=== PATIENT | male | born 1945 | race Caucasian/White ===

== ENCOUNTER → 2017-04-25 16:10 | Outpatient (CLI) | payer MEDICARE, OTHER, SELFPAY ==
[2017-04-25 17:22] LABS: Thyroid Stim Hormone (TSH) 2.34 uIU/mL (0.358-3.74)
== END ==
PROVIDERS: Family Provider Family Medicine Geriatric Medicine; PCP Family Medicine Geriatric Medicine; Visit Provider Family Medicine Geriatric Medicine
DX: E05.90 Thyrotoxicosis, unspecified without thyrotoxic crisis or storm (principal)
CPT/HCPCS: 36415; 84443

== ENCOUNTER → 2017-06-08 16:00 | Outpatient (CLI) | payer MEDICARE, OTHER, SELFPAY ==
[2017-06-08 16:53] LABS: Absolute Lymphocyte Count 2.41 X10^3/ul (0.83-4.51); Absolute Neutrophil Count 8.4 X10^3/uL (2.0-7.7); Basophil# 0.04 X10^3/uL; Basophil% 0.3 % (0-1); Eosinophil# 0.14 X10^3/uL; Eosinophils% 1.2 % (0-5); Hematocrit 41.9 % (40-54); Hemoglobin 14.6 g/dl (13.0-16.5); Lymphocyte # 2.41 X10^3/ul (4.0); Mean Corp Hgb Conc 34.8 g/gl (32-36); Mean Corpuscular Hgb 34.5 pg (27.0-32.0); Mean Corpuscular Volume 99.1 fL (80-94); Mean Platelet Vol. 10.2 fl (6.2-12.0); Monocyte# 0.97 X10^3/uL; Monocyte% 8.1 % (0-10); Neutrophil # 8.44 X10^3/uL (2.7-7.7); Neutrophil % 70.2 % (47-70); Platelet Count 215 K/mm3 (150-450); RBC Distribution Width CV 13.7 % (11.6-14.6); RBC Distribution Width SD 49.2 fl (35.1-43.9); Red Blood Count 4.23 M/mm3 (4.6-6.2)
[2017-06-08 16:55] LABS: POSITIVE COUNT NO; POSITIVE DIFFERENTIAL NO; POSITIVE MORPHOLOGY NO
[2017-06-08 17:09] LABS: Vitamin D,25 Hydroxy 33.7 ng/mL (29.95-100.01)
[2017-06-08 17:14] LABS: ALB/GLOB Ratio 1.2 RATIO (0.9-2.4); AST(SGOT) 26 U/L (15-37); Alanine Aminotransfer ALT/SGPT 31 U/L (16-61); Albumin, Serum 4.1 g/dL (3.2-5.0); Alkaline Phosphatase 77 U/L (45-117); Anion Gap 7 (5-15); BUN 18 mg/dL (7-18); BUN/Creat Ratio 13.5 RATIO (10-20); Chloride 98 mmol/L (98-107); Creatinine, Serum 1.33 mg/dL (0.70-1.30); EST Glomerular Filtration Rate 56 mL/min (>60); Est Glom Filt Rate - Afr Amer 68 mL/min (>60); Globulin 3.4 g/dL (2.2-4.2); Glucose 104 mg/dL (74-106); Potassium 4.4 mmol/L (3.5-5.1); Protein, Total 7.5 g/dL (6.4-8.2); Sodium Level 130 mmol/L (136-145); Thyroid Stim Hormone (TSH) 1.68 uIU/mL (0.358-3.74)
== END ==
PROVIDERS: Family Provider Family Medicine Geriatric Medicine; PCP Family Medicine Geriatric Medicine; Visit Provider Family Medicine Geriatric Medicine
DX: I10 Essential (primary) hypertension (principal); E55.9 Vitamin D deficiency, unspecified
CPT/HCPCS: 36415; 80053; 82306; 84443; 85025

== ENCOUNTER → 2017-09-06 14:36 | Outpatient (CLI) | payer MEDICARE, OTHER, SELFPAY ==
[2017-09-06 17:09] LABS: Absolute Lymphocyte Count 2.28 X10^3/ul (0.83-4.51); Absolute Neutrophil Count 5.8 X10^3/uL (2.0-7.7); Basophil# 0.03 X10^3/uL; Basophil% 0.3 % (0-1); Eosinophils% 1.1 % (0-5); Hematocrit 42.8 % (40-54); Hemoglobin 15.2 g/dl (13.0-16.5); Lymphocyte # 2.28 X10^3/ul (4.0); Lymphocyte % 25.5 % (19-41); Mean Corp Hgb Conc 35.5 g/gl (32-36); Mean Corpuscular Hgb 34.9 pg (27.0-32.0); Mean Corpuscular Volume 98.2 fL (80-94); Monocyte# 0.71 X10^3/uL; Monocyte% 7.9 % (0-10); Neutrophil # 5.81 X10^3/uL (2.7-7.7); Platelet Count 241 K/mm3 (150-450); RBC Distribution Width CV 13.4 % (11.6-14.6); RBC Distribution Width SD 48.3 fl (35.1-43.9); Red Blood Count 4.36 M/mm3 (4.6-6.2)
[2017-09-06 17:23] LABS: POSITIVE COUNT NO; POSITIVE DIFFERENTIAL NO; POSITIVE MORPHOLOGY NO
[2017-09-06 19:12] LABS: ALB/GLOB Ratio 1.2 RATIO (0.9-2.4); AST(SGOT) 31 U/L (15-37); Alanine Aminotransfer ALT/SGPT 33 U/L (16-61); Albumin, Serum 4.1 g/dL (3.2-5.0); Alkaline Phosphatase 77 U/L (45-117); Anion Gap 10 (5-15); BUN 12 mg/dL (7-18); BUN/Creat Ratio 9.8 RATIO (10-20); Calcium,Total 9.3 mg/dL (8.5-10.1); Chloride 97 mmol/L (98-107); Creatinine, Serum 1.23 mg/dL (0.70-1.30); EST Glomerular Filtration Rate 62 mL/min (>60); Est Glom Filt Rate - Afr Amer 75 mL/min (>60); Globulin 3.5 g/dL (2.2-4.2); Glucose 78 mg/dL (74-106); Protein, Total 7.6 g/dL (6.4-8.2); Sodium Level 133 mmol/L (136-145); Thyroid Stim Hormone (TSH) 1.38 uIU/mL (0.358-3.74)
[2017-09-07 08:37] LABS: Vitamin D,25 Hydroxy 31.9 ng/mL (29.95-100.01)
== END ==
PROVIDERS: Family Provider Family Medicine Geriatric Medicine; PCP Family Medicine Geriatric Medicine; Visit Provider Family Medicine Geriatric Medicine
DX: E55.9 Vitamin D deficiency, unspecified (principal); I10 Essential (primary) hypertension
CPT/HCPCS: 36415; 80053; 82306; 84443; 85025

== ENCOUNTER → 2017-12-05 14:40 | Outpatient (CLI) | payer MEDICARE, OTHER, SELFPAY ==
[2017-12-05 16:38] LABS: Absolute Neutrophil Count 8.6 X10^3/uL (2.0-7.7); Basophil# 0.04 X10^3/uL; Basophil% 0.3 % (0-1); Eosinophil# 0.08 X10^3/uL; Eosinophils% 0.7 % (0-5); Hematocrit 43.7 % (40-54); Lymphocyte % 19.1 % (19-41); Mean Corp Hgb Conc 34.3 g/gl (32-36); Mean Corpuscular Hgb 34.2 pg (27.0-32.0); Mean Corpuscular Volume 99.5 fL (80-94); Mean Platelet Vol. 9.9 fl (6.2-12.0); Monocyte# 1.01 X10^3/uL; Monocyte% 8.4 % (0-10); Neutrophil # 8.59 X10^3/uL (2.7-7.7); Neutrophil % 71.3 % (47-70); Platelet Count 286 K/mm3 (150-450); RBC Distribution Width CV 13.1 % (11.6-14.6); RBC Distribution Width SD 47.9 fl (35.1-43.9); Red Blood Count 4.39 M/mm3 (4.6-6.2); White Blood Count 12.1 K/mm3 (4.4-11.0)
[2017-12-05 16:41] LABS: Vitamin D,25 Hydroxy 32.2 ng/mL (29.95-100.01)
[2017-12-05 16:42] LABS: ALB/GLOB Ratio 1.1 RATIO (0.9-2.4); AST(SGOT) 28 U/L (15-37); Alanine Aminotransfer ALT/SGPT 33 U/L (16-61); Albumin, Serum 4.2 g/dL (3.2-5.0); Alkaline Phosphatase 102 U/L (45-117); Anion Gap 12 (5-15); BUN 14 mg/dL (7-18); BUN/Creat Ratio 9.5 RATIO (10-20); Calcium,Total 9.6 mg/dL (8.5-10.1); Chloride 94 mmol/L (98-107); Creatinine, Serum 1.47 mg/dL (0.70-1.30); EST Glomerular Filtration Rate 50 mL/min (>60); Est Glom Filt Rate - Afr Amer 61 mL/min (>60); Globulin 3.9 g/dL (2.2-4.2); Glucose 127 mg/dL (74-106); Protein, Total 8.1 g/dL (6.4-8.2); Sodium Level 131 mmol/L (136-145); Thyroid Stim Hormone (TSH) 1.99 uIU/mL (0.358-3.74)
[2017-12-05 17:23] LABS: POSITIVE COUNT NO; POSITIVE DIFFERENTIAL NO; POSITIVE MORPHOLOGY NO
== END ==
PROVIDERS: Family Provider Family Medicine Geriatric Medicine; PCP Family Medicine Geriatric Medicine; Visit Provider Family Medicine Geriatric Medicine
DX: E55.9 Vitamin D deficiency, unspecified (principal); I10 Essential (primary) hypertension
CPT/HCPCS: 36415; 80053; 82306; 84443; 85025

== ENCOUNTER → 2018-06-07 15:07 | Outpatient (CLI) | payer MEDICARE, OTHER, SELFPAY ==
[2018-06-07 16:44] LABS: Absolute Lymphocyte Count 2.25 X10^3/ul (0.83-4.51); Absolute Neutrophil Count 5.7 X10^3/uL (2.0-7.7); Basophil# 0.03 X10^3/uL; Basophil% 0.3 % (0-1); Eosinophil# 0.08 X10^3/uL; Eosinophils% 0.9 % (0-5); Hematocrit 41.2 % (40-54); Hemoglobin 14.6 g/dl (13.0-16.5); Lymphocyte # 2.25 X10^3/ul (4.0); Lymphocyte % 25.3 % (19-41); Mean Corp Hgb Conc 35.4 g/gl (32-36); Mean Corpuscular Hgb 34.6 pg (27.0-32.0); Mean Corpuscular Volume 97.6 fL (80-94); Monocyte# 0.82 X10^3/uL; Monocyte% 9.2 % (0-10); Neutrophil # 5.71 X10^3/uL (2.7-7.7); Neutrophil % 64.1 % (47-70); Platelet Count 261 K/mm3 (150-450); RBC Distribution Width SD 46.5 fl (35.1-43.9); Red Blood Count 4.22 M/mm3 (4.6-6.2); White Blood Count 8.9 K/mm3 (4.4-11.0)
[2018-06-07 16:45] LABS: POSITIVE COUNT NO; POSITIVE DIFFERENTIAL NO; POSITIVE MORPHOLOGY NO
[2018-06-07 17:01] LABS: Vitamin D,25 Hydroxy 19.4 ng/mL (29.95-100.01)
[2018-06-07 17:15] LABS: ALB/GLOB Ratio 1.2 RATIO (0.9-2.4); AST(SGOT) 29 U/L (15-37); Alanine Aminotransfer ALT/SGPT 28 U/L (16-61); Alkaline Phosphatase 71 U/L (45-117); Anion Gap 9 (5-15); BUN 14 mg/dL (7-18); BUN/Creat Ratio 10.8 RATIO (10-20); Calcium,Total 9.3 mg/dL (8.5-10.1); Chloride 97 mmol/L (98-107); EST Glomerular Filtration Rate 58 mL/min (>60); Est Glom Filt Rate - Afr Amer 70 mL/min (>60); Globulin 3.2 g/dL (2.2-4.2); Glucose 98 mg/dL (74-106); Potassium 3.6 mmol/L (3.5-5.1); Protein, Total 7.2 g/dL (6.4-8.2); Sodium Level 132 mmol/L (136-145); Thyroid Stim Hormone (TSH) 0.89 uIU/mL (0.358-3.74)
== END ==
PROVIDERS: Family Provider Family Medicine Geriatric Medicine; PCP Family Medicine Geriatric Medicine; Visit Provider Family Medicine Geriatric Medicine
DX: I10 Essential (primary) hypertension (principal); E55.9 Vitamin D deficiency, unspecified
CPT/HCPCS: 36415; 80053; 82306; 84443; 85025

== ENCOUNTER → 2018-12-13 14:31 | Outpatient (CLI) | payer MEDICARE, OTHER, SELFPAY ==
[2018-12-13 17:20] LABS: Absolute Lymphocyte Count 2.13 X10^3/uL (0.83-4.51); Absolute Neutrophil Count 5.3 X10^3/uL (2.0-7.7); Basophil# 0.06 X10^3/uL; Basophil% 0.7 % (0-1); Eosinophil# 0.14 X10^3/uL; Eosinophils% 1.7 % (0-5); Hematocrit 43.1 % (40-54); Hemoglobin 15.1 g/dL (13.0-16.5); Lymphocyte # 2.13 X10^3/ul (4.0); Lymphocyte % 25.4 % (19-41); Mean Corpuscular Hgb 35.1 pg (27.0-32.0); Mean Corpuscular Volume 100.2 fL (80-94); Mean Platelet Vol. 9.8 fl (6.2-12.0); Monocyte# 0.73 X10^3/uL; Monocyte% 8.7 % (0-10); NRBC Flagged by Analyzer 0 % (0-5); Neutrophil # 5.27 X10^3/uL (2.7-7.7); Platelet Count 253 K/mm3 (150-450); RBC Distribution Width CV 13.1 % (11.6-14.6); RBC Distribution Width SD 48.3 fl (35.1-43.9); White Blood Count 8.4 K/mm3 (4.4-11.0)
[2018-12-13 17:45] LABS: Vitamin D,25 Hydroxy 31.4 ng/mL (29.95-100.01)
[2018-12-13 17:47] LABS: ALB/GLOB Ratio 1.2 RATIO (0.9-2.4); AST(SGOT) 25 U/L (15-37); Alanine Aminotransfer ALT/SGPT 31 U/L (16-61); Albumin, Serum 4.1 g/dL (3.2-5.0); Alkaline Phosphatase 74 U/L (45-117); Anion Gap 9 (5-15); BUN 19 mg/dL (7-18); BUN/Creat Ratio 13.7 RATIO (10-20); Calcium,Total 9.4 mg/dL (8.5-10.1); Chloride 99 mmol/L (98-107); Creatinine, Serum 1.39 mg/dL (0.70-1.30); EST Glomerular Filtration Rate 53 mL/min (>60); Est Glom Filt Rate - Afr Amer 65 mL/min (>60); Globulin 3.4 g/dL (2.2-4.2); Glucose 101 mg/dL (74-106); Potassium 3.8 mmol/L (3.5-5.1); Protein, Total 7.5 g/dL (6.4-8.2); Sodium Level 133 mmol/L (136-145); Thyroid Stim Hormone (TSH) 1.16 uIU/mL (0.358-3.74)
== END ==
PROVIDERS: Family Provider Family Medicine Geriatric Medicine; PCP Family Medicine Geriatric Medicine; Visit Provider Family Medicine Geriatric Medicine
DX: I10 Essential (primary) hypertension (principal); E55.9 Vitamin D deficiency, unspecified
CPT/HCPCS: 36415; 80053; 82306; 84443; 85025

== ENCOUNTER → 2019-06-13 14:35 | Outpatient (CLI) | payer MEDICARE, OTHER, SELFPAY ==
[2019-06-13 14:51] LABS: Absolute Lymphocyte Count 2.36 X10^3/uL (0.83-4.51); Absolute Neutrophil Count 7.7 X10^3/uL (2.0-7.7); Basophil# 0.09 X10^3/uL; Basophil% 0.8 % (0-1); Eosinophil# 0.13 X10^3/uL; Eosinophils% 1.2 % (0-5); Hematocrit 44.9 % (40-54); Hemoglobin 15.5 g/dL (13.0-16.5); Lymphocyte # 2.36 X10^3/ul (4.0); Lymphocyte % 21.2 % (19-41); Mean Corp Hgb Conc 34.5 g/dL (32-36); Mean Corpuscular Hgb 34.6 pg (27.0-32.0); Mean Corpuscular Volume 100.2 fL (80-94); Monocyte# 0.85 X10^3/uL; Monocyte% 7.6 % (0-10); NRBC Flagged by Analyzer 0 % (0-5); Neutrophil # 7.66 X10^3/uL (2.7-7.7); Neutrophil % 68.8 % (47-70); Platelet Count 239 K/mm3 (150-450); RBC Distribution Width CV 13.6 % (11.6-14.6); RBC Distribution Width SD 50.3 fl (35.1-43.9); Red Blood Count 4.48 M/mm3 (4.6-6.2); White Blood Count 11.1 K/mm3 (4.4-11.0)
[2019-06-13 15:21] LABS: Vitamin D,25 Hydroxy 39.4 ng/mL
[2019-06-13 15:27] LABS: ALB/GLOB Ratio 1.2 RATIO (0.9-2.4); AST(SGOT) 27 U/L (15-37); Alanine Aminotransfer ALT/SGPT 29 U/L (16-61); Albumin, Serum 4.3 g/dL (3.2-5.0); Alkaline Phosphatase 72 U/L (45-117); Anion Gap 4 (5-15); BUN 17 mg/dL (7-18); BUN/Creat Ratio 11.2 RATIO (10-20); Calcium,Total 9.5 mg/dL (8.5-10.1); Chloride 102 mmol/L (98-107); Creatinine, Serum 1.52 mg/dL (0.70-1.30); EST Glomerular Filtration Rate 48 mL/min (>60); Est Glom Filt Rate - Afr Amer 58 mL/min (>60); Globulin 3.7 g/dL (2.2-4.2); Glucose 110 mg/dL (74-106); Potassium 3.9 mmol/L (3.5-5.1); Sodium Level 133 mmol/L (136-145); Thyroid Stim Hormone (TSH) 1.79 uIU/mL (0.358-3.74)
== END ==
PROVIDERS: PCP Family Medicine Geriatric Medicine; Referring Provider Family Medicine Geriatric Medicine; Visit Provider Family Medicine Geriatric Medicine
DX: E55.9 Vitamin D deficiency, unspecified (principal); I10 Essential (primary) hypertension
CPT/HCPCS: 36415; 80053; 82306; 84443; 85025

== ENCOUNTER → 2019-12-17 13:19 | Outpatient (CLI) | payer MEDICARE, OTHER, SELFPAY ==
[2019-12-17 17:01] LABS: Absolute Lymphocyte Count 2.11 X10^3/uL (0.83-4.51); Absolute Neutrophil Count 6.8 X10^3/uL (2.0-7.7); Basophil# 0.06 X10^3/uL; Basophil% 0.6 % (0-1); Eosinophil# 0.06 X10^3/uL; Eosinophils% 0.6 % (0-5); Hematocrit 45.3 % (40-54); Hemoglobin 15.3 g/dL (13.0-16.5); Lymphocyte # 2.11 X10^3/ul (4.0); Lymphocyte % 21.2 % (19-41); Mean Corp Hgb Conc 33.8 g/dL (32-36); Mean Corpuscular Hgb 34.5 pg (27.0-32.0); Mean Corpuscular Volume 102.3 fL (80-94); Monocyte# 0.88 X10^3/uL; Monocyte% 8.8 % (0-10); NRBC Flagged by Analyzer 0 % (0-5); Neutrophil % 68.4 % (47-70); Platelet Count 279 K/mm3 (150-450); RBC Distribution Width CV 13.6 % (11.6-14.6); RBC Distribution Width SD 51.9 fl (35.1-43.9); Red Blood Count 4.43 M/mm3 (4.6-6.2)
[2019-12-17 17:12] LABS: Vitamin D,25 Hydroxy 28.6 ng/mL
[2019-12-17 17:32] LABS: ALB/GLOB Ratio 1.2 RATIO (0.9-2.4); AST(SGOT) 31 U/L (15-37); Alanine Aminotransfer ALT/SGPT 33 U/L (16-61); Albumin, Serum 4.4 g/dL (3.2-5.0); Alkaline Phosphatase 74 U/L (45-117); Anion Gap 10 (5-15); BUN 16 mg/dL (7-18); BUN/Creat Ratio 10.4 RATIO (10-20); Calcium,Total 9.5 mg/dL (8.5-10.1); Chloride 101 mmol/L (98-107); Creatinine, Serum 1.54 mg/dL (0.70-1.30); EST Glomerular Filtration Rate 47 mL/min (>60); Est Glom Filt Rate - Afr Amer 57 mL/min (>60); Globulin 3.8 g/dL (2.2-4.2); Glucose 106 mg/dL (74-106); Potassium 4.2 mmol/L (3.5-5.1); Protein, Total 8.2 g/dL (6.4-8.2); Sodium Level 134 mmol/L (136-145); Thyroid Stim Hormone (TSH) 2.27 uIU/mL (0.358-3.74)
== END ==
PROVIDERS: PCP Family Medicine Geriatric Medicine; Visit Provider Family Medicine Geriatric Medicine
DX: I10 Essential (primary) hypertension (principal); E55.9 Vitamin D deficiency, unspecified
CPT/HCPCS: 36415; 80053; 82306; 84443; 85025

== ENCOUNTER → 2020-06-16 15:11 | Outpatient (CLI) | payer MEDICARE, OTHER, SELFPAY ==
[2020-06-16 16:43] LABS: Absolute Lymphocyte Count 2.14 X10^3/uL (0.83-4.51); Absolute Neutrophil Count 5.5 X10^3/uL (2.0-7.7); Basophil# 0.08 X10^3/uL; Basophil% 0.9 % (0-1); Eosinophil# 0.15 X10^3/uL; Eosinophils% 1.7 % (0-5); Hematocrit 42.3 % (40-54); Hemoglobin 14.3 g/dL (13.0-16.5); Lymphocyte # 2.14 X10^3/ul (0.83-4.51); Lymphocyte % 24.8 % (19-41); Mean Corp Hgb Conc 33.8 g/dL (32-36); Mean Corpuscular Hgb 33.7 pg (27.0-32.0); Mean Corpuscular Volume 99.8 fL (80-94); Mean Platelet Vol. 10.8 fl (6.2-12.0); Monocyte% 8.1 % (0-10); NRBC Flagged by Analyzer 0 % (0-5); Neutrophil # 5.54 X10^3/uL (2.7-7.7); Neutrophil % 64.2 % (47-70); Platelet Count 236 K/mm3 (150-450); RBC Distribution Width CV 13.5 % (11.6-14.6); RBC Distribution Width SD 49.4 fl (35.1-43.9); Red Blood Count 4.24 M/mm3 (4.6-6.2); White Blood Count 8.6 K/mm3 (4.4-11.0)
[2020-06-16 16:49] LABS: Vitamin D,25 Hydroxy 28.5 ng/mL
[2020-06-16 16:55] LABS: ALB/GLOB Ratio 1.2 RATIO (0.9-2.4); AST(SGOT) 32 U/L (15-37); Alanine Aminotransfer ALT/SGPT 30 U/L (16-61); Alkaline Phosphatase 76 U/L (45-117); Anion Gap 7 (5-15); BUN 19 mg/dL (7-18); BUN/Creat Ratio 12.5 RATIO (10-20); Calcium,Total 9.2 mg/dL (8.5-10.1); Chloride 103 mmol/L (98-107); Creatinine, Serum 1.52 mg/dL (0.70-1.30); EST Glomerular Filtration Rate 48 mL/min (>60); Est Glom Filt Rate - Afr Amer 58 mL/min (>60); Globulin 3.4 g/dL (2.2-4.2); Glucose 98 mg/dL (74-106); Potassium 3.9 mmol/L (3.5-5.1); Protein, Total 7.4 g/dL (6.4-8.2); Sodium Level 137 mmol/L (136-145); Thyroid Stim Hormone (TSH) 1.84 uIU/mL (0.358-3.74)
== END ==
PROVIDERS: PCP Family Medicine Geriatric Medicine; Visit Provider Family Medicine Geriatric Medicine
DX: I10 Essential (primary) hypertension (principal); E55.9 Vitamin D deficiency, unspecified
CPT/HCPCS: 36415; 80053; 82306; 84443; 85025

== ENCOUNTER → 2020-10-06 16:25 | Outpatient (CLI) | payer MEDICARE, OTHER, SELFPAY ==
[2020-10-06 17:20] LABS: Anion Gap 5 (5-15); BUN 26 mg/dL (7-18); BUN/Creat Ratio 16.9 RATIO (10-20); Calcium,Total 9.1 mg/dL (8.5-10.1); Chloride 101 mmol/L (98-107); Creatinine, Serum 1.54 mg/dL (0.70-1.30); EST Glomerular Filtration Rate 47 mL/min (>60); Est Glom Filt Rate - Afr Amer 57 mL/min (>60); Glucose 113 mg/dL (74-106); Potassium 4.6 mmol/L (3.5-5.1); Sodium Level 130 mmol/L (136-145)
== END ==
PROVIDERS: PCP Family Medicine Geriatric Medicine; Visit Provider Family Medicine Geriatric Medicine
DX: I10 Essential (primary) hypertension (principal)
CPT/HCPCS: 36415; 80048

== ENCOUNTER → 2020-12-17 13:54 | Outpatient (CLI) | payer MEDICARE, OTHER, SELFPAY ==
[2020-12-17 14:18] LABS: Absolute Lymphocyte Count 1.79 X10^3/uL (0.83-4.51); Absolute Neutrophil Count 7.9 X10^3/uL (2.0-7.7); Basophil# 0.06 X10^3/uL; Basophil% 0.6 % (0-1); Eosinophil# 0.15 X10^3/uL; Eosinophils% 1.4 % (0-5); Hemoglobin 14.4 g/dL (13.0-16.5); Lymphocyte # 1.79 X10^3/ul (0.83-4.51); Lymphocyte % 16.5 % (19-41); Mean Corp Hgb Conc 35.1 g/dL (32-36); Mean Corpuscular Volume 99.5 fL (80-94); Mean Platelet Vol. 9.6 fl (6.2-12.0); Monocyte# 0.89 X10^3/uL; Monocyte% 8.2 % (0-10); NRBC Flagged by Analyzer 0 % (0-5); Neutrophil # 7.91 X10^3/uL (2.7-7.7); Neutrophil % 72.8 % (47-70); Platelet Count 278 K/mm3 (150-450); RBC Distribution Width CV 13.6 % (11.6-14.6); RBC Distribution Width SD 49.9 fl (35.1-43.9); Red Blood Count 4.12 M/mm3 (4.6-6.2); White Blood Count 10.9 K/mm3 (4.4-11.0)
[2020-12-17 14:43] LABS: Vitamin D,25 Hydroxy 32.8 ng/mL
[2020-12-17 14:50] LABS: ALB/GLOB Ratio 1.1 RATIO (0.9-2.4); AST(SGOT) 27 U/L (15-37); Alanine Aminotransfer ALT/SGPT 27 U/L (16-61); Alkaline Phosphatase 73 U/L (45-117); Anion Gap 7 (5-15); BUN 19 mg/dL (7-18); Calcium,Total 9.1 mg/dL (8.5-10.1); Chloride 102 mmol/L (98-107); Creatinine, Serum 1.72 mg/dL (0.70-1.30); EST Glomerular Filtration Rate 41 mL/min (>60); Est Glom Filt Rate - Afr Amer 50 mL/min (>60); Globulin 3.8 g/dL (2.2-4.2); Glucose 154 mg/dL (74-106); Potassium 3.5 mmol/L (3.5-5.1); Protein, Total 7.8 g/dL (6.4-8.2); Sodium Level 134 mmol/L (136-145); Thyroid Stim Hormone (TSH) 2.22 uIU/mL (0.358-3.74)
== END ==
PROVIDERS: PCP Family Medicine Geriatric Medicine; Visit Provider Family Medicine Geriatric Medicine
DX: E55.9 Vitamin D deficiency, unspecified (principal); I10 Essential (primary) hypertension
CPT/HCPCS: 36415; 80053; 82306; 84443; 85025

== ENCOUNTER → 2020-12-25 06:16 | Outpatient (CLI) | payer MEDICARE, OTHER, SELFPAY ==
--- NOTE | 2020-12-25 06:22 | ECHOCS_ITS ---
Reason For Study: ABN EKG Procedure This was a 2D Doppler, Color Flow transthoracic echocardiogram. The study was technically difficult. Contrast injection was performed. Exam performed in department. Left Ventricle Normal LV size. Left ventricular systolic function is normal. The estimated ejection fraction is 65 %. No evidence for diastolic dysfunction. No regional wall motion abnormalities noted. Right Ventricle Normal RV size. Normal systolic function. Atria Normal left atrium. Normal right atrium. No doppler evidence for ASD. Mitral Valve There is no mitral annular calcification. Normal mitral valve. Mild (1+) mitral valve insufficiency. Tricuspid Valve Normal tricuspid valve. Trivial tricuspid valve insufficiency. Right ventricular systolic pressure estimated to be 28 mmHg. Aortic Valve Trisinus/trileaflet aortic valve. Mild diffuse aortic valve thickening. Mild diffuse aortic valve calcification. Moderate focal aortic valve calcification. Trivial aortic valve insufficiency. Pulmonic Valve The pulmonic valve is not well visualized. Trivial pulmonic valve insufficiency. Great Vessels Mildly dilated aortic root. Pericardium/Pleural No pericardial effusion. Medication 22 gauge I.V. with prn adaptor inserted into right arm. Diluted definity 2.0ml given slow IV push to enhance endocardial definition. MMode/2D Measurements & Calculations LVIDd: 4.1 cm IVSd: 0.89 cm LVOT diam: 2.0 cm LVIDs: 2.6 cm LVPWd: 0.86 cm RVDd: 3.8 cm FS: 35.2 % LVOT area: 3.2 cm2 Ao root diam: 4.0 cm LAV(MOD-bp): 41.4 ml LVAd ap4: 29.4 cm2 LAV(MOD-bp) Indexed: 20.6 ml/m2 LVLd ap4: 8.6 cm LAV(MOD-sp2): 41.8 ml EDV(MOD-sp4): 83.9 ml LAV(MOD-sp4): 39.3 ml EDV(sp4-el): 85.8 ml LVAs ap4: 17.3 cm2 LVLs ap4: 7.1 cm ESV(MOD-sp4): 35.8 ml ESV(sp4-el): 35.7 ml EF(MOD-sp4): 57.4 % EF(sp4-el): 58.4 % LVAd ap2: 26.7 cm2 SV(MOD-sp4): 48.1 ml SV(MOD-sp2): 45.1 ml LVLd ap2: 7.8 cm EDV(MOD-sp2): 74.5 ml EDV(sp2-el): 77.7 ml LVAs ap2: 15.3 cm2 LVLs ap2: 6.7 cm ESV(MOD-sp2): 29.4 ml ESV(sp2-el): 30.0 ml EF(MOD-sp2): 60.6 % SV(sp4-el): 50.1 ml LA dimension(2D): 3.7 cm LA A4 area: 15.9 cm2 RA A4 area: 15.5 cm2 Doppler Measurements & Calculations MV E max kamlesh: 61.8 cm/sec Lat Peak E' Kamlesh: 9.6 cm/sec Med Peak E' Kamlesh: 6.2 cm/sec MV A max kamlesh: 44.5 cm/sec E/E' lat: 6.4 E/E' med: 10.0 MV E/A: 1.4 Ao V2 max: 121.6 cm/sec AI max kamlesh: 414.5 cm/sec LV V1 max: 102.4 cm/sec Ao max P.9 mmHg AI max P.7 mmHg LV V1 max P.2 mmHg GLADYS(V,D): 2.7 cm2 AI dec slope: 279.8 cm/sec2 AI P1/2t: 433.9 msec TR max kamlesh: 248.0 cm/sec TR max P.6 mmHg ECHO/Echo Complete W/ Contrast Interpretation Summary The study was technically difficult. Contrast injection was performed. Left ventricular systolic function is normal. The estimated ejection fraction is 65 %. Mild (1+) mitral valve insufficiency. Trivial tricuspid valve insufficiency. Mild diffuse aortic valve thickening. Mild diffuse aortic valve calcification. Moderate focal aortic valve calcification. Trivial aortic valve insufficiency. Trivial pulmonic valve insufficiency. Mildly dilated aortic root. Right ventricular systolic pressure estimated to be 28 mmHg. No evidence for diastolic dysfunction. Ordering Physician: Juan M, Deng Referring Physician: Deng Mcgowan Chi Performed By: Carrol Suero, RDCS, RVT
--- NOTE | 2020-12-25 10:01 | STRESSREP ---
Stress Test Report Date: 12-25-2020 Procedure: Exercise tolerance test/imaging study Indications: Abnormal electrocardiogram Consent: Per the patient Procedure: The patient exercised on a Dinh protocol for 3 minutes and 8 seconds completing Stage I and 8 seconds of Stage II achieving a peak heart rate of 126 bpm (86% predicted maximal heart rate) with a peak blood pressure 180/84 mmHg and a peak MET capacity of 4 METs. The baseline ECG demonstrated sinus bradycardia; low voltage QRS; anterior [place] of indeterminate age cannot be excluded. The peak exercise ECG demonstrated somatic/motion artifact with no obvious ECG changes. There was a rare PVC during exercise and a rare PAC/PVC during recovery. The functional capacity was considered decreased. There was no complaint of chest discomfort during exercise or recovery. The examination was discontinued secondary to dyspnea and fatigue. Impression: 1. Technically adequate (percent predicted maximal heart rate greater than 85%) exercise tolerance test 2. Peak exercise ECG with somatic/motion artifact with no obvious ECG changes 3. There was a rare PVC during exercise and a rare PAC/PVC during recovery 4. Nuclear images pending Myocardial perfusion imaging study: Technique: The patient was injected with 11.9 mCi of technetium 99m Cardiolite and subsequently rest SPECT Cardiolite nuclear imaging was obtained in the horizontal long, vertical long, and short axis views. The patient exercised on a Dinh protocol for 3 minutes and 8 seconds completing Stage I and 8 seconds of Stage II achieving a peak heart rate of 126 bpm (86% predicted maximal heart rate) with a peak blood pressure 180/84 mmHg and a peak MET capacity of 4 METs. The patient was injected with 33.6 mCi of technetium 99m Cardiolite and subsequently stress SPECT Cardiolite nuclear imaging was obtained in the horizontal long, vertical long, and short axis views. A gated Cardiolite study at peak stress was obtained. Interpretation: Rest and stress SPECT Cardiolite nuclear imaging status post realignment, normalization, and attenuation correction, demonstrates the appearance of significant body motion during image acquisition and the appearance of a small area diminished tracer uptake in the distal inferoseptal/septal apical segments which appears to be somewhat more prominent following stress. There is end systolic thickening and brightening. The gated Cardiolite study demonstrates myocardial thickening and inward wall motion. The reported LVEF is 68%. Impression: 1. Rest and stress SPECT Cardiolite nuclear imaging demonstrate the appearance of significant body motion during image acquisition and the appearance of a small area of diminished tracer uptake in the distal anteroseptal/septal apical segments which appears to be somewhat more prominent following stress which, based upon the significant body motion during image acquisition, may be related to shifting soft tissue attenuation/artifact, however, an area of previous myocardial injury/infarction with associated mild taina-infarct related myocardial ischemia cannot necessarily be excluded. 2. The gated Cardiolite study reports an LVEF of 68%. This note was generated with Smart [employer]ation software. It may contain incorrect words, spelling, and punctuation that were not noted in checking the note before signing.
== END ==
PROVIDERS: PCP Family Medicine Geriatric Medicine; Referring Provider Family Medicine Geriatric Medicine; Visit Provider Family Medicine Geriatric Medicine
DX: R94.31 Abnormal electrocardiogram [ECG] [EKG] (principal)
CPT/HCPCS: 78452; 93017; 93306; A9500; Q9957; A4216; C8929; J3490

== ENCOUNTER → 2021-06-17 | Outpatient (CLI) | payer MEDICARE, OTHER, SELFPAY ==
[2021-06-17 15:46] LABS: Absolute Lymphocyte Count 1.33 X10^3/uL (0.83-4.51); Absolute Neutrophil Count 7.1 X10^3/uL (2.0-7.7); Basophil# 0.08 X10^3/uL; Basophil% 0.8 % (0-1); Eosinophil# 0.27 X10^3/uL; Eosinophils% 2.8 % (0-5); Hematocrit 38.1 % (40-54); Hemoglobin 13.5 g/dL (13.0-16.5); Lymphocyte # 1.33 X10^3/ul (0.83-4.51); Mean Corp Hgb Conc 35.4 g/dL (32-36); Mean Corpuscular Hgb 34.3 pg (27.0-32.0); Mean Corpuscular Volume 96.7 fL (80-94); Mean Platelet Vol. 10.1 fl (6.2-12.0); Monocyte% 7.4 % (0-10); NRBC Flagged by Analyzer 0 % (0-5); Neutrophil # 7.06 X10^3/uL (2.7-7.7); Neutrophil % 74.5 % (47-70); Platelet Count 235 K/mm3 (150-450); RBC Distribution Width CV 13.6 % (11.6-14.6); RBC Distribution Width SD 48.8 fl (35.1-43.9); Red Blood Count 3.94 M/mm3 (4.6-6.2); White Blood Count 9.5 K/mm3 (4.4-11.0)
[2021-06-17 16:06] LABS: ALB/GLOB Ratio 1.2 RATIO (0.9-2.4); AST(SGOT) 29 U/L (15-37); Alanine Aminotransfer ALT/SGPT 30 U/L (16-61); Alkaline Phosphatase 59 U/L (45-117); Anion Gap 7 (5-15); BUN 16 mg/dL (7-18); Chloride 100 mmol/L (98-107); Creatinine, Serum 1.45 mg/dL (0.70-1.30); EST Glomerular Filtration Rate 50 mL/min (>60); Est Glom Filt Rate - Afr Amer 61 mL/min (>60); Globulin 3.3 g/dL (2.2-4.2); Glucose 138 mg/dL (74-106); Protein, Total 7.3 g/dL (6.4-8.2); Sodium Level 132 mmol/L (136-145)
[2021-06-17 16:10] LABS: Vitamin D,25 Hydroxy 33.2 ng/mL
== END | disposition home or self-care (01) ==
LOC: POLAB3 15:08
PROVIDERS: PCP Family Medicine Geriatric Medicine; Visit Provider Family Medicine Geriatric Medicine
DX: I10 Essential (primary) hypertension (principal); E55.9 Vitamin D deficiency, unspecified
CPT/HCPCS: 36415; 80053; 82306; 84443; 85025

== ENCOUNTER → 2021-07-31 | Outpatient (CLI) | payer MEDICARE, OTHER, SELFPAY ==
--- NOTE | 2021-07-31 11:33 | US_ITS ---
STUDY: RENAL ULTRASOUND - COMPLETE REASON FOR EXAM: Male, 76 years old. CHRONIC KIDNEY DISEASE TECHNIQUE: Ultrasound evaluation of the kidneys was performed with real-time and static aguilar-scale imaging. COMPARISON: None. FINDINGS: RIGHT KIDNEY: Normal location of the right kidney, which is normal in size. The right kidney measures 10 cm x 4.9 cm x 4.4 cm. There is a normal cortex of the right kidney. The renal cortex measures 1.1 cm. There is no right renal mass or cyst. There are no right renal calculi. There is no right hydronephrosis. DISTAL RIGHT URETER: There is non-visualization of the distal right ureter. There is no demonstrated right ureterovesical junction calculus. There is a visualized right ureteral jet. LEFT KIDNEY: Normal location of the left kidney, which is normal in size. The left kidney measures 10.7 cm x 5.6 cm x 5.8 cm. There is a normal cortex of the left kidney. The renal cortex measures 1.7 cm. There is no left renal mass or cyst. Nonobstructive intrarenal calculus measuring 8 mm x 10 mm x 8 mm. There is no left hydronephrosis. DISTAL LEFT URETER: There is non-visualization of the distal left ureter. There is no demonstrated left ureterovesical junction calculus. There is a visualized left ureteral jet. BLADDER: The distended urinary bladder has a volume of 133 ml. Incidental note is made of a bladder diverticulum along the posterior right side of the bladder. There is a normal wall thickness of the distended urinary bladder. There is no demonstrated mass within the urinary bladder. There are no demonstrated bladder calculi. US/Kidney and Bladder IMPRESSION: Nonobstructive left intrarenal calculus. 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 Electronically Signed: Lico Lerner MD at 13:00 EDT ,
== END | disposition home or self-care (01) ==
LOC: US 11:31
PROVIDERS: PCP Family Medicine Geriatric Medicine; Referring Provider Internal Medicine Nephrology; Visit Provider Internal Medicine Nephrology
DX: N18.31 Chronic kidney disease, stage 3a (principal)
CPT/HCPCS: 76770

== ENCOUNTER → 2021-10-21 | Outpatient (CLI) | payer MEDICARE, OTHER, SELFPAY ==
[2021-10-21 16:25] LABS: Albumin, Serum 4.1 g/dL (3.2-5.0); BUN 19 mg/dL (7-18); BUN/Creat Ratio 13.7 RATIO (10-20); Calcium,Total 9.6 mg/dL (8.5-10.1); Chloride 100 mmol/L (98-107); Creatinine, Serum 1.39 mg/dL (0.70-1.30); EST Glomerular Filtration Rate 53 mL/min (>60); Est Glom Filt Rate - Afr Amer 64 mL/min (>60); Glucose 121 mg/dL (74-106); Phosphorus 2.8 mg/dL (2.5-4.9); Potassium 4.2 mmol/L (3.5-5.1); Sodium Level 132 mmol/L (136-145)
== END | disposition home or self-care (01) ==
LOC: POLAB3 14:35
PROVIDERS: PCP Family Medicine Geriatric Medicine; Visit Provider Internal Medicine Nephrology
DX: N18.31 Chronic kidney disease, stage 3a (principal)
CPT/HCPCS: 36415; 80069

== ENCOUNTER → 2021-12-21 | Outpatient (CLI) | payer MEDICARE, OTHER, SELFPAY ==
[2021-12-21 17:57] LABS: Absolute Neutrophil Count 6.9 X10^3/uL (2.0-7.7); Basophil# 0.05 X10^3/uL; Basophil% 0.5 % (0-1); Eosinophil# 0.13 X10^3/uL; Eosinophils% 1.3 % (0-5); Hemoglobin 14.8 g/dL (13.0-16.5); Lymphocyte % 16.5 % (19-41); Mean Corp Hgb Conc 35.2 g/dL (32-36); Mean Corpuscular Hgb 34.4 pg (27.0-32.0); Mean Corpuscular Volume 97.7 fL (80-94); Mean Platelet Vol. 10.4 fl (6.2-12.0); Monocyte% 10.3 % (0-10); NRBC Flagged by Analyzer 0 % (0-5); Neutrophil # 6.91 X10^3/uL (2.7-7.7); Neutrophil % 71.1 % (47-70); Platelet Count 258 K/mm3 (150-450); RBC Distribution Width CV 13.5 % (11.6-14.6); RBC Distribution Width SD 48.8 fl (35.1-43.9); White Blood Count 9.7 K/mm3 (4.4-11.0)
[2021-12-21 18:03] LABS: Vitamin D,25 Hydroxy 40.5 ng/mL
[2021-12-21 18:15] LABS: ALB/GLOB Ratio 1.1 RATIO (0.9-2.4); AST(SGOT) 30 U/L (15-37); Alanine Aminotransfer ALT/SGPT 28 U/L (16-61); Albumin, Serum 4.2 g/dL (3.2-5.0); Alkaline Phosphatase 73 U/L (45-117); Anion Gap 9 (5-15); BUN 17 mg/dL (7-18); BUN/Creat Ratio 11.3 RATIO (10-20); Calcium,Total 9.6 mg/dL (8.5-10.1); Chloride 97 mmol/L (98-107); Creatinine, Serum 1.51 mg/dL (0.70-1.30); EST Glomerular Filtration Rate 48 mL/min (>60); Est Glom Filt Rate - Afr Amer 58 mL/min (>60); Globulin 3.7 g/dL (2.2-4.2); Glucose 105 mg/dL (74-106); Potassium 3.8 mmol/L (3.5-5.1); Protein, Total 7.9 g/dL (6.4-8.2); Sodium Level 131 mmol/L (136-145); Thyroid Stim Hormone (TSH) 3.04 uIU/mL (0.358-3.74)
== END | disposition home or self-care (01) ==
LOC: POLAB3 15:14
PROVIDERS: PCP Family Medicine Geriatric Medicine; Visit Provider Family Medicine Geriatric Medicine
DX: E55.9 Vitamin D deficiency, unspecified (principal); I10 Essential (primary) hypertension
CPT/HCPCS: 36415; 80053; 82306; 84443; 85025

== ENCOUNTER → 2022-06-09 | Outpatient (CLI) | payer MEDICARE, OTHER, SELFPAY ==
[2022-06-09 16:31] LABS: BUN 21 mg/dL (7-18); BUN/Creat Ratio 14.4 RATIO (10-20); Calcium,Total 9.2 mg/dL (8.5-10.1); Chloride 101 mmol/L (98-107); Creatinine, Serum 1.46 mg/dL (0.70-1.30); EST Glomerular Filtration Rate 50 mL/min (>60); Est Glom Filt Rate - Afr Amer 60 mL/min (>60); Glucose 116 mg/dL (74-106); Phosphorus 2.7 mg/dL (2.5-4.9); Sodium Level 129 mmol/L (136-145)
== END | disposition home or self-care (01) ==
LOC: POLAB3 14:47
PROVIDERS: PCP Family Medicine Geriatric Medicine; Visit Provider Internal Medicine Nephrology
DX: N18.31 Chronic kidney disease, stage 3a (principal)
CPT/HCPCS: 36415; 80069

== ENCOUNTER → 2022-06-14 | Outpatient (CLI) | payer MEDICARE, OTHER, SELFPAY ==
[2022-06-14 16:53] LABS: Absolute Lymphocyte Count 1.39 X10^3/uL (0.83-4.51); Basophil# 0.07 X10^3/uL; Basophil% 0.9 % (0-1); Eosinophil# 0.26 X10^3/uL; Eosinophils% 3.5 % (0-5); Hematocrit 41.4 % (40-54); Hemoglobin 14.4 g/dL (13.0-16.5); Lymphocyte # 1.39 X10^3/ul (0.83-4.51); Lymphocyte % 18.5 % (19-41); Mean Corp Hgb Conc 34.8 g/dL (32-36); Mean Corpuscular Volume 100.7 fL (80-94); Mean Platelet Vol. 10.2 fl (6.2-12.0); Monocyte# 0.74 X10^3/uL; Monocyte% 9.9 % (0-10); NRBC Flagged by Analyzer 0 % (0-5); Neutrophil # 5.02 X10^3/uL (2.7-7.7); Neutrophil % 66.9 % (47-70); Platelet Count 244 K/mm3 (150-450); RBC Distribution Width CV 13.9 % (11.6-14.6); RBC Distribution Width SD 51.9 fl (35.1-43.9); Red Blood Count 4.11 M/mm3 (4.6-6.2); White Blood Count 7.5 K/mm3 (4.4-11.0)
[2022-06-14 17:09] LABS: Vitamin D,25 Hydroxy 46.4 ng/mL
[2022-06-14 17:16] LABS: ALB/GLOB Ratio 1.2 RATIO (0.9-2.4); AST(SGOT) 31 U/L (15-37); Alanine Aminotransfer ALT/SGPT 30 U/L (16-61); Albumin, Serum 4.1 g/dL (3.2-5.0); Alkaline Phosphatase 65 U/L (45-117); Anion Gap 7 (5-15); BUN 21 mg/dL (7-18); BUN/Creat Ratio 14.6 RATIO (10-20); Calcium,Total 9.8 mg/dL (8.5-10.1); Chloride 102 mmol/L (98-107); Creatinine, Serum 1.44 mg/dL (0.70-1.30); EST Glomerular Filtration Rate 51 mL/min (>60); Est Glom Filt Rate - Afr Amer 61 mL/min (>60); Globulin 3.5 g/dL (2.2-4.2); Glucose 127 mg/dL (74-106); Protein, Total 7.6 g/dL (6.4-8.2); Sodium Level 135 mmol/L (136-145); Thyroid Stim Hormone (TSH) 3.08 uIU/mL (0.358-3.74)
== END | disposition home or self-care (01) ==
LOC: POLAB3 14:50
PROVIDERS: PCP Family Medicine Geriatric Medicine; Visit Provider Family Medicine Geriatric Medicine
DX: E55.9 Vitamin D deficiency, unspecified (principal); I10 Essential (primary) hypertension
CPT/HCPCS: 36415; 80053; 82306; 84443; 85025

== ENCOUNTER → 2022-12-23 | Outpatient (CLI) | payer MEDICARE, OTHER, SELFPAY ==
[2022-12-23 18:25] LABS: Albumin, Serum 4.4 g/dL (3.2-5.0); BUN 17 mg/dL (7-18); BUN/Creat Ratio 13.9 RATIO (10-20); Calcium,Total 9.7 mg/dL (8.5-10.1); Chloride 92 mmol/L (98-107); Creatinine, Serum 1.22 mg/dL (0.70-1.30); EST Glomerular Filtration Rate 61 mL/min (>60); Est Glom Filt Rate - Afr Amer 74 mL/min (>60); Glucose 116 mg/dL (74-106); Phosphorus 2.4 mg/dL (2.5-4.9); Sodium Level 123 mmol/L (136-145)
== END | disposition home or self-care (01) ==
LOC: POLAB3 16:03
PROVIDERS: PCP Family Medicine Geriatric Medicine; Visit Provider Internal Medicine Nephrology
DX: N18.31 Chronic kidney disease, stage 3a (principal)
CPT/HCPCS: 36415; 80069

== ENCOUNTER → 2022-12-29 | Outpatient (CLI) | payer MEDICARE, OTHER, SELFPAY ==
[2022-12-29 14:35] LABS: Absolute Lymphocyte Count 1.43 X10^3/uL (0.83-4.51); Absolute Neutrophil Count 5.2 X10^3/uL (2.0-7.7); Basophil# 0.06 X10^3/uL; Basophil% 0.8 % (0-1); Eosinophil# 0.07 X10^3/uL; Eosinophils% 0.9 % (0-5); Hemoglobin 14.3 g/dL (13.0-16.5); Lymphocyte # 1.43 X10^3/ul (0.83-4.51); Lymphocyte % 18.8 % (19-41); Mean Corp Hgb Conc 34.9 g/dL (32-36); Mean Corpuscular Hgb 34.7 pg (27.0-32.0); Mean Corpuscular Volume 99.5 fL (80-94); Mean Platelet Vol. 9.4 fl (6.2-12.0); Monocyte# 0.79 X10^3/uL; Monocyte% 10.4 % (0-10); NRBC Flagged by Analyzer 0 % (0-5); Neutrophil % 68.4 % (47-70); Platelet Count 259 K/mm3 (150-450); RBC Distribution Width CV 13.7 % (11.6-14.6); Red Blood Count 4.12 M/mm3 (4.6-6.2); White Blood Count 7.6 K/mm3 (4.4-11.0)
[2022-12-29 14:35] LABS: Urine Sodium 124 mmol/L (Not Establ.)
[2022-12-29 14:42] LABS: Osmolality, Urine 568 mOsm/KG
[2022-12-29 14:47] LABS: Vitamin D,25 Hydroxy 38.8 ng/mL
[2022-12-29 14:56] LABS: ALB/GLOB Ratio 1.1 RATIO (0.9-2.4); AST(SGOT) 28 U/L (15-37); Alanine Aminotransfer ALT/SGPT 28 U/L (16-61); Albumin, Serum 3.9 g/dL (3.2-5.0); Alkaline Phosphatase 65 U/L (45-117); Anion Gap 7 (5-15); BUN 21 mg/dL (7-18); BUN/Creat Ratio 16.8 RATIO (10-20); Calcium,Total 9.5 mg/dL (8.5-10.1); Chloride 101 mmol/L (98-107); Creatinine, Serum 1.25 mg/dL (0.70-1.30); EST Glomerular Filtration Rate 60 mL/min (>60); Est Glom Filt Rate - Afr Amer 72 mL/min (>60); Globulin 3.6 g/dL (2.2-4.2); Glucose 90 mg/dL (74-106); Potassium 3.7 mmol/L (3.5-5.1); Protein, Total 7.5 g/dL (6.4-8.2); Sodium Level 133 mmol/L (136-145); Thyroid Stim Hormone (TSH) 1.56 uIU/mL (0.358-3.74)
== END | disposition home or self-care (01) ==
LOC: POLAB3 13:11
PROVIDERS: PCP Family Medicine Geriatric Medicine; Visit Provider Family Medicine Geriatric Medicine
DX: I10 Essential (primary) hypertension (principal); E55.9 Vitamin D deficiency, unspecified; E87.1 Hypo-osmolality and hyponatremia
CPT/HCPCS: 36415; 80053; 82306; 83935; 84300; 84443; 85025

== ENCOUNTER → 2023-06-30 | Outpatient (CLI) | payer MEDICARE, OTHER, SELFPAY ==
[2023-06-30 16:32] LABS: Absolute Lymphocyte Count 1.47 X10^3/uL (0.83-4.51); Absolute Neutrophil Count 5.1 X10^3/uL (2.0-7.7); Basophil# 0.08 X10^3/uL; Basophil% 1.1 % (0-1); Eosinophil# 0.24 X10^3/uL; Eosinophils% 3.2 % (0-5); Hematocrit 41.7 % (40-54); Hemoglobin 14.4 g/dL (13.0-16.5); Lymphocyte # 1.47 X10^3/ul (0.83-4.51); Lymphocyte % 19.5 % (19-41); Mean Corp Hgb Conc 34.5 g/dL (32-36); Mean Corpuscular Hgb 35.4 pg (27.0-32.0); Mean Corpuscular Volume 102.5 fL (80-94); Mean Platelet Vol. 10.7 fl (6.2-12.0); Monocyte# 0.65 X10^3/uL; Monocyte% 8.6 % (0-10); NRBC Flagged by Analyzer 0 % (0-5); Neutrophil # 5.05 X10^3/uL (2.7-7.7); Neutrophil % 67.2 % (47-70); Platelet Count 239 K/mm3 (150-450); RBC Distribution Width CV 13.9 % (11.6-14.6); Red Blood Count 4.07 M/mm3 (4.6-6.2); White Blood Count 7.5 K/mm3 (4.4-11.0)
[2023-06-30 17:15] LABS: ALB/GLOB Ratio 1.1 RATIO (0.9-2.4); AST(SGOT) 30 U/L (15-37); Alanine Aminotransfer ALT/SGPT 25 U/L (16-61); Albumin, Serum 3.8 g/dL (3.2-5.0); Alkaline Phosphatase 66 U/L (45-117); Anion Gap 4 (5-15); BUN 14 mg/dL (7-18); BUN/Creat Ratio 10.4 RATIO (10-20); Calcium,Total 9.6 mg/dL (8.5-10.1); Chloride 107 mmol/L (98-107); Creatinine, Serum 1.34 mg/dL (0.70-1.30); EST Glomerular Filtration Rate 55 mL/min (>60); Est Glom Filt Rate - Afr Amer 66 mL/min (>60); Globulin 3.4 g/dL (2.2-4.2); Glucose 107 mg/dL (74-106); Protein, Total 7.2 g/dL (6.4-8.2); Sodium Level 136 mmol/L (136-145); Thyroid Stim Hormone (TSH) 2.82 uIU/mL (0.358-3.74)
[2023-06-30 17:22] LABS: Vitamin D,25 Hydroxy 36.1 ng/mL
== END | disposition home or self-care (01) ==
LOC: LAB 15:10
PROVIDERS: PCP Family Medicine Geriatric Medicine; Referring Provider Family Medicine Geriatric Medicine; Visit Provider Family Medicine Geriatric Medicine
DX: I10 Essential (primary) hypertension (principal); E55.9 Vitamin D deficiency, unspecified
CPT/HCPCS: 36415; 80053; 82306; 84443; 85025

== ENCOUNTER → 2024-01-05 | Outpatient (CLI) | payer MEDICARE, OTHER, SELFPAY ==
[2024-01-05 13:20] LABS: Absolute Lymphocyte Count 1.37 X10^3/uL (0.83-4.51); Absolute Neutrophil Count 7.3 X10^3/uL (2.0-7.7); Basophil# 0.09 X10^3/uL; Basophil% 0.9 % (0-1); Eosinophil# 0.09 X10^3/uL; Eosinophils% 0.9 % (0-5); Hematocrit 42.8 % (40-54); Hemoglobin 14.7 g/dL (13.0-16.5); Lymphocyte # 1.37 X10^3/ul (0.83-4.51); Lymphocyte % 13.9 % (19-41); Mean Corp Hgb Conc 34.3 g/dL (32-36); Mean Corpuscular Volume 101.9 fL (80-94); Mean Platelet Vol. 10.5 fl (6.2-12.0); Monocyte# 0.91 X10^3/uL; Monocyte% 9.2 % (0-10); NRBC Flagged by Analyzer 0 % (0-5); Neutrophil # 7.34 X10^3/uL (2.7-7.7); Neutrophil % 74.7 % (47-70); Platelet Count 249 K/mm3 (150-450); RBC Distribution Width CV 14.6 % (11.6-14.6); White Blood Count 9.8 K/mm3 (4.4-11.0)
[2024-01-05 13:54] LABS: ALB/GLOB Ratio 1.1 RATIO (0.9-2.4); AST(SGOT) 28 U/L (15-37); Alanine Aminotransfer ALT/SGPT 19 U/L (16-61); Alkaline Phosphatase 79 U/L (45-117); Anion Gap 6 (5-15); BUN 19 mg/dL (7-18); BUN/Creat Ratio 11.2 RATIO (10-20); Calcium,Total 9.2 mg/dL (8.5-10.1); Chloride 111 mmol/L (98-107); Creatinine, Serum 1.69 mg/dL (0.70-1.30); EST Glomerular Filtration Rate 42 mL/min (>60); Est Glom Filt Rate - Afr Amer 51 mL/min (>60); Globulin 3.7 g/dL (2.2-4.2); Glucose 123 mg/dL (74-106); Potassium 4.5 mmol/L (3.5-5.1); Protein, Total 7.7 g/dL (6.4-8.2); Sodium Level 138 mmol/L (136-145)
[2024-01-05 13:56] LABS: Vitamin D,25 Hydroxy 22.5 ng/mL
== END | disposition home or self-care (01) ==
LOC: POLAB3 13:04
PROVIDERS: PCP Family Medicine Geriatric Medicine; Visit Provider Family Medicine Geriatric Medicine
DX: R73.9 Hyperglycemia, unspecified (principal); I10 Essential (primary) hypertension; E55.9 Vitamin D deficiency, unspecified
CPT/HCPCS: 36415; 80053; 82306; 83036; 84443; 85025

== ENCOUNTER 2024-01-24 10:15 | Inpatient (IN) | payer MEDICARE, OTHER, SELFPAY ==
[2024-01-24] VITALS (32 sets, daily range): BP systolic 94–193; BP diastolic 59–163; PULSE 56–114; RESP 16–36; TEMP 35.1–37; O2SAT 89–99; BMI 27.8; BMI 24.4
--- NOTE | 2024-01-24 10:21 | EKG12_ITS ---
Test Reason : SOB Blood Pressure : */* mmHG Vent. Rate : 117 BPM Atrial Rate : 117 BPM P-R Int : 156 ms QRS Dur : 112 ms QT Int : 324 ms P-R-T Axes : 69 25 15 degrees QTcB Int : 451 ms Sinus tachycardia with Premature atrial complexes Low voltage QRS Inferior infarct Cannot rule out Anteroseptal infarct , age undetermined Abnormal ECG Confirmed by SALINAS SPEAR, MIKAELA ([id number]), newspaper photo editor DIONNE SHARMA ([id number]) on 01/25/2024 12:40:29 PM Referred By: Confirmed By: MIKAELA NIÑO MD
[2024-01-24] MEDS: Rocuronium Bromide 50 MG/5 ML Vial 75 MG IV (10:31)
[2024-01-24] MEDS: Etomidate 20 MG/10 ML Vial IV (10:31)
[2024-01-24 10:32] LABS: Absolute Lymphocyte Count 1.29 X10^3/uL (0.83-4.51); Absolute Neutrophil Count 9.4 X10^3/uL (2.0-7.7); Basophil# 0.06 X10^3/uL; Basophil% 0.5 % (0-1); Hematocrit 47.6 % (40-54); Hemoglobin 15.8 g/dL (13.0-16.5); Lymphocyte # 1.29 X10^3/ul (0.83-4.51); Lymphocyte % 10.7 % (19-41); Mean Corp Hgb Conc 33.2 g/dL (32-36); Mean Corpuscular Hgb 35.6 pg (27.0-32.0); Mean Corpuscular Volume 107.2 fL (80-94); Mean Platelet Vol. 10.8 fl (6.2-12.0); Monocyte# 1.23 X10^3/uL; Monocyte% 10.2 % (0-10); NRBC Flagged by Analyzer 0 % (0-5); Neutrophil # 9.43 X10^3/uL (2.7-7.7); Neutrophil % 77.9 % (47-70); Platelet Count 216 K/mm3 (150-450); RBC Distribution Width CV 14.8 % (11.6-14.6); RBC Distribution Width SD 59.3 fl (35.1-43.9); Red Blood Count 4.44 M/mm3 (4.6-6.2); White Blood Count 12.1 K/mm3 (4.4-11.0)
--- NOTE | 2024-01-24 10:43 | EDS_ITS ---
HPI History of Present Illness Chief Complaint: Shortness of Breath Detail of Chief Complaint: Abrupt onset of shortness of breath per EMS Informant: EMS Onset/Context/Timing Onset: Today (Early this morning per EMS) Context: Sudden Onset Timing: Continuous Quality: Difficulty breathing, pulse ox 70% on room air per paramedics Location: Cardiorespiratory Current Severity: Severe Maximum Severity: Severe Worsened by: Unknown Relieved by: Unknown Associated Symptoms Associated Symptoms: other (Unknown) Length of loss of consciousness: Patient with depressed level of consciousness Narrative Narrative: Patient is a 78-year-old male. He has a history of hypertension and chronic kidney disease. Initially he would open his eyes to his name and attempt to answer questions. Quick evaluation was undertaken. Within 5 minutes patient became less responsive. Pulse ox decreased to 85%. He was on CPAP with O2 at 12 L. Paramedics stated he did not complain of chest pain. His only complaint was shortness of breath. No other history is available. Recent Illness/Hospitalization: No PFSH PFSH Home Medications ?Medication ?Instructions ?Recorded ?Last Taken ?Type multivitamin (Daily Multiple 1 ea PO DAILY 11/20/16 11/19/16 History tablet) lisinopril 40 mg tablet 40 mg PO DAILY #30 tabs 11/21/16 Unknown Rx Allergy/AdvReac Type Severity Reaction Status Date / Time strawberry AdvReac Itching Verified 01/24/24 10:54 Social History Smoking Status: Light Smoker (<10/day) ROS ROS ED Review of Systems ROS Unobtainable: due to mental status and other Details: Respiratory failure with decreased level of consciousness EXAM Physical Exam Const Vital Signs: 01/24/24 10:17 01/24/24 10:28 01/24/24 10:32 Temperature 98.4 F Temperature Source Temporal Pulse Rate 110 H Respiratory Rate 28 H Respiratory Effort Short of Breath Labored Mechanically Ventilated Respiratory Depth Deep Respiratory Pattern Hyperpnea Blood Pressure 193/163 H Blood Pressure Mean 173 Pulse Ox 92 Oxygen Delivery Method Bi-pap Oxygen Flow Rate (L/min) 12 Fraction of Inspired Oxygen (FIO2) 01/24/24 10:40 01/24/24 10:41 01/24/24 10:43 Temperature 98.6 F Temperature Source Temporal Pulse Rate 109 H Respiratory Rate 28 H Respiratory Effort Respiratory Depth Respiratory Pattern Blood Pressure 190/114 H Blood Pressure Mean 139 Pulse Ox 98 98 Oxygen Delivery Method Mechanical Ventilator Mechanical Ventilator Oxygen Flow Rate (L/min) Fraction of Inspired Oxygen (FIO2) 70 70 70 01/24/24 10:50 01/24/24 10:54 01/24/24 11:16 Temperature 97 F L 98.5 F Temperature Source Core Core Pulse Rate 114 H 106 H Respiratory Rate 18 17 Respiratory Effort Short of Breath Labored Mechanically Ventilated Respiratory Depth Deep Respiratory Pattern Hyperpnea Blood Pressure 185/111 H Blood Pressure Mean 135 Pulse Ox 96 93 Oxygen Delivery Method Mechanical Ventilator Mechanical Ventilator Mechanical Ventilator Oxygen Flow Rate (L/min) Fraction of Inspired Oxygen (FIO2) 50 50 01/24/24 11:25 Temperature 98.4 F Temperature Source Core Pulse Rate 102 H Respiratory Rate 18 Respiratory Effort Respiratory Depth Respiratory Pattern Blood Pressure 177/94 H Blood Pressure Mean 121 Pulse Ox 93 Oxygen Delivery Method Mechanical Ventilator Oxygen Flow Rate (L/min) Fraction of Inspired Oxygen (FIO2) Positive well nourished and well developed Constitutional Narrative: Patient obvious respiratory distress. He has paradoxical breathing. He is diaphoretic. Question of central cyanosis. General Appearance ED: well developed HEENT normocephalic, atraumatic and cyanosis of lips/distal nose Eyes PERRL and EOMs intact bilaterally General Eye ED: Negative for pale conjunctiva or scleral icterus Neck full ROM, no lymphadenopathy and supple Neck Narrative: There is JVD but patient is at 60 degrees. Resp Resp Narrative: Paradoxical breathing. There is also use of management consultant muscles and retractions. Patient has crackles at the bases. There is diminished air movement. There is no inspiratory expiratory wheezing. Cardio regular rhythm, S1 normal heart sound, S2 normal heart sound and no murmurs Rate: tachycardic GI non-tender, non-distended and no masses Palpation: soft Extremity Extremity Narrative: Patient has edema of both lower extremities. The edema is pitting in nature. Neuro No oriented x3 Neuro Narrative: Neuroexam is limited. GCS is 9. 3 points for eye response, 2 points for verbal and 4 points for motor. Sensorium / Orientation: Negative for alert Speech: Negative for speech normal Gait (Neuro): Negative for normal gait Psych Psych Narrative: Unable to determine Skin Skin Narrative: Patient is diaphoretic with central cyanosis. Sepsis Attestation Sepsis Alert: Yes Sepsis Attestation: Agree w/Sepsis Date exam was performed: 01/24/24 Time exam was performed: 11:15 Possible Source of Sepsis: Pulmonary Sepsis Organ Dysfunction Criteria Present: Lactic Acid > 2 mmol/L, PaO2/FiO2 ratio < 300 and New/Unexplained change in mental status Fluid Resuscitation Fluid resuscitation indicated?: Yes Fluid Resuscitation ordered: Lesser volume fluid bolus ordered Amount of fluid ordered: 2,000 Reason for lesser fluid bolus:: Concern for fluid overload MDM MDM MDM Narrative Medical decision making narrative: Since patient deteriorated shortly after arrival and prior to VBG results he was prepped for orotracheal ovation. Patient received 20 mg etomidate followed by 75 mg of proximal Hira M. Patient was orotracheal intubated using glide scope first attempt with a 7.5 Danish endotracheal tube. Tube is 27 cm at the gum. Patient has white frothy material noted in the endotracheal tube which raises material noted in the endotracheal tube which ranges question for pulmonary edema. This may be due to cardiac ischemia versus worsening of his chronic kidney failure versus hypertensive emergency. OG was placed by nursing staff. Hernandez was placed for nursing staff for accurate I's and O's. If chest x-ray confirms pulmonary edema will place on nitroglycerin for preload and afterload reduction. Lab Data Attestation: I reviewed the patient's lab results. Lab results narrative: White count is elevated 12.1. There is a slight shift. There is no evidence of anemia. MCV and MCH are elevated. Comprehensive metabolic panel reveals a creatinine of 1.54 with an estimated GFR 47. Lactate elevated 4.8. AST, ALT and alkaline phosphatase are elevated. Total bili is normal. Glucose is low at 66. Labs: Laboratory Results - last 24 hr 01/24/24 01/24/24 10:24 10:50 WBC 12.1 H RBC 4.44 L Hgb 15.8 Hct 47.6 MCV 107.2 H MCH 35.6 H MCHC 33.2 RDW Std Deviation 59.3 H RDW Coeff of Jesus 14.8 H Plt Count 216 MPV 10.8 Immature Gran % (Auto) 0.700 Neut % (Auto) 77.9 H Lymph % (Auto) 10.7 L Union % (Auto) 10.2 H Eos % (Auto) 0.0 Baso % (Auto) 0.5 Absolute Neuts (auto) 9.4 H Absolute Lymphs (auto) 1.29 Nucleated RBC % 0 Sodium 137 Potassium 4.6 Chloride 109 H Carbon Dioxide 15.0 L Anion Gap 13 BUN 18 Creatinine 1.54 H Estim Creat Clear Calc 46.24 Est GFR (MDRD) Af Amer 57 L Est GFR (MDRD) Non-Af 47 L BUN/Creatinine Ratio 11.7 Glucose 66 L Lactic Acid 4.8 H* Calcium 9.4 Total Bilirubin 1.00 AST 247 H ALT 133 H Alkaline Phosphatase 119 H Total Creatine Kinase 181 Troponin I High Sens 64 Total Protein 8.3 H Albumin 4.2 Globulin 4.1 Albumin/Globulin Ratio 1.0 Triglycerides 155 Radiography Chest X-Ray - ED: 1 View (Film was slightly rotated. There is evidence of an infiltrate right lower lobe possibly right middle lobe. Cardiac size is normal. Hilum is unremarkable. Osseous trucks unremarkable. Endotracheal tube is in proper position.) and Read by ED Physician (Single view KUB was obtained for NG placement. NG is in proper position. This was entirely reviewed interpreted by me at 1117.) EKG Initial EKG: Attestation: I personally reviewed and interpreted this EKG as follows: Interpretation: Sinus Tachycardia (Rate is 117. There are premature atrial complexes noted. There is significant amount of artifact due to his respiratory difficulty. AK interval is under 56 ms per cures durations 112 ms. There is possibly [address] depression in lateral leads. Again there is significant artifact. There is decreased a) Management Discussion w/another healthcare provider: Hospitalist (Hospitalist was paged for admission to ICU. Dr. Mcpherson was made aware of patient's history physical and treatment.) Procedures Intubations Intubation Method: orotracheal Intubation Verification: Positive color change Intubation Complications: no complications Critical Care Time Critical Care Time: Yes Critical care time (excluding procedures): 30-74 minutes (32), Including time spent: (History, physical, review of prior records, independent rotation laboratory results, imaging and treatment for sepsis.), Discussing w/Consultants, Arranging Admission or Transfer and Performing Direct Patient Care at Bedside Discharge Plan Dx/Rx/DC Orders Clinical Impression: Acute hypoxemic respiratory failure, Accelerated hypertension, CKD (chronic kidney disease), Severe sepsis with acute organ dysfunction Disposition Disposition: [facility]
[2024-01-24] MEDS: Propofol 10MG/Ml 1,000 MG/100 ML Bottle 5.4 MG CONT INF (10:50)
--- NOTE | 2024-01-24 11:00 | RAD_ITS ---
STUDY: X-RAY - ABDOMEN/PELVIS REASON FOR EXAM: Male, 78 years old. NG Insertion TECHNIQUE: Single AP view of the abdomen / pelvis. COMPARISON: None. FINDINGS: The tip of the nasogastric tube is in the proximal body portion of the stomach just distal to the gastroesophageal junction. RAD/Abdomen Single View (Portable) IMPRESSION: The tip of the nasogastric tube is in the proximal portion of the body of stomach just distal to the gastroesophageal junction. Electronically Signed: Lico Lerner MD at 11:58 EST ,
--- NOTE | 2024-01-24 11:00 | RAD_ITS ---
STUDY: X-RAY CHEST REASON FOR EXAM: Male, 78 years old. Intubation TECHNIQUE: Single AP portable view of the chest. COMPARISON: None. FINDINGS: The tip of the endotracheal tube is at 4 cm proximal to the manpreet. A nasogastric tube is seen with tip below the left hemidiaphragm. Degenerative vascular congestion in the CHF with right basilar atelectasis and/or pneumonia. There is no demonstrated pleural abnormality. Normal size heart. Normal mediastinum and kiley. Normal visualized pulmonary arteries. There is atherosclerotic calcification of the aortic arch with tortuosity. There are diffuse degenerative changes of the visualized thoracic spine. Normal visualized ribs, clavicles, and shoulders. There is no demonstrated abnormality of the visualized soft tissue structures of the upper abdomen. RAD/Chest 1 View (Portable) IMPRESSION: An endotracheal tube is seen with the tip at 4 sinus proximal to the manpreet. A nasogastric tube is seen with the tip below the left hemidiaphragm. Vascular congestion and CHF with superimposed atelectasis and/or infiltrate at the right lung base. Electronically Signed: Lico Lerner MD at 11:59 EST ,
[2024-01-24 11:01] LABS: AST(SGOT) 247 U/L (15-37); Alanine Aminotransfer ALT/SGPT 133 U/L (16-61); Albumin, Serum 4.2 g/dL (3.2-5.0); Alkaline Phosphatase 119 U/L (45-117); Anion Gap 13 (5-15); BUN 18 mg/dL (7-18); BUN/Creat Ratio 11.7 RATIO (10-20); Calcium,Total 9.4 mg/dL (8.5-10.1); Chloride 109 mmol/L (98-107); Creatinine, Serum 1.54 mg/dL (0.70-1.30); EST Glomerular Filtration Rate 47 mL/min (>60); Est Glom Filt Rate - Afr Amer 57 mL/min (>60); Estimated Creatinine Clearance 46.24 ml/min; Globulin 4.1 g/dL (2.2-4.2); Glucose 66 mg/dL (74-106); Potassium 4.6 mmol/L (3.5-5.1); Protein, Total 8.3 g/dL (6.4-8.2); Sodium Level 137 mmol/L (136-145); Troponin-I HS (w/2H Reflex) 64 pg/mL (3.0-78.0)
[2024-01-24 11:12] LABS: Lactic Acid 4.8 mmol/L (0.4-1.9)
[2024-01-24] MEDS: 0.9% Normal Saline (1000mL) 1,000 ML 999 ML IV ×2 (11:15→12:02)
--- NOTE | 2024-01-24 11:20 | ED.RN ---
Addendum entered by Kelsi Klein 01/24/24 12:20: Attempted to redirect and calm patient, redirect unsuccessful Original Note: Patient moving head, hands and feet attempting to pull lines. Soft restraints placed at this time
[2024-01-24] MEDS: Ceftriaxone 2 GM in 0.9% Normal Saline (50mL MB+) 50 ML IV (11:28)
[2024-01-24 11:30] LABS: CPK Total, Creatine Kinase 181 U/L (39-308); Triglycerides 155 mg/dL
--- NOTE | 2024-01-24 11:32 | HP.PCM.HOS_ITS ---
HPI - General General Date of Admission: 01/24/24 Date of Service: 01/24/24 Chief Complaint: SOB HPI Narrative ERMA CALLAWAY, is a 78 M who presented to the emergency department at [facility] after calling the squad when he woke up acutely short of breath. Patient was not able to provide any history upon it presentation in the emergency department and required emergent intubation. Per EMS report he evidently woke up feeling short of breath and then worsened to the point where he became less responsive. Pulse ox on EMS arrival was 85% on room air. He did not complain of chest pain per promotion manager report and only complained of shortness of breath. No other history is available at this time. Vital signs on presentation showed a temperature of 98.4, heart rate 110, blood pressure was 193/163 with a repeat after intubation of 177/94. Respiratory was 28, pulse ox was 92% on BiPAP of 12 and then patient was intubated for mental status. CBC shows a white count of 12.1 with a left shift having a 77.9% neutrophilia. ABGs showed a pH of 7.1 with a pCO2 of 50.8 and a pO2 of 92 after he was placed on mechanical ventilation. Chemistry panel shows normal electrolytes however his bicarb was notably low at 15. Serum creatinine was 1.54 without baseline being known. Lactic acid was elevated at 4.8. AST was 247 and ALT was 133. CPK was normal. BNP was markedly elevated at 1140.5. Initial troponin was 64. Chest x-ray showed endotracheal tube at 4 cm proximal to the manpreet and vascular congestion consistent with CHF versus infiltrate. COVID-19 was positive in the emergency department. Patient was started on antibiotics to cover community-acquired pneumonia and blood cultures were obtained. Given mechanical intubation patient was accepted for admission to the intensive care unit. [facility] Medical History Tobacco abuse Hypertension CKD (chronic kidney disease) Epistaxis Home Medications ?Medication ?Instructions ?Recorded ?Last Taken ?Type albuterol sulfate 90 mcg/actuation 2 puff inhalation Q4H PRN asthma 01/24/24 Unknown History aerosol inhaler amlodipine 5 mg tablet 5 mg PO DAILY cardiac 01/24/24 Unknown History levothyroxine 75 mcg tablet 75 mcg PO DAILY thyroid 01/24/24 Unknown History valsartan 320 mg tablet 320 mg PO DAILY cardiac 01/24/24 Unknown History Allergy/AdvReac Type Severity Reaction Status Date / Time strawberry AdvReac Itching Verified 01/24/24 10:54 unable to obtain unable to obtain Social History Smoking Status: Light Smoker (<10/day) ROS Review of Systems ROS Unobtainable: due to endotracheal tube and due to mental status Vital Signs Vital Signs Vital Signs: 01/24/24 10:17 01/24/24 10:28 01/24/24 10:32 Temperature 98.4 F Temperature Source Temporal Pulse Rate 110 H Respiratory Rate 28 H Respiratory Effort Short of Breath Labored Mechanically Ventilated Respiratory Depth Deep Respiratory Pattern Hyperpnea Blood Pressure 193/163 H Blood Pressure Mean 173 Pulse Ox 92 Oxygen Delivery Method Bi-pap Oxygen Flow Rate (L/min) 12 Fraction of Inspired Oxygen (FIO2) 01/24/24 10:40 01/24/24 10:41 01/24/24 10:43 Temperature 98.6 F Temperature Source Temporal Pulse Rate 109 H Respiratory Rate 28 H Respiratory Effort Respiratory Depth Respiratory Pattern Blood Pressure 190/114 H Blood Pressure Mean 139 Pulse Ox 98 98 Oxygen Delivery Method Mechanical Ventilator Mechanical Ventilator Oxygen Flow Rate (L/min) Fraction of Inspired Oxygen (FIO2) 70 70 70 01/24/24 10:50 01/24/24 10:54 01/24/24 11:16 Temperature 97 F L 98.5 F Temperature Source Core Core Pulse Rate 114 H 106 H Respiratory Rate 18 17 Respiratory Effort Short of Breath Labored Mechanically Ventilated Respiratory Depth Deep Respiratory Pattern Hyperpnea Blood Pressure 185/111 H Blood Pressure Mean 135 Pulse Ox 96 93 Oxygen Delivery Method Mechanical Ventilator Mechanical Ventilator Mechanical Ventilator Oxygen Flow Rate (L/min) Fraction of Inspired Oxygen (FIO2) 50 50 Weight Weight: 90.52 kg Body Mass Index (BMI) 27.8 Physical Exam Const no apparent distress and average body habitus Constitutional Narrative: Older, white male, lying in bed in the emergency department, on mechanical ventilation and sedated, currently does not rouse to any stimuli, appears unhealthy at baseline with no apparent distress currently HEENT normocephalic and head/scalp atraumatic HEENT Narrative: ET tube and OG in place, mucous membranes appear moist Eyes Eyes Narrative: Pupils are currently not reactive however patient has been paralyzed for intubation, no scleral icterus is noted and conjunctiva are normal bilaterally Neck no lymphadenopathy and supple Neck Narrative: Trachea midline, no thyroid enlargement, neck veins are distended Resp No normal respiratory effort, no retractions and no use of accessory muscles Resp Narrative: Crackles throughout the right lung and in the distal left lung base, appears comfortable currently on mechanical ventilation, scattered wheezes present Auscultation: crackles and wheezes; Negative for rhonchi Cardio regular rate, regular rhythm, S1 normal heart sound, S2 normal heart sound, no murmurs, no rub, no gallops and no clicks GI normal to inspection, nondistended, normoactive bowel sounds, soft to palpation and non-tender Extremity Extremity Narrative: Patient with 2+ bilateral lower extremity pitting edema from the feet up to the proximal lower leg just below the knee, patient does have nicotine stain on his left index finger, no clubbing or cyanosis was noted Skin skin turgor normal, no jaundice, no petechiae and no mottling Neuro Neuro Narrative: Limited exam due to intubation and sedation with recent paralytic given Psych Psych Narrative: Unable to assess Results Lab / Micro Data 01/24/24 10:24 01/24/24 10:24 Labs: Laboratory Results - last 24 hr 01/24/24 10:24: WBC 12.1 H, RBC 4.44 L, Hgb 15.8, Hct 47.6, MCV 107.2 H, MCH 35.6 H, MCHC 33.2, RDW Std Deviation 59.3 H, RDW Coeff of Jesus 14.8 H, Plt Count 216, MPV 10.8, Immature Gran % (Auto) 0.700, Neut % (Auto) 77.9 H, Lymph % (Auto) 10.7 L, Josephine % (Auto) 10.2 H, Eos % (Auto) 0.0, Baso % (Auto) 0.5, A bsolute Neuts (auto) 9.4 H, Absolute Lymphs (auto) 1.29, Nucleated RBC % 0, Sodium 137, Potassium 4.6, Chloride 109 H, Carbon Dioxide 15.0 L, Anion Gap 13, BUN 18, Creatinine 1.54 H, Estim Creat Clear Calc 46.24, Est GFR (MDRD) Af Amer 57 L, Est GFR (MDRD) Non-Af 47 L, BUN/Creatinine Ratio 11.7, Glucose 66 L, L actic Acid 4.8 H*, Calcium 9.4, Total Bilirubin 1.00, AST 247 H, ALT 133 H, A lkaline Phosphatase 119 H, Troponin I High Sens 64, Total Protein 8.3 H, Albumin 4.2, Globulin 4.1, Albumin/Globulin Ratio 1.0 01/24/24 10:50: Total Creatine Kinase 181, Triglycerides 155 Assessment & Plan Assessment/Plan (1) Sepsis: (2) Acute hypoxemic respiratory failure: (3) Metabolic acidosis: (4) Respiratory acidosis: (5) Leukocytosis: (6) Lactic acidosis: (7) Transaminitis: (8) COVID-19 virus infection: PLAN: Plan Sepsis secondary to COVID-19 pneumonia/+/- bacterial pneumonia -Cultures are pending -COVID-19 test is positive and patient was started on Decadron and remdesivir -Follow labs closely especially liver functions as transaminases already mildly elevated -Continue ceftriaxone and azithromycin for now -If sputum culture is negative will likely discontinue IV antibiotics -Patient was initially given IV fluids however fluids were stopped early as BNP came back elevated and there was high suspicion for heart failure -Critical care medicine is following-appreciate input Acute hypoxic and hypercapnic respiratory failure secondary to the above/suspected heart failure of unknown type -Lasix IV push twice daily -Cycle cardiac enzymes -Check echocardiogram next-continue mechanical ventilation and wean as able -As far as we are aware patient is not oxygen dependent at baseline -Aerosols as ordered -Aggressive pulmonary toilet as able -I-S and Acapella once extubated -Pulmonary medicine is following Mixed metabolic and respiratory acidosis -Management per the above -Repeat lab in a.m. Lactic acidosis -Highly suspect this is predominantly related to his hypoxia -Cycle per sepsis protocol -Likely contributing to metabolic acidosis Transaminitis -baseline is unclear -Will trend for now and may need further workup if persistently elevated -With elevation if statin required okay to initiate and monitor closely -Repeat CMP in a.m. Essential hypertension -Hold home valsartan and amlodipine -Will monitor clinically for now -Ongoing therapy for this will depend on findings on echocardiogram Hypothyroidism -Continue home levothyroxine Suspected COPD -No documentation however patient does have history of tobacco abuse -On albuterol as needed via HFA inhaler at home -Recommend outpatient follow-up with pulmonary medicine after discharge DVT/GI prophylaxis -Lovenox 40 daily -Protonix 40 mg IV daily CODE STATUS -Full code is assumed at this time will need to follow-up with family Sepsis Attestation Sepsis Alert: Yes Sepsis Attestation: Agree w/Sepsis Date exam was performed: 01/24/24 Time exam was performed: 11:34 Possible Source of Sepsis: Pulmonary Sepsis Organ Dysfunction Criteria Present: Acute Respiratory Failure (New need for BiPAP/CPAP or MV), Lactic Acid > 2 mmol/L and New/Unexplained change in mental status Fluid Resuscitation Fluid Resuscitation ordered: 30 ml/kg fluid bolus ordered Amount of fluid ordered: 2,500 Sepsis Note Date exam was performed: 01/24/24 Time exam was performed: 13:26 Sepsis Attestation: Sepsis re-evaluation was performed (fluid responsive) Charges/Coding Visit Charges Inpatient E&M: 36099 Init Hosp L3
[2024-01-24 11:42] LABS: Allen Test Positive; Base Excess -12 mmol/L (-2 to +2); Blood Gas Specimen Type ART; Mode AC; O2 Delivery Device Adult Vent; PEEP 5; PO2 96 mmHG (75-100); RR 16; SITE L Radial; SO2 94 % (95-99); Total Carbon Dioxide 20 mmol/L; pCO2 58.1 mmHg (35-45)
[2024-01-24] MEDS: Azithromycin 500 MG in Dextrose 5%-Water (250mL Bag) 250 ML 250 MG IV (12:02)
[2024-01-24 12:04] LABS: BNP,B-Type NATRIURETIC PEPTIDE 1140.5 pg/mL (0-100)
--- NOTE | 2024-01-24 12:27 | ED.RN ---
Report given to Inocencia SALAZAR in ICU
[2024-01-24 12:28] LABS: Reflex Troponin-HS? (from REC) Y
--- NOTE | 2024-01-24 12:34 | CON.PCM.CC_ITS ---
Assessment & Plan Assessment/Plan (1) Sepsis: (2) Acute hypoxemic respiratory failure: (3) Transaminitis: (4) CKD (chronic kidney disease): PLAN: Plan RECOMMENDATIONS: 1. Continue assist-control mode mechanical ventilation. Wean FiO2 and PEEP as tolerated. 2. Start scheduled bronchodilator therapy. 3. Initiate Decadron as ordered. 4. Continue empiric antibiotics, pending infectious workup. 5. Obtain echocardiogram. 6. Gentle diuresis as tolerated by hemodynamics and renal function. 7. Continue current sedation regimen. 8. Initiate appropriate ICU prophylaxis. IMPRESSIONS: 1. Acute hypoxemic and hypercapnic respiratory failure The patient presented to the hospital with acute on chronic shortness of breath, which I suspect is likely multifactorial. While the patient is positive for COVID-19, his chest imaging is concerning for the presence of pulmonary edema and the possibility for underlying congestive heart failure, given his elevated BNP and lower extremity edema. The patient was ultimately intubated in the emergency department. He has been placed on empiric antibiotics. In light of his tobacco abuse history, I agree with starting scheduled bronchodilators, as there is likely an underlying component of obstructive lung disease. Given that he is positive for COVID-19, scheduled Decadron has been ordered. Recommend holding off on initiation of remdesivir, given underlying transaminitis. Agree with gentle diuresis as tolerated by hemodynamics and renal function. Echocardiogram is currently pending. 2. Sepsis The patient presented to the hospital with sepsis due to possible pneumonia with acute sepsis related organ dysfunction as evidenced by lactic acidemia and acute respiratory failure requiring invasive mechanical ventilatory support. While the patient was initially going to receive supplemental IV fluid hydration, the fluids were ultimately discontinued over concerns for volume overload and congestive heart failure. 3. Chronic kidney disease/longstanding tobacco abuse history/hypertension Complicates care, management, recovery and prognosis. Continue supportive measures as noted above. Will discuss tube feeding initiation tomorrow. TIME: 37 minutes of critical care time, independent of procedures, was spent addressing the patient's acute hypoxemic and hypercapnic respiratory failure, sepsis, review of all data and collaboration with the care team. HPI Consult Data Date of Consult: 01/24/24 HPI Narrative Reason for Consultation: Acute hypoxemic and hypercapnic respiratory failure HPI Narrative: The patient is a 78-year-old male, with a history as outlined below, who presented to the emergency department via EMS on January 25 with shortness of breath. I did call and speak with the patient's son, Bernard, who indicated that the patient has been a longtime smoker, but has never been evaluated by a high school social science teacher. Over the summer, he was apparently beginning to complain of exertional shortness of breath. He last saw his father a couple weeks ago, but stated that he lives by himself at home. On presentation to the emergency department, the patient was documented to be afebrile and hypertensive. His heart rate and respiratory rate were both increased. The patient was initially placed on noninvasive positive pressure ventilatory support. Laboratory evaluation revealed a white blood cell count of 12,000. Chemistry profile was notable for a bicarbonate of 15 and creatinine of 1.54, which appears baseline. Glucose was low at 66. Lactate was elevated at 4.8. AST and ALT were increased to 247 and 133, respectively. BNP was increased at 1140. In light of the patient's respiratory distress, decision was made to proceed with intubation. Chest x-ray demonstrated findings concerning for pulmonary vascular congestion and basilar atelectasis. The patient was found to be positive for COVID-19. While the patient was initially started on IV fluids and antimicrobials, the fluids were subsequently discontinued over concerns for underlying congestive heart failure. He was subsequently admitted to the medical intensive care unit for further management. [facility] Medical History (Updated 01/24/24 @ 13:[address] Reanna Mcpherson DO) Tobacco abuse Hypertension CKD (chronic kidney disease) Epistaxis Home Medications ?Medication ?Instructions ?Recorded ?Last Taken ?Type multivitamin (Daily Multiple 1 ea PO DAILY 11/20/16 11/19/16 History tablet) lisinopril 40 mg tablet 40 mg PO DAILY #30 tabs 11/21/16 Unknown Rx Allergy/AdvReac Type Severity Reaction Status Date / Time strawberry AdvReac Itching Verified 01/24/24 10:54 Social History Smoking Status: Light Smoker (<10/day) ROS Review of Systems ROS Unobtainable: due to endotracheal tube and due to mental status Physical Exam Const Constitutional Narrative: Intubated, sedated and mechanically ventilated. No ventilator dyssynchrony noted at the time of my evaluation. HEENT normocephalic and head/scalp atraumatic HEENT Narrative: Temporal wasting present. Mouth: endotracheal tube in place and OG tube in place Eyes EOMs intact bilaterally and conjunctivae normal Neck supple General: trachea midline Chest inspection of chest normal Resp Auscultation: rales and diminished lung sounds Cardio regular rate and regular rhythm GI normal to inspection, nondistended, normoactive bowel sounds Extremity General Extremity: edema bilateral lower extremity; Negative for clubbing Skin no rashes or lesions noted Neuro Sensorium / Orientation: sedated on vent Lab / Micro Data 01/24/24 10:24 01/24/24 10:24 Labs: Laboratory Results - last 24 hr 01/24/24 10:24: WBC 12.1 H, RBC 4.44 L, Hgb 15.8, Hct 47.6, MCV 107.2 H, MCH 35.6 H, MCHC 33.2, RDW Std Deviation 59.3 H, RDW Coeff of Jesus 14.8 H, Plt Count 216, MPV 10.8, Immature Gran % (Auto) 0.700, Neut % (Auto) 77.9 H, Lymph % (Auto) 10.7 L, Kendall % (Auto) 10.2 H, Eos % (Auto) 0.0, Baso % (Auto) 0.5, A bsolute Neuts (auto) 9.4 H, Absolute Lymphs (auto) 1.29, Nucleated RBC % 0, Sodium 137, Potassium 4.6, Chloride 109 H, Carbon Dioxide 15.0 L, Anion Gap 13, BUN 18, Creatinine 1.54 H, Estim Creat Clear Calc 46.24, Est GFR (MDRD) Af Amer 57 L, Est GFR (MDRD) Non-Af 47 L, BUN/Creatinine Ratio 11.7, Glucose 66 L, L actic Acid 4.8 H*, Calcium 9.4, Total Bilirubin 1.00, AST 247 H, ALT 133 H, A lkaline Phosphatase 119 H, Troponin I High Sens 64, B-Natriuretic Peptide 1140.5 H, Total Protein 8.3 H, Albumin 4.2, Globulin 4.1, Albumin/Globulin Ratio 1.0 01/24/24 10:50: Total Creatine Kinase 181, Triglycerides 155 Micro: Microbiology 01/24/24 10:39 Mucosa - Nose SARS-CoV-2, Influenza & RSV (PCR) - Final SARS-CoV-2 (COVID 19 PCR) ABG Data ABG results: ABG 01/24/24 11:38 Specimen Type ART Sample Site L Radial pH 7.10 L* Bicarbonate Actual 18.0 L Total CO2 20 Base Excess -12 L O2 Saturation 94 L O2 % 45.0 ABG pCO2 58.1 H ABG pO2 96 Thomas Test Positive Respiration Rate 16 O2 Delivery Device Adult Vent Vent Mode AC Tidal Volume 450.0 POC PEEP 5 Crit Call To/Read Back Yes Blood Gas Notified Whom Pulliam Blood Gas Notified Time 11:40:45 Imaging Radiology Impression Chest X-Ray 01/24/24 11:00 IMPRESSION: An endotracheal tube is seen with the tip at 4 sinus proximal to the manpreet. A nasogastric tube is seen with the tip below the left hemidiaphragm. Vascular congestion and CHF with superimposed atelectasis and/or infiltrate at the right lung base. Electronically Signed: Lico Lerner MD at 11:59 EST , KUB X-Ray 01/24/24 11:00 IMPRESSION: The tip of the nasogastric tube is in the proximal portion of the body of stomach just distal to the gastroesophageal junction. Electronically Signed: Lico Lerner MD at 11:58 EST , Sepsis Attestation Sepsis Alert: Yes Sepsis Attestation: Agree w/Sepsis Date exam was performed: 01/24/24 Time exam was performed: 13:15 Possible Source of Sepsis: Pulmonary Sepsis Organ Dysfunction Criteria Present: Acute Respiratory Failure (New need for BiPAP/CPAP or MV) and Lactic Acid > 2 mmol/L Fluid Resuscitation Fluid Resuscitation ordered: Fluids not indicated Reason for lesser fluid bolus:: Concern for fluid overload and Heart failure Charges/Coding Procedures Hospitalists Procedures: 72433 Critical Care 1st Hr
--- NOTE | 2024-01-24 13:07 | ECHOD_ITS ---
Reason For Study: CHF Procedure This was a 2D Doppler, Color Flow transthoracic echocardiogram. The study was technically difficult. Exam performed portable in ICU/CCU. The exam was abbreviated due to the COVID 19 protocol. Left Ventricle Normal LV size. Left ventricular systolic function is lower limits of normal. The left ventricular ejection fraction is 50 %. There is mild global hypokinesis of the left ventricle. Septal [place] : Mildly hypokinetic. Right Ventricle Normal RV size. Normal systolic function. Atria Normal left atrium. Normal right atrium. Mitral Valve Normal mitral valve. Tricuspid Valve Normal tricuspid valve. Mild to moderate (1-2+) tricuspid valve insufficiency. Pulmonary artery systolic pressure is 55 mmHg. Aortic Valve Normal aortic valve. Pulmonic Valve Normal pulmonic valve. Great Vessels Normal aortic root. The pulmonary is not well visualized. Inferior vena cava collapse with respiration. Pericardium/Pleural No pericardial effusion. MMode/2D Measurements & Calculations LVIDd: 5.1 cm IVSd: 0.93 cm LVAd ap4: 33.1 cm2 LVIDs: 3.8 cm LVPWd: 0.81 cm LVLd ap4: 8.4 cm RVDd: 4.0 cm FS: 26.3 % EDV(MOD-sp4): 113.0 ml EDV(sp4-el): 110.7 ml LVAs ap4: 21.9 cm2 LVLs ap4: 7.8 cm ESV(MOD-sp4): 53.3 ml ESV(sp4-el): 52.6 ml EF(MOD-sp4): 52.8 % EF(sp4-el): 52.5 % SV(MOD-sp4): 59.7 ml SV(sp4-el): 58.1 ml SI(MOD-sp4): 28.3 ml/m2 Doppler Measurements & Calculations TR max kirit: 361.0 cm/sec TR max P.1 mmHg ECHO/Echo Complete Interpretation Summary Left ventricular systolic function is lower limits of normal. Normal LV size. The left ventricular ejection fraction is 50 %. Pulmonary artery systolic pressure is 55 mmHg. Ordering Physician: Reanna Mcpherson Referring Physician: JEMIMA GALLARDO Performed By: Jenny Salvador RDCS
[2024-01-24 13:34] LABS: Bacteria 0 SEEN /hpf (None Seen); Mucous, Urine 0 SEEN /hpf (<or=2+); White Blood Cells 0 SEEN /hpf (0-5)
[2024-01-24 13:35] LABS: Color, Urine Yellow (Yellow); Glucose, Dipstick Normal (Normal); Ketone-Dipstick 50 mg/dl (Negative); Leukocyte Esterase-Dipstick Negative /ul (Negative); Nitrite-Dipstick Negative (Negative); Occult Blood-Urine 150 /ul (Negative); Protein-Dipstick 100 mg/dl (Negative); Urine Bilirubin Dipstick Negative (Negative); Urine Clarity Clear (Clear); Urine Urobilinogen 1 mg/dl (Normal)
[2024-01-24] MEDS: Ipratropium/Albuterol Sulfate 3 ML AMPUL.NEB INHALATION ×3 (13:38→22:27)
[2024-01-24 13:41] LABS: Fine Granular Cast- Urine 5-10 SEEN /lpf (0-5); Red Blood Cells-Urine 0-5 SEEN /hpf (0-5); Squamous Epithelial Cells - UA 0-5 SEEN /hpf (0-5)
[2024-01-24] MEDS: dexAMETHasone 10 MG/ML Vial 6 MG IV (13:47)
[2024-01-24] MEDS: Furosemide 40 MG/4 ML Vial IV ×2 (13:47→18:39)
[2024-01-24 13:49] LABS: Troponin-I HS 551 pg/mL (3.0-78.0)
[2024-01-24 13:59] LABS: Allen Test Positive; Base Excess -14 mmol/L (-2 to +2); Bicarbonate 15.7 mmol/L (22-26); Blood Gas Specimen Type ART; Mode AC; O2 Delivery Device Adult Vent; PEEP 8; PO2 92 mmHG (75-100); RR 16; SITE L Radial; SO2 93 % (95-99); Total Carbon Dioxide 17 mmol/L; pCO2 50.8 mmHg (35-45)
[2024-01-24] MEDS: Pantoprazole Sodium 40 MG in 0.9% Normal Saline (100mL MB+) 100 ML 330 MG IV (14:10)
[2024-01-24 14:28] LABS: Reflex Lactate? Y
[2024-01-24] MEDS: fentaNYL drip 100 ML 5 MCG CONT INF (16:12)
[2024-01-24] MEDS: Propofol 10MG/Ml 1,000 MG/100 ML Bottle 19 MG CONT INF (16:12)
[2024-01-24 19:16] LABS: Troponin-I HS 2915 pg/mL (3.0-78.0)
--- NOTE | 2024-01-24 20:20 | PCM.HOSP.N ---
Hospitalist Note Cardiac enzymes have been cycled and have trended up. Initial troponin was 64 with second troponin at 551 and third troponin at 2915. Echocardiogram has been performed at this time and showed an EF at the lower limits of normal at 50% and pulmonary systolic pressure of 55%. Patient did have mild to moderate tricuspid valve insufficiency and all other valves appeared to be normal. LV dysfunction was global with notable septal apex mild hypokinesis. Due to troponin elevation heparin drip was initiated and patient was started on statin and a baby aspirin. Will discuss further with cardiology in the morning. Patient did have a stress test in 2020 that did show diminished tracer uptake in the distal anterior septal and septal apical segments but was thought to be related to body motion. Echocardiogram done at that time showed an EF of 65% with a right ventricular systolic pressure of 28 mmHg.
[2024-01-24] MEDS: Propofol 10MG/Ml 1,000 MG/100 ML Bottle 24.4 MG CONT INF (20:24)
[2024-01-24] MEDS: Atorvastatin Calcium 80 MG Tablet GT (21:08)
[2024-01-24 21:35] LABS: Partial Thromboplast Time 32.4 Seconds (24.1-36.2)
[2024-01-24] MEDS: Heparin Injection (Vial) 5,000 UNIT/ML VIAL 4000 UNIT IV (21:39)
[2024-01-24] MEDS: HEPARIN/D5w 25,000 UNITS 25,000 UNITS/250 ML IV.SOLN. 10 UNITS CONT INF (21:40)
[2024-01-25] VITALS (36 sets, daily range): BP systolic 80–117; BP diastolic 50–66; PULSE 56–91; RESP 18–28; TEMP 35.7–36.9; O2SAT 94–98; BMI 24.0
[2024-01-25] MEDS: Propofol 10MG/Ml 1,000 MG/100 ML Bottle 24.4 MG CONT INF ×2 (00:23→03:58)
[2024-01-25] MEDS: Ipratropium/Albuterol Sulfate 3 ML AMPUL.NEB INHALATION ×6 (02:32→22:40)
[2024-01-25] MEDS: 0.9% Saline Lock 10 ML Syringe IV (03:56)
[2024-01-25 04:11] LABS: Absolute Lymphocyte Count 0.62 X10^3/uL (0.83-4.51); Absolute Neutrophil Count 9.8 X10^3/uL (2.0-7.7); Basophil# 0.01 X10^3/uL; Basophil% 0.1 % (0-1); Hematocrit 34.8 % (40-54); Hemoglobin 12.1 g/dL (13.0-16.5); Lymphocyte # 0.62 X10^3/ul (0.83-4.51); Lymphocyte % 5.6 % (19-41); Mean Corp Hgb Conc 34.8 g/dL (32-36); Mean Corpuscular Hgb 35.4 pg (27.0-32.0); Mean Corpuscular Volume 101.8 fL (80-94); Mean Platelet Vol. 11.2 fl (6.2-12.0); Monocyte# 0.55 X10^3/uL; NRBC Flagged by Analyzer 0 % (0-5); Neutrophil % 88.5 % (47-70); Platelet Count 157 K/mm3 (150-450); RBC Distribution Width CV 14.5 % (11.6-14.6); RBC Distribution Width SD 53.9 fl (35.1-43.9); Red Blood Count 3.42 M/mm3 (4.6-6.2); White Blood Count 11.1 K/mm3 (4.4-11.0)
--- NOTE | 2024-01-25 04:34 | PCM.HOSP.N ---
Hospitalist Note Patient with noted BRB out of OG, AM hgb 12.1 from 15.8 although baseline appears 14 -15 range prior, given that patient has been SBP in the 80-90s during this shift suspect ABLA related, will transition to continuous protonix drip, would hold off on tube feeds, will cycle HH, stop heparin, given significant troponin rise loathe to hold asa but will temporarily hold and add back once able, will consult gastroenterology. Will order 2 u PRBC.
[2024-01-25 04:39] LABS: ALB/GLOB Ratio 0.9 RATIO (0.9-2.4); AST(SGOT) 411 U/L (15-37); Alanine Aminotransfer ALT/SGPT 285 U/L (16-61); Albumin, Serum 2.7 g/dL (3.2-5.0); Alkaline Phosphatase 92 U/L (45-117); Anion Gap 10 (5-15); BUN 24 mg/dL (7-18); BUN/Creat Ratio 15.8 RATIO (10-20); Calcium,Total 7.6 mg/dL (8.5-10.1); Chloride 109 mmol/L (98-107); Cholesterol 111 mg/dL (200); Creatinine, Serum 1.52 mg/dL (0.70-1.30); EST Glomerular Filtration Rate 47 mL/min (>60); Est Glom Filt Rate - Afr Amer 57 mL/min (>60); Globulin 2.9 g/dL (2.2-4.2); Glucose 168 mg/dL (74-106); High Density Lipoprotein 62 mg/dL; Magnesium 1.6 mg/dL (1.6-2.6); Phosphorus 4.1 mg/dL (2.5-4.9); Potassium 4.1 mmol/L (3.5-5.1); Protein, Total 5.6 g/dL (6.4-8.2); Sodium Level 138 mmol/L (136-145); Thyroid Stim Hormone (TSH) 0.865 uIU/mL (0.358-3.740); Triglycerides 67 mg/dL; Very Low Density Lipoprotein 13 mg/dL (5-40)
[2024-01-25 05:02] LABS: Partial Thromboplast Time > 200.0 Seconds (24.1-36.2)
[2024-01-25] MEDS: Pantoprazole Sodium 80 MG in 0.9% Normal Saline (100mL Bag) 80 ML 10 MG CONT INF (05:48)
--- NOTE | 2024-01-25 05:53 | PN.CC_ITS ---
Assessment & Plan Assessment/Plan (1) Sepsis: (2) Acute hypoxemic respiratory failure: (3) Transaminitis: (4) CKD (chronic kidney disease): PLAN: Plan RECOMMENDATIONS: 1. Continue assist-control mode mechanical ventilation. Wean FiO2 and PEEP as tolerated. 2. Continue scheduled bronchodilator therapy. 3. Continue Decadron as ordered. 4. Continue empiric antibiotics, pending infectious workup. 5. Obtain follow-up ABG this morning. 6. Continue current sedation regimen. 7. Continue appropriate ICU prophylaxis. IMPRESSIONS: 1. Acute hypoxemic and hypercapnic respiratory failure The patient presented to the hospital with acute on chronic shortness of breath, which I suspect is likely multifactorial. While the patient is positive for COVID-19, his chest imaging is concerning for the presence of pulmonary edema and the possibility for underlying congestive heart failure, given his elevated BNP and lower extremity edema. The patient was ultimately intubated in the emergency department. He has been placed on empiric antibiotics. In light of his tobacco abuse history, I agree with continuing scheduled bronchodilators, as there is likely an underlying component of obstructive lung disease. Given that he is positive for COVID-19, scheduled Decadron will be continued. Recommend holding off on initiation of remdesivir, given underlying transaminitis. 2. Sepsis The patient presented to the hospital with sepsis due to possible pneumonia with acute sepsis related organ dysfunction as evidenced by lactic acidemia and acute respiratory failure requiring invasive mechanical ventilatory support. While the patient was initially going to receive supplemental IV fluid hydration, the fluids were ultimately discontinued over concerns for volume overload and congestive heart failure. Antimicrobials will be continued as noted above. 3. Anemia The patient developed bright red blood from his OG tube on the morning of January 24. His heparin has been subsequently discontinued. There is no overt indication for transfusion of packed red blood cells at this time. Continue PPI therapy for now. Continue to monitor H&H. 4. Chronic kidney disease/longstanding tobacco abuse history/hypertension Complicates care, management, recovery and prognosis. Continue supportive measures as noted above. TIME: 34 minutes of critical care time, independent of procedures, was spent addressing the patient's acute hypoxemic and hypercapnic respiratory failure, sepsis, anemia, review of all data and collaboration with the care team. Subjective Subjective The patient was seen and examined at the bedside this morning. Events from the last 24 hours have been reviewed. The patient is currently afebrile and maintaining appropriate oxygen saturations on assist-control mode mechanical ventilation with an FiO2 requirement of 30% and PEEP of 5. Blood pressures have been somewhat tenuous this morning. The patient's hemoglobin dropped from 15 yesterday to 12 early this morning. Therefore, GI consultation was placed. White count is only mildly elevated at 11,000. Chemistry profile was notable for a bicarbonate of 19, BUN of 24 and creatinine of 1.52. I did speak personally with the patient's son this morning at the bedside and updated him on the patient's overall clinical status. Objective Data Objective Data The patient's most recent lab work, culture data and imaging studies have all been personally reviewed. Surface echocardiogram demonstrated normal LV size and function with an ejection fraction of 50%. Pulmonary artery systolic pressure was estimated to be 55 mmHg. COVID PCR was positive on January 23. Vital Signs: Vital Signs Temp Pulse Resp BP Pulse Ox O2 Del Method O2 Flow Rate 98 F 69 20 H 88/61 L 97 Mechanical Ventilator 50 01/25/24 04:00 01/25/24 05:00 01/25/24 05:00 01/25/24 05:00 01/25/24 05:00 01/25/24 05:00 01/24/24 13:15 FiO2 30 01/25/24 05:00 Oxygen Flow Rate (L/min) 50 Oxygen Delivery Method Mechanical Ventilator Weight: 185 lb Body Mass Index (BMI) 24.4 Intake & Output: Intake and Output for Last 24 Hours 01/23/24 01/24/24 01/25/24 23:59 23:59 23:59 Intake Total 2745.65 / 2775.05 249.33 / 249.33 Output Total 1950 / 1950 400 / 400 Balance 795.65 / 825.05 -150.67 / -150.67 Lab / Micro Data Attestation: I reviewed the patient's lab results. 01/25/24 07:52 01/25/24 03:55 Labs: Laboratory Results - last 24 hr 01/24/24 10:24: WBC 12.1 H, RBC 4.44 L, Hgb 15.8, Hct 47.6, MCV 107.2 H, MCH 35.6 H, MCHC 33.2, RDW Std Deviation 59.3 H, RDW Coeff of Jesus 14.8 H, Plt Count 216, MPV 10.8, Immature Gran % (Auto) 0.700, Neut % (Auto) 77.9 H, Lymph % (Auto) 10.7 L, [place] % (Auto) 10.2 H, Eos % (Auto) 0.0, Baso % (Auto) 0.5, A bsolute Neuts (auto) 9.4 H, Absolute Lymphs (auto) 1.29, Nucleated RBC % 0, Sodium 137, Potassium 4.6, Chloride 109 H, Carbon Dioxide 15.0 L, Anion Gap 13, BUN 18, Creatinine 1.54 H, Estim Creat Clear Calc 46.24, Est GFR (MDRD) Af Amer 57 L, Est GFR (MDRD) Non-Af 47 L, BUN/Creatinine Ratio 11.7, Glucose 66 L, L actic Acid 4.8 H*, Calcium 9.4, Total Bilirubin 1.00, AST 247 H, ALT 133 H, A lkaline Phosphatase 119 H, Troponin I High Sens 64, B-Natriuretic Peptide 1140.5 H, Total Protein 8.3 H, Albumin 4.2, Globulin 4.1, Albumin/Globulin Ratio 1.0 01/24/24 10:50: Total Creatine Kinase 181, Triglycerides 155 01/24/24 13:15: Troponin I High Sens 551 H* 01/24/24 13:25: Urine Color Yellow, Urine Clarity Clear, Urine pH 6.0, Ur Specific [place] 1.030, Urine Protein 100 H, Urine Glucose (UA) Normal, Urine Ketones 50 H, Urine Occult Blood 150 H, Urine Nitrite Negative, Urine Bilirubin Negative, Urine Urobilinogen 1 H, Ur Leukocyte Esterase Negative, Urine RBC 0-5 SEEN, Urine WBC 0 SEEN, Ur Squamous Epith Cells 0-5 SEEN, Urine Bacteria 0 SEEN, Fine Granular Casts 5-10 SEEN, Urine Mucus 0 SEEN 01/24/24 15:20: Lactic Acid 3.0 H* 01/24/24 18:40: Troponin I High Sens 2915 H* 01/24/24 21:00: APTT 32.4 01/25/24 03:55: WBC 11.1 H, RBC 3.42 L, Hgb 12.1 L, Hct 34.8 L, MCV 101.8 H D, M CH 35.4 H, MCHC 34.8, RDW Std Deviation 53.9 H, RDW Coeff of Jesus 14.5, Plt Count 157, MPV 11.2, Immature Gran % (Auto) 0.800, Neut % (Auto) 88.5 H, Lymph % (Auto) 5.6 L, [place] % (Auto) 5.0, Eos % (Auto) 0.0, Baso % (Auto) 0.1, Absolute Neuts (auto) 9.8 H, Absolute Lymphs (auto) 0.62 L, Nucleated RBC % 0, APTT > 200.0 H*, Sodium 138, Potassium 4.1, Chloride 109 H, Carbon Dioxide 19.0 L, Anion Gap 10, BUN 24 H, Creatinine 1.52 H, Estim Creat Clear Calc 46.00, Est GFR (MDRD) Af Amer 57 L, Est GFR (MDRD) Non-Af 47 L, BUN/Creatinine Ratio 15.8, G lucose 168 H, Calcium 7.6 L, Phosphorus 4.1, Magnesium 1.6, Total Bilirubin 0.40, AST 411 H, ALT 285 H, Alkaline Phosphatase 92, Total Protein 5.6 L, A lbumin 2.7 L, Globulin 2.9, Albumin/Globulin Ratio 0.9, Triglycerides 67, Cholesterol 111, LDL Cholesterol 36, VLDL Cholesterol 13, HDL Cholesterol 62, TSH 0.865 Micro: Microbiology 01/24/24 14:00 Mucosa - Nasopharyngeal Respiratory Panel (PCR) - Final 01/24/24 14:00 Sputum, Induced/Lukens Gram Stain - Final 01/24/24 13:25 Urine Catheter - Hernandez Legionella Antigen - Final 01/24/24 13:25 Urine Catheter - Hernandez Streptococcus pneumoniae Antigen (M - Final 01/24/24 10:39 Mucosa - Nose SARS-CoV-2, Influenza & RSV (PCR) - Final SARS-CoV-2 (COVID 19 PCR) ABG Data ABG results: ABG 01/24/24 01/24/24 11:38 13:49 Specimen Type ART ART Sample Site L Radial L Radial pH 7.10 L* 7.10 L* Bicarbonate Actual 18.0 L 15.7 L Total CO2 20 17 Base Excess -12 L -14 L O2 Saturation 94 L 93 L O2 % 45.0 45.0 ABG pCO2 58.1 H 50.8 H ABG pO2 96 92 Thomas Test Positive Positive Respiration Rate 16 16 O2 Delivery Device Adult Vent Adult Vent Vent Mode AC AC Tidal Volume 450.0 450.0 POC PEEP 5 8 Crit Call To/Read Back Yes Yes Blood Gas Notified Whom Heraclio larkin Blood Gas Notified Time 11:40:45 13:51:00 Radiography Diagnostic Testing: Radiology Impression Chest X-Ray 01/24/24 11:00 IMPRESSION: An endotracheal tube is seen with the tip at 4 sinus proximal to the manpreet. A nasogastric tube is seen with the tip below the left hemidiaphragm. Vascular congestion and CHF with superimposed atelectasis and/or infiltrate at the right lung base. Electronically Signed: Lico Lerner MD at 11:59 EST , KUB X-Ray 01/24/24 11:00 IMPRESSION: The tip of the nasogastric tube is in the proximal portion of the body of stomach just distal to the gastroesophageal junction. Electronically Signed: Lico Lerner MD at 11:58 EST , Echocardiogram 01/24/24 13:07 Interpretation Summary Left ventricular systolic function is lower limits of normal. Normal LV size. The left ventricular ejection fraction is 50 %. Pulmonary artery systolic pressure is 55 mmHg. Ordering Physician: Reanna Mcpherson Referring Physician: JEMIAM GALLARDO Performed By: Jenny Salvador, SARMAD Physical Exam Const Constitutional Narrative: Intubated, sedated and mechanically ventilated. No ventilator dyssynchrony. HEENT normocephalic and head/scalp atraumatic HEENT Narrative: Temporal wasting present. Mouth: endotracheal tube in place and OG tube in place Eyes EOMs intact bilaterally and conjunctivae normal Neck supple General: trachea midline Chest inspection of chest normal Resp Auscultation: diminished lung sounds; Negative for rales, rhonchi or wheezes Cardio regular rate and regular rhythm GI normal to inspection, nondistended, normoactive bowel sounds Extremity General Extremity: edema bilateral lower extremity; Negative for clubbing Skin no rashes or lesions noted Neuro Sensorium / Orientation: sedated on vent Charges/Coding Procedures Hospitalists Procedures: 44363 Critical Care 1st Hr
[2024-01-25 08:07] LABS: Hematocrit 33.4 % (40-54); Hemoglobin 11.5 g/dL (13.0-16.5)
[2024-01-25] MEDS: fentaNYL drip 100 ML 5 MCG CONT INF (08:30)
[2024-01-25 08:55] LABS: Base Excess -8 mmol/L (-2 to +2); Bicarbonate 17.6 mmol/L (22-26); Blood Gas Specimen Type ART; Mode Not entered; O2 Delivery Device Not entered; PEEP 5; PO2 91 mmHG (75-100); RR 20; SITE L Radial; SO2 97 % (95-99); Total Carbon Dioxide 19 mmol/L; pCO2 30.7 mmHg (35-45); pH 7.37 (7.35-7.45)
--- NOTE | 2024-01-25 09:08 | PN.HOSP_ITS ---
Reason for Visit Reason for Visit: Shortness of breath Subjective Subjective Patient started putting bright red blood out of OG last night heparin drip was discontinued and aspirin was held. Patient was started on a Protonix drip and GI was consulted. Blood pressures have been borderline, but patient was quite a bit of propofol. No other significant issues overnight. Have been able to wean oxygen to FiO2 of 30. Patient is intermittently following commands. Objective Data Objective Data Vital Signs: Vital Signs Temp Pulse Resp BP Pulse Ox O2 Del Method O2 Flow Rate 98.5 F 65 20 H 80/50 L 96 Mechanical Ventilator 50 01/25/24 08:00 01/25/24 08:00 01/25/24 08:00 01/25/24 08:00 01/25/24 08:00 01/25/24 08:00 01/24/24 13:15 FiO2 30 01/25/24 08:00 Oxygen Flow Rate (L/min) 50 Oxygen Delivery Method Mechanical Ventilator Weight: 82.508 kg Body Mass Index (BMI) 24.0 Intake & Output: Intake and Output for Last 24 Hours 01/23/24 01/24/24 01/25/24 23:59 23:59 23:59 Intake Total 2745.65 / 2775.05 310.98 / 310.98 Output Total 1950 / 1950 400 / 400 Balance 795.65 / 825.05 -89.02 / -89.02 Lab / Micro Data 01/25/24 07:52 01/25/24 03:55 Labs: Laboratory Results - last 24 hr 01/24/24 10:24: WBC 12.1 H, RBC 4.44 L, Hgb 15.8, Hct 47.6, MCV 107.2 H, MCH 35.6 H, MCHC 33.2, RDW Std Deviation 59.3 H, RDW Coeff of Jesus 14.8 H, Plt Count 216, MPV 10.8, Immature Gran % (Auto) 0.700, Neut % (Auto) 77.9 H, Lymph % (Auto) 10.7 L, [place] % (Auto) 10.2 H, Eos % (Auto) 0.0, Baso % (Auto) 0.5, A bsolute Neuts (auto) 9.4 H, Absolute Lymphs (auto) 1.29, Nucleated RBC % 0, Sodium 137, Potassium 4.6, Chloride 109 H, Carbon Dioxide 15.0 L, Anion Gap 13, BUN 18, Creatinine 1.54 H, Estim Creat Clear Calc 46.24, Est GFR (MDRD) Af Amer 57 L, Est GFR (MDRD) Non-Af 47 L, BUN/Creatinine Ratio 11.7, Glucose 66 L, L actic Acid 4.8 H*, Calcium 9.4, Total Bilirubin 1.00, AST 247 H, ALT 133 H, A lkaline Phosphatase 119 H, Troponin I High Sens 64, B-Natriuretic Peptide 1140.5 H, Total Protein 8.3 H, Albumin 4.2, Globulin 4.1, Albumin/Globulin Ratio 1.0 01/24/24 10:50: Total Creatine Kinase 181, Triglycerides 155 01/24/24 13:15: Troponin I High Sens 551 H* 01/24/24 13:25: Urine Color Yellow, Urine Clarity Clear, Urine pH 6.0, Ur Specific [place] 1.030, Urine Protein 100 H, Urine Glucose (UA) Normal, Urine Ketones 50 H, Urine Occult Blood 150 H, Urine Nitrite Negative, Urine Bilirubin Negative, Urine Urobilinogen 1 H, Ur Leukocyte Esterase Negative, Urine RBC 0-5 SEEN, Urine WBC 0 SEEN, Ur Squamous Epith Cells 0-5 SEEN, Urine Bacteria 0 SEEN, Fine Granular Casts 5-10 SEEN, Urine Mucus 0 SEEN 01/24/24 15:20: Lactic Acid 3.0 H* 01/24/24 18:40: Troponin I High Sens 2915 H* 01/24/24 21:00: APTT 32.4 01/25/24 03:55: WBC 11.1 H, RBC 3.42 L, Hgb 12.1 L, Hct 34.8 L, MCV 101.8 H D, M CH 35.4 H, MCHC 34.8, RDW Std Deviation 53.9 H, RDW Coeff of Jesus 14.5, Plt Count 157, MPV 11.2, Immature Gran % (Auto) 0.800, Neut % (Auto) 88.5 H, Lymph % (Auto) 5.6 L, [place] % (Auto) 5.0, Eos % (Auto) 0.0, Baso % (Auto) 0.1, Absolute Neuts (auto) 9.8 H, Absolute Lymphs (auto) 0.62 L, Nucleated RBC % 0, APTT > 200.0 H*, Sodium 138, Potassium 4.1, Chloride 109 H, Carbon Dioxide 19.0 L, Anion Gap 10, BUN 24 H, Creatinine 1.52 H, Estim Creat Clear Calc 46.00, Est GFR (MDRD) Af Amer 57 L, Est GFR (MDRD) Non-Af 47 L, BUN/Creatinine Ratio 15.8, G lucose 168 H, Calcium 7.6 L, Phosphorus 4.1, Magnesium 1.6, Total Bilirubin 0.40, AST 411 H, ALT 285 H, Alkaline Phosphatase 92, Total Protein 5.6 L, A lbumin 2.7 L, Globulin 2.9, Albumin/Globulin Ratio 0.9, Triglycerides 67, Cholesterol 111, LDL Cholesterol 36, VLDL Cholesterol 13, HDL Cholesterol 62, TSH 0.865 01/25/24 05:30: Blood Type A NEGATIVE, Antibody Screen NEGATIVE, Crossmatch See Detail 01/25/24 07:52: Hgb 11.5 L, Hct 33.4 L Micro: Microbiology 01/24/24 14:00 Mucosa - Nasopharyngeal Respiratory Panel (PCR) - Final 01/24/24 14:00 Sputum, Induced/Lukens Gram Stain - Final 01/24/24 13:25 Urine Catheter - Hernandez Legionella Antigen - Final 01/24/24 13:25 Urine Catheter - Hernandez Streptococcus pneumoniae Antigen (M - Final 01/24/24 10:39 Mucosa - Nose SARS-CoV-2, Influenza & RSV (PCR) - Final SARS-CoV-2 (COVID 19 PCR) ABG Data ABG results: ABG 01/24/24 01/24/24 01/25/24 11:38 13:49 08:51 Specimen Type ART ART ART Sample Site L Radial L Radial L Radial pH 7.10 L* 7.10 L* 7.37 Bicarbonate Actual 18.0 L 15.7 L 17.6 L Total CO2 20 17 19 Base Excess -12 L -14 L -8 L O2 Saturation 94 L 93 L 97 O2 % 45.0 45.0 30.0 ABG pCO2 58.1 H 50.8 H 30.7 L ABG pO2 96 92 91 Thomas Test Positive Positive Respiration Rate 16 16 20 O2 Delivery Device Adult Vent Adult Vent Not entered Vent Mode AC AC Not entered Tidal Volume 450.0 450.0 450.0 POC PEEP 5 8 5 Crit Call To/Read Back Yes Yes Blood Gas Notified Whom Heraclio larkin Blood Gas Notified Time 11:40:45 13:51:00 Radiography Diagnostic Testing: Radiology Impression Chest X-Ray 01/24/24 11:00 IMPRESSION: An endotracheal tube is seen with the tip at 4 sinus proximal to the manpreet. A nasogastric tube is seen with the tip below the left hemidiaphragm. Vascular congestion and CHF with superimposed atelectasis and/or infiltrate at the right lung base. Electronically Signed: Lico Lerner MD at 11:59 EST , KUB X-Ray 01/24/24 11:00 IMPRESSION: The tip of the nasogastric tube is in the proximal portion of the body of stomach just distal to the gastroesophageal junction. Electronically Signed: Lico Lerner MD at 11:58 EST , Echocardiogram 01/24/24 13:07 Interpretation Summary Left ventricular systolic function is lower limits of normal. Normal LV size. The left ventricular ejection fraction is 50 %. Pulmonary artery systolic pressure is 55 mmHg. Ordering Physician: Reanna Mcpherson Referring Physician: JEMIMA GALLARDO Performed By: Jenny Salvador RDCS Physical Exam Const no apparent distress and average body habitus; Negative for healthy appearing or well nourished Constitutional Narrative: Older, white male, lying in bed, currently on mechanical ventilation intubated and sedated HEENT normocephalic, head/scalp atraumatic and moist oral mucous membranes HEENT Narrative: ET tube and OG in place OG is currently having blood in the tubing Eyes PERRL and conjunctivae normal Eyes Narrative: No scleral icterus Resp No normal respiratory effort, no retractions, no use of accessory muscles and No clear to auscultation bilaterally Resp Narrative: Persistent coarse lung sounds bilaterally Auscultation: crackles; Negative for rhonchi or wheezes Cardio regular rate, regular rhythm, S1 normal heart sound, S2 normal heart sound, no murmurs, no rub, no gallops and no clicks GI normal to inspection, nondistended, normoactive bowel sounds, soft to palpation and non-tender Extremity Extremity Narrative: 2+ bilateral lower extremity pitting edema, no cyanosis or clubbing Neuro Neuro Narrative: Intubated and sedated-exam limited Psych Psych Narrative: Intubated and sedated Assessment & Plan Assessment/Plan (1) Sepsis: (2) Acute hypoxemic respiratory failure: (3) Metabolic acidosis: (4) Respiratory acidosis: (5) Leukocytosis: (6) Lactic acidosis: (7) Transaminitis: (8) COVID-19 virus infection: (9) GI bleed: (10) NSTEMI, initial episode of care: PLAN: Plan Sepsis secondary to COVID-19 pneumonia/+/- bacterial pneumonia -Continue remdesivir day 2 of 5 -Continue Decadron day 2 of 10 -Will continue ceftriaxone for now but discontinue azithromycin as strep pneumo and Legionella were negative -Will likely stop antibiotics if culture remains negative -Blood cultures are still pending -Preliminary urine culture was unremarkable -Critical care medicine is following-appreciate input Acute hypoxic and hypercapnic respiratory failure secondary to the above/combined acute systolic and right-sided heart failure -Diuretics on hold for blood pressure -Echocardiogram did show an EF of 50% with mild global hypokinesis and mild hypokinesis of the apex which was present previously, right ventricular systolic pressures are 55 mmHg -Aggressive pulmonary toilet as able -I-S and Acapella once extubated -Pulmonary medicine is following NSTEMI type II -Highly suspect demand ischemia with subendocardial disease however patient will need further testing once more medically stable -Aspirin on hold due to GI bleed -Heparin discontinued due to GI bleed -Echocardiogram as above -I did discuss the case with Dr. Valles and no need for consult at this time however patient will need follow-up with cardiology after discharge or prior depending on history obtained after extubation Upper GI bleed -OG with bright red blood -Continue to cycle hemoglobin and will transfuse for hemoglobin less than 10 given elevation of cardiac enzymes -2 units packed red blood cells on hold -Continue Protonix drip -GI is consulted but no current need for EGD will continue to monitor and have GI follow along at this time Mixed metabolic and respiratory acidosis -Respiratory acidosis has resolved and metabolic acidosis is resolving Lactic acidosis -Resolved Transaminitis -Both AST and ALT remain elevated however not markedly elevated and both are less than the thousand -Continue to monitor especially with remdesivir use Essential hypertension -Continue to hold home valsartan and amlodipine -Will monitor clinically for now Hypothyroidism -Continue home levothyroxine Suspected COPD -No documentation however patient does have history of tobacco abuse -On albuterol as needed via HFA inhaler at home -Recommend outpatient follow-up with pulmonary medicine after discharge DVT/GI prophylaxis -SCDs -Continue Protonix drip CODE STATUS -Full code is assumed at this time will need to follow-up with family Charges/Coding Visit Charges Inpatient E&M: 12917 Subs Hosp L2
[2024-01-25] MEDS: dexAMETHasone 10 MG/ML Vial 6 MG IV (09:41)
[2024-01-25] MEDS: Ceftriaxone 2 GM in 0.9% Normal Saline (50mL MB+) 50 ML IV (09:41)
[2024-01-25] MEDS: Levothyroxine 75 MCG Tablet GT (09:41)
[2024-01-25] MEDS: Azithromycin 500 MG in Dextrose 5%-Water (250mL Bag) 250 ML 250 MG IV (10:24)
[2024-01-25] MEDS: Propofol 10MG/Ml 1,000 MG/100 ML Bottle 10.9 MG CONT INF (10:25)
--- NOTE | 2024-01-25 12:18 | CASEMGMT ---
MARTIN CM Assessment Pt is currently on the mechanical ventilator and is unable to answer this RN CM questions for assessment accordingly. TC to pt son, Bernard, at this time. Bernard states that the pt has a girlfriend but that he would be the best point of contact and that he is agreeable to answering this RN CM questions. Care providers, pharmacy, and demographics verified. Admitting dx: Actue Hypoxic RF/ PNA LACE Strata: 2 PCP: Juan M Specialists: Bernard believes that the pt follows with [facility] Preferred Pharmacy: [facility] Insurance: [facility] A/B, [facility] Prescription Benefit: Yes LNOK: Bernard Calvin (Son) Living Arrangements: Pt lives alone in a 2 story home with a FFSU. Bernard states that the pt comes into the home from the basement garage and has a flight of steps to manage. ADLs/IADLs: Bernard reports that the pt is ind at baseline Transportation: Self, son, [employer] DME: [employer]. CM to follow for oxygen needs. HHC/SNF: Denies history Plan: TBD. Today is VD#1. CM and SW to follow pt progression in the hospital and f/u once appropriate to determine a safe DC plan moving forward. Pt son denies further questions or concerns at this time. Caitlin Bledsoe RN, CM
[2024-01-25 13:36] LABS: Hematocrit 33.5 % (40-54); Hemoglobin 11.8 g/dL (13.0-16.5)
--- NOTE | 2024-01-25 16:05 | EX.PCM.CON.G ---
HPI Consult Data Date of Consult: 01/25/24 HPI Narrative Reason for Consultation: GI bleed HPI Narrative: ERMA CALLAWAY, is a 78 M who presented to the emergency department at [facility] after calling the squad when he woke up acutely short of breath. Patient was not able to provide any history upon it presentation in the emergency department and required emergent intubation. Per EMS report he evidently woke up feeling short of breath and then worsened to the point where he became less responsive. Pulse ox on EMS arrival was 85% on room air. He did not complain of chest pain per radiochemical technician report and only complained of shortness of breath. No other history is available at this time. Vital signs on presentation showed a temperature of 98.4, heart rate 110, blood pressure was 193/163 with a repeat after intubation of 177/94. Respiratory was 28, pulse ox was 92% on BiPAP of 12 and then patient was intubated for mental status. CBC shows a white count of 12.1 with a left shift having a 77.9% neutrophilia. ABGs showed a pH of 7.1 with a pCO2 of 50.8 and a pO2 of 92 after he was placed on mechanical ventilation. Chemistry panel shows normal electrolytes however his bicarb was notably low at 15. Serum creatinine was 1.54 without baseline being known. Lactic acid was elevated at 4.8. AST was 247 and ALT was 133. CPK was normal. BNP was markedly elevated at 1140.5. Initial troponin was 64. Chest x-ray showed endotracheal tube at 4 cm proximal to the manpreet and vascular congestion consistent with CHF versus infiltrate. COVID-19 was positive in the emergency department. Patient troponin went up to 3000 so he was started on heparin drip for non-ST segment elevation MS. I was called because he started having blood out of his OG tube and his hemoglobin dropped from 15-12 and is currently down at 11. [facility] Medical History Tobacco abuse Hypertension CKD (chronic kidney disease) Epistaxis Home Medications ?Medication ?Instructions ?Recorded ?Last Taken ?Type albuterol sulfate 90 mcg/actuation 2 puff inhalation Q4H PRN asthma 01/24/24 Unknown History aerosol inhaler amlodipine 5 mg tablet 5 mg PO DAILY cardiac 01/24/24 Unknown History levothyroxine 75 mcg tablet 75 mcg PO DAILY thyroid 01/24/24 Unknown History valsartan 320 mg tablet 320 mg PO DAILY cardiac 01/24/24 Unknown History Allergy/AdvReac Type Severity Reaction Status Date / Time strawberry AdvReac Itching Verified 01/24/24 10:54 Family History unable to obtain Surgical History unable to obtain Social History Smoking Status: Light Smoker (<10/day) ROS Review of Systems ROS Unobtainable: due to endotracheal tube and due to mental status Physical Exam Const no apparent distress and average body habitus; Negative for healthy appearing or well nourished Constitutional Narrative: intubated and sedated HEENT HEENT Narrative: ET tube and OG in place OG is currently having blood in the tubing Eyes Eyes Narrative: No scleral icterus Resp No normal respiratory effort and No clear to auscultation bilaterally Resp Narrative: Persistent coarse lung sounds bilaterally Auscultation: Negative for rhonchi or wheezes GI normal to inspection, nondistended, normoactive bowel sounds, soft to palpation and non-tender Extremity Extremity Narrative: 2+ bilateral lower extremity pitting edema, no cyanosis or clubbing Neuro Neuro Narrative: Intubated and sedated-exam limited Psych Psych Narrative: Intubated and sedated Lab / Micro Data 01/25/24 13:25 01/25/24 03:55 Labs: Laboratory Results - last 24 hr 01/24/24 15:20: Lactic Acid 3.0 H* 01/24/24 18:40: Troponin I High Sens 2915 H* 01/24/24 21:00: APTT 32.4 01/25/24 03:55: WBC 11.1 H, RBC 3.42 L, Hgb 12.1 L, Hct 34.8 L, MCV 101.8 H D, MCH 35.4 H, MCHC 34.8, RDW Std Deviation 53.9 H, RDW Coeff of Jesus 14.5, Plt Count 157, MPV 11.2, Immature Gran % (Auto) 0.800, Neut % (Auto) 88.5 H, Lymph % (Auto) 5.6 L, [place] % (Auto) 5.0, Eos % (Auto) 0.0, Baso % (Auto) 0.1, Absolute Neuts (auto) 9.8 H, Absolute Lymphs (auto) 0.62 L, Nucleated RBC % 0, APTT > 200.0 H*, Sodium 138, Potassium 4.1, Chloride 109 H, Carbon Dioxide 19.0 L, Anion Gap 10, BUN 24 H, Creatinine 1.52 H, Estim Creat Clear Calc 46.00, Est GFR (MDRD) Af Amer 57 L, Est GFR (MDRD) Non-Af 47 L, BUN/Creatinine Ratio 15.8, Glucose 168 H, Calcium 7.6 L, Phosphorus 4.1, Magnesium 1.6, Total Bilirubin 0.40, AST 411 H, ALT 285 H, Alkaline Phosphatase 92, Total Protein 5.6 L, Albumin 2.7 L, Globulin 2.9, Albumin/Globulin Ratio 0.9, Triglycerides 67, Cholesterol 111, LDL Cholesterol 36, VLDL Cholesterol 13, HDL Cholesterol 62, TSH 0.865 01/25/24 05:30: Blood Type A NEGATIVE, Antibody Screen NEGATIVE, Crossmatch See Detail 01/25/24 07:52: Hgb 11.5 L, Hct 33.4 L 01/25/24 13:25: Hgb 11.8 L, Hct 33.5 L Micro: Microbiology 01/24/24 14:00 Sputum, Induced/Lukens Gram Stain - Final 01/24/24 14:00 Sputum, Induced/Lukens Respiratory Culture - Preliminary Appears to be normal respiratory hannah. Further studies to follow. 01/24/24 13:25 Urine Catheter - Hernandez Urine Culture - Preliminary Culture exhibits no growth. 01/24/24 13:25 Urine Catheter - Hernandez Legionella Antigen - Final 01/24/24 13:25 Urine Catheter - Hernandez Streptococcus pneumoniae Antigen (M - Final 01/24/24 14:00 Mucosa - Nasopharyngeal Respiratory Panel (PCR) - Final 01/24/24 10:39 Mucosa - Nose SARS-CoV-2, Influenza & RSV (PCR) - Final SARS-CoV-2 (COVID 19 PCR) ABG Data ABG results: ABG 01/25/24 08:51 Specimen Type ART Sample Site L Radial pH 7.37 Bicarbonate Actual 17.6 L Total CO2 19 Base Excess -8 L O2 Saturation 97 O2 % 30.0 ABG pCO2 30.7 L ABG pO2 91 Respiration Rate 20 O2 Delivery Device Not entered Vent Mode Not entered Tidal Volume 450.0 POC PEEP 5 Imaging Radiology Impression Echocardiogram 01/24/24 13:07 Interpretation Summary Left ventricular systolic function is lower limits of normal. Normal LV size. The left ventricular ejection fraction is 50 %. Pulmonary artery systolic pressure is 55 mmHg. Ordering Physician: Reanna Mcpherson Referring Physician: JEMIMA GALLARDO Performed By: Jenny Salvador RDCS Assessment & Plan Assessment/Plan (1) Sepsis: (2) Acute hypoxemic respiratory failure: (3) Metabolic acidosis: (4) Respiratory acidosis: (5) Leukocytosis: (6) Lactic acidosis: (7) Transaminitis: (8) COVID-19 virus infection: (9) GI bleed: (10) NSTEMI, initial episode of care: PLAN: Plan 78-year-old with non-ST segment elevation MS in the setting of a COVID infection who developed an upper GI bleed. His aspirin is on hold secondary to upper GI bleed. Heparin is on hold secondary to upper GI bleed. He will undergo emergent upper endoscopy. His power of health care attorney was explained alternatives, risk and benefits include not withstanding bleeding, infection, sepsis, perforation, need for charge and . He will have an ASA of 3. Charges/Coding Visit Charges Inpatient E&M: 21585 Init Hosp L3
[2024-01-25] MEDS: Propofol 10MG/Ml 1,000 MG/100 ML Bottle 8.1 MG CONT INF (18:27)
[2024-01-25] MEDS: Pantoprazole Sodium 40 MG in 0.9% Normal Saline (100mL MB+) 100 ML 330 MG IV (21:04)
[2024-01-25] MEDS: Atorvastatin Calcium 80 MG Tablet GT (21:04)
[2024-01-25] MEDS: 0.9% Normal Saline (100mL Bag) 100 ML 15 ML IV (21:30)
[2024-01-25] MEDS: fentaNYL drip 100 ML 10 MCG CONT INF (23:29)
[2024-01-26] VITALS (35 sets, daily range): BP systolic 91–141; BP diastolic 49–84; PULSE 52–144; RESP 18–33; TEMP 36.2–37.3; O2SAT 86–98; BMI 24.0
[2024-01-26] MEDS: Ipratropium/Albuterol Sulfate 3 ML AMPUL.NEB INHALATION ×6 (02:14→23:24)
[2024-01-26] MEDS: Propofol 10MG/Ml 1,000 MG/100 ML Bottle 10.9 MG CONT INF ×2 (04:06→11:27)
[2024-01-26] MEDS: 0.9% Saline Lock 10 ML Syringe IV ×2 (04:07→22:43)
[2024-01-26 04:19] LABS: Absolute Lymphocyte Count 0.48 X10^3/uL (0.83-4.51); Absolute Neutrophil Count 14.7 X10^3/uL (2.0-7.7); Basophil# 0.02 X10^3/uL; Basophil% 0.1 % (0-1); Eosinophil# 0.01 X10^3/uL; Eosinophils% 0.1 % (0-5); Hematocrit 34.8 % (40-54); Hemoglobin 12.2 g/dL (13.0-16.5); Lymphocyte # 0.48 X10^3/ul (0.83-4.51); Mean Corp Hgb Conc 35.1 g/dL (32-36); Mean Corpuscular Hgb 35.8 pg (27.0-32.0); Mean Corpuscular Volume 102.1 fL (80-94); Mean Platelet Vol. 11.1 fl (6.2-12.0); Monocyte# 0.91 X10^3/uL; Monocyte% 5.6 % (0-10); NRBC Flagged by Analyzer 0 % (0-5); Neutrophil # 14.65 X10^3/uL (2.7-7.7); Neutrophil % 90.5 % (47-70); POSITIVE DIFFERENTIAL YES; Platelet Count 151 K/mm3 (150-450); RBC Distribution Width CV 15.1 % (11.6-14.6); RBC Distribution Width SD 56.4 fl (35.1-43.9); Red Blood Count 3.41 M/mm3 (4.6-6.2); White Blood Count 16.2 K/mm3 (4.4-11.0)
[2024-01-26 04:36] LABS: ALB/GLOB Ratio 0.9 RATIO (0.9-2.4); AST(SGOT) 196 U/L (15-37); Alanine Aminotransfer ALT/SGPT 253 U/L (16-61); Albumin, Serum 2.7 g/dL (3.2-5.0); Alkaline Phosphatase 85 U/L (45-117); Anion Gap 6 (5-15); BUN 31 mg/dL (7-18); BUN/Creat Ratio 20.3 RATIO (10-20); Chloride 108 mmol/L (98-107); Creatinine, Serum 1.53 mg/dL (0.70-1.30); EST Glomerular Filtration Rate 47 mL/min (>60); Est Glom Filt Rate - Afr Amer 57 mL/min (>60); Estimated Creatinine Clearance 45.69 ml/min; Globulin 3.1 g/dL (2.2-4.2); Glucose 132 mg/dL (74-106); Magnesium 2.1 mg/dL (1.6-2.6); Phosphorus 3.2 mg/dL (2.5-4.9); Potassium 3.8 mmol/L (3.5-5.1); Protein, Total 5.8 g/dL (6.4-8.2); Sodium Level 137 mmol/L (136-145)
--- NOTE | 2024-01-26 06:39 | PN.CC_ITS ---
Assessment & Plan Assessment/Plan (1) Sepsis: (2) Acute hypoxemic respiratory failure: (3) Transaminitis: (4) CKD (chronic kidney disease): PLAN: Plan RECOMMENDATIONS: 1. Continue assist-control mode mechanical ventilation. Wean FiO2 and PEEP as tolerated. 2. Continue scheduled bronchodilator therapy. 3. Continue Decadron as ordered. 4. Continue empiric antibiotics. 5. Gentle diuresis as ordered. 6. Continue current sedation regimen. Reattempt spontaneous awakening and breathing trial tomorrow morning. 7. Continue appropriate ICU prophylaxis. 8. Okay to initiate tube feeding today from my perspective. IMPRESSIONS: 1. Acute hypoxemic and hypercapnic respiratory failure The patient presented to the hospital with acute on chronic shortness of breath, which I suspect is likely multifactorial. While the patient is positive for COVID-19, his chest imaging is concerning for the presence of pulmonary edema and the possibility for underlying congestive heart failure, given his elevated BNP and lower extremity edema. The patient was ultimately intubated in the emergency department. He has been placed on empiric antibiotics. In light of his tobacco abuse history, I agree with continuing scheduled bronchodilators, as there is likely an underlying component of obstructive lung disease. Given that he is positive for COVID-19, scheduled Decadron will be continued. Recommend holding off on initiation of remdesivir, given underlying transaminitis. If tolerated by hemodynamics today, will initiate gentle diuresis. 2. Sepsis The patient presented to the hospital with sepsis due to possible pneumonia with acute sepsis related organ dysfunction as evidenced by lactic acidemia and acute respiratory failure requiring invasive mechanical ventilatory support. While the patient was initially going to receive supplemental IV fluid hydration, the fluids were ultimately discontinued over concerns for volume overload and congestive heart failure. Antimicrobials will be continued as noted above. 3. Anemia The patient developed bright red blood from his OG tube on the morning of January 24. His heparin has been subsequently discontinued. The patient was seen by gastroenterology and underwent endoscopic evaluation without any significant pathology noted. Continue to monitor blood counts and transfuse if hemoglobin drops below 7 g/dL. Continue PPI therapy. 4. Chronic kidney disease/longstanding tobacco abuse history/hypertension Complicates care, management, recovery and prognosis. Continue supportive measures as noted above. Okay to initiate tube feeding today from my perspective. TIME: 32 minutes of critical care time, independent of procedures, was spent addressing the patient's acute hypoxemic and hypercapnic respiratory failure, sepsis, anemia, review of all data and collaboration with the care team. Subjective Subjective The patient was seen and examined at the bedside this morning. Events from the last 24 hours have been reviewed. The patient is currently afebrile, hemodynamically stable and maintaining appropriate oxygen saturations on assist- control mode of mechanical ventilation with an FiO2 requirement of 30% PEEP of 5. The patient ultimately failed his attempted a spontaneous breathing trial this morning due to hypoxemia and tachypnea. White blood cell count is elevated at 16,000. Hemoglobin is stable at 12.2 g/dL. Creatinine is stable at 1.53. The patient remains sedated on propofol and fentanyl. Objective Data Objective Data The patient's most recent lab work, culture data and imaging studies have all been personally reviewed. Surface echocardiogram demonstrated normal LV size and function with an ejection fraction of 50%. Pulmonary artery systolic pressure was estimated to be 55 mmHg. COVID PCR was positive on January 23. Vital Signs: Vital Signs Temp Pulse Resp BP Pulse Ox O2 Del Method O2 Flow Rate 97.5 F L 66 20 H 102/52 L 97 Mechanical Ventilator 50 01/26/24 04:00 01/26/24 06:00 01/26/24 06:00 01/26/24 06:00 01/26/24 06:00 01/26/24 06:00 01/24/24 13:15 FiO2 30 01/26/24 06:00 Oxygen Flow Rate (L/min) 50 Oxygen Delivery Method Mechanical Ventilator Weight: 182 lb 1.6 oz Body Mass Index (BMI) 24.0 Intake & Output: Intake and Output for Last 24 Hours 01/24/24 01/25/24 01/26/24 23:59 23:59 23:59 Intake Total 2745.65 / 2775.05 1280.90 / 1296.97 148.17 / 148.17 Output Total 1950 / 1950 700 / 950 500 / 500 Balance 795.65 / 825.05 580.90 / 346.97 -351.83 / -351.83 Lab / Micro Data Attestation: I reviewed the patient's lab results. 01/26/24 04:05 01/26/24 04:05 Labs: Laboratory Results - last 24 hr 01/25/24 05:30: Blood Type A NEGATIVE, Antibody Screen NEGATIVE, Crossmatch See Detail 01/25/24 07:52: Hgb 11.5 L, Hct 33.4 L 01/25/24 13:25: Hgb 11.8 L, Hct 33.5 L 01/26/24 04:05: WBC 16.2 H, RBC 3.41 L, Hgb 12.2 L, Hct 34.8 L, MCV 102.1 H, MCH 35.8 H, MCHC 35.1, RDW Std Deviation 56.4 H, RDW Coeff of Jesus 15.1 H, Plt Count 151, MPV 11.1, Immature Gran % (Auto) 0.700, Neut % (Auto) 90.5 H, Lymph % (Auto) 3.0 L, [place] % (Auto) 5.6, Eos % (Auto) 0.1, Baso % (Auto) 0.1, Absolute Neuts (auto) 14.7 H, Absolute Lymphs (auto) 0.48 L, Nucleated RBC % 0, Sodium 137, Potassium 3.8, Chloride 108 H, Carbon Dioxide 23.0, Anion Gap 6, BUN 31 H, Creatinine 1.53 H, Estim Creat Clear Calc 45.69, Est GFR (MDRD) Af Amer 57 L, E st GFR (MDRD) Non-Af 47 L, BUN/Creatinine Ratio 20.3 H, Glucose 132 H, Calcium 8.0 L, Phosphorus 3.2, Magnesium 2.1, Total Bilirubin 0.40, AST 196 H, ALT 253 H , Alkaline Phosphatase 85, Total Protein 5.8 L, Albumin 2.7 L, Globulin 3.1, Albumin/Globulin Ratio 0.9 Micro: Microbiology 01/24/24 14:00 Sputum, Induced/Lukens Gram Stain - Final 01/24/24 14:00 Sputum, Induced/Lukens Respiratory Culture - Preliminary Appears to be normal respiratory hannah. Further studies to follow. 01/24/24 13:25 Urine Catheter - Hernandez Urine Culture - Preliminary Culture exhibits no growth. 01/24/24 13:25 Urine Catheter - Hernandez Legionella Antigen - Final 01/24/24 13:25 Urine Catheter - Hernandez Streptococcus pneumoniae Antigen (M - Final 01/24/24 14:00 Mucosa - Nasopharyngeal Respiratory Panel (PCR) - Final 01/24/24 10:39 Mucosa - Nose SARS-CoV-2, Influenza & RSV (PCR) - Final SARS-CoV-2 (COVID 19 PCR) ABG Data ABG results: ABG 01/25/24 08:51 Specimen Type ART Sample Site L Radial pH 7.37 Bicarbonate Actual 17.6 L Total CO2 19 Base Excess -8 L O2 Saturation 97 O2 % 30.0 ABG pCO2 30.7 L ABG pO2 91 Respiration Rate 20 O2 Delivery Device Not entered Vent Mode Not entered Tidal Volume 450.0 POC PEEP 5 Radiography Diagnostic Testing: Radiology Impression Chest X-Ray 01/24/24 11:00 IMPRESSION: An endotracheal tube is seen with the tip at 4 sinus proximal to the manpreet. A nasogastric tube is seen with the tip below the left hemidiaphragm. Vascular congestion and CHF with superimposed atelectasis and/or infiltrate at the right lung base. Electronically Signed: Lico Lerner MD at 11:59 EST , KUB X-Ray 01/24/24 11:00 IMPRESSION: The tip of the nasogastric tube is in the proximal portion of the body of stomach just distal to the gastroesophageal junction. Electronically Signed: Lico Lerner MD at 11:58 EST , Echocardiogram 01/24/24 13:07 Interpretation Summary Left ventricular systolic function is lower limits of normal. Normal LV size. The left ventricular ejection fraction is 50 %. Pulmonary artery systolic pressure is 55 mmHg. Ordering Physician: Reanna Mcpherson Referring Physician: JEMIMA GALLARDO Performed By: Jenny Salvador RDCS Physical Exam Const Constitutional Narrative: Intubated, sedated and mechanically ventilated. No ventilator dyssynchrony. HEENT normocephalic and head/scalp atraumatic HEENT Narrative: Temporal wasting present. Mouth: endotracheal tube in place and OG tube in place Eyes EOMs intact bilaterally and conjunctivae normal Neck supple General: trachea midline Chest inspection of chest normal Resp Auscultation: diminished lung sounds; Negative for rales, rhonchi or wheezes Cardio regular rate and regular rhythm GI normal to inspection, nondistended, normoactive bowel sounds Extremity General Extremity: edema bilateral lower extremity; Negative for clubbing Skin no rashes or lesions noted Neuro Sensorium / Orientation: sedated on vent Charges/Coding Procedures Hospitalists Procedures: 95183 Critical Care 1st Hr
[2024-01-26] MEDS: Pantoprazole Sodium 40 MG in 0.9% Normal Saline (100mL MB+) 100 ML 330 MG IV ×2 (07:59→22:41)
[2024-01-26] MEDS: Ceftriaxone 2 GM in 0.9% Normal Saline (50mL MB+) 50 ML IV (08:25)
[2024-01-26] MEDS: dexAMETHasone 10 MG/ML Vial 6 MG IV (08:26)
[2024-01-26] MEDS: Levothyroxine 75 MCG Tablet GT (08:26)
[2024-01-26] MEDS: fentaNYL drip 100 ML 12.5 MCG CONT INF ×2 (09:29→17:38)
[2024-01-26] MEDS: Furosemide 40 MG/4 ML Vial IV (09:29)
[2024-01-26 11:42] LABS: Bedside Glucose 119 mg/dL (74-106)
[2024-01-26] MEDS: Vital AF 1.2 Cal Liquid 1,000 ML 20 ML GT (12:53)
--- NOTE | 2024-01-26 17:01 | PN.HOSP_ITS ---
Reason for Visit Reason for Visit: Shortness of breath Subjective Subjective No more blood out of the OG. Hemoglobin is stable. Mechanical ventilation down to 30%. Patient did poorly on breathing trial today. No issues overnight. Objective Data Objective Data Vital Signs: Vital Signs Temp Pulse Resp BP Pulse Ox O2 Del Method O2 Flow Rate 98.8 F 76 20 H 97/55 L 94 Mechanical Ventilator 50 01/26/24 16:00 01/26/24 16:00 01/26/24 16:00 01/26/24 16:00 01/26/24 16:00 01/26/24 16:00 01/24/24 13:15 FiO2 30 01/26/24 16:00 Oxygen Flow Rate (L/min) 50 Oxygen Delivery Method Mechanical Ventilator Weight: 82.599 kg Body Mass Index (BMI) 24.0 Intake & Output: Intake and Output for Last 24 Hours 01/24/24 01/25/24 01/26/24 23:59 23:59 23:59 Intake Total 2745.65 / 2775.05 1280.90 / 1296.97 593.40 / 593.40 Output Total 1950 / 1950 700 / 950 780 / 780 Balance 795.65 / 825.05 580.90 / 346.97 -186.60 / -186.60 Lab / Micro Data 01/26/24 04:05 01/26/24 04:05 Labs: Laboratory Results - last 24 hr 01/26/24 04:05: WBC 16.2 H, RBC 3.41 L, Hgb 12.2 L, Hct 34.8 L, MCV 102.1 H, MCH 35.8 H, MCHC 35.1, RDW Std Deviation 56.4 H, RDW Coeff of Jesus 15.1 H, Plt Count 151, MPV 11.1, Immature Gran % (Auto) 0.700, Neut % (Auto) 90.5 H, Lymph % (Auto) 3.0 L, [place] % (Auto) 5.6, Eos % (Auto) 0.1, Baso % (Auto) 0.1, Absolute Neuts (auto) 14.7 H, Absolute Lymphs (auto) 0.48 L, Nucleated RBC % 0, Sodium 137, Potassium 3.8, Chloride 108 H, Carbon Dioxide 23.0, Anion Gap 6, BUN 31 H, Creatinine 1.53 H, Estim Creat Clear Calc 45.69, Est GFR (MDRD) Af Amer 57 L, E st GFR (MDRD) Non-Af 47 L, BUN/Creatinine Ratio 20.3 H, Glucose 132 H, Calcium 8.0 L, Phosphorus 3.2, Magnesium 2.1, Total Bilirubin 0.40, AST 196 H, ALT 253 H , Alkaline Phosphatase 85, Total Protein 5.8 L, Albumin 2.7 L, Globulin 3.1, Albumin/Globulin Ratio 0.9 01/26/24 11:08: POC Glucose 119 H Micro: Microbiology 01/24/24 10:49 Blood Culture (Wb) - Anticubital Left Blood Culture - Preliminary No growth in 48 hours. 01/24/24 10:49 Blood Culture (Wb) - Anticubital Right Blood Culture - Preliminary No growth in 48 hours. 01/24/24 14:00 Sputum, Induced/Lukens Gram Stain - Final 01/24/24 14:00 Sputum, Induced/Lukens Respiratory Culture - Final Mixed normal respiratory hannah. No Streptococcus pneumoniae, beta-hemolytic Streptococcus or Staphylococcus aureus isolated. 01/24/24 13:25 Urine Catheter - Hernandez Urine Culture - Final Culture exhibits no growth. 01/24/24 13:25 Urine Catheter - Hernandez Legionella Antigen - Final 01/24/24 13:25 Urine Catheter - Hernandez Streptococcus pneumoniae Antigen (M - Final 01/24/24 14:00 Mucosa - Nasopharyngeal Respiratory Panel (PCR) - Final 01/24/24 10:39 Mucosa - Nose SARS-CoV-2, Influenza & RSV (PCR) - Final SARS-CoV-2 (COVID 19 PCR) Physical Exam Const alert, no apparent distress and average body habitus; Negative for healthy appearing or well nourished Constitutional Narrative: Older, white male, lying in bed, currently on mechanical ventilation intubated and sedated, does awake and follow commands consistently HEENT normocephalic, head/scalp atraumatic and moist oral mucous membranes HEENT Narrative: ET tube and OG in place Resp No normal respiratory effort, no retractions, no use of accessory muscles and No clear to auscultation bilaterally Resp Narrative: Persistent coarse lung sounds bilaterally Auscultation: crackles; Negative for rhonchi or wheezes Cardio regular rate, regular rhythm, S1 normal heart sound, S2 normal heart sound, no murmurs, no rub, no gallops and no clicks GI normal to inspection, nondistended, normoactive bowel sounds, soft to palpation and non-tender Extremity Extremity Narrative: 2+ bilateral lower extremity pitting edema, no cyanosis or clubbing Neuro moves all extremities and no focal motor deficits Neuro Narrative: Patient with no focal weakness, generalized weakness noted, follows commands consistently and patient is awake and alert Sensorium / Orientation: awake and alert Psych Psych Narrative: Calm on the ventilator Assessment & Plan Assessment/Plan (1) Sepsis: (2) Acute hypoxemic respiratory failure: (3) Metabolic acidosis: (4) Respiratory acidosis: (5) Leukocytosis: (6) Lactic acidosis: (7) Transaminitis: (8) COVID-19 virus infection: (9) GI bleed: (10) NSTEMI, initial episode of care: PLAN: Plan Sepsis secondary to COVID-19 pneumonia/aspiration pneumonia -Continue remdesivir day 3 of 5 -Continue Decadron day 3 of 10 -Sputum culture shows only normal oral hannah consistent with aspiration so we will transition antibiotics to Unasyn day 2 of 7 for antibiotics -Blood cultures no growth -Urine culture no growth -Critical care medicine is following-appreciate input Acute hypoxic and hypercapnic respiratory failure secondary to the above/combined acute systolic and right-sided heart failure -Diuretics as needed as able -Echocardiogram did show an EF of 50% with mild global hypokinesis and mild hypokinesis of the apex which was present previously, right ventricular systolic pressures are 55 mmHg -Aggressive pulmonary toilet as able -I-S and Acapella once extubated -Pulmonary medicine is following NSTEMI type II -Highly suspect demand ischemia with subendocardial disease however patient will need further testing once more medically stable -Aspirin on hold due to GI bleed -Heparin discontinued due to GI bleed -Echocardiogram as above -I did discuss the case with Dr. Valles and no need for consult at this time however patient will need follow-up with cardiology after discharge or prior depending on history obtained after extubation CKD stage IIIb -Has been elevated since admission -Stable -Monitor Upper GI bleed -OG with bright red blood--now resolved -Hemoglobin stabilized -EGD was unremarkable -Protonix drip discontinued and transition back to Protonix IV push twice daily -GI performed EGD on 01/25/2024 Transaminitis -Trending down, monitor while on remdesivir Essential hypertension -Continue to hold home valsartan and amlodipine--> blood pressures are currently low no -Will monitor clinically for now Hypothyroidism -Continue home levothyroxine Suspected COPD -No documentation however patient does have history of tobacco abuse -On albuterol as needed via HFA inhaler at home -Recommend outpatient follow-up with pulmonary medicine after discharge DVT/GI prophylaxis -SCDs -Continue Protonix drip CODE STATUS -Full code is assumed at this time will need to follow-up with family Charges/Coding Visit Charges Inpatient E&M: 13171 Subs Hosp L2
[2024-01-26] MEDS: Propofol 10MG/Ml 1,000 MG/100 ML Bottle 16.3 MG CONT INF ×2 (17:38→22:42)
[2024-01-26] MEDS: Ampicillin/Sulbactam 3 GM in 0.9% Normal Saline (100mL MB+) 100 ML IV ×2 (17:39→23:24)
[2024-01-26] MEDS: Atorvastatin Calcium 80 MG Tablet GT (22:41)
[2024-01-27] VITALS (34 sets, daily range): BP systolic 98–172; BP diastolic 52–110; PULSE 52–107; RESP 18–71; TEMP 36.8–38.2; O2SAT 92–100; BMI 24.1
[2024-01-27] MEDS: fentaNYL drip 100 ML 12.5 MCG CONT INF (00:45)
[2024-01-27 01:11] LABS: Bedside Glucose 123 mg/dL (74-106)
[2024-01-27] MEDS: Ipratropium/Albuterol Sulfate 3 ML AMPUL.NEB INHALATION ×6 (02:39→22:45)
[2024-01-27] MEDS: Propofol 10MG/Ml 1,000 MG/100 ML Bottle 13.6 MG CONT INF (05:06)
[2024-01-27] MEDS: TITRATION PARAMETER CHANGE 1 EACH IV (05:07)
--- NOTE | 2024-01-27 06:00 | PCM.PN.INT ---
Assessment & Plan Assessment/Plan (1) Sepsis: (2) Acute hypoxemic respiratory failure: (3) Transaminitis: (4) CKD (chronic kidney disease): PLAN: Plan RECOMMENDATIONS: 1. Continue assist-control mode mechanical ventilation. Wean FiO2 and PEEP as tolerated. 2. Continue scheduled bronchodilator therapy. 3. Continue Decadron as ordered. 4. Continue empiric antibiotics. 5. Gentle diuresis as ordered. 6. Wean from propofol to Precedex and continue fentanyl. Repeat spontaneous awakening and breathing trial tomorrow morning. 7. Continue appropriate ICU prophylaxis. IMPRESSIONS: 1. Acute hypoxemic and hypercapnic respiratory failure The patient presented to the hospital with acute on chronic shortness of breath, which I suspect is likely multifactorial. While the patient is positive for COVID-19, his chest imaging is concerning for the presence of pulmonary edema and the possibility for underlying congestive heart failure, given his elevated BNP and lower extremity edema. The patient was ultimately intubated in the emergency department. He has been placed on empiric antibiotics. In light of his tobacco abuse history, I agree with continuing scheduled bronchodilators, as there is likely an underlying component of obstructive lung disease. Given that he is positive for COVID-19, scheduled Decadron will be continued. Recommend holding off on initiation of remdesivir, given underlying transaminitis. If tolerated by hemodynamics today, will continue gentle diuresis. Lastly, the patient's propofol will be transition to Precedex in hopes that this will help facilitate weaning from invasive mechanical ventilatory support. 2. Sepsis The patient presented to the hospital with sepsis due to possible pneumonia with acute sepsis related organ dysfunction as evidenced by lactic acidemia and acute respiratory failure requiring invasive mechanical ventilatory support. While the patient was initially going to receive supplemental IV fluid hydration, the fluids were ultimately discontinued over concerns for volume overload and congestive heart failure. Antimicrobials will be continued as noted above. 3. Anemia The patient developed bright red blood from his OG tube on the morning of January 24. His heparin has been subsequently discontinued. The patient was seen by gastroenterology and underwent endoscopic evaluation without any significant pathology noted. Continue to monitor blood counts and transfuse if hemoglobin drops below 7 g/dL. Continue PPI therapy. 4. Chronic kidney disease/longstanding tobacco abuse history/hypertension Complicates care, management, recovery and prognosis. Continue supportive measures as noted above. Continue tube feeding as tolerated. TIME: 33 minutes of critical care time, independent of procedures, was spent addressing the patient's acute hypoxemic and hypercapnic respiratory failure, sepsis, anemia, review of all data and collaboration with the care team. Subjective Subjective The patient was seen and examined at the bedside this morning. Events from the last 24 hours have been reviewed. The patient is currently afebrile, hemodynamically stable and maintaining appropriate oxygen saturations on assist-control mode mechanical ventilation with an FiO2 requirement of 30% and PEEP of 5. No overnight issues were identified by the nursing staff. The patient did receive a one-time dose of IV Lasix yesterday. White blood cell count is stable at 11,000. Hemoglobin is stable at 12.6 g/dL. Platelet count is within normal limits. Creatinine is stable at 1.49. The patient continues to fail attempts at spontaneous breathing trials due to tachypnea and increased work of breathing. Therefore, the patient's propofol was discontinued and he was transition to Precedex and fentanyl in hopes that this will help facilitate weaning from invasive mechanical ventilatory support. Objective Data Objective Data The patient's most recent lab work, culture data and imaging studies have all been personally reviewed. Surface echocardiogram demonstrated normal LV size and function with an ejection fraction of 50%. Pulmonary artery systolic pressure was estimated to be 55 mmHg. COVID PCR was positive on January 23. Vital Signs: Vital Signs Temp Pulse Resp BP Pulse Ox O2 Del Method O2 Flow Rate 98.5 F 68 21 H 106/55 L 98 Mechanical Ventilator 50 01/27/24 05:00 01/27/24 05:36 01/27/24 05:36 01/27/24 05:00 01/27/24 05:36 01/27/24 05:00 01/24/24 13:15 FiO2 30 01/27/24 05:36 Oxygen Flow Rate (L/min) 50 Oxygen Delivery Method Mechanical Ventilator Weight: 182 lb 12.8 oz Body Mass Index (BMI) 24.1 Intake & Output: Intake and Output for Last 24 Hours 01/25/24 01/26/24 01/27/24 23:59 23:59 23:59 Intake Total 1280.90 / 1296.97 1347.45 / 1616.25 650.89 / 650.89 Output Total 700 / 950 2255 / 2605 575 / 575 Balance 580.90 / 346.97 -907.55 / -988.75 75.89 / 75.89 Lab / Micro Data Attestation: I reviewed the patient's lab results. 01/27/24 06:25 01/27/24 06:25 Labs: Laboratory Results - last 24 hr 01/26/24 11:08: POC Glucose 119 H 01/27/24 00:43: POC Glucose 123 H Micro: Microbiology 01/24/24 10:49 Blood Culture (Wb) - Anticubital Left Blood Culture - Preliminary No growth in 48 hours. 01/24/24 10:49 Blood Culture (Wb) - Anticubital Right Blood Culture - Preliminary No growth in 48 hours. 01/24/24 14:00 Sputum, Induced/Lukens Gram Stain - Final 01/24/24 14:00 Sputum, Induced/Lukens Respiratory Culture - Final Mixed normal respiratory hannah. No Streptococcus pneumoniae, beta-hemolytic Streptococcus or Staphylococcus aureus isolated. 01/24/24 13:25 Urine Catheter - Hernandez Urine Culture - Final Culture exhibits no growth. 01/24/24 13:25 Urine Catheter - Hernandez Legionella Antigen - Final 01/24/24 13:25 Urine Catheter - Hernandez Streptococcus pneumoniae Antigen (M - Final 01/24/24 14:00 Mucosa - Nasopharyngeal Respiratory Panel (PCR) - Final 01/24/24 10:39 Mucosa - Nose SARS-CoV-2, Influenza & RSV (PCR) - Final SARS-CoV-2 (COVID 19 PCR) ABG Data ABG results: ABG 01/25/24 08:51 Specimen Type ART Sample Site L Radial pH 7.37 Bicarbonate Actual 17.6 L Total CO2 19 Base Excess -8 L O2 Saturation 97 O2 % 30.0 ABG pCO2 30.7 L ABG pO2 91 Respiration Rate 20 O2 Delivery Device Not entered Vent Mode Not entered Tidal Volume 450.0 POC PEEP 5 Radiography Diagnostic Testing: Radiology Impression Chest X-Ray 01/24/24 11:00 IMPRESSION: An endotracheal tube is seen with the tip at 4 sinus proximal to the manpreet. A nasogastric tube is seen with the tip below the left hemidiaphragm. Vascular congestion and CHF with superimposed atelectasis and/or infiltrate at the right lung base. Electronically Signed: Lico Lerner MD at 11:59 EST , KUB X-Ray 01/24/24 11:00 IMPRESSION: The tip of the nasogastric tube is in the proximal portion of the body of stomach just distal to the gastroesophageal junction. Electronically Signed: Lico Lerner MD at 11:58 EST , Echocardiogram 01/24/24 13:07 Interpretation Summary Left ventricular systolic function is lower limits of normal. Normal LV size. The left ventricular ejection fraction is 50 %. Pulmonary artery systolic pressure is 55 mmHg. Ordering Physician: Reanna Mcpherson Referring Physician: JEMIMA GALLARDO Performed By: Jenny Salvador RDCS Physical Exam Const Constitutional Narrative: Intubated, sedated and mechanically ventilated. No ventilator dyssynchrony. HEENT normocephalic and head/scalp atraumatic HEENT Narrative: Temporal wasting present. Mouth: endotracheal tube in place and OG tube in place Eyes EOMs intact bilaterally and conjunctivae normal Neck supple General: trachea midline Chest inspection of chest normal Resp Auscultation: diminished lung sounds; Negative for rales, rhonchi or wheezes Cardio regular rate and regular rhythm GI normal to inspection, nondistended, normoactive bowel sounds Extremity General Extremity: edema bilateral lower extremity; Negative for clubbing Skin no rashes or lesions noted Neuro Sensorium / Orientation: sedated on vent Charges/Coding Procedures Hospitalists Procedures: 09276 Critical Care 1st Hr
[2024-01-27] MEDS: Ampicillin/Sulbactam 3 GM in 0.9% Normal Saline (100mL MB+) 100 ML IV ×4 (06:26→23:53)
[2024-01-27 06:35] LABS: Absolute Lymphocyte Count 0.65 X10^3/uL (0.83-4.51); Absolute Neutrophil Count 9.8 X10^3/uL (2.0-7.7); Basophil# 0.01 X10^3/uL; Basophil% 0.1 % (0-1); Hematocrit 36.5 % (40-54); Hemoglobin 12.6 g/dL (13.0-16.5); Lymphocyte # 0.65 X10^3/ul (0.83-4.51); Lymphocyte % 5.6 % (19-41); Mean Corp Hgb Conc 34.5 g/dL (32-36); Mean Corpuscular Hgb 35.4 pg (27.0-32.0); Mean Corpuscular Volume 102.5 fL (80-94); Monocyte# 1.02 X10^3/uL; Monocyte% 8.8 % (0-10); NRBC Flagged by Analyzer 0 % (0-5); Neutrophil % 84.6 % (47-70); Platelet Count 162 K/mm3 (150-450); RBC Distribution Width CV 15.1 % (11.6-14.6); RBC Distribution Width SD 56.7 fl (35.1-43.9); Red Blood Count 3.56 M/mm3 (4.6-6.2); White Blood Count 11.6 K/mm3 (4.4-11.0)
[2024-01-27 06:51] LABS: Anion Gap 6 (5-15); BUN 35 mg/dL (7-18); BUN/Creat Ratio 23.5 RATIO (10-20); Calcium,Total 8.6 mg/dL (8.5-10.1); Chloride 111 mmol/L (98-107); Creatinine, Serum 1.49 mg/dL (0.70-1.30); EST Glomerular Filtration Rate 49 mL/min (>60); Est Glom Filt Rate - Afr Amer 59 mL/min (>60); Estimated Creatinine Clearance 46.92 ml/min; Glucose 130 mg/dL (74-106); Magnesium 2.4 mg/dL (1.6-2.6); Phosphorus 3.6 mg/dL (2.5-4.9); Sodium Level 141 mmol/L (136-145)
[2024-01-27 06:51] LABS: Bedside Glucose 115 mg/dL (74-106)
[2024-01-27] MEDS: dexAMETHasone 10 MG/ML Vial 6 MG IV (08:58)
[2024-01-27] MEDS: Furosemide 40 MG/4 ML Vial IV (08:58)
[2024-01-27] MEDS: Levothyroxine 75 MCG Tablet GT (08:59)
[2024-01-27] MEDS: Pantoprazole Sodium 40 MG in 0.9% Normal Saline (100mL MB+) 100 ML 330 MG IV ×2 (08:59→23:00)
--- NOTE | 2024-01-27 09:28 | PN_ITS ---
Subjective Subjective Patient seen and examined. He remains intubated. His sedation had just been turned off. He was alert but not really answering any questions. He remains tachypneic. Unable to do comprehensive review of systems. Objective Data Objective Data Vital Signs: Vital Signs Temp Pulse Resp BP Pulse Ox O2 Del Method O2 Flow Rate 98.5 F 31 L 31 H 102/58 L 107 Mechanical Ventilator 50 01/27/24 07:00 01/27/24 08:54 01/27/24 08:54 01/27/24 07:00 01/27/24 08:54 01/27/24 07:00 01/24/24 13:15 FiO2 30 01/27/24 08:54 Oxygen Flow Rate (L/min) 50 Oxygen Delivery Method Mechanical Ventilator Weight: 182 lb 12.8 oz Body Mass Index (BMI) 24.1 Intake & Output: Intake and Output for Last 24 Hours 01/25/24 01/26/24 01/27/24 23:59 23:59 23:59 Intake Total 1280.90 / 1296.97 1347.45 / 1616.25 1011.13 / 1011.13 Output Total 700 / 950 2255 / 2605 825 / 825 Balance 580.90 / 346.97 -907.55 / -988.75 186.13 / 186.13 Lab / Micro Data 01/27/24 06:25 01/27/24 06:25 Labs: Laboratory Results - last 24 hr 01/26/24 11:08: POC Glucose 119 H 01/27/24 00:43: POC Glucose 123 H 01/27/24 06:17: POC Glucose 115 H 01/27/24 06:25: WBC 11.6 H, RBC 3.56 L, Hgb 12.6 L, Hct 36.5 L, MCV 102.5 H, MCH 35.4 H, MCHC 34.5, RDW Std Deviation 56.7 H, RDW Coeff of Jesus 15.1 H, Plt Count 162, MPV 11.0, Immature Gran % (Auto) 0.900, Neut % (Auto) 84.6 H, Lymph % (Auto) 5.6 L, Sol[place] % (Auto) 8.8, Eos % (Auto) 0.0, Baso % (Auto) 0.1, Absolute Neuts (auto) 9.8 H, Absolute Lymphs (auto) 0.65 L, Nucleated RBC % 0, Sodium 141, Potassium 4.0, Chloride 111 H, Carbon Dioxide 24.0, Anion Gap 6, BUN 35 H, Creatinine 1.49 H, Estim Creat Clear Calc 46.92, Est GFR (MDRD) Af Amer 59 L, E st GFR (MDRD) Non-Af 49 L, BUN/Creatinine Ratio 23.5 H, Glucose 130 H, Calcium 8.6, Phosphorus 3.6, Magnesium 2.4 Micro: Microbiology 01/24/24 13:25 Urine Catheter - Hernandez Urine Culture - Final Culture exhibits no growth. 01/24/24 13:25 Urine Catheter - Hernandez Legionella Antigen - Final 01/24/24 13:25 Urine Catheter - Hernandez Streptococcus pneumoniae Antigen (M - Final 01/24/24 10:49 Blood Culture (Wb) - Anticubital Left Blood Culture - Preliminary No growth in 48 hours. 01/24/24 10:49 Blood Culture (Wb) - Anticubital Right Blood Culture - Preliminary No growth in 48 hours. 01/24/24 14:00 Sputum, Induced/Lukens Gram Stain - Final 01/24/24 14:00 Sputum, Induced/Lukens Respiratory Culture - Final Mixed normal respiratory hannah. No Streptococcus pneumoniae, beta-hemolytic Streptococcus or Staphylococcus aureus isolated. 01/24/24 14:00 Mucosa - Nasopharyngeal Respiratory Panel (PCR) - Final 01/24/24 10:39 Mucosa - Nose SARS-CoV-2, Influenza & RSV (PCR) - Final SARS-CoV-2 (COVID 19 PCR) Physical Exam Const alert Constitutional Narrative: flat affect, RASS score is 0 HEENT normocephalic, head/scalp atraumatic and moist oral mucous membranes Eyes PERRL and EOMs intact bilaterally Neck no lymphadenopathy and supple Lymph Lymphatic: no lymphadenopathy noted and no lymphedema noted Resp Resp Narrative: intubated, diminished breath sounds Cardio regular rate, regular rhythm, S1 normal heart sound, S2 normal heart sound and no murmurs GI normal to inspection, nondistended, normoactive bowel sounds, soft to palpation, non-tender and non-distended Extremity normal capillary refill, no clubbing, cyanosis or edema and no calf tenderness General Extremity: no tenderness to palpation of joints or extremities Skin General Skin Exam: no breakdown Neuro CN's II-XII intact bilaterally, no focal motor deficits, no sensory deficits noted and deep tendon reflexes 2+ bilaterally Motor Exam: strength 5/5 throughout and general weakness Psych thought process normal, cooperative and affect normal Psych Narrative: flat affect Assessment & Plan Assessment/Plan (1) COVID-19 virus infection: (2) Acute hypoxemic respiratory failure: PLAN: Plan #Acute hypoxic and hypercapnic respiratory failure due to COVId 19 pneumonia and aspiration pneumonia as well as acute combined heart failure * remains intubated; sedation turned off today * on minimal vent settings * 2D echo showed EF of 50% with mild global hypokinesis and mild hypokinesis of the apex, with RVSp of 55mmHg. * titrate oxygen to maintain sats >90% * breathing treatment with bronchodilators * critical care on board #Sepsis due to covid 19 pneumonia and aspiration pneumonia * on remdesivr, to complete a 5 day course. Today is day 4 * on decadron, to complete a 10 day course. Today is day 4. * sputum cultures showed normal oral hannah. On iV unasyn. * Blood and urine cultures negative so far * critical care on board * #Nonstemi * thought to be a type 2 nonstemi due to emand ischemia fro respiratory failure * aspiriin held due to GI bleed. Heparin also discontinued due to GI bleed. * 2D echo as above * Patient follow-up with cardiology on outpatient basis. #CKD stage IIIb: Creatinine today 1. 4 9. Baseline is around 1.3. Will monitor closely. #Upper GI bleed * Patient had bright red blood in the OG tube. EGD done on 01/25/2024 was unremarkable. * Was on Protonix drip but is now on IV Protonix 40 mg twice daily. Hemoglobin is stable #Benign essential hypertension: * Valsartan and remdesivir held as blood pressure was running low. * BP now elevated in the 170s systolic. * IV hydralazine as needed. * Will monitor. #Hypothyroidism: On Synthroid #COPD: Patient is suspected to have COPD he does have a history of chronic nicotine dependence. Follow-up with pulmonology on outpatient basis. #Nutrition: On tube feeds. Dietitian on board. #DVT prophylaxis: SCDs Charges/Coding Visit Charges Inpatient E&M: 27558 Subs Hosp L3
[2024-01-27] MEDS: dexMEDEtomidine 400 MCG in 0.9% Normal Saline (100mL Bag) 96 ML 10.4 MCG CONT INF (10:35)
[2024-01-27] MEDS: fentaNYL drip 100 ML 10 MCG CONT INF (10:40)
--- NOTE | 2024-01-27 11:13 | OP.CCLET_ITS ---
01/27/2024 Deng Mcgowan MD [address] [place] [address] Re : Upper GI endoscopy procedure for Constantine Calvin Dear Dr. Mcgowan This procedure was performed on Thursday, January 25, 2024. My impressions and recommendations are as follows: Impressions : - Non-severe reflux esophagitis with no bleeding. - No gross lesions in the entire stomach. - Non-bleeding duodenal ulcers with no stigmata of bleeding. - No specimens collected. Recommendations : - Return patient to ICU for ongoing care. - Resume previous diet. - Continue present medications. My findings are described in the full procedure note, which is enclosed. If I can be of further assistance, please feel free to contact me at . Sincerely, Oliver Don, 01/27/2024 11:13:03 AM This report has been signed electronically.
--- NOTE | 2024-01-27 11:13 | OP.EGD_ITS ---
Patient Name: Constantine Calvin Procedure Date: 01/25/2024 3:50 PM Date of : 1945 Age: 78 Procedure: Upper GI endoscopy Indications: Hematemesis Providers: Oliver Don DO Medicines: Monitored Anesthesia Care Patient Profile: This is a 78 year old male. Refer to note in patient chart for documentation of history and physical. Patient has symptoms of acute vomiting. Complications: No immediate complications. Procedure: Pre-Anesthesia Assessment: - Prior to the procedure, a History and Physical was performed, and patient medications and allergies were reviewed. The patient is competent. The risks and benefits of the procedure and the sedation options and risks were discussed with the patient. All questions were answered and informed consent was obtained. Patient identification and proposed procedure were verified by the physician in the pre-procedure area. Mental Status Examination: alert and oriented. Airway Examination: normal oropharyngeal airway and neck mobility. Respiratory Examination: clear to auscultation. CV Examination: normal. ASA Grade Assessment: II - A patient with mild systemic disease. After reviewing the risks and benefits, the patient was deemed in satisfactory condition to undergo the procedure. The anesthesia plan was to use monitored anesthesia care (MAC). Immediately prior to administration of medications, the patient was re-assessed for adequacy to receive sedatives. The heart rate, respiratory rate, oxygen saturations, blood pressure, adequacy of pulmonary ventilation, and response to care were monitored throughout the procedure. The physical status of the patient was re-assessed after the procedure. After obtaining informed consent, the endoscope was passed under direct vision. Throughout the procedure, the patient's blood pressure, pulse, and oxygen saturations were monitored continuously. The Endoscope was introduced through the mouth, and advanced to the second part of duodenum. The upper GI endoscopy was accomplished without difficulty. The patient tolerated the procedure well. Scope In: 4:24:32 PM Scope Out: 4:28:25 PM Total Procedure Duration Time 0 hours 3 minutes 53 seconds Findings: Non-severe esophagitis with no bleeding was found 34 to 38 cm from the incisors. No gross lesions were noted in the entire examined stomach. Few non-bleeding linear duodenal ulcers with no stigmata of bleeding were found in the duodenal bulb. The largest lesion was 3 mm in largest dimension. Impression: - Non-severe reflux esophagitis with no bleeding. - No gross lesions in the entire stomach. - Non-bleeding duodenal ulcers with no stigmata of bleeding. - No specimens collected. Recommendation: - Return patient to ICU for ongoing care. - Resume previous diet. - Continue present medications. Procedure Code(s): --- Professional --- 74241, Esophagogastroduodenoscopy, flexible, transoral; diagnostic, including collection of specimen(s) by brushing or washing, when performed (separate procedure) CPT copyright 2021 [employer]. All rights reserved. The codes documented in this report are preliminary and upon traffic observer review may be revised to meet current compliance requirements. Oliver Don DO 01/27/2024 11:13:03 AM This report has been signed electronically. Number of Addenda: 0 Note Initiated On: 01/25/2024 3:50 PM
[2024-01-27 12:13] LABS: Bedside Glucose 133 mg/dL (74-106)
[2024-01-27] MEDS: Vital AF 1.2 Cal Liquid 1,000 ML 35 ML GT (14:56)
[2024-01-27] MEDS: dexMEDEtomidine 400 MCG in 0.9% Normal Saline (100mL Bag) 96 ML 22.8 MCG CONT INF ×2 (15:28→20:10)
[2024-01-27 15:31] LABS: Bedside Glucose 146 mg/dL (74-106)
[2024-01-27] MEDS: Insulin Lispro 100 UNIT/ML INSULN.PEN SC (16:48)
[2024-01-27 19:23] LABS: Bedside Glucose 169 mg/dL (74-106)
[2024-01-27] MEDS: fentaNYL drip 100 ML 15 MCG CONT INF (20:00)
[2024-01-27] MEDS: 0.9% Saline Lock 10 ML Syringe IV (20:13)
[2024-01-27] MEDS: Dexmedetomidine 1,000 mcg in 0.9% NS 240 mL 24.9 MCG CONT INF (23:51)
[2024-01-27] MEDS: Acetaminophen 650 MG/20 ML UDC GT (23:53)
[2024-01-27] MEDS: Atorvastatin Calcium 80 MG Tablet GT (23:55)
[2024-01-28] VITALS (35 sets, daily range): BP systolic 126–161; BP diastolic 58–91; PULSE 17–81; RESP 16–90; TEMP 37.5–38.3; O2SAT 87–99; BMI 23.9
[2024-01-28 00:32] LABS: Bedside Glucose 141 mg/dL (74-106)
[2024-01-28] MEDS: fentaNYL drip 100 ML 17.5 MCG CONT INF (02:10)
[2024-01-28] MEDS: Ipratropium/Albuterol Sulfate 3 ML AMPUL.NEB INHALATION ×5 (03:24→18:42)
[2024-01-28] MEDS: Ampicillin/Sulbactam 3 GM in 0.9% Normal Saline (100mL MB+) 100 ML IV ×4 (06:54→23:37)
[2024-01-28] MEDS: Insulin Lispro 100 UNIT/ML INSULN.PEN SC ×2 (06:54→17:14)
[2024-01-28 07:05] LABS: Absolute Lymphocyte Count 0.89 X10^3/uL (0.83-4.51); Absolute Neutrophil Count 8.8 X10^3/uL (2.0-7.7); Basophil# 0.02 X10^3/uL; Basophil% 0.2 % (0-1); Hematocrit 40.6 % (40-54); Hemoglobin 13.7 g/dL (13.0-16.5); Lymphocyte # 0.89 X10^3/ul (0.83-4.51); Lymphocyte % 8.1 % (19-41); Mean Corp Hgb Conc 33.7 g/dL (32-36); Mean Corpuscular Hgb 35.2 pg (27.0-32.0); Mean Corpuscular Volume 104.4 fL (80-94); Monocyte% 10.9 % (0-10); NRBC Flagged by Analyzer 0 % (0-5); Neutrophil # 8.75 X10^3/uL (2.7-7.7); Neutrophil % 79.8 % (47-70); Platelet Count 161 K/mm3 (150-450); RBC Distribution Width CV 14.9 % (11.6-14.6); RBC Distribution Width SD 57.3 fl (35.1-43.9); Red Blood Count 3.89 M/mm3 (4.6-6.2)
[2024-01-28 07:30] LABS: Anion Gap 5 (5-15); BUN 45 mg/dL (7-18); BUN/Creat Ratio 28.1 RATIO (10-20); Calcium,Total 8.4 mg/dL (8.5-10.1); Chloride 112 mmol/L (98-107); EST Glomerular Filtration Rate 45 mL/min (>60); Est Glom Filt Rate - Afr Amer 54 mL/min (>60); Glucose 167 mg/dL (74-106); Potassium 3.7 mmol/L (3.5-5.1); Sodium Level 144 mmol/L (136-145)
[2024-01-28] MEDS: fentaNYL drip 100 ML 20 MCG CONT INF ×4 (07:58→23:50)
[2024-01-28] MEDS: Levothyroxine 75 MCG Tablet GT (08:27)
[2024-01-28] MEDS: Pantoprazole Sodium 40 MG in 0.9% Normal Saline (100mL MB+) 100 ML 330 MG IV ×2 (08:28→21:33)
[2024-01-28] MEDS: dexAMETHasone 10 MG/ML Vial 6 MG IV (08:28)
[2024-01-28 08:52] LABS: Bedside Glucose 172 mg/dL (74-106)
[2024-01-28] MEDS: Vital AF 1.2 Cal Liquid 1,000 ML 50 ML GT (09:30)
[2024-01-28] MEDS: Dexmedetomidine 1,000 mcg in 0.9% NS 240 mL 24.9 MCG CONT INF (09:31)
--- NOTE | 2024-01-28 09:50 | PN_ITS ---
Subjective Subjective Patient seen and examined. He remains intubated and sedated. RASS score is 0. Unable to do review of systems due to intubation. Objective Data Objective Data Vital Signs: Vital Signs Temp Pulse Resp BP Pulse Ox O2 Del Method O2 Flow Rate 100.0 F H 70 25 H 144/69 H 97 Mechanical Ventilator 50 01/28/24 09:00 01/28/24 09:00 01/28/24 09:00 01/28/24 09:00 01/28/24 09:00 01/28/24 09:00 01/24/24 13:15 FiO2 21 01/28/24 09:00 Oxygen Flow Rate (L/min) 50 Oxygen Delivery Method Mechanical Ventilator Weight: 181 lb 6.4 oz Body Mass Index (BMI) 23.9 Intake & Output: Intake and Output for Last 24 Hours 01/26/24 01/27/24 01/28/24 23:59 23:59 23:59 Intake Total 1347.45 / 1616.25 2961.47 / 3322.71 1990.36 / 1989.36 Output Total 2255 / 2605 3250 / 3550 675 / 675 Balance -907.55 / -988.75 -288.53 / -227.29 1315.36 / 1315.36 Lab / Micro Data 01/28/24 06:45 01/28/24 06:45 Labs: Laboratory Results - last 24 hr 01/26/24 17:47: POC Glucose 133 H 01/27/24 12:00: POC Glucose 146 H 01/27/24 16:45: POC Glucose 169 H 01/27/24 23:20: POC Glucose 141 H 01/28/24 06:45: WBC 11.0, RBC 3.89 L, Hgb 13.7, Hct 40.6, MCV 104.4 H, MCH 35.2 H, MCHC 33.7, RDW Std Deviation 57.3 H, RDW Coeff of Jesus 14.9 H, Plt Count 161, MPV 11.0, Immature Gran % (Auto) 1.000 H, Neut % (Auto) 79.8 H, Lymph % (Auto) 8.1 L, Gilliam % (Auto) 10.9 H, Eos % (Auto) 0.0, Baso % (Auto) 0.2, Absolute Neuts (auto) 8.8 H, Absolute Lymphs (auto) 0.89, Nucleated RBC % 0, Sodium 144, Potassium 3.7, Chloride 112 H, Carbon Dioxide 26.0, Anion Gap 5, BUN 45 H, C reatinine 1.60 H, Estim Creat Clear Calc 43.70, Est GFR (MDRD) Af Amer 54 L, Est GFR (MDRD) Non-Af 45 L, BUN/Creatinine Ratio 28.1 H, Glucose 167 H, Calcium 8.4 L 01/28/24 06:49: POC Glucose 172 H Micro: Microbiology 01/24/24 13:25 Urine Catheter - Hernandez Urine Culture - Final Culture exhibits no growth. 01/24/24 13:25 Urine Catheter - Hernandez Legionella Antigen - Final 01/24/24 13:25 Urine Catheter - Hernandez Streptococcus pneumoniae Antigen (M - Final 01/24/24 10:49 Blood Culture (Wb) - Anticubital Left Blood Culture - Preliminary No growth in 48 hours. 01/24/24 10:49 Blood Culture (Wb) - Anticubital Right Blood Culture - Preliminary No growth in 48 hours. 01/24/24 14:00 Sputum, Induced/Lukens Gram Stain - Final 01/24/24 14:00 Sputum, Induced/Lukens Respiratory Culture - Final Mixed normal respiratory hannah. No Streptococcus pneumoniae, beta-hemolytic Streptococcus or Staphylococcus aureus isolated. 01/24/24 14:00 Mucosa - Nasopharyngeal Respiratory Panel (PCR) - Final 01/24/24 10:39 Mucosa - Nose SARS-CoV-2, Influenza & RSV (PCR) - Final SARS-CoV-2 (COVID 19 PCR) Physical Exam Const alert and average body habitus; Negative for healthy appearing or well nourished Constitutional Narrative: flat affect, RASS score is 0 Orientation / Consciousness: lethargic HEENT normocephalic, head/scalp atraumatic and moist oral mucous membranes Eyes PERRL, EOMs intact bilaterally and conjunctivae normal Eyes Narrative: No scleral icterus Neck no lymphadenopathy and supple Lymph Lymphatic: no lymphadenopathy noted and no lymphedema noted Resp Resp Narrative: intubated, diminished breath sounds Auscultation: wheezes Cardio regular rate, regular rhythm, S1 normal heart sound, S2 normal heart sound, no murmurs, no rub, no gallops and no clicks GI normal to inspection, nondistended, normoactive bowel sounds, soft to palpation, non-tender and non-distended Extremity Extremity Narrative: 2+ bilateral lower extremity pitting edema, no cyanosis or clubbing General Extremity: no tenderness to palpation of joints or extremities Skin skin turgor normal, no jaundice, no petechiae and no mottling General Skin Exam: no breakdown Neuro Neuro Narrative: intubated, sedated, RASS score is 0 Sensorium / Orientation: awake and alert Psych Psych Narrative: flat affect Assessment & Plan Assessment/Plan (1) COVID-19 virus infection: (2) Acute hypoxemic respiratory failure: PLAN: Plan #Acute hypoxic and hypercapnic respiratory failure due to COVId 19 pneumonia and aspiration pneumonia as well as acute combined heart failure * remains intubated; sedation turned off yesterday but he failed his spontaneous breathing trial yesterday. * on minimal vent settings * 2D echo showed EF of 50% with mild global hypokinesis and mild hypokinesis of the apex, with RVSp of 55mmHg. * titrate oxygen to maintain sats >90% * breathing treatment with bronchodilators * critical care on board #Sepsis due to covid 19 pneumonia and aspiration pneumonia * on remdesivr, to complete a 5 day course. Today is day 5 * on decadron, to complete a 10 day course. Today is day 5 * sputum cultures showed normal oral hannah. On iV unasyn. * Blood and urine cultures negative so far * critical care on board * #Nonstemi * thought to be a type 2 nonstemi due to emand ischemia fro respiratory failure * aspirin held due to GI bleed. Heparin also discontinued due to GI bleed. * 2D echo as above * Patient follow-up with cardiology on outpatient basis. #CKD stage IIIb: Creatinine today 1. 4 9. Baseline is around 1.3. Will monitor closely. #Upper GI bleed * Patient had bright red blood in the OG tube. EGD done on 01/25/2024 showed nonsevere reflux esophagitis with no gross lesions in the entire stomach and nonbleeding duodenal ulcers with no stigmata of bleeding. * Was on Protonix drip but is now on IV Protonix 40 mg twice daily. Hemoglobin is stable * #Benign essential hypertension: * Valsartan and remdesivir held as blood pressure was running low. * BP now elevated in the 170s systolic. * IV hydralazine as needed. * Will monitor. #Hypothyroidism: On Synthroid #CKD stage III: Creatinine is 1.6 which is around baseline. Will monitor. #COPD: * Patient is suspected to have COPD he does have a history of chronic nicotine dependence. * Follow-up with pulmonology on outpatient basis. #Nutrition: On tube feeds. Dietitian on board. #DVT prophylaxis: SCDs Charges/Coding Visit Charges Inpatient E&M: 16793 Subs Hosp L3
[2024-01-28 12:19] LABS: Bedside Glucose 132 mg/dL (74-106)
--- NOTE | 2024-01-28 13:37 | PN.CC_ITS ---
Objective Data Objective Data Vital Signs: Vital Signs Last response 3 Temperature 38.1 C H 01/28/24 12:00 Temperature Source Core 01/28/24 12:00 Pulse Rate 77 01/28/24 13:14 Pulse Strength Normal (2+) 01/28/24 08:53 Respiratory Rate 16 01/28/24 13:14 Respiratory Effort Mechanically Ventilated 01/28/24 12:00 Respiratory Depth Normal 01/28/24 12:00 Respiratory Pattern Tachypnea 01/28/24 13:14 Blood Pressure 145/80 H 01/28/24 12:00 Blood Pressure Mean 101 01/28/24 12:00 Blood Pressure Source Monitor 01/28/24 12:00 Blood Pressure Position Semi-Fowlers 01/28/24 12:00 Blood Pressure Location Left Arm 01/28/24 12:00 Pulse Ox 87 01/28/24 13:14 Oxygen Delivery Method Mechanical Ventilator 01/28/24 12:00 Oxygen Flow Rate (L/min) 50 01/24/24 13:15 Fraction of Inspired Oxygen (FIO2) 21 01/28/24 12:00 I&O: I&O Last 24 Hours 3 01/27/24 01/28/24 01/28/24 23:59 11:59 23:59 Intake Total 1713.49 / 3322.71 2088.52 / 2407.27 318.75 / 2407.27 Output Total 1825 / 3550 875 / 875 Balance -111.51 / -227.29 1213.52 / 1532.27 318.75 / 1532.27 I&O: Total Stay 3 01/24/24 10:15 thru 01/28/24 12:46 Intake Total 59793.74 Output Total 9030 Balance 1712.74 Ventilator:: vent check made 21%/PEEP 5 Current Meds Ordered / Administered: Current meds ordered / Administered 3 Generic Name Dose Route Start Last Admin Trade Name Freq PRN Reason Stop Dose Admin Acetaminophen 650 mg 01/24/24 13:12 01/27/24 23:53 Acetaminophen 650 Mg/20 Ml Udc GT 650 mg Q6H PRN PRN Administration Pain 1-10 Or Fever>100.7 Albuterol Sulfate 2.5 mg 01/24/24 13:07 Albuterol 2.5 Mg/3 Ml Vial.Neb. INHALATION Q2H PRN PRN SOB &/OR WHEEZING Albuterol/Ipratropium 3 ml 01/24/24 13:07 01/28/24 11:43 Ipratropium/Albuterol Sulfate 3 Ml Ampul.Neb INHALATION 3 ml Q4H.RT CORWIN Administration Aspirin 81 mg 01/25/24 10:00 Aspirin 81 Mg Tab.Chew GT DAILY CORWIN Atorvastatin Calcium 80 mg 01/24/24 22:00 01/27/24 23:55 Atorvastatin Calcium 80 Mg Tablet GT 80 mg QHS CORWIN Administration Dexamethasone Sodium Phosphate 6 mg 01/24/24 13:15 01/28/24 08:28 Dexamethasone 10 Mg/Ml Vial IV 6 mg DAILY CORWIN Administration Heparin Sodium (Porcine) 0 unit 01/24/24 20:15 Heparin Injection (Vial) 5,000 Unit/Ml Vial IV UD PRN dose adjustment Protocol Hydralazine HCl 10 mg 01/24/24 13:07 Hydralazine 20 Mg/Ml Vial IV Q6H PRN PRN SBP>150 Protocol Fentanyl 100 mls @ 5 mls/hr 01/24/24 13:07 01/28/24 12:45 CONT INF 0 mcg/hr UD CORWIN 0 mls/hr Titration Protocol 50 MCG/HR Sodium Chloride 100 mls @ 15 mls/hr 01/24/24 13:36 01/27/24 12:09 IV Infused .Q6H40M PRN Infusion Saline Flush Sodium Chloride 100 mls @ 15 mls/hr 01/24/24 13:36 IV .Q6H40M PRN Additional IVPB Infusion Pantoprazole Sodium 40 mg/ 110 mls @ 330 mls/hr 01/25/24 10:00 01/28/24 08:55 Sodium Chloride IV Infused Q12 CORWIN Infusion Enteral Nutritional Formula 1,000 mls @ 65 mls/hr 01/26/24 09:35 01/28/24 09:30 Vital Af 1.2 Ruiz Liquid GT 50 mls/hr .[id number] CORWIN Administration Ampicillin Sodium/Sulbactam 112 mls @ 150 mls/hr 01/26/24 18:00 01/28/24 12:46 Sodium 3 gm/ Sodium Chloride IV Infused Q6 CORWIN Infusion Dexmedetomidine HCl 1,000 mcg/ 250 mls @ 22.802 mls/hr 01/27/24 20:05 01/28/24 12:30 Sodium Chloride CONT INF 1.4 mcg/kg/hr .[id number] CORWIN 29 mls/hr Titration Protocol 1.1 MCG/KG/HR Insulin Human Lispro 0 unit 01/26/24 18:00 01/28/24 11:59 Insulin Lispro 100 Unit/Ml Insuln.Pen SC Not Given Q6 [facility] Protocol Levothyroxine Sodium 75 mcg 01/25/24 10:00 01/28/24 08:27 Levothyroxine 75 Mcg Tablet GT 75 mcg DAILY CORWIN Administration Ondansetron HCl 4 mg 01/24/24 13:07 Ondansetron 4 Mg/2 Ml Vial IV Q8H PRN PRN NAUSEA/VOMITING Senna/Docusate Sodium 2 tablet 01/24/24 13:07 Senna/Docusate Sodium 1 Tablet GT BID PRN PRN Constipation Sodium Chloride 10 - 40 ml 01/24/24 13:36 01/27/24 20:13 0.9% Saline Lock 10 Ml Syringe IV 40 ml UD PRN Administration SALINE FLUSH Lab / Micro Data Attestation: I reviewed the patient's lab results. 01/28/24 06:45 01/28/24 06:45 Labs: Laboratory Results - last 24 hr 01/27/24 12:00: POC Glucose 146 H 01/27/24 16:45: POC Glucose 169 H 01/27/24 23:20: POC Glucose 141 H 01/28/24 06:45: WBC 11.0, RBC 3.89 L, Hgb 13.7, Hct 40.6, MCV 104.4 H, MCH 35.2 H, MCHC 33.7, RDW Std Deviation 57.3 H, RDW Coeff of Jesus 14.9 H, Plt Count 161, MPV 11.0, Immature Gran % (Auto) 1.000 H, Neut % (Auto) 79.8 H, Lymph % (Auto) 8.1 L, [place] % (Auto) 10.9 H, Eos % (Auto) 0.0, Baso % (Auto) 0.2, Absolute Neuts (auto) 8.8 H, Absolute Lymphs (auto) 0.89, Nucleated RBC % 0, Sodium 144, Potassium 3.7, Chloride 112 H, Carbon Dioxide 26.0, Anion Gap 5, BUN 45 H, C reatinine 1.60 H, Estim Creat Clear Calc 43.70, Est GFR (MDRD) Af Amer 54 L, Est GFR (MDRD) Non-Af 45 L, BUN/Creatinine Ratio 28.1 H, Glucose 167 H, Calcium 8.4 L 01/28/24 06:49: POC Glucose 172 H 01/28/24 11:59: POC Glucose 132 H Assessment and Plan . Assessment and plan: 1. Acute hypoxemic and hypercapnic respiratory failure Suspected to be multifactorial (COVID-19, Cardiogenic Pulmonary Edema, COPD). Transitioned to precedex/propofol at end of the week. Start some high level PS/CPAP trials today and if he does well we'll accelerate those as tolerated. Cont to diurese. His creat is a little higher. If it rises again 01/28 will pause and reassess on 01/29. 2. Sepsis Pressure issues have resolved as as above volume overload is currently more pressing concern. 3. Anemia Follow H&H closely given events earlier in hospital. PPI, no anticoagulation. 4. Chronic kidney disease/longstanding tobacco abuse history/hypertension Complicates care, management, recovery and prognosis. Continue supportive measures as noted above. Continue tube feeding as tolerated. Critical Care Time: 32 minutes The entirety of this encounter was done via Telemedicine Physical Exam Narrative Gen: Intubated, sedated ENT: Sclera anicteric; moist conjunctiva and mucous membranes; connected to vent via ETT CV: rrr, nl s1 and s2, no mrg; pulses 2+/symmetric and normal cap refill Lungs: CTAB, well-synchronized with vent; no nasal flaring or accessory muscle use Abdomen: Soft, nt/nd; normal bowel sounds, no organomegaly and no ascites or abnormal tympany Ext: no clubbing, cyanosis, + edema Neuro: sedated; CN reflexes appear intact Skin: normal turgor; no rash Psych: lightly sedated Subjective Subjective Tolerating time off neuromuscular blockade TFs started 01/26 Sedation: Propofol/Precedex
[2024-01-28] MEDS: Acetaminophen 650 MG/20 ML UDC GT (17:07)
[2024-01-28] MEDS: Dexmedetomidine 1,000 mcg in 0.9% NS 240 mL 29 MCG CONT INF (17:07)
[2024-01-28 17:34] LABS: Bedside Glucose 185 mg/dL (74-106)
[2024-01-28] MEDS: Furosemide 40 MG/4 ML Vial IV (18:31)
[2024-01-28] MEDS: Chlorhexidine 15 ML PO (21:48)
[2024-01-29] VITALS (34 sets, daily range): BP systolic 139–179; BP diastolic 74–101; PULSE 55–97; RESP 19–37; TEMP 37.4–38.7; O2SAT 93–99; BMI 23.6
[2024-01-29 00:11] LABS: Bedside Glucose 114 mg/dL (74-106)
--- NOTE | 2024-01-29 00:15 | RAD_ITS ---
STUDY: X-RAY - ABDOMEN/PELVIS REASON FOR EXAM: Male, 78 years old patient with high residuals. TECHNIQUE: Two AP supine views of the abdomen and pelvis. COMPARISON: Radiographs of the abdomen dated January 24, 2024. FINDINGS: Normal visualized lung bases. There is a large amount of bowel gas visible within the colon with minimal solid stool visible. The tip of the enteric tube is located in left upper quadrant. The sidehole however is located at the gastroesophageal junction. Suggest advancing the nasogastric tube identified to 10 cm. There is no obvious organomegaly, mass, dilated bowel or pathologic calcifications. There is a questionable rectal tube versus rectal probe. There is a thoracolumbar scoliosis with convexity towards the left. RAD/Abdomen Single View (Portable) IMPRESSION: 1. Large amount of bowel gas in the colon suggesting possible ileus. 2. Suggest advancing the nasogastric tube another 5 to 10 cm. Electronically Signed: Mary Alice Bledsoe MD at 2:04 EST ,
--- NOTE | 2024-01-29 00:16 | PCM.HOSP.N ---
Hospitalist Note Patient with elevated residuals, held TF but still elevated. Will obtain KUB.
--- NOTE | 2024-01-29 00:25 | RAD_ITS ---
STUDY: X-RAY CHEST REASON FOR EXAM: Male, 78 years old patient with respiratory failure. TECHNIQUE: Single AP portable view of the chest. COMPARISON: January 24, 2024. FINDINGS: Tip of endotracheal tube is located approximately 2.8 cm from the manpreet. Enteric tube is present with the tip in the left upper quadrant. The sidehole is at the gastroesophageal junction and should be advanced another 5 to 10 cm. Cardiac monitoring leads are present. The lungs are expanded. There is right basilar ground glass attenuation suggesting possible pneumonia. There are prominent bronchovascular markings of both lungs. There is no demonstrated pleural abnormality. Normal size heart. Normal mediastinum and kiley. There is prominence of the pulmonary hilar arteries with peripheral pulmonary vascular congestion. There is atherosclerotic calcification of the aortic arch with tortuosity. There are diffuse degenerative changes of the visualized thoracic spine. Normal visualized ribs, clavicles, and shoulders. There is no demonstrated abnormality of the visualized soft tissue structures of the upper abdomen. RAD/Chest 1 View (Portable) IMPRESSION: 1. Suggest advancing the nasogastric tube 5 to 10 cm. 2. Right basilar airspace disease suggests possible pneumonia. Electronically Signed: Mary Alice Bledsoe MD at 1:00 [facility] ,
[2024-01-29] MEDS: Dexmedetomidine 1,000 mcg in 0.9% NS 240 mL 29 MCG CONT INF (01:28)
[2024-01-29] MEDS: Ipratropium/Albuterol Sulfate 3 ML AMPUL.NEB INHALATION ×6 (02:38→23:20)
[2024-01-29] MEDS: fentaNYL drip 100 ML 20 MCG CONT INF ×4 (05:00→21:00)
[2024-01-29] MEDS: Ampicillin/Sulbactam 3 GM in 0.9% Normal Saline (100mL MB+) 100 ML IV ×4 (05:31→23:51)
[2024-01-29 05:47] LABS: Absolute Lymphocyte Count 1.19 X10^3/uL (0.83-4.51); Absolute Neutrophil Count 8.3 X10^3/uL (2.0-7.7); Basophil# 0.02 X10^3/uL; Basophil% 0.2 % (0-1); Hematocrit 41.7 % (40-54); Hemoglobin 14.5 g/dL (13.0-16.5); Lymphocyte # 1.19 X10^3/ul (0.83-4.51); Lymphocyte % 10.7 % (19-41); Mean Corp Hgb Conc 34.8 g/dL (32-36); Mean Corpuscular Hgb 35.7 pg (27.0-32.0); Mean Corpuscular Volume 102.7 fL (80-94); Mean Platelet Vol. 10.8 fl (6.2-12.0); Monocyte# 1.49 X10^3/uL; Monocyte% 13.4 % (0-10); NRBC Flagged by Analyzer 0 % (0-5); Neutrophil # 8.34 X10^3/uL (2.7-7.7); Platelet Count 160 K/mm3 (150-450); RBC Distribution Width CV 14.7 % (11.6-14.6); Red Blood Count 4.06 M/mm3 (4.6-6.2); White Blood Count 11.1 K/mm3 (4.4-11.0)
[2024-01-29 05:51] LABS: Bedside Glucose 133 mg/dL (74-106)
--- NOTE | 2024-01-29 07:00 | RAD_ITS ---
EXAM: XR ABDOMEN, 1 VIEW CLINICAL INDICATION: Ileus TECHNIQUE: Frontal supine view of the abdomen/pelvis. COMPARISON: 01/29/2024 at 12:27 AM. FINDINGS: LOWER THORAX: See below. GASTROINTESTINAL TRACT: Gas in small and large bowel loops and in the stomach. No bowel obstruction. ORGANS: Unremarkable as visualized. No organomegaly. No abnormal calcifications. BONES/JOINTS: Moderately pronounced rotary scoliosis of the lumbar spine and moderate levoscoliosis at the thoracolumbar junction. SOFT TISSUES: No acute pathology. TUBES, LINES AND DEVICES: NG tube tip is in the proximal gastric cavity and the sidehole is in the distal esophagus near the EG junction. IMPRESSION: RAD/Abdomen Single View (Portable) IMPRESSION: 1. No bowel obstruction or acute abnormality in the abdomen and pelvis. 2. No significant interval change. 3. NG tube tip is in the proximal cavity and the sidehole is in the distal esophagus near the EG junction. Distal repositioning will be helpful. Electronically Signed: Aj Alvarez MD at 8:46 EST ,
[2024-01-29] MEDS: Acetaminophen 650 MG/20 ML UDC GT ×2 (07:43→14:44)
[2024-01-29] MEDS: Levothyroxine 75 MCG Tablet GT (08:19)
[2024-01-29] MEDS: Pantoprazole Sodium 40 MG in 0.9% Normal Saline (100mL MB+) 100 ML 330 MG IV ×2 (08:19→20:54)
[2024-01-29] MEDS: Chlorhexidine 15 ML PO ×2 (08:20→20:54)
[2024-01-29] MEDS: CHLORHEXIDINE GLUC 2% CLOTH 1 EACH TOWELETTE TOPICAL ×2 (08:21→23:51)
[2024-01-29] MEDS: dexAMETHasone 10 MG/ML Vial 6 MG IV (08:24)
[2024-01-29] MEDS: Dexmedetomidine 1,000 mcg in 0.9% NS 240 mL 31.1 MCG CONT INF ×2 (09:22→17:32)
[2024-01-29 11:55] LABS: Bedside Glucose 142 mg/dL (74-106)
--- NOTE | 2024-01-29 12:21 | PN_ITS ---
Subjective Subjective Patient seen and examined. He remains intubated and sedated. Unable to do review of systems. Objective Data Objective Data Vital Signs: Vital Signs Temp Pulse Resp BP Pulse Ox O2 Del Method O2 Flow Rate 101.2 F H 70 20 H 167/91 H 97 Mechanical Ventilator 50 01/29/24 10:00 01/29/24 11:19 01/29/24 11:19 01/29/24 10:00 01/29/24 11:19 01/29/24 10:00 01/24/24 13:15 FiO2 25 01/29/24 11:19 Oxygen Flow Rate (L/min) 50 Oxygen Delivery Method Mechanical Ventilator Weight: 179 lb 1.6 oz Body Mass Index (BMI) 23.6 Intake & Output: Intake and Output for Last 24 Hours 01/27/24 01/28/24 01/29/24 23:59 23:59 23:59 Intake Total 2961.47 / 3322.71 3966.08 / 4068.41 915.90 / 915.90 Output Total 3250 / 3550 1125 / 2525 2375 / 2375 Balance -288.53 / -227.29 2841.08 / 1543.41 -1459.10 / -1459.10 Lab / Micro Data 01/29/24 05:20 01/28/24 06:45 Labs: Laboratory Results - last 24 hr 01/25/24 05:30: Crossmatch See Detail 01/28/24 17:13: POC Glucose 185 H 01/28/24 23:36: POC Glucose 114 H 01/29/24 05:20: WBC 11.1 H, RBC 4.06 L, Hgb 14.5, Hct 41.7, MCV 102.7 H, MCH 35.7 H, MCHC 34.8, RDW Std Deviation 56.0 H, RDW Coeff of Jesus 14.7 H, Plt Count 160, MPV 10.8, Immature Gran % (Auto) 0.700, Neut % (Auto) 75.0 H, Lymph % (Auto) 10.7 L, [place] % (Auto) 13.4 H, Eos % (Auto) 0.0, Baso % (Auto) 0.2, A bsolute Neuts (auto) 8.3 H, Absolute Lymphs (auto) 1.19, Nucleated RBC % 0, Sodium Cancelled, Potassium Cancelled, Chloride Cancelled, Carbon Dioxide Cancelled, Anion Gap Cancelled, BUN Cancelled, Creatinine Cancelled, Estim Creat Clear Calc Cancelled, Est GFR (MDRD) Af Amer Cancelled, Est GFR (MDRD) Non-Af Cancelled, BUN/Creatinine Ratio Cancelled, Glucose Cancelled, Calcium Cancelled, Total Bilirubin Cancelled, AST Cancelled, ALT Cancelled, Alkaline Phosphatase Cancelled, Total Protein Cancelled, Albumin Cancelled, Globulin Cancelled, Albumin/Globulin Ratio Cancelled 01/29/24 05:25: POC Glucose 133 H 01/29/24 11:34: POC Glucose 142 H Micro: Microbiology 01/24/24 10:49 Blood Culture (Wb) - Anticubital Right Blood Culture - Final No growth in 5 days. 01/24/24 13:25 Urine Catheter - Hernandez Urine Culture - Final Culture exhibits no growth. 01/24/24 13:25 Urine Catheter - Hernandez Legionella Antigen - Final 01/24/24 13:25 Urine Catheter - Hernandez Streptococcus pneumoniae Antigen (M - Final 01/24/24 10:49 Blood Culture (Wb) - Anticubital Left Blood Culture - Preliminary No growth in 48 hours. 01/24/24 14:00 Sputum, Induced/Lukens Gram Stain - Final 01/24/24 14:00 Sputum, Induced/Lukens Respiratory Culture - Final Mixed normal respiratory hannah. No Streptococcus pneumoniae, beta-hemolytic Streptococcus or Staphylococcus aureus isolated. 01/24/24 14:00 Mucosa - Nasopharyngeal Respiratory Panel (PCR) - Final 01/24/24 10:39 Mucosa - Nose SARS-CoV-2, Influenza & RSV (PCR) - Final SARS-CoV-2 (COVID 19 PCR) Radiography Diagnostic Testing: Radiology Impression KUB X-Ray 01/29/24 00:15 IMPRESSION: 1. Large amount of bowel gas in the colon suggesting possible ileus. 2. Suggest advancing the nasogastric tube another 5 to 10 cm. Electronically Signed: Mary Alice Bledsoe MD at 2:04 EST , Chest X-Ray 01/29/24 00:25 IMPRESSION: 1. Suggest advancing the nasogastric tube 5 to 10 cm. 2. Right basilar airspace disease suggests possible pneumonia. Electronically Signed: Mary Alice Bledsoe MD at 1:00 EST , KUB X-Ray 01/29/24 07:00 IMPRESSION: 1. No bowel obstruction or acute abnormality in the abdomen and pelvis. 2. No significant interval change. 3. NG tube tip is in the proximal cavity and the sidehole is in the distal esophagus near the EG junction. Distal repositioning will be helpful. Electronically Signed: Aj Alvarez MD at 8:46 EST , Physical Exam Const no apparent distress and average body habitus Constitutional Narrative: flat affect, RASS score is 0 Orientation / Consciousness: lethargic HEENT normocephalic, head/scalp atraumatic and moist oral mucous membranes Eyes PERRL, EOMs intact bilaterally and conjunctivae normal Eyes Narrative: No scleral icterus Neck no lymphadenopathy and supple Neck Narrative: Trachea midline, no thyroid enlargement Lymph Lymphatic: no lymphadenopathy noted and no lymphedema noted Resp no retractions and no use of accessory muscles Resp Narrative: intubated,mildly diminished breath sounds bibasally, no wheezes or crackles. Auscultation: wheezes Cardio regular rate, regular rhythm, S1 normal heart sound, S2 normal heart sound, no murmurs and no rub GI normal to inspection, nondistended, normoactive bowel sounds, soft to palpation, non-tender and non-distended Extremity normal capillary refill, no clubbing, cyanosis or edema and no calf tenderness General Extremity: no tenderness to palpation of joints or extremities Skin skin turgor normal and no jaundice General Skin Exam: no breakdown Neuro Neuro Narrative: intubated, sedated, RASS score is 0 Sensorium / Orientation: awake Motor Exam: general weakness Psych Psych Narrative: flat affect Assessment & Plan Assessment/Plan (1) COVID-19 virus infection: (2) Acute hypoxemic respiratory failure: PLAN: Plan #Acute hypoxic and hypercapnic respiratory failure due to COVId 19 pneumonia and aspiration pneumonia as well as acute combined heart failure * remains intubated; sedation turned off and he is on minimal vent settings. * on minimal vent settings * 2D echo showed EF of 50% with mild global hypokinesis and mild hypokinesis of the apex, with RVSp of 55mmHg. * titrate oxygen to maintain sats >90% * breathing treatment with bronchodilators * critical care on board #Sepsis due to covid 19 pneumonia and aspiration pneumonia * completed a course of remdesivir * on decadron, to complete a 10 day course. Today is day 6 * sputum cultures showed normal oral hannah. On iV unasyn. * Blood and urine cultures negative so far * critical care on board * #Nonstemi * thought to be a type 2 nonstemi due to emand ischemia fro respiratory failure * aspirin held due to GI bleed. Heparin also discontinued due to GI bleed. * 2D echo as above * Patient follow-up with cardiology on outpatient basis. #CKD stage IIIb: Cr at baseline. Will monitor. #Upper GI bleed * Patient had bright red blood in the OG tube. EGD done on 01/25/2024 showed nonsevere reflux esophagitis with no gross lesions in the entire stomach and nonbleeding duodenal ulcers with no stigmata of bleeding. * on IV Protonix 40 mg twice daily. Hemoglobin is stable * #Benign essential hypertension: * Valsartan held as blood pressure was running low. * BP now elevated in the 170s systolic. * IV hydralazine as needed. * Will monitor. #Hypothyroidism: On Synthroid #COPD: * Patient is suspected to have COPD he does have a history of chronic nicotine dependence. * Follow-up with pulmonology on outpatient basis. #Nutrition: * On tube feeds. Dietitian on board. * Was concerned about increased residuals yesterday so he had a KUB which showed no bowel obstruction or acute abnormality. He has not had a bowel movement so placed on bowel regimen to help. #DVT prophylaxis: SCDs Charges/Coding Visit Charges Inpatient E&M: 14827 Subs Hosp L3
[2024-01-29] MEDS: Polyethylene Glycol 3350 17 GM PACKET PO ×2 (13:35→18:01)
--- NOTE | 2024-01-29 17:20 | PCM.PN.TICU ---
Objective Data Objective Data Vital Signs: Vital Signs Last response Temperature 38.1 C H 01/29/24 17:00 Temperature Source Core 01/29/24 17:00 Pulse Rate 81 01/29/24 17:00 Pulse Strength Normal (2+) 01/29/24 08:06 Respiratory Rate 26 H 01/29/24 17:00 Respiratory Effort Mechanically Ventilated 01/29/24 04:00 Respiratory Depth Normal 01/29/24 04:00 Respiratory Pattern Tachypnea 01/29/24 13:52 Blood Pressure 139/100 H 01/29/24 17:00 Blood Pressure Mean 113 01/29/24 17:00 Blood Pressure Source Monitor 01/29/24 17:00 Blood Pressure Position Semi-Fowlers 01/29/24 17:00 Blood Pressure Location Left Arm 01/29/24 17:00 Pulse Ox 99 01/29/24 17:00 Oxygen Delivery Method Mechanical Ventilator 01/29/24 17:00 Oxygen Flow Rate (L/min) 50 01/24/24 13:15 Fraction of Inspired Oxygen (FIO2) 25 01/29/24 17:00 I&O: I&O Last 24 Hours 01/28/24 01/29/24 01/29/24 23:59 11:59 23:59 Intake Total 1877.56 / 4068.41 931.57 / 1123.90 192.33 / 1123.90 Output Total 250 / 2525 2375 / 2825 450 / 2825 Balance 1627.56 / 1543.41 -1443.43 / -1701.10 -257.67 / -1701.10 I&O: Total Stay 01/24/24 10:15 thru 01/29/24 16:00 Intake Total 53258.45 Output Total 40330 Balance 1320.45 Current Meds Ordered / Administered: Current meds ordered / Administered Generic Name Dose Route Start Last Admin Trade Name Freq PRN Reason Stop Dose Admin Acetaminophen 650 mg 01/24/24 13:12 01/29/24 14:44 Acetaminophen 650 Mg/20 Ml Udc GT 650 mg Q6H PRN PRN Administration Pain 1-10 Or Fever>100.7 Albuterol Sulfate 2.5 mg 01/24/24 13:07 Albuterol 2.5 Mg/3 Ml Vial.Neb. INHALATION Q2H PRN PRN SOB &/OR WHEEZING Albuterol/Ipratropium 3 ml 01/24/24 13:07 01/29/24 13:52 Ipratropium/Albuterol Sulfate 3 Ml Ampul.Neb INHALATION 3 ml Q4H.RT CORWIN Administration Aspirin 81 mg 01/25/24 10:00 Aspirin 81 Mg Tab.Chew GT DAILY CORWIN Atorvastatin Calcium 80 mg 01/24/24 22:00 01/29/24 00:18 Atorvastatin Calcium 80 Mg Tablet GT Not Given QHS CORWIN Chlorhexidine Gluconate 15 ml 01/28/24 22:00 01/29/24 08:20 Chlorhexidine 15 Ml PO 15 ml BID CORWIN Administration Chlorhexidine Gluconate 1 each 01/29/24 10:00 01/29/24 08:21 Chlorhexidine Gluc 2% Cloth 1 Each [place] TOPICAL 1 each DAILY CORWIN Administration Dexamethasone Sodium Phosphate 6 mg 01/24/24 13:15 01/29/24 08:24 Dexamethasone 10 Mg/Ml Vial IV 6 mg DAILY CORWIN Administration Heparin Sodium (Porcine) 0 unit 01/24/24 20:15 Heparin Injection (Vial) 5,000 Unit/Ml Vial IV UD PRN dose adjustment Protocol Hydralazine HCl 10 mg 01/24/24 13:07 Hydralazine 20 Mg/Ml Vial IV Q6H PRN PRN SBP>150 Protocol Fentanyl 100 mls @ 5 mls/hr 01/24/24 13:07 01/29/24 15:02 CONT INF Not Given UD [facility] Protocol 50 MCG/HR Sodium Chloride 100 mls @ 15 mls/hr 01/24/24 13:36 01/27/24 12:09 IV Infused .Q6H40M PRN Infusion Saline Flush Sodium Chloride 100 mls @ 15 mls/hr 01/24/24 13:36 IV .Q6H40M PRN Additional IVPB Infusion Pantoprazole Sodium 40 mg/ 110 mls @ 330 mls/hr 01/25/24 10:00 01/29/24 08:59 Sodium Chloride IV Infused Q12 CORWIN Infusion Enteral Nutritional Formula 1,000 mls @ 65 mls/hr 01/26/24 09:35 01/29/24 15:04 Vital Af 1.2 Ruiz Liquid GT Not Given .[id number] CORWIN Ampicillin Sodium/Sulbactam 112 mls @ 150 mls/hr 01/26/24 18:00 01/29/24 17:11 Sodium 3 gm/ Sodium Chloride IV 150 mls/hr Q6 CORWIN Administration Dexmedetomidine HCl 1,000 mcg/ 250 mls @ 22.802 mls/hr 01/27/24 20:05 01/29/24 09:22 Sodium Chloride CONT INF 1.5 mcg/kg/hr .[id number] CORWIN 31.1 mls/hr Administration Protocol 1.1 MCG/KG/HR Insulin Human Lispro 0 unit 01/26/24 18:00 01/29/24 17:11 Insulin Lispro 100 Unit/Ml Insuln.Pen SC Not Given Q6 CORWIN Protocol Levothyroxine Sodium 75 mcg 01/25/24 10:00 01/29/24 08:19 Levothyroxine 75 Mcg Tablet GT 75 mcg DAILY CORWIN Administration Ondansetron HCl 4 mg 01/24/24 13:07 Ondansetron 4 Mg/2 Ml Vial IV Q8H PRN PRN NAUSEA/VOMITING Polyethylene Glycol 17 gm 01/29/24 12:30 01/29/24 13:35 Polyethylene Glycol 3350 17 Gm Packet PO 17 gm DAILY CORWIN Administration Senna/Docusate Sodium 2 tablet 01/24/24 13:07 Senna/Docusate Sodium 1 Tablet GT BID PRN PRN Constipation Sodium Chloride 10 - 40 ml 01/24/24 13:36 01/27/24 20:13 0.9% Saline Lock 10 Ml Syringe IV 40 ml UD PRN Administration SALINE FLUSH Lab / Micro Data 01/29/24 05:20 01/28/24 06:45 Labs: Laboratory Results - last 24 hr 01/25/24 05:30: Crossmatch See Detail 01/28/24 17:13: POC Glucose 185 H 01/28/24 23:36: POC Glucose 114 H 01/29/24 05:20: WBC 11.1 H, RBC 4.06 L, Hgb 14.5, Hct 41.7, MCV 102.7 H, MCH 35.7 H, MCHC 34.8, RDW Std Deviation 56.0 H, RDW Coeff of Jesus 14.7 H, Plt Count 160, MPV 10.8, Immature Gran % (Auto) 0.700, Neut % (Auto) 75.0 H, Lymph % (Auto) 10.7 L, [place] % (Auto) 13.4 H, Eos % (Auto) 0.0, Baso % (Auto) 0.2, Absolute Neuts (auto) 8.3 H, Absolute Lymphs (auto) 1.19, Nucleated RBC % 0, Sodium Cancelled, Potassium Cancelled, Chloride Cancelled, Carbon Dioxide Cancelled, Anion Gap Cancelled, BUN Cancelled, Creatinine Cancelled, Estim Creat Clear Calc Cancelled, Est GFR (MDRD) Af Amer Cancelled, Est GFR (MDRD) Non-Af Cancelled, BUN/Creatinine Ratio Cancelled, Glucose Cancelled, Calcium Cancelled, Total Bilirubin Cancelled, AST Cancelled, ALT Cancelled, Alkaline Phosphatase Cancelled, Total Protein Cancelled, Albumin Cancelled, Globulin Cancelled, Albumin/Globulin Ratio Cancelled 01/29/24 05:25: POC Glucose 133 H 01/29/24 11:34: POC Glucose 142 H Micro: Microbiology 01/24/24 10:49 Blood Culture (Wb) - Anticubital Left Blood Culture - Final No growth in 5 days. 01/24/24 10:49 Blood Culture (Wb) - Anticubital Right Blood Culture - Final No growth in 5 days. Imaging Radiology Impression KUB X-Ray 01/29/24 00:15 IMPRESSION: 1. Large amount of bowel gas in the colon suggesting possible ileus. 2. Suggest advancing the nasogastric tube another 5 to 10 cm. Electronically Signed: Mary Alice Bledsoe MD at 2:04 EST , Chest X-Ray 01/29/24 00:25 IMPRESSION: 1. Suggest advancing the nasogastric tube 5 to 10 cm. 2. Right basilar airspace disease suggests possible pneumonia. Electronically Signed: Mary Alice Bledsoe MD at 1:00 EST , KUB X-Ray 01/29/24 07:00 IMPRESSION: 1. No bowel obstruction or acute abnormality in the abdomen and pelvis. 2. No significant interval change. 3. NG tube tip is in the proximal cavity and the sidehole is in the distal esophagus near the EG junction. Distal repositioning will be helpful. Electronically Signed: Aj Alvarez MD at 8:46 EST , Assessment and Plan . Assessment and plan: 1. Acute hypoxemic and hypercapnic respiratory failure Suspected to be multifactorial (COVID-19, Cardiogenic Pulmonary Edema, COPD). Transitioned to precedex/propofol at end of the week. STarted some higher level PS/CPAP but cut short by afib. AT times his RR climbs into the 30s. Adding prn pushes of versed to supplement the fentanyl/precedex. 2. Sepsis Pressure issues have resolved as as above volume overload is currently more pressing concern. Diuresing effectively thus far today. 3. Anemia Follow H&H closely given events earlier in hospital. PPI, no anticoagulation. 4. Chronic kidney disease/longstanding tobacco abuse history/hypertension Complicates care, management, recovery and prognosis. Continue supportive measures as noted above. Continue tube feeding as tolerated. Critical Care Time: 32 minutes The entirety of this encounter was done via Telemedicine Physical Exam Narrative Gen: Intubated, sedated. Chronically ill-appearing ENT: Sclera anicteric; moist conjunctiva and mucous membranes; connected to vent via ETT CV: rrr, nl s1 and s2, no mrg; pulses 2+/symmetric and normal cap refill Lungs: CTAB, well-synchronized with vent; no nasal flaring or accessory muscle use Abdomen: Soft, nt/nd; normal bowel sounds, no organomegaly and no ascites or abnormal tympany Ext: no clubbing, cyanosis, + edema Neuro: sedated; CN reflexes appear intact Skin: normal turgor; no rash Psych: lightly sedated Subjective Subjective Limited progress. RR increases to 30s at times. Had a bout of afib while on PS yesterday.
[2024-01-29 17:31] LABS: Bedside Glucose 146 mg/dL (74-106)
[2024-01-29] MEDS: hydrALAZINE 20 MG/ML Vial 10 MG IV (18:02)
[2024-01-29] MEDS: Midazolam 2 MG/2 ML Syringe IV ×2 (18:51→21:26)
[2024-01-29] MEDS: Atorvastatin Calcium 80 MG Tablet GT (20:54)
[2024-01-29] MEDS: Senna/Docusate Sodium 1 Tablet 2 TABLET GT (20:55)
[2024-01-29] MEDS: 0.9% Saline Lock 10 ML Syringe IV (23:56)
[2024-01-30] VITALS (34 sets, daily range): BP systolic 146–178; BP diastolic 65–92; PULSE 53–88; RESP 19–27; TEMP 36.9–38.1; O2SAT 92–100; BMI 23.8
[2024-01-30 00:20] LABS: Bedside Glucose 142 mg/dL (74-106)
[2024-01-30] MEDS: Midazolam 2 MG/2 ML Syringe IV ×2 (01:28→04:31)
[2024-01-30] MEDS: fentaNYL drip 100 ML 20 MCG CONT INF ×5 (02:00→23:03)
[2024-01-30] MEDS: Dexmedetomidine 1,000 mcg in 0.9% NS 240 mL 31.1 MCG CONT INF ×3 (02:00→17:22)
[2024-01-30] MEDS: hydrALAZINE 20 MG/ML Vial 10 MG IV (02:31)
[2024-01-30] MEDS: Ipratropium/Albuterol Sulfate 3 ML AMPUL.NEB INHALATION ×6 (03:33→22:55)
[2024-01-30] MEDS: 0.9% Saline Lock 10 ML Syringe IV (04:31)
[2024-01-30] MEDS: Ampicillin/Sulbactam 3 GM in 0.9% Normal Saline (100mL MB+) 100 ML IV ×3 (05:32→18:40)
[2024-01-30] MEDS: Insulin Lispro 100 UNIT/ML INSULN.PEN SC (05:32)
[2024-01-30 05:55] LABS: Absolute Lymphocyte Count 1.04 X10^3/uL (0.83-4.51); Absolute Neutrophil Count 7.8 X10^3/uL (2.0-7.7); Basophil# 0.02 X10^3/uL; Basophil% 0.2 % (0-1); Hematocrit 38.8 % (40-54); Hemoglobin 13.2 g/dL (13.0-16.5); Lymphocyte # 1.04 X10^3/ul (0.83-4.51); Lymphocyte % 10.5 % (19-41); Mean Corpuscular Volume 102.9 fL (80-94); Monocyte# 0.97 X10^3/uL; Monocyte% 9.8 % (0-10); NRBC Flagged by Analyzer 0 % (0-5); Neutrophil # 7.82 X10^3/uL (2.7-7.7); Neutrophil % 78.9 % (47-70); Platelet Count 152 K/mm3 (150-450); RBC Distribution Width CV 14.6 % (11.6-14.6); RBC Distribution Width SD 55.3 fl (35.1-43.9); Red Blood Count 3.77 M/mm3 (4.6-6.2); White Blood Count 9.9 K/mm3 (4.4-11.0)
--- NOTE | 2024-01-30 05:55 | RAD_ITS ---
INDICATION: Respiratory Failure EXAMINATION/TECHNIQUE: X-RAY - XR Chest 1 View COMPARISON: Prior study dated: 01/29/2024 FINDINGS: LINES/DEVICES: Endotracheal tube terminates approximately 3 cm above the manpreet, though visualization is limited. Enteric tube extends into the stomach. Cardiac leads overlie the chest. LUNGS: The lungs are well expanded. Increased hazy bibasilar opacities. Possible small pleural effusions. No pneumothorax. MEDIASTINUM AND CARDIOVASCULAR STRUCTURES: Cardiac silhouette not enlarged. Central airways and mediastinal contour are unremarkable. BONES AND SOFT TISSUES: No acute abnormality. RAD/Chest 1 View (Portable) IMPRESSION: Endotracheal tube approximately 3 cm above the manpreet. Increased hazy bibasilar opacities with possible small pleural effusions. Electronically Signed: Wes Staples MD at 6:02 EST ,
--- NOTE | 2024-01-30 05:55 | PCM.PN.INT ---
Assessment & Plan Assessment/Plan (1) Sepsis: (2) Acute hypoxemic respiratory failure: (3) Transaminitis: (4) CKD (chronic kidney disease): PLAN: Plan RECOMMENDATIONS: 1. Continue assist-control mode mechanical ventilation. Wean FiO2 and PEEP as tolerated. 2. Continue scheduled bronchodilator therapy. 3. Continue Decadron as ordered to complete 10 days of therapy. 4. Continue empiric antibiotics to complete treatment course today. 5. Start scheduled Seroquel. Discontinue Versed. 6. Continue Precedex and fentanyl. Reattempt spontaneous awakening and breathing trial tomorrow morning. 7. Continue appropriate ICU prophylaxis. 8. Goals of care discussion with the patient's son. IMPRESSIONS: 1. Acute hypoxemic and hypercapnic respiratory failure The patient presented to the hospital with acute on chronic shortness of breath, which I suspect is likely multifactorial. While the patient is positive for COVID-19, his chest imaging is concerning for the presence of pulmonary edema and the possibility for underlying congestive heart failure, given his elevated BNP and lower extremity edema. The patient was ultimately intubated in the emergency department. The patient has been maintained on empiric antibiotics, bronchodilators, Decadron and intermittent diuretics. Overall, the patient's respiratory status has significantly improved. However, his agitation continues to be a significant barrier to his ability to be extubated. Therefore, in addition to Precedex and fentanyl, we will plan to add scheduled Seroquel today. Plan to repeat spontaneous awakening and breathing trial tomorrow morning. 2. Sepsis The patient presented to the hospital with sepsis due to possible pneumonia with acute sepsis related organ dysfunction as evidenced by lactic acidemia and acute respiratory failure requiring invasive mechanical ventilatory support. While the patient was initially going to receive supplemental IV fluid hydration, the fluids were ultimately discontinued over concerns for volume overload and congestive heart failure. Antimicrobials will be continued as noted above to complete 7 days of therapy. 3. Anemia The patient developed bright red blood from his OG tube on the morning of January 24. His heparin has been subsequently discontinued. The patient was seen by gastroenterology and underwent endoscopic evaluation without any significant pathology noted. Continue to monitor blood counts and transfuse if hemoglobin drops below 7 g/dL. Continue PPI therapy. 4. Chronic kidney disease/longstanding tobacco abuse history/hypertension Complicates care, management, recovery and prognosis. Continue supportive measures as noted above. Continue tube feeding as tolerated. TIME: 32 minutes of critical care time, independent of procedures, was spent addressing the patient's acute hypoxemic and hypercapnic respiratory failure, sepsis, anemia, review of all data and collaboration with the care team. Subjective Subjective The patient was seen and examined at the bedside this morning. Events from the last 24 hours have been reviewed. The patient is currently afebrile, hemodynamically stable and maintaining appropriate oxygen saturations on assist-control mode mechanical ventilation with an FiO2 requirement of 25% and PEEP of 5. The patient has continued to fail attempts at spontaneous awakening and breathing trials. White blood cell count is normal. Hemoglobin is stable. The patient has been tolerant of tube feeding. The patient remains sedated on Precedex and fentanyl. Objective Data Objective Data The patient's most recent lab work, culture data and imaging studies have all been personally reviewed. Surface echocardiogram demonstrated normal LV size and function with an ejection fraction of 50%. Pulmonary artery systolic pressure was estimated to be 55 mmHg. COVID PCR was positive on January 23. Vital Signs: Vital Signs Temp Pulse Resp BP Pulse Ox O2 Del Method O2 Flow Rate 99.2 F H 72 23 H 170/82 H 98 Mechanical Ventilator 50 01/30/24 02:00 01/30/24 03:33 01/30/24 03:33 01/30/24 02:31 01/30/24 03:33 01/30/24 02:00 01/24/24 13:15 FiO2 25 01/30/24 03:33 Oxygen Flow Rate (L/min) 50 Oxygen Delivery Method Mechanical Ventilator Weight: 180 lb 4.8 oz Body Mass Index (BMI) 23.8 Intake & Output: Intake and Output for Last 24 Hours 01/28/24 01/29/24 01/30/24 23:59 23:59 23:59 Intake Total 3966.08 / 4068.41 1905.91 / 2207.01 553.09 / 553.09 Output Total 1125 / 2525 2825 / 3350 525 / 525 Balance 2841.08 / 1543.41 -919.09 / -1142.99 28.09 / 28.09 Lab / Micro Data Attestation: I reviewed the patient's lab results. 01/30/24 05:41 01/30/24 05:41 Labs: Laboratory Results - last 24 hr 01/25/24 05:30: Crossmatch See Detail 01/29/24 11:34: POC Glucose 142 H 01/29/24 17:10: POC Glucose 146 H 01/29/24 23:59: POC Glucose 142 H Micro: Microbiology 01/24/24 10:49 Blood Culture (Wb) - Anticubital Left Blood Culture - Final No growth in 5 days. 01/24/24 10:49 Blood Culture (Wb) - Anticubital Right Blood Culture - Final No growth in 5 days. 01/24/24 13:25 Urine Catheter - Hernandez Urine Culture - Final Culture exhibits no growth. 01/24/24 13:25 Urine Catheter - Hernandez Legionella Antigen - Final 01/24/24 13:25 Urine Catheter - Hernandez Streptococcus pneumoniae Antigen (M - Final 01/24/24 14:00 Sputum, Induced/Lukens Gram Stain - Final 01/24/24 14:00 Sputum, Induced/Lukens Respiratory Culture - Final Mixed normal respiratory hannah. No Streptococcus pneumoniae, beta-hemolytic Streptococcus or Staphylococcus aureus isolated. 01/24/24 14:00 Mucosa - Nasopharyngeal Respiratory Panel (PCR) - Final 01/24/24 10:39 Mucosa - Nose SARS-CoV-2, Influenza & RSV (PCR) - Final SARS-CoV-2 (COVID 19 PCR) ABG Data ABG results: ABG 01/25/24 08:51 Specimen Type ART Sample Site L Radial pH 7.37 Bicarbonate Actual 17.6 L Total CO2 19 Base Excess -8 L O2 Saturation 97 O2 % 30.0 ABG pCO2 30.7 L ABG pO2 91 Respiration Rate 20 O2 Delivery Device Not entered Vent Mode Not entered Tidal Volume 450.0 POC PEEP 5 Radiography Diagnostic Testing: Radiology Impression KUB X-Ray 01/29/24 07:00 IMPRESSION: 1. No bowel obstruction or acute abnormality in the abdomen and pelvis. 2. No significant interval change. 3. NG tube tip is in the proximal cavity and the sidehole is in the distal esophagus near the EG junction. Distal repositioning will be helpful. Electronically Signed: Aj Alvarez MD at 8:46 EST , Physical Exam Const Constitutional Narrative: Intubated, sedated and mechanically ventilated. No ventilator dyssynchrony. HEENT normocephalic and head/scalp atraumatic HEENT Narrative: Temporal wasting present. Mouth: endotracheal tube in place and OG tube in place Eyes EOMs intact bilaterally and conjunctivae normal Neck supple General: trachea midline Chest inspection of chest normal Resp Effort and Inspection: tachypneic Auscultation: diminished lung sounds; Negative for rales, rhonchi or wheezes Cardio regular rate and regular rhythm GI normal to inspection, nondistended, normoactive bowel sounds Extremity General Extremity: edema bilateral lower extremity; Negative for clubbing Skin no rashes or lesions noted Neuro Sensorium / Orientation: sedated on vent Charges/Coding Procedures Hospitalists Procedures: 00097 Critical Care 1st Hr
[2024-01-30 06:03] LABS: Bedside Glucose 153 mg/dL (74-106)
[2024-01-30 06:40] LABS: ALB/GLOB Ratio 0.8 RATIO (0.9-2.4); AST(SGOT) 21 U/L (15-37); Alanine Aminotransfer ALT/SGPT 69 U/L (16-61); Albumin, Serum 2.6 g/dL (3.2-5.0); Alkaline Phosphatase 62 U/L (45-117); Anion Gap 6 (5-15); BUN 36 mg/dL (7-18); BUN/Creat Ratio 33.6 RATIO (10-20); Calcium,Total 8.7 mg/dL (8.5-10.1); Chloride 119 mmol/L (98-107); Creatinine, Serum 1.07 mg/dL (0.70-1.30); EST Glomerular Filtration Rate 71 mL/min (>60); Est Glom Filt Rate - Afr Amer 86 mL/min (>60); Estimated Creatinine Clearance 65.34 ml/min; Globulin 3.4 g/dL (2.2-4.2); Glucose 150 mg/dL (74-106); Potassium 3.2 mmol/L (3.5-5.1); Sodium Level 148 mmol/L (136-145)
[2024-01-30] MEDS: Potassium Chloride Oral Soln 20 MEQ/15 ML UDC 40 MEQ PO (07:52)
--- NOTE | 2024-01-30 10:04 | PN_ITS ---
Subjective Subjective Patient seen and examined. He still remains intubated. Per his nurse patient gets very agitated when his sedation is turned off. He is therefore going to be started on seroquel today. Sodium is up to 148 today and potassium is 3.2. Objective Data Objective Data Vital Signs: Vital Signs Temp Pulse Resp BP Pulse Ox O2 Del Method O2 Flow Rate 98.5 F 58 L 20 H 155/82 H 99 Mechanical Ventilator 50 01/30/24 06:00 01/30/24 07:18 01/30/24 07:18 01/30/24 06:00 01/30/24 07:18 01/30/24 08:00 01/24/24 13:15 FiO2 25 01/30/24 08:00 Oxygen Flow Rate (L/min) 50 Oxygen Delivery Method Mechanical Ventilator Weight: 180 lb 4.8 oz Body Mass Index (BMI) 23.8 Intake & Output: Intake and Output for Last 24 Hours 01/28/24 01/29/24 01/30/24 23:59 23:59 23:59 Intake Total 3966.08 / 4068.41 1905.91 / 2207.01 1179.16 / 1179.16 Output Total 1125 / 2525 2825 / 3350 925 / 925 Balance 2841.08 / 1543.41 -919.09 / -1142.99 254.16 / 254.16 Lab / Micro Data 01/30/24 05:41 01/30/24 05:41 Labs: Laboratory Results - last 24 hr 01/29/24 11:34: POC Glucose 142 H 01/29/24 17:10: POC Glucose 146 H 01/29/24 23:59: POC Glucose 142 H 01/30/24 05:30: POC Glucose 153 H 01/30/24 05:41: WBC 9.9, RBC 3.77 L, Hgb 13.2, Hct 38.8 L, MCV 102.9 H, MCH 35.0 H, MCHC 34.0, RDW Std Deviation 55.3 H, RDW Coeff of Jesus 14.6, Plt Count 152, MPV 11.0, Immature Gran % (Auto) 0.600, Neut % (Auto) 78.9 H, Lymph % (Auto) 10.5 L, [place] % (Auto) 9.8, Eos % (Auto) 0.0, Baso % (Auto) 0.2, Absolute Neuts (auto) 7.8 H, Absolute Lymphs (auto) 1.04, Nucleated RBC % 0, Sodium 148 H, P otassium 3.2 L, Chloride 119 H, Carbon Dioxide 23.0, Anion Gap 6, BUN 36 H, Creatinine 1.07, Estim Creat Clear Calc 65.34, Est GFR (MDRD) Af Amer 86, Est GFR (MDRD) Non-Af 71, BUN/Creatinine Ratio 33.6 H, Glucose 150 H, Calcium 8.7, Total Bilirubin 0.80, AST 21, ALT 69 H, Alkaline Phosphatase 62, Total Protein 6.0 L, Albumin 2.6 L, Globulin 3.4, Albumin/Globulin Ratio 0.8 L Micro: Microbiology 01/24/24 10:49 Blood Culture (Wb) - Anticubital Left Blood Culture - Final No growth in 5 days. 01/24/24 10:49 Blood Culture (Wb) - Anticubital Right Blood Culture - Final No growth in 5 days. 01/24/24 13:25 Urine Catheter - Hernandez Urine Culture - Final Culture exhibits no growth. 01/24/24 13:25 Urine Catheter - Hernandez Legionella Antigen - Final 01/24/24 13:25 Urine Catheter - Hernandez Streptococcus pneumoniae Antigen (M - Final 01/24/24 14:00 Sputum, Induced/Lukens Gram Stain - Final 01/24/24 14:00 Sputum, Induced/Lukens Respiratory Culture - Final Mixed normal respiratory hannah. No Streptococcus pneumoniae, beta-hemolytic Streptococcus or Staphylococcus aureus isolated. 01/24/24 14:00 Mucosa - Nasopharyngeal Respiratory Panel (PCR) - Final 01/24/24 10:39 Mucosa - Nose SARS-CoV-2, Influenza & RSV (PCR) - Final SARS-CoV-2 (COVID 19 PCR) Radiography Diagnostic Testing: Radiology Impression Chest X-Ray 01/30/24 05:55 IMPRESSION: Endotracheal tube approximately 3 cm above the manpreet. Increased hazy bibasilar opacities with possible small pleural effusions. Electronically Signed: Wes Staples MD at 6:02 EST , Physical Exam Const no apparent distress and average body habitus; Negative for healthy appearing or well nourished Constitutional Narrative: flat affect, RASS score is 0 Orientation / Consciousness: lethargic HEENT normocephalic, head/scalp atraumatic and moist oral mucous membranes Eyes PERRL, EOMs intact bilaterally and conjunctivae normal Eyes Narrative: No scleral icterus Neck no lymphadenopathy and supple Neck Narrative: no thyroid enlargement Lymph Lymphatic: no lymphadenopathy noted and no lymphedema noted Resp Resp Narrative: intubated,mildly diminished breath sounds bibasally, no wheezes or crackles. Auscultation: crackles and wheezes; Negative for rhonchi Cardio regular rate, regular rhythm, S1 normal heart sound, S2 normal heart sound, no murmurs, no rub, no gallops and no clicks GI normal to inspection, nondistended, normoactive bowel sounds, soft to palpation, non-tender and non-distended Extremity normal capillary refill and no calf tenderness Extremity Narrative: 1+ bilateral lower extremity pitting edema, no cyanosis or clubbing General Extremity: no tenderness to palpation of joints or extremities Skin skin turgor normal, no jaundice, no petechiae and no mottling General Skin Exam: no breakdown Neuro Neuro Narrative: intubated, sedated, RASS score is 0 Motor Exam: general weakness Psych Psych Narrative: flat affect Mood & Affect: flat affect Assessment & Plan Assessment/Plan (1) COVID-19 virus infection: (2) Acute hypoxemic respiratory failure: PLAN: Plan #Acute hypoxic and hypercapnic respiratory failure due to COVId 19 pneumonia and aspiration pneumonia as well as acute combined heart failure * remains intubated; sedation turned off and he is on minimal vent settings. * on minimal vent settings * 2D echo showed EF of 50% with mild global hypokinesis and mild hypokinesis of the apex, with RVSp of 55mmHg. * titrate oxygen to maintain sats >90% * breathing treatment with bronchodilators * critical care on board * still remains on sedation. Now being started on seroquel in an effort to take off the sedation. #Sepsis due to covid 19 pneumonia and aspiration pneumonia * completed a course of remdesivir * on decadron, to complete a 10 day course. Today is day 7 * sputum cultures showed normal oral hannah. On iV unasyn. * Blood and urine cultures negative so far * critical care on board * #Nonstemi * thought to be a type 2 nonstemi due to emand ischemia fro respiratory failure * aspirin held due to GI bleed. Heparin also discontinued due to GI bleed. * 2D echo as above * Patient follow-up with cardiology on outpatient basis. #Hypernatremia: * Na is 148. K is 3.2 today. * If sodium trends upwards will give D5W to bring down sodium levels. * Replace potassium. #CKD stage IIIb: Cr at baseline. Will monitor. #Upper GI bleed * Patient had bright red blood in the OG tube. EGD done on 01/25/2024 showed nonsevere reflux esophagitis with no gross lesions in the entire stomach and nonbleeding duodenal ulcers with no stigmata of bleeding. * on IV Protonix 40 mg twice daily. Hemoglobin is stable * #Benign essential hypertension: * Valsartan held as blood pressure was running low. * BP now elevated in the 170s systolic. * IV hydralazine as needed. * Will monitor. #Hypothyroidism: On Synthroid #COPD: * Patient is suspected to have COPD he does have a history of chronic nicotine dependence. * Follow-up with pulmonology on outpatient basis. #Nutrition: * On tube feeds. Dietitian on board. * #DVT prophylaxis: SCDs Charges/Coding Visit Charges Inpatient E&M: 59630 Subs Hosp L3
[2024-01-30] MEDS: Polyethylene Glycol 3350 17 GM PACKET PO (10:58)
[2024-01-30] MEDS: Senna Tablet 1 TABLET PO (10:58)
[2024-01-30] MEDS: dexAMETHasone 10 MG/ML Vial 6 MG IV (10:58)
[2024-01-30] MEDS: QUEtiapine 25 MG Tablet 50 MG GT ×2 (10:58→20:14)
[2024-01-30] MEDS: Pantoprazole Sodium 40 MG in 0.9% Normal Saline (100mL MB+) 100 ML 330 MG IV ×2 (10:58→20:35)
[2024-01-30] MEDS: Levothyroxine 75 MCG Tablet GT (10:58)
[2024-01-30] MEDS: Chlorhexidine 15 ML PO ×2 (10:59→20:36)
[2024-01-30] MEDS: Potassium Chloride 10mEq/100mL 10 MEQ/100 ML IV.SOLN. 100 MEQ IV BOLUS ×4 (13:39→17:23)
[2024-01-30 16:50] LABS: Bedside Glucose 124 mg/dL (74-106)
[2024-01-30 19:04] LABS: Bedside Glucose 123 mg/dL (74-106)
[2024-01-30] MEDS: Atorvastatin Calcium 80 MG Tablet GT (20:34)
[2024-01-31] VITALS (35 sets, daily range): BP systolic 133–161; BP diastolic 61–101; PULSE 52–117; RESP 15–37; TEMP 37.7–38.3; O2SAT 92–100; BMI 24.2
[2024-01-31] MEDS: Dexmedetomidine 1,000 mcg in 0.9% NS 240 mL 31.1 MCG CONT INF ×3 (00:17→16:48)
[2024-01-31 00:38] LABS: Bedside Glucose 138 mg/dL (74-106)
[2024-01-31] MEDS: fentaNYL drip 100 ML 20 MCG CONT INF ×4 (03:41→19:20)
[2024-01-31] MEDS: Ipratropium/Albuterol Sulfate 3 ML AMPUL.NEB INHALATION ×5 (03:45→22:45)
--- NOTE | 2024-01-31 06:07 | PCM.PN.INT ---
Assessment & Plan Assessment/Plan (1) Sepsis: (2) Acute hypoxemic respiratory failure: (3) Transaminitis: (4) CKD (chronic kidney disease): PLAN: Plan RECOMMENDATIONS: 1. Continue assist-control mode mechanical ventilation. Wean FiO2 and PEEP as tolerated. 2. Continue scheduled bronchodilator therapy. 3. Continue Decadron as ordered to complete 10 days of therapy. 4. Continue scheduled Seroquel, along with Precedex and fentanyl for sedation. 5. Continue appropriate ICU prophylaxis. 6. Goals of care discussion with the patient's son. IMPRESSIONS: 1. Acute hypoxemic and hypercapnic respiratory failure The patient presented to the hospital with acute on chronic shortness of breath, which I suspect is likely multifactorial. While the patient is positive for COVID-19, his chest imaging is concerning for the presence of pulmonary edema and the possibility for underlying congestive heart failure, given his elevated BNP and lower extremity edema. The patient was ultimately intubated in the emergency department. The patient has been maintained on bronchodilators, Decadron and intermittent diuretics. He has completed a treatment course of antimicrobials as well. Overall, the patient's respiratory status has significantly improved. However, the patient continues to fail spontaneous breathing trials, despite the use of Precedex, fentanyl and Seroquel. Therefore, plan to engage the patient's son in a goals of care discussion later today. 2. Sepsis The patient presented to the hospital with sepsis due to possible pneumonia with acute sepsis related organ dysfunction as evidenced by lactic acidemia and acute respiratory failure requiring invasive mechanical ventilatory support. While the patient was initially going to receive supplemental IV fluid hydration, the fluids were ultimately discontinued over concerns for volume overload and congestive heart failure. The patient has now completed a 7-day course of empiric antimicrobials. 3. Anemia The patient developed bright red blood from his OG tube on the morning of January 24. His heparin has been subsequently discontinued. The patient was seen by gastroenterology and underwent endoscopic evaluation without any significant pathology noted. Continue to monitor blood counts and transfuse if hemoglobin drops below 7 g/dL. Continue PPI therapy. 4. Chronic kidney disease/longstanding tobacco abuse history/hypertension Complicates care, management, recovery and prognosis. Continue supportive measures as noted above. Continue tube feeding as tolerated. TIME: 34 minutes of critical care time, independent of procedures, was spent addressing the patient's acute hypoxemic and hypercapnic respiratory failure, sepsis, anemia, review of all data and collaboration with the care team. Subjective Subjective The patient was seen and examined at the bedside this morning. Events from the last 24 hours have been reviewed. The patient is currently afebrile, hemodynamically stable and maintaining appropriate oxygen saturations on assist-control mode mechanical ventilation with an FiO2 requirement of 25% and PEEP of 5. The patient remains sedated on Precedex, fentanyl and scheduled Seroquel. Despite the aforementioned, every attempted spontaneous awakening and breathing trials has led to the development of significant agitation and tachypnea. The patient is currently documented to be overall net +4 L for the hospitalization. White blood cell count is elevated at 12,000. Sodium is elevated at 149 with a creatinine of 1.3. Therefore, the plan is to meet with the patient's son to discuss goals of care this afternoon. Objective Data Objective Data The patient's most recent lab work, culture data and imaging studies have all been personally reviewed. Surface echocardiogram demonstrated normal LV size and function with an ejection fraction of 50%. Pulmonary artery systolic pressure was estimated to be 55 mmHg. COVID PCR was positive on January 23. Vital Signs: Vital Signs Temp Pulse Resp BP Pulse Ox O2 Del Method O2 Flow Rate 100.8 F H 112 H 30 H 153/92 H 92 Mechanical Ventilator 50 01/31/24 04:00 01/31/24 05:00 01/31/24 05:00 01/31/24 05:00 01/31/24 05:00 01/31/24 05:00 01/24/24 13:15 FiO2 25 01/31/24 05:00 Oxygen Flow Rate (L/min) 50 Oxygen Delivery Method Mechanical Ventilator Weight: 180 lb 4.8 oz Body Mass Index (BMI) 23.8 Intake & Output: Intake and Output for Last 24 Hours 01/29/24 01/30/24 01/31/24 23:59 23:59 23:59 Intake Total 1905.91 / 2207.01 2930.36 / 2980.46 305.60 / 305.60 Output Total 2825 / 3350 1450 / 1450 Balance -919.09 / -1142.99 1480.36 / 1530.46 305.60 / 305.60 Lab / Micro Data Attestation: I reviewed the patient's lab results. 01/31/24 06:55 01/31/24 06:55 Labs: Laboratory Results - last 24 hr 01/30/24 05:41: Sodium 148 H, Potassium 3.2 L, Chloride 119 H, Carbon Dioxide 23.0, Anion Gap 6, BUN 36 H, Creatinine 1.07, Estim Creat Clear Calc 65.34, Est GFR (MDRD) Af Amer 86, Est GFR (MDRD) Non-Af 71, BUN/Creatinine Ratio 33.6 H, Glucose 150 H, Calcium 8.7, Total Bilirubin 0.80, AST 21, ALT 69 H, Alkaline Phosphatase 62, Total Protein 6.0 L, Albumin 2.6 L, Globulin 3.4, Albumin/Globulin Ratio 0.8 L 01/30/24 12:33: POC Glucose 124 H 01/30/24 18:37: POC Glucose 123 H 01/31/24 00:16: POC Glucose 138 H Micro: Microbiology 01/24/24 10:49 Blood Culture (Wb) - Anticubital Left Blood Culture - Final No growth in 5 days. 01/24/24 10:49 Blood Culture (Wb) - Anticubital Right Blood Culture - Final No growth in 5 days. 01/24/24 13:25 Urine Catheter - Hernandez Urine Culture - Final Culture exhibits no growth. 01/24/24 13:25 Urine Catheter - Hernandez Legionella Antigen - Final 01/24/24 13:25 Urine Catheter - Hernandez Streptococcus pneumoniae Antigen (M - Final 01/24/24 14:00 Sputum, Induced/Lukens Gram Stain - Final 01/24/24 14:00 Sputum, Induced/Lukens Respiratory Culture - Final Mixed normal respiratory hannah. No Streptococcus pneumoniae, beta-hemolytic Streptococcus or Staphylococcus aureus isolated. 01/24/24 14:00 Mucosa - Nasopharyngeal Respiratory Panel (PCR) - Final 01/24/24 10:39 Mucosa - Nose SARS-CoV-2, Influenza & RSV (PCR) - Final SARS-CoV-2 (COVID 19 PCR) ABG Data ABG results: ABG 01/25/24 08:51 Specimen Type ART Sample Site L Radial pH 7.37 Bicarbonate Actual 17.6 L Total CO2 19 Base Excess -8 L O2 Saturation 97 O2 % 30.0 ABG pCO2 30.7 L ABG pO2 91 Respiration Rate 20 O2 Delivery Device Not entered Vent Mode Not entered Tidal Volume 450.0 POC PEEP 5 Radiography Diagnostic Testing: Radiology Impression KUB X-Ray 01/29/24 07:00 IMPRESSION: 1. No bowel obstruction or acute abnormality in the abdomen and pelvis. 2. No significant interval change. 3. NG tube tip is in the proximal cavity and the sidehole is in the distal esophagus near the EG junction. Distal repositioning will be helpful. Electronically Signed: Aj Alvarez MD at 8:46 EST , Physical Exam Const Constitutional Narrative: Intubated, sedated and mechanically ventilated. No ventilator dyssynchrony. HEENT normocephalic and head/scalp atraumatic HEENT Narrative: Temporal wasting present. Mouth: endotracheal tube in place and OG tube in place Eyes EOMs intact bilaterally and conjunctivae normal Neck supple General: trachea midline Chest inspection of chest normal Resp Effort and Inspection: tachypneic Auscultation: diminished lung sounds; Negative for rales, rhonchi or wheezes Cardio regular rate and regular rhythm GI normal to inspection, nondistended, normoactive bowel sounds Extremity General Extremity: edema bilateral lower extremity; Negative for clubbing Skin no rashes or lesions noted Neuro Sensorium / Orientation: sedated on vent Charges/Coding Procedures Hospitalists Procedures: 39939 Critical Care 1st Hr
[2024-01-31 07:04] LABS: Absolute Lymphocyte Count 0.86 X10^3/uL (0.83-4.51); Absolute Neutrophil Count 9.9 X10^3/uL (2.0-7.7); Basophil# 0.01 X10^3/uL; Basophil% 0.1 % (0-1); Hematocrit 39.2 % (40-54); Hemoglobin 12.8 g/dL (13.0-16.5); Lymphocyte # 0.86 X10^3/ul (0.83-4.51); Lymphocyte % 7.1 % (19-41); Mean Corp Hgb Conc 32.7 g/dL (32-36); Mean Corpuscular Hgb 34.8 pg (27.0-32.0); Mean Corpuscular Volume 106.5 fL (80-94); Mean Platelet Vol. 10.8 fl (6.2-12.0); Monocyte% 9.9 % (0-10); NRBC Flagged by Analyzer 0 % (0-5); Neutrophil # 9.89 X10^3/uL (2.7-7.7); Platelet Count 171 K/mm3 (150-450); RBC Distribution Width CV 14.6 % (11.6-14.6); RBC Distribution Width SD 58.4 fl (35.1-43.9); Red Blood Count 3.68 M/mm3 (4.6-6.2); White Blood Count 12.1 K/mm3 (4.4-11.0)
[2024-01-31 07:13] LABS: Bedside Glucose 114 mg/dL (74-106)
[2024-01-31 07:47] LABS: Anion Gap 2 (5-15); BUN 36 mg/dL (7-18); BUN/Creat Ratio 27.5 RATIO (10-20); Calcium,Total 8.7 mg/dL (8.5-10.1); Chloride 121 mmol/L (98-107); Creatinine, Serum 1.31 mg/dL (0.70-1.30); EST Glomerular Filtration Rate 56 mL/min (>60); Est Glom Filt Rate - Afr Amer 68 mL/min (>60); Estimated Creatinine Clearance 53.37 ml/min; Glucose 127 mg/dL (74-106); Potassium 4.2 mmol/L (3.5-5.1); Sodium Level 149 mmol/L (136-145)
--- NOTE | 2024-01-31 09:25 | CASEMGMT ---
Addendum entered by Laury Crow 01/31/24 12:45: Social Work Dr. Mendez met w/son Bernard to review goals of care. MARTIN Umaña and this SW present also. Gene is going to think about options, though does state that he does not think pt would want a trach or peg tube group home. SW suggested to Bernard to speak w/family, and can let us know his decision. Gene then spoke to this SW and RN about how pt was doing well a week ago so it's difficult to wrap his mind around all of this. He spoke about losing his mother recently also. Gene states he is not sure if he can reach his sister, states she is in assisted living and has her own health issues, but he is going to try. Pt also has a sister he may reach out to, as well as a significant other. Support offered to Gene by RN and SW. SW remains available for support to pt's son Bernard as needed. MAVIS Lewis Original Note: Social Work SW participated in ICU rounds this morning. The physician would like to meet w/pt's family today to discuss goals of care. SW called pt's son Bernard, offered support. SW inquired initially if he is pt's POA. He states he is pt's POA, has the documents at home, SW asked him to bring in the documents tomorrow, he will do so. Pt does have a daughter as well, Gene states he is not even certain if he can reach her at this time. RADHA asked Gen if he is available to meet w/physician today to discuss the goals of care. He states can be here at 12pm, physician available also at that time. RN also made aware of meeting time. SW will continue to follow. MAVIS Lewis
[2024-01-31] MEDS: CHLORHEXIDINE GLUC 2% CLOTH 1 EACH TOWELETTE TOPICAL (10:17)
[2024-01-31] MEDS: QUEtiapine 25 MG Tablet 50 MG GT ×2 (10:18→20:52)
[2024-01-31] MEDS: Pantoprazole Sodium 40 MG in 0.9% Normal Saline (100mL MB+) 100 ML 330 MG IV ×2 (10:18→20:52)
[2024-01-31] MEDS: dexAMETHasone 10 MG/ML Vial 6 MG IV (10:18)
[2024-01-31] MEDS: Senna Tablet 1 TABLET PO (10:18)
[2024-01-31] MEDS: Polyethylene Glycol 3350 17 GM PACKET PO (10:18)
[2024-01-31] MEDS: Chlorhexidine 15 ML PO ×2 (10:18→20:54)
[2024-01-31] MEDS: Levothyroxine 75 MCG Tablet GT (10:19)
[2024-01-31] MEDS: Vital AF 1.2 Cal Liquid 1,000 ML 20 ML GT (10:19)
--- NOTE | 2024-01-31 10:33 | PN_ITS ---
Subjective Subjective Patient seen and examined. He remains intubated and sedated. Per his nurse, he still gets very agitated and tachypneic when the sedation is turned off. Unable to do review of systems. Objective Data Objective Data Vital Signs: Vital Signs Temp Pulse Resp BP Pulse Ox O2 Del Method O2 Flow Rate 101.0 F H 65 20 H 142/61 H 96 Mechanical Ventilator 50 01/31/24 08:00 01/31/24 09:00 01/31/24 09:00 01/31/24 09:00 01/31/24 09:00 01/31/24 09:00 01/24/24 13:15 FiO2 25 01/31/24 09:00 Oxygen Flow Rate (L/min) 50 Oxygen Delivery Method Mechanical Ventilator Weight: 182 lb 8 oz Body Mass Index (BMI) 24.2 Intake & Output: Intake and Output for Last 24 Hours 01/29/24 01/30/24 01/31/24 23:59 23:59 23:59 Intake Total 1905.91 / 2207.01 2930.36 / 2980.46 503.67 / 503.67 Output Total 2825 / 3350 1450 / 1450 Balance -919.09 / -1142.99 1480.36 / 1530.46 503.67 / 503.67 Lab / Micro Data 01/31/24 06:55 01/31/24 06:55 Labs: Laboratory Results - last 24 hr 01/30/24 12:33: POC Glucose 124 H 01/30/24 18:37: POC Glucose 123 H 01/31/24 00:16: POC Glucose 138 H 01/31/24 06:53: POC Glucose 114 H 01/31/24 06:55: WBC 12.1 H, RBC 3.68 L, Hgb 12.8 L, Hct 39.2 L, MCV 106.5 H, MCH 34.8 H, MCHC 32.7, RDW Std Deviation 58.4 H, RDW Coeff of Jesus 14.6, Plt Count 171, MPV 10.8, Immature Gran % (Auto) 0.900, Neut % (Auto) 82.0 H, Lymph % (Auto) 7.1 L, [place] % (Auto) 9.9, Eos % (Auto) 0.0, Baso % (Auto) 0.1, Absolute Neuts (auto) 9.9 H, Absolute Lymphs (auto) 0.86, Nucleated RBC % 0, Sodium 149 H , Potassium 4.2, Chloride 121 H, Carbon Dioxide 26.0, Anion Gap 2 L, BUN 36 H, C reatinine 1.31 H, Estim Creat Clear Calc 53.37, Est GFR (MDRD) Af Amer 68, Est GFR (MDRD) Non-Af 56 L, BUN/Creatinine Ratio 27.5 H, Glucose 127 H, Calcium 8.7 Micro: Microbiology 01/24/24 10:49 Blood Culture (Wb) - Anticubital Left Blood Culture - Final No growth in 5 days. 01/24/24 10:49 Blood Culture (Wb) - Anticubital Right Blood Culture - Final No growth in 5 days. 01/24/24 13:25 Urine Catheter - Hernandez Urine Culture - Final Culture exhibits no growth. 01/24/24 13:25 Urine Catheter - Hernandez Legionella Antigen - Final 01/24/24 13:25 Urine Catheter - Hernandez Streptococcus pneumoniae Antigen (M - Final 01/24/24 14:00 Sputum, Induced/Lukens Gram Stain - Final 01/24/24 14:00 Sputum, Induced/Lukens Respiratory Culture - Final Mixed normal respiratory hannah. No Streptococcus pneumoniae, beta-hemolytic Streptococcus or Staphylococcus aureus isolated. 01/24/24 14:00 Mucosa - Nasopharyngeal Respiratory Panel (PCR) - Final 01/24/24 10:39 Mucosa - Nose SARS-CoV-2, Influenza & RSV (PCR) - Final SARS-CoV-2 (COVID 19 PCR) Physical Exam Const Constitutional Narrative: intubated, sedated, flat affect, RASS score is 0 Orientation / Consciousness: lethargic HEENT normocephalic, head/scalp atraumatic and moist oral mucous membranes Eyes PERRL, EOMs intact bilaterally and conjunctivae normal Eyes Narrative: No scleral icterus Neck no lymphadenopathy and supple Neck Narrative: no thyroid enlargement Lymph Lymphatic: no lymphadenopathy noted and no lymphedema noted Resp clear to auscultation bilaterally Resp Narrative: intubated,mildly diminished breath sounds bibasally, no wheezes or crackles. Auscultation: crackles and wheezes; Negative for rhonchi Cardio regular rate, regular rhythm, S1 normal heart sound, S2 normal heart sound, no murmurs, no rub, no gallops and no clicks GI normal to inspection, nondistended, normoactive bowel sounds, soft to palpation, non-tender and non-distended Extremity normal capillary refill, no clubbing, cyanosis or edema and no calf tenderness General Extremity: no tenderness to palpation of joints or extremities Skin skin turgor normal, no jaundice, no petechiae and no mottling General Skin Exam: no breakdown Neuro Neuro Narrative: remains intubated, sedated, RASS score is 0 Motor Exam: general weakness Psych Psych Narrative: flat affect Assessment & Plan Assessment/Plan (1) COVID-19 virus infection: (2) Acute hypoxemic respiratory failure: PLAN: Plan #Acute hypoxic and hypercapnic respiratory failure due to COVId 19 pneumonia and aspiration pneumonia as well as acute combined heart failure * remains intubated; he gets very agitated when sedation is turned off and he is started on spontaneous breathing trial * on minimal vent settings * 2D echo showed EF of 50% with mild global hypokinesis and mild hypokinesis of the apex, with RVSp of 55mmHg. * titrate oxygen to maintain sats >90% * breathing treatment with bronchodilators * critical care on board * #Sepsis due to covid 19 pneumonia and aspiration pneumonia * completed a course of remdesivir * on decadron, to complete a 10 day course. Today is day 8 * sputum cultures showed normal oral hannah. On iV unasyn. * Blood and urine cultures negative so far * critical care on board * #Nonstemi * thought to be a type 2 nonstemi due to emand ischemia fro respiratory failure * aspirin held due to GI bleed. Heparin also discontinued due to GI bleed. * 2D echo as above * Patient follow-up with cardiology on outpatient basis. #Hypernatremia: * Na is 149. * start D5W to bring down sodium levels. #CKD stage IIIb: Cr at baseline. Will monitor. #Upper GI bleed * Patient had bright red blood in the OG tube. EGD done on 01/25/2024 showed nonsevere reflux esophagitis with no gross lesions in the entire stomach and nonbleeding duodenal ulcers with no stigmata of bleeding. * on IV Protonix 40 mg twice daily. Hemoglobin is stable * #Benign essential hypertension: * Valsartan held as blood pressure was running low. * BP now elevated in the 170s systolic. * IV hydralazine as needed. * Will monitor. #Hypothyroidism: On Synthroid #COPD: * Patient is suspected to have COPD he does have a history of chronic nicotine dependence. * Follow-up with pulmonology on outpatient basis. #Nutrition: * On tube feeds. Dietitian on board. * #DVT prophylaxis: SCDs Charges/Coding Visit Charges Inpatient E&M: 14638 Subs Hosp L3
[2024-01-31 11:41] LABS: Bedside Glucose 111 mg/dL (74-106)
--- NOTE | 2024-01-31 16:34 | CHAPLAIN ---
Type of Pastoral Visit ___ Initial Visit ___ Follow-up Visit ___ On-call Visit ___ General Patient Visit ___ Spiritual Assessment _x__ Family Conference ___ Bereavement ___ Rapid Response ___ Code Blue ___ Other (describe below) Pastoral Care Referral From ___ Patient ___ Family ___ Nurse ___ Physician ___ [place] Burner Operator ___ Amphibian Crewmember _x__ Other (describe below) Sacrament/Intervention _x__ Active listening ___ Anointing ___ Catholic ___ Bereavement ___ Communion ___ Katina exploration ___ _x__ Life review ___ Prayer ___ Reconciliation ___ Sacrament of Sick _x__ Supportive presence ___ Wedding ___ Other (describe below) Pastoral Comments son of the patient is known to this track helper; talked with the son and son is very open to discuss the situation and health concerns; son welcomes time to talk and express his thoughts and feelings about the situation, uncertainties, and decisions to be made for his father; son has some concern about informing his sibling that has not been involved with the father since their mother earlier this year; offer of ongoing support and presence as desired by the family; the patient in intubated and unable to respond to this track helper; pt is in isolation room
[2024-01-31] MEDS: Acetaminophen 650 MG/20 ML UDC GT (16:48)
[2024-01-31 18:46] LABS: Bedside Glucose 139 mg/dL (74-106)
--- NOTE | 2024-01-31 18:47 | EKG12_ITS ---
Test Reason : Blood Pressure : */* mmHG Vent. Rate : 73 BPM Atrial Rate : 73 BPM P-R Int : 152 ms QRS Dur : 96 ms QT Int : 418 ms P-R-T Axes : 83 1 -1 degrees QTcB Int : 460 ms Poor data quality, interpretation may be adversely affected Sinus rhythm with Premature atrial complexes in a pattern of bigeminy Low voltage QRS Septal infarct , age undetermined Inferior infarct , age undetermined Abnormal ECG No previous ECGs available Confirmed by SALINAS SPEAR, MIKAELA ([id number]), editorial assistant ESTEFANIA JACKSON ([id number]) on 02/02/2024 6:24:21 AM Referred By: Confirmed By: MIKAELA NIÑO MD
--- NOTE | 2024-01-31 18:59 | EKG12_ITS ---
Test Reason : afib Blood Pressure : */* mmHG Vent. Rate : 148 BPM Atrial Rate : * BPM P-R Int : * ms QRS Dur : 96 ms QT Int : 280 ms P-R-T Axes : * 5 -61 degrees QTcB Int : 439 ms Critical Test Result: High HR Atrial fibrillation with rapid ventricular response Low voltage QRS Inferior infarct , age undetermined Abnormal ECG No previous ECGs available Confirmed by SAILNAS SPEAR, MIKAELA ([id number]), newspaper or periodical editor ESTEFANIA JACKSON ([id number]) on 02/02/2024 5:59:20 AM Referred By: Andrea Confirmed By: MIKAELA NIÑO MD
[2024-01-31] MEDS: Atorvastatin Calcium 80 MG Tablet GT (20:52)
[2024-02-01] VITALS (37 sets, daily range): BP systolic 102–150; BP diastolic 61–91; PULSE 55–148; RESP 15–25; TEMP 36.8–38.2; O2SAT 89–98; BMI 24.0
[2024-02-01 00:26] LABS: Bedside Glucose 120 mg/dL (74-106)
[2024-02-01] MEDS: Dexmedetomidine 1,000 mcg in 0.9% NS 240 mL 26.9 MCG CONT INF ×3 (00:51→20:00)
[2024-02-01] MEDS: fentaNYL drip 100 ML 20 MCG CONT INF ×5 (00:51→21:00)
[2024-02-01] MEDS: Ipratropium/Albuterol Sulfate 3 ML AMPUL.NEB INHALATION ×6 (03:35→23:17)
[2024-02-01 03:48] LABS: Absolute Lymphocyte Count 0.87 X10^3/uL (0.83-4.51); Basophil# 0.02 X10^3/uL; Basophil% 0.2 % (0-1); Hematocrit 38.3 % (40-54); Hemoglobin 12.6 g/dL (13.0-16.5); Lymphocyte # 0.87 X10^3/ul (0.83-4.51); Lymphocyte % 8.7 % (19-41); Mean Corp Hgb Conc 32.9 g/dL (32-36); Mean Corpuscular Hgb 35.2 pg (27.0-32.0); Mean Platelet Vol. 11.2 fl (6.2-12.0); Monocyte# 1.05 X10^3/uL; Monocyte% 10.5 % (0-10); NRBC Flagged by Analyzer 0 % (0-5); Neutrophil % 79.7 % (47-70); Platelet Count 158 K/mm3 (150-450); RBC Distribution Width CV 14.6 % (11.6-14.6); RBC Distribution Width SD 58.3 fl (35.1-43.9); Red Blood Count 3.58 M/mm3 (4.6-6.2)
--- NOTE | 2024-02-01 04:06 | EKG12_ITS ---
Test Reason : tachycardia Blood Pressure : */* mmHG Vent. Rate : 154 BPM Atrial Rate : * BPM P-R Int : * ms QRS Dur : 108 ms QT Int : 276 ms P-R-T Axes : * 39 136 degrees QTcB Int : 442 ms Critical Test Result: High HR Atrial fibrillation with rapid ventricular response with premature ventricular or aberrantly conducte d complexes Low voltage QRS Possible Inferior infarct Marked ST abnormality, possible lateral subendocardial injury Abnormal ECG When compared with ECG of 24-Jan-2024 10:21, Significant changes have occurred Confirmed by SALINAS SPEAR, MIKAELA ([id number]), editor continuity and script ESTEFANIA JACKSON ([id number]) on 02/02/2024 6:22:27 AM Referred By: Confirmed By: MIKAELA NIÑO MD
[2024-02-01 04:09] LABS: Anion Gap 3 (5-15); BUN 36 mg/dL (7-18); BUN/Creat Ratio 28.8 RATIO (10-20); Calcium,Total 8.8 mg/dL (8.5-10.1); Chloride 122 mmol/L (98-107); Creatinine, Serum 1.25 mg/dL (0.70-1.30); EST Glomerular Filtration Rate 59 mL/min (>60); Est Glom Filt Rate - Afr Amer 72 mL/min (>60); Estimated Creatinine Clearance 55.93 ml/min; Glucose 131 mg/dL (74-106); Potassium 4.1 mmol/L (3.5-5.1); Sodium Level 148 mmol/L (136-145)
[2024-02-01] MEDS: Metoprolol Tartrate 5 MG/5 ML Vial IV (04:55)
[2024-02-01] MEDS: 0.9% Saline Lock 10 ML Syringe IV (05:01)
[2024-02-01 05:20] LABS: Bedside Glucose 127 mg/dL (74-106)
--- NOTE | 2024-02-01 06:03 | PN.CC_ITS ---
Assessment & Plan Assessment/Plan (1) Sepsis: (2) Acute hypoxemic respiratory failure: (3) Transaminitis: (4) CKD (chronic kidney disease): PLAN: Plan RECOMMENDATIONS: 1. Continue assist-control mode mechanical ventilation. Wean FiO2 and PEEP as tolerated. 2. Continue scheduled bronchodilator therapy. 3. Continue Decadron as ordered to complete 10 days of therapy. 4. Continue Precedex and fentanyl for sedation. 5. Continue appropriate ICU prophylaxis. 6. Initiate amiodarone to address atrial fibrillation with RVR. 7. Goals of care discussion with the patient's son. IMPRESSIONS: 1. Acute hypoxemic and hypercapnic respiratory failure The patient presented to the hospital with acute on chronic shortness of breath, which I suspect is likely multifactorial. While the patient is positive for COVID-19, his chest imaging is concerning for the presence of pulmonary edema and the possibility for underlying congestive heart failure, given his elevated BNP and lower extremity edema. The patient was ultimately intubated in the emergency department. The patient has been maintained on bronchodilators, Decadron and intermittent diuretics. He has completed a treatment course of antimicrobials as well. Overall, the patient's respiratory status has significantly improved. However, the patient continues to fail spontaneous breathing trials, despite the use of Precedex, fentanyl and Seroquel. Therefore, goals of care was discussed with the patient's son. He is going to discuss further with the family prior to arriving to a decision as to whether to proceed with extubation or consider possible tracheostomy and PEG tube placement. 2. Sepsis The patient presented to the hospital with sepsis due to possible pneumonia with acute sepsis related organ dysfunction as evidenced by lactic acidemia and acute respiratory failure requiring invasive mechanical ventilatory support. While the patient was initially going to receive supplemental IV fluid hydration, the fluids were ultimately discontinued over concerns for volume overload and congestive heart failure. The patient has now completed a 7-day course of empiric antimicrobials, despite negative culture data. 3. Anemia The patient developed bright red blood from his OG tube on the morning of January 24. His heparin has been subsequently discontinued. The patient was seen by gastroenterology and underwent endoscopic evaluation without any significant pathology noted. Continue to monitor blood counts and transfuse if hemoglobin drops below 7 g/dL. Continue PPI therapy. 4. Atrial fibrillation with RVR The patient will be treated with an amiodarone bolus and subsequent infusion to address his elevated heart rate. Potassium is within normal limits. Will check magnesium this morning. 5. Chronic kidney disease/longstanding tobacco abuse history/hypertension Complicates care, management, recovery and prognosis. Continue supportive measures as noted above. Continue tube feeding as tolerated. TIME: 33 minutes of critical care time, independent of procedures, was spent addressing the patient's acute hypoxemic and hypercapnic respiratory failure, sepsis, anemia, review of all data and collaboration with the care team. Subjective Subjective The patient was seen and examined at the bedside this morning. Events from the last 24 hours have been reviewed. The patient currently has a low-grade fever but remains otherwise hemodynamically stable on assist-control mode of mechanical ventilation with an FiO2 requirement of 25% and PEEP of 5. The patient still remains agitated and tachypneic. He has been unable to pass spontaneous breathing trials on multiple occasions. I did personally meet with the patient's son yesterday to discuss prognosis and goals of care. Given that he has failed breathing trials on multiple occasions but has minimal ventilatory requirement, I did discuss the idea of extubating the patient without plans to reintubate, if he does not do well clinically. The patient's son is going to discuss this further with his family and come to a final decision. In the interim, the patient did develop atrial fibrillation with RVR. His white blood cell count is normal. Hemoglobin and platelet count are stable. Creatinine has normalized. The patient is documented to be overall net +5.5 L for the hospitalization. He continues to tolerate tube feeding. Objective Data Objective Data The patient's most recent lab work, culture data and imaging studies have all been personally reviewed. Surface echocardiogram demonstrated normal LV size and function with an ejection fraction of 50%. Pulmonary artery systolic pressure was estimated to be 55 mmHg. COVID PCR was positive on January 23. Vital Signs: Vital Signs Temp Pulse Resp BP Pulse Ox O2 Del Method O2 Flow Rate 100.7 F H 112 H 20 H 132/85 H 96 Mechanical Ventilator 50 02/01/24 00:00 02/01/24 05:40 02/01/24 05:40 02/01/24 05:00 02/01/24 05:40 02/01/24 05:00 01/24/24 13:15 FiO2 25 02/01/24 05:40 Oxygen Flow Rate (L/min) 50 Oxygen Delivery Method Mechanical Ventilator Weight: 181 lb 14.4 oz Body Mass Index (BMI) 24.0 Intake & Output: Intake and Output for Last 24 Hours 01/30/24 01/31/24 02/01/24 23:59 23:59 23:59 Intake Total 2930.36 / 2980.46 1959.25 / 2076.15 423.08 / 423.08 Output Total 1450 / 1450 700 / 950 250 / 250 Balance 1480.36 / 1530.46 1259.25 / 1126.15 173.08 / 173.08 Lab / Micro Data Attestation: I reviewed the patient's lab results. 02/01/24 03:35 02/01/24 03:35 Labs: Laboratory Results - last 24 hr 01/31/24 06:53: POC Glucose 114 H 01/31/24 06:55: WBC 12.1 H, RBC 3.68 L, Hgb 12.8 L, Hct 39.2 L, MCV 106.5 H, MCH 34.8 H, MCHC 32.7, RDW Std Deviation 58.4 H, RDW Coeff of Jesus 14.6, Plt Count 171, MPV 10.8, Immature Gran % (Auto) 0.900, Neut % (Auto) 82.0 H, Lymph % (Auto) 7.1 L, Cassia % (Auto) 9.9, Eos % (Auto) 0.0, Baso % (Auto) 0.1, Absolute Neuts (auto) 9.9 H, Absolute Lymphs (auto) 0.86, Nucleated RBC % 0, Sodium 149 H , Potassium 4.2, Chloride 121 H, Carbon Dioxide 26.0, Anion Gap 2 L, BUN 36 H, C reatinine 1.31 H, Estim Creat Clear Calc 53.37, Est GFR (MDRD) Af Amer 68, Est GFR (MDRD) Non-Af 56 L, BUN/Creatinine Ratio 27.5 H, Glucose 127 H, Calcium 8.7 01/31/24 11:19: POC Glucose 111 H 01/31/24 16:47: POC Glucose 139 H 02/01/24 00:01: POC Glucose 120 H 02/01/24 03:35: WBC 10.0, RBC 3.58 L, Hgb 12.6 L, Hct 38.3 L, MCV 107.0 H, MCH 35.2 H, MCHC 32.9, RDW Std Deviation 58.3 H, RDW Coeff of Jesus 14.6, Plt Count 158, MPV 11.2, Immature Gran % (Auto) 0.900, Neut % (Auto) 79.7 H, Lymph % (Auto) 8.7 L, Cassia % (Auto) 10.5 H, Eos % (Auto) 0.0, Baso % (Auto) 0.2, A bsolute Neuts (auto) 8.0 H, Absolute Lymphs (auto) 0.87, Nucleated RBC % 0, S odium 148 H, Potassium 4.1, Chloride 122 H, Carbon Dioxide 22.0, Anion Gap 3 L, BUN 36 H, Creatinine 1.25, Estim Creat Clear Calc 55.93, Est GFR (MDRD) Af Amer 72, Est GFR (MDRD) Non-Af 59 L, BUN/Creatinine Ratio 28.8 H, Glucose 131 H, Calcium 8.8 02/01/24 05:01: POC Glucose 127 H Micro: Microbiology 01/24/24 10:49 Blood Culture (Wb) - Anticubital Left Blood Culture - Final No growth in 5 days. 01/24/24 10:49 Blood Culture (Wb) - Anticubital Right Blood Culture - Final No growth in 5 days. 01/24/24 13:25 Urine Catheter - Hernandez Urine Culture - Final Culture exhibits no growth. 01/24/24 13:25 Urine Catheter - Hernandez Legionella Antigen - Final 01/24/24 13:25 Urine Catheter - Hernandez Streptococcus pneumoniae Antigen (M - Final 01/24/24 14:00 Sputum, Induced/Lukens Gram Stain - Final 01/24/24 14:00 Sputum, Induced/Lukens Respiratory Culture - Final Mixed normal respiratory hannah. No Streptococcus pneumoniae, beta-hemolytic Streptococcus or Staphylococcus aureus isolated. 01/24/24 14:00 Mucosa - Nasopharyngeal Respiratory Panel (PCR) - Final 01/24/24 10:39 Mucosa - Nose SARS-CoV-2, Influenza & RSV (PCR) - Final SARS-CoV-2 (COVID 19 PCR) ABG Data ABG results: ABG 01/25/24 08:51 Specimen Type ART Sample Site L Radial pH 7.37 Bicarbonate Actual 17.6 L Total CO2 19 Base Excess -8 L O2 Saturation 97 O2 % 30.0 ABG pCO2 30.7 L ABG pO2 91 Respiration Rate 20 O2 Delivery Device Not entered Vent Mode Not entered Tidal Volume 450.0 POC PEEP 5 Radiography Diagnostic Testing: Radiology Impression KUB X-Ray 01/29/24 07:00 IMPRESSION: 1. No bowel obstruction or acute abnormality in the abdomen and pelvis. 2. No significant interval change. 3. NG tube tip is in the proximal cavity and the sidehole is in the distal esophagus near the EG junction. Distal repositioning will be helpful. Electronically Signed: Aj Alvarez MD at 8:46 EST , Physical Exam Const Constitutional Narrative: Intubated, sedated and mechanically ventilated. No ventilator dyssynchrony. HEENT normocephalic and head/scalp atraumatic HEENT Narrative: Temporal wasting present. Mouth: endotracheal tube in place and OG tube in place Eyes EOMs intact bilaterally and conjunctivae normal Neck supple General: trachea midline Chest inspection of chest normal Resp Effort and Inspection: tachypneic Auscultation: diminished lung sounds; Negative for rales, rhonchi or wheezes Cardio S1 normal heart sound and S2 normal heart sound Rate: tachycardic Rhythm: abnormal rhythm GI normal to inspection, nondistended, normoactive bowel sounds Extremity General Extremity: edema bilateral lower extremity; Negative for clubbing Skin no rashes or lesions noted Neuro Neuro Narrative: Intermittently follows some commands. Sensorium / Orientation: sedated on vent Psych Activity / Motor Behavior: restless Charges/Coding Procedures Hospitalists Procedures: 74223 Critical Care 1st Hr
[2024-02-01] MEDS: Chlorhexidine 15 ML PO ×2 (08:03→20:24)
[2024-02-01] MEDS: Senna Tablet 1 TABLET PO (08:03)
[2024-02-01] MEDS: dexAMETHasone 10 MG/ML Vial 6 MG IV (08:03)
[2024-02-01] MEDS: Levothyroxine 75 MCG Tablet GT (08:03)
[2024-02-01] MEDS: QUEtiapine 25 MG Tablet 50 MG GT (08:03)
--- NOTE | 2024-02-01 08:37 | EKG12_ITS ---
Test Reason : tachycardia Blood Pressure : */* mmHG Vent. Rate : 138 BPM Atrial Rate : * BPM P-R Int : * ms QRS Dur : 96 ms QT Int : 268 ms P-R-T Axes : * 29 127 degrees QTcB Int : 406 ms Atrial fibrillation with rapid ventricular response with occasional atrial-paced complexes Low voltage QRS Inferior infarct , age undetermined Marked ST abnormality, possible lateral subendocardial injury Abnormal ECG When compared with ECG of 01-Feb-2024 04:06, MANUAL COMPARISON REQUIRED DATA IS UNCONFIRMED Confirmed by SALINAS SPEAR, MIKAELA ([id number]), editor news ESTEFANIA JACKSON ([id number]) on 02/02/2024 6:01:28 AM Referred By: Confirmed By: MIKAELA NIÑO MD
[2024-02-01] MEDS: Amiodarone 150 MG in Dextrose 5%-Water (100mL Bag) 100 ML 600 MG IV BOLUS (09:40)
[2024-02-01] MEDS: Amiodarone 360 MG in Dextrose 5% Viaflo Bag 192.8 ML 33.3 MG CONT INF (09:54)
[2024-02-01] MEDS: Polyethylene Glycol 3350 17 GM PACKET PO (09:57)
--- NOTE | 2024-02-01 10:12 | PN_ITS ---
Subjective Subjective Patient seen and examined. He remains intubated and sedated. He remains tachycardic. Unable to do review of systems as he is intubated and sedated. Objective Data Objective Data Vital Signs: Vital Signs Temp Pulse Resp BP Pulse Ox O2 Del Method O2 Flow Rate 100.7 F H 115 H 20 H 102/68 94 Mechanical Ventilator 50 02/01/24 09:00 02/01/24 09:56 02/01/24 09:56 02/01/24 09:54 02/01/24 09:56 02/01/24 09:00 01/24/24 13:15 FiO2 25 02/01/24 09:56 Oxygen Flow Rate (L/min) 50 Oxygen Delivery Method Mechanical Ventilator Weight: 181 lb 14.4 oz Body Mass Index (BMI) 24.0 Intake & Output: Intake and Output for Last 24 Hours 01/30/24 01/31/24 02/01/24 23:59 23:59 23:59 Intake Total 2930.36 / 2980.46 1959.25 / 2076.15 1152.18 / 1152.18 Output Total 1450 / 1450 700 / 950 475 / 475 Balance 1480.36 / 1530.46 1259.25 / 1126.15 677.18 / 677.18 Lab / Micro Data 02/01/24 03:35 02/01/24 03:35 Labs: Laboratory Results - last 24 hr 01/31/24 11:19: POC Glucose 111 H 01/31/24 16:47: POC Glucose 139 H 02/01/24 00:01: POC Glucose 120 H 02/01/24 03:35: WBC 10.0, RBC 3.58 L, Hgb 12.6 L, Hct 38.3 L, MCV 107.0 H, MCH 35.2 H, MCHC 32.9, RDW Std Deviation 58.3 H, RDW Coeff of Jesus 14.6, Plt Count 158, MPV 11.2, Immature Gran % (Auto) 0.900, Neut % (Auto) 79.7 H, Lymph % (Auto) 8.7 L, Dubois % (Auto) 10.5 H, Eos % (Auto) 0.0, Baso % (Auto) 0.2, A bsolute Neuts (auto) 8.0 H, Absolute Lymphs (auto) 0.87, Nucleated RBC % 0, S odium 148 H, Potassium 4.1, Chloride 122 H, Carbon Dioxide 22.0, Anion Gap 3 L, BUN 36 H, Creatinine 1.25, Estim Creat Clear Calc 55.93, Est GFR (MDRD) Af Amer 72, Est GFR (MDRD) Non-Af 59 L, BUN/Creatinine Ratio 28.8 H, Glucose 131 H, Calcium 8.8 02/01/24 05:01: POC Glucose 127 H Micro: Microbiology 01/24/24 10:49 Blood Culture (Wb) - Anticubital Left Blood Culture - Final No growth in 5 days. 01/24/24 10:49 Blood Culture (Wb) - Anticubital Right Blood Culture - Final No growth in 5 days. 01/24/24 13:25 Urine Catheter - Hernandez Urine Culture - Final Culture exhibits no growth. 01/24/24 13:25 Urine Catheter - Hernandez Legionella Antigen - Final 01/24/24 13:25 Urine Catheter - Hernandez Streptococcus pneumoniae Antigen (M - Final 01/24/24 14:00 Sputum, Induced/Lukens Gram Stain - Final 01/24/24 14:00 Sputum, Induced/Lukens Respiratory Culture - Final Mixed normal respiratory hannah. No Streptococcus pneumoniae, beta-hemolytic Streptococcus or Staphylococcus aureus isolated. 01/24/24 14:00 Mucosa - Nasopharyngeal Respiratory Panel (PCR) - Final 01/24/24 10:39 Mucosa - Nose SARS-CoV-2, Influenza & RSV (PCR) - Final SARS-CoV-2 (COVID 19 PCR) Physical Exam Const Constitutional Narrative: intubated, sedated, flat affect, RASS score is 0 Orientation / Consciousness: lethargic HEENT normocephalic, head/scalp atraumatic and moist oral mucous membranes Eyes PERRL, EOMs intact bilaterally and conjunctivae normal Neck no lymphadenopathy and supple Neck Narrative: no thyroid enlargement Lymph Lymphatic: no lymphadenopathy noted and no lymphedema noted Resp Resp Narrative: intubated,mildly diminished breath sounds bibasally, no wheezes or crackles. Cardio regular rhythm, S1 normal heart sound, S2 normal heart sound, no murmurs, no rub, no gallops and no clicks Rate: tachycardic GI normal to inspection, nondistended, normoactive bowel sounds, soft to palpation, non-tender and non-distended Extremity normal capillary refill, no clubbing, cyanosis or edema and no calf tenderness General Extremity: no tenderness to palpation of joints or extremities Skin skin turgor normal, no jaundice, no petechiae and no mottling General Skin Exam: no breakdown Neuro Neuro Narrative: remains intubated, sedated, RASS score is 0 Sensorium / Orientation: awake Motor Exam: general weakness Psych Psych Narrative: flat affect Mood & Affect: flat affect Assessment & Plan Assessment/Plan (1) COVID-19 virus infection: (2) Acute hypoxemic respiratory failure: PLAN: Plan #Acute hypoxic and hypercapnic respiratory failure due to COVId 19 pneumonia and aspiration pneumonia as well as acute combined heart failure * remains intubated; he gets very agitated when sedation is turned off and he is started on spontaneous breathing trial * on minimal vent settings * 2D echo showed EF of 50% with mild global hypokinesis and mild hypokinesis of the apex, with RVSp of 55mmHg. * titrate oxygen to maintain sats >90% * breathing treatment with bronchodilators * critical care on board * family to decide if they are ok with patient being extubated and not reintubated if he needs it. Further management to be predicated on family wishes * remains on precedex and fentanyl for sedation #Sepsis due to covid 19 pneumonia and aspiration pneumonia * completed a course of remdesivir * on decadron, to complete a 10 day course. Today is day 9 * sputum cultures showed normal oral hannah. completed a 7 day couse of antibiotics * Blood and urine cultures negative so far * critical care on board * #Nonstemi * thought to be a type 2 nonstemi due to emand ischemia fro respiratory failure * aspirin held due to GI bleed. Heparin also discontinued due to GI bleed. * 2D echo as above * Patient follow-up with cardiology on outpatient basis. #Afib * patient is tachycardic. on amiodarone drip * potassium and magnesium WNL * not anticoagulated due to anemia from GI bleed. * #Hypernatremia: * Na is 149. * start D5W to bring down sodium levels. #CKD stage IIIb: Cr at baseline. Will monitor. #Upper GI bleed * Patient had bright red blood in the OG tube. EGD done on 01/25/2024 showed nonsevere reflux esophagitis with no gross lesions in the entire stomach and nonbleeding duodenal ulcers with no stigmata of bleeding. * on IV Protonix 40 mg twice daily. Hemoglobin is stable * #Benign essential hypertension: * Valsartan held as blood pressure was running low. * IV hydralazine as needed. * Will monitor. #Hypothyroidism: On Synthroid #COPD: * Patient is suspected to have COPD he does have a history of chronic nicotine dependence. * Follow-up with pulmonology on outpatient basis. #Nutrition: * On tube feeds. Dietitian on board. * #DVT prophylaxis: SCDs Charges/Coding Visit Charges Inpatient E&M: 18048 Subs Hosp L3
--- NOTE | 2024-02-01 11:05 | CASEMGMT ---
Social Work SW called pt's son Bernard to offer support and inquire if he has made a decision regarding pt. Bernard states his niece spoke w/pt's daughter, and she indicated she is okay with whatever decision is made. Gene still plans to reach out to pt's sister and significant other. Bernard is leaning toward withdrawing care and making pt comfortable, rather than having pt go through with a trach and peg. SW encouraged him to check in w/the RN today to see how pt is doing, and explained to just let the hospital know once he has made a decision. Bernard indicated he would like to give it a couple of days. SW explained that generally speaking, someone can be on the vent for 14 days. Bernard states understanding. Support also given to Bernard as he contemplates this decision. UNIFORM ROOM ATTENDANT updated. SW remains available for support to family. MAVIS Lewis
[2024-02-01] MEDS: Pantoprazole Sodium 40 MG in 0.9% Normal Saline (100mL MB+) 100 ML 330 MG IV ×2 (11:40→20:23)
[2024-02-01 12:20] LABS: Magnesium 2.5 mg/dL (1.6-2.6)
[2024-02-01] MEDS: Vital AF 1.2 Cal Liquid 1,000 ML 45 ML GT (12:46)
[2024-02-01] MEDS: CHLORHEXIDINE GLUC 2% CLOTH 1 EACH TOWELETTE TOPICAL (12:47)
[2024-02-01 12:57] LABS: Bedside Glucose 114 mg/dL (74-106)
[2024-02-01] MEDS: Amiodarone 360 MG in Dextrose 5% Viaflo Bag 192.8 ML 16.7 MG CONT INF (15:39)
[2024-02-01 18:48] LABS: Bedside Glucose 138 mg/dL (74-106)
[2024-02-01] MEDS: Atorvastatin Calcium 80 MG Tablet GT (20:24)
[2024-02-02] VITALS (38 sets, daily range): BP systolic 101–146; BP diastolic 55–102; PULSE 39–133; RESP 17–40; TEMP 34.3–37.5; O2SAT 93–99; BMI 24.8
[2024-02-02 00:38] LABS: Bedside Glucose 127 mg/dL (74-106)
[2024-02-02] MEDS: fentaNYL drip 100 ML 20 MCG CONT INF ×5 (02:58→23:00)
[2024-02-02] MEDS: CHLORHEXIDINE GLUC 2% CLOTH 1 EACH TOWELETTE TOPICAL (03:03)
[2024-02-02] MEDS: 0.9% Saline Lock 10 ML Syringe IV ×2 (03:03→04:51)
[2024-02-02] MEDS: Ipratropium/Albuterol Sulfate 3 ML AMPUL.NEB INHALATION ×6 (03:09→23:24)
[2024-02-02 03:18] LABS: Absolute Lymphocyte Count 0.93 X10^3/uL (0.83-4.51); Absolute Neutrophil Count 9.7 X10^3/uL (2.0-7.7); Basophil# 0.01 X10^3/uL; Basophil% 0.1 % (0-1); Hematocrit 36.9 % (40-54); Hemoglobin 12.2 g/dL (13.0-16.5); Lymphocyte # 0.93 X10^3/ul (0.83-4.51); Lymphocyte % 7.7 % (19-41); Mean Corp Hgb Conc 33.1 g/dL (32-36); Mean Corpuscular Hgb 35.5 pg (27.0-32.0); Mean Corpuscular Volume 107.3 fL (80-94); Mean Platelet Vol. 11.7 fl (6.2-12.0); Monocyte# 1.23 X10^3/uL; Monocyte% 10.2 % (0-10); NRBC Flagged by Analyzer 0 % (0-5); Neutrophil # 9.74 X10^3/uL (2.7-7.7); Neutrophil % 80.8 % (47-70); Platelet Count 126 K/mm3 (150-450); RBC Distribution Width CV 14.6 % (11.6-14.6); RBC Distribution Width SD 56.7 fl (35.1-43.9); Red Blood Count 3.44 M/mm3 (4.6-6.2); White Blood Count 12.1 K/mm3 (4.4-11.0)
[2024-02-02 03:31] LABS: Anion Gap 3 (5-15); BUN 37 mg/dL (7-18); BUN/Creat Ratio 31.9 RATIO (10-20); Calcium,Total 7.9 mg/dL (8.5-10.1); Chloride 124 mmol/L (98-107); Creatinine, Serum 1.16 mg/dL (0.70-1.30); EST Glomerular Filtration Rate 65 mL/min (>60); Est Glom Filt Rate - Afr Amer 78 mL/min (>60); Estimated Creatinine Clearance 60.27 ml/min; Glucose 151 mg/dL (74-106); Potassium 4.1 mmol/L (3.5-5.1); Sodium Level 150 mmol/L (136-145)
[2024-02-02] MEDS: Dexmedetomidine 1,000 mcg in 0.9% NS 240 mL 26.9 MCG CONT INF (04:50)
[2024-02-02] MEDS: Amiodarone 360 MG in Dextrose 5% Viaflo Bag 192.8 ML 16.7 MG CONT INF (04:50)
[2024-02-02] MEDS: TITRATION PARAMETER CHANGE 1 EACH IV (04:51)
[2024-02-02 05:14] LABS: Bedside Glucose 119 mg/dL (74-106)
[2024-02-02] MEDS: Vital AF 1.2 Cal Liquid 1,000 ML 65 ML GT (06:34)
[2024-02-02] MEDS: Dextrose 5%-Water (1000mL Bag) 1,000 ML 125 ML IV ×2 (08:08→16:29)
[2024-02-02] MEDS: Senna Tablet 1 TABLET PO (09:25)
[2024-02-02] MEDS: Chlorhexidine 15 ML PO ×2 (09:25→21:25)
[2024-02-02] MEDS: Polyethylene Glycol 3350 17 GM PACKET PO ×2 (09:25→09:29)
[2024-02-02] MEDS: dexAMETHasone 10 MG/ML Vial 6 MG IV (09:25)
[2024-02-02] MEDS: Levothyroxine 75 MCG Tablet GT (09:25)
[2024-02-02] MEDS: Pantoprazole Sodium 40 MG in 0.9% Normal Saline (100mL MB+) 100 ML 330 MG IV ×2 (09:26→21:25)
--- NOTE | 2024-02-02 12:16 | PN_ITS ---
Subjective Subjective Patient seen and examined. History remains intubated and sedated. He is on minimal vent settings but patient gets very tachycardic and tachypneic when breathing trial is attempted. Family is therefore going to come in tomorrow for patient to be extubated with no intention of reintubation. Objective Data Objective Data Vital Signs: Vital Signs Temp Pulse Resp BP Pulse Ox O2 Del Method O2 Flow Rate 98.8 F 61 20 H 133/67 H 96 Mechanical Ventilator 25 02/02/24 12:00 02/02/24 12:00 02/02/24 12:00 02/02/24 12:00 02/02/24 12:00 02/02/24 12:00 02/01/24 13:50 FiO2 25 02/02/24 12:00 Oxygen Flow Rate (L/min) 25 Oxygen Delivery Method Mechanical Ventilator Weight: 187 lb 9.814 oz Body Mass Index (BMI) 24.8 Intake & Output: Intake and Output for Last 24 Hours 01/31/24 02/01/24 02/02/24 23:59 23:59 23:59 Intake Total 1959.25 / 2076.15 3039.81 / 3301.16 / Output Total 700 / 950 825 / 1000 225 / 225 Balance 1259.25 / 1126.15 2214.81 / 2301.16 1774.96 / 1774.96 Lab / Micro Data 02/02/24 03:05 02/02/24 03:05 Labs: Laboratory Results - last 24 hr 02/01/24 11:10: Magnesium 2.5 02/01/24 12:40: POC Glucose 114 H 02/01/24 18:31: POC Glucose 138 H 02/02/24 00:05: POC Glucose 127 H 02/02/24 03:05: WBC 12.1 H, RBC 3.44 L, Hgb 12.2 L, Hct 36.9 L, MCV 107.3 H, MCH 35.5 H, MCHC 33.1, RDW Std Deviation 56.7 H, RDW Coeff of Jesus 14.6, Plt Count 126 L, MPV 11.7, Immature Gran % (Auto) 1.200 H, Neut % (Auto) 80.8 H, Lymph % (Auto) 7.7 L, [place] % (Auto) 10.2 H, Eos % (Auto) 0.0, Baso % (Auto) 0.1, A bsolute Neuts (auto) 9.7 H, Absolute Lymphs (auto) 0.93, Nucleated RBC % 0, S odium 150 H, Potassium 4.1, Chloride 124 H, Carbon Dioxide 22.0, Anion Gap 3 L, BUN 37 H, Creatinine 1.16, Estim Creat Clear Calc 60.27, Est GFR (MDRD) Af Amer 78, Est GFR (MDRD) Non-Af 65, BUN/Creatinine Ratio 31.9 H, Glucose 151 H, C alcium 7.9 L 02/02/24 04:50: POC Glucose 119 H Micro: Microbiology 01/24/24 10:49 Blood Culture (Wb) - Anticubital Left Blood Culture - Final No growth in 5 days. 01/24/24 10:49 Blood Culture (Wb) - Anticubital Right Blood Culture - Final No growth in 5 days. 01/24/24 13:25 Urine Catheter - Hernandez Urine Culture - Final Culture exhibits no growth. 01/24/24 13:25 Urine Catheter - Hernandez Legionella Antigen - Final 01/24/24 13:25 Urine Catheter - Hernandez Streptococcus pneumoniae Antigen (M - Final 01/24/24 14:00 Sputum, Induced/Lukens Gram Stain - Final 01/24/24 14:00 Sputum, Induced/Lukens Respiratory Culture - Final Mixed normal respiratory hannah. No Streptococcus pneumoniae, beta-hemolytic Streptococcus or Staphylococcus aureus isolated. 01/24/24 14:00 Mucosa - Nasopharyngeal Respiratory Panel (PCR) - Final 01/24/24 10:39 Mucosa - Nose SARS-CoV-2, Influenza & RSV (PCR) - Final SARS-CoV-2 (COVID 19 PCR) Physical Exam Const average body habitus; Negative for healthy appearing or well nourished Constitutional Narrative: intubated, sedated, flat affect, RASS score is+2, occasionally gets agitated. Orientation / Consciousness: lethargic HEENT normocephalic, head/scalp atraumatic and moist oral mucous membranes Eyes PERRL, EOMs intact bilaterally and conjunctivae normal Eyes Narrative: No scleral icterus Neck no lymphadenopathy and supple Neck Narrative: no thyroid enlargement Lymph Lymphatic: no lymphadenopathy noted and no lymphedema noted Resp No normal respiratory effort Resp Narrative: intubated,mildly diminished breath sounds bibasally, no wheezes or crackles. Auscultation: crackles and wheezes; Negative for rhonchi Cardio regular rate, regular rhythm, S1 normal heart sound, S2 normal heart sound, no murmurs, no rub, no gallops and no clicks Rate: tachycardic GI normal to inspection, nondistended, normoactive bowel sounds, soft to palpation, non-tender and non-distended Extremity normal capillary refill, no clubbing, cyanosis or edema and no calf tenderness Extremity Narrative: 1+ bilateral lower extremity pitting edema, no cyanosis or clubbing General Extremity: no tenderness to palpation of joints or extremities Skin skin turgor normal, no jaundice, no petechiae and no mottling General Skin Exam: no breakdown Neuro Neuro Narrative: remains intubated, sedated. Is restless, RASS score is +2 Motor Exam: general weakness Psych Activity / Motor Behavior: restless Mood & Affect: anxious Assessment & Plan Assessment/Plan (1) COVID-19 virus infection: (2) Acute hypoxemic respiratory failure: PLAN: Plan #Acute hypoxic and hypercapnic respiratory failure due to COVId 19 pneumonia and aspiration pneumonia as well as acute combined heart failure * remains intubated; still gets very agitated when sedation is turned off and he is started on spontaneous breathing trial * on minimal vent settings * 2D echo showed EF of 50% with mild global hypokinesis and mild hypokinesis of the apex, with RVSp of 55mmHg. * titrate oxygen to maintain sats >90% * breathing treatment with bronchodilators * critical care on board * family to decide if they are ok with patient being extubated and not reintubated if he needs it. Further management to be predicated on family wishes * remains on precedex and fentanyl for sedation * Family to come in tomorrow for patient to be extubated. CODE STATUS to be switched to DNR CC a DO NOT INTUBATE tomorrow as family do not want patient to be intubated again after extubation tomorrow. #Sepsis due to covid 19 pneumonia and aspiration pneumonia * completed a course of remdesivir * Completed a 10-day course of Decadron. * sputum cultures showed normal oral hannah. completed a 7 day couse of antibiotics * Blood and urine cultures negative so far * critical care on board * #Nonstemi * thought to be a type 2 nonstemi due to emand ischemia fro respiratory failure * aspirin held due to GI bleed. Heparin also discontinued due to GI bleed. * 2D echo as above * Patient follow-up with cardiology on outpatient basis. #Afib * patient is tachycardic. on amiodarone drip * potassium and magnesium WNL * not anticoagulated due to anemia from GI bleed. * #Hypernatremia: * Na is 150 * start D5W to bring down sodium levels. #CKD stage IIIb: Cr at baseline. Will monitor. #Upper GI bleed * Patient had bright red blood in the OG tube. EGD done on 01/25/2024 showed nonsevere reflux esophagitis with no gross lesions in the entire stomach and nonbleeding duodenal ulcers with no stigmata of bleeding. * on IV Protonix 40 mg twice daily. Hemoglobin is stable * #Benign essential hypertension: * Valsartan held as blood pressure was running low. * IV hydralazine as needed. * Will monitor. #Hypothyroidism: On Synthroid #COPD: * Patient is suspected to have COPD he does have a history of chronic nicotine dependence. * Follow-up with pulmonology on outpatient basis. #Nutrition: * On tube feeds. Dietitian on board. * #DVT prophylaxis: SCDs Disposition: For extubation tomorrow. Charges/Coding Visit Charges Inpatient E&M: 43235 Subs Hosp L3
[2024-02-02] MEDS: Dexmedetomidine 1,000 mcg in 0.9% NS 240 mL 27.7 MCG CONT INF (14:00)
--- NOTE | 2024-02-02 14:36 | PN.CC_ITS ---
Objective Data Objective Data Vital Signs: Vital Signs Last response 3 Temperature 36.8 C 02/02/24 14:00 Temperature Source Core 02/02/24 14:00 Pulse Rate 76 02/02/24 14:00 Pulse Strength Weak (1+) 02/02/24 08:49 Respiratory Rate 17 02/02/24 14:00 Respiratory Effort Mechanically Ventilated 02/02/24 12:00 Respiratory Depth Normal 02/02/24 12:00 Respiratory Pattern Tachypnea 02/02/24 13:41 Blood Pressure 146/71 H 02/02/24 14:00 Blood Pressure Mean 96 02/02/24 14:00 Blood Pressure Source Monitor 02/02/24 14:00 Blood Pressure Position Semi-Fowlers 02/02/24 14:00 Blood Pressure Location Left Arm 02/02/24 14:00 Pulse Ox 97 02/02/24 14:00 Oxygen Delivery Method Mechanical Ventilator 02/02/24 14:00 Oxygen Flow Rate (L/min) 02/01/24 13:50 Fraction of Inspired Oxygen (FIO2) 02/02/24 14:00 I&O: I&O Last 24 Hours 3 02/01/24 02/02/24 02/02/24 23:59 11:59 23:59 Intake Total 1797.14 / 3301.16 1952.26 / 2159.91 207.65 / 2159.91 Output Total 200 / 1000 225 / 500 275 / 500 Balance 1597.14 / 2301.16 1727.26 / 1659.91 -67.35 / 1659.91 I&O: Total Stay 3 01/24/24 10:15 thru 02/02/24 14:00 Intake Total 85210.79 Output Total 62711 Balance 8716.79 Current Meds Ordered / Administered: Current meds ordered / Administered 3 Generic Name Dose Route Start Last Admin Trade Name Freq PRN Reason Stop Dose Admin Acetaminophen 650 mg 01/24/24 13:12 01/31/24 16:48 Acetaminophen 650 Mg/20 Ml Udc GT 650 mg Q6H PRN PRN Administration Pain 1-10 Or Fever>100.7 Albuterol Sulfate 2.5 mg 01/24/24 13:07 Albuterol 2.5 Mg/3 Ml Vial.Neb. INHALATION Q2H PRN PRN SOB &/OR WHEEZING Albuterol/Ipratropium 3 ml 01/24/24 13:07 02/02/24 10:15 Ipratropium/Albuterol Sulfate 3 Ml Ampul.Neb INHALATION 3 ml Q4H.RT CORWIN Administration Aspirin 81 mg 01/25/24 10:00 Aspirin 81 Mg Tab.Chew GT DAILY CORWIN Atorvastatin Calcium 80 mg 01/24/24 22:00 02/01/24 20:24 Atorvastatin Calcium 80 Mg Tablet GT 80 mg QHS CORWIN Administration Chlorhexidine Gluconate 15 ml 01/28/24 22:00 02/02/24 09:25 Chlorhexidine 15 Ml PO 15 ml BID CORWIN Administration Chlorhexidine Gluconate 1 each 01/29/24 10:00 02/02/24 03:03 Chlorhexidine Gluc 2% Cloth 1 Each Towelette TOPICAL 1 each DAILY CORWIN Administration Heparin Sodium (Porcine) 0 unit 01/24/24 20:15 Heparin Injection (Vial) 5,000 Unit/Ml Vial IV UD PRN dose adjustment Protocol Hydralazine HCl 10 mg 01/30/24 15:39 Hydralazine 20 Mg/Ml Vial IV Q6H PRN PRN SBP>160 Protocol Fentanyl 100 mls @ 5 mls/hr 01/24/24 13:07 02/02/24 14:00 CONT INF 200 mcg/hr UD CORWIN 20 mls/hr Titration Protocol 50 MCG/HR Sodium Chloride 100 mls @ 15 mls/hr 01/24/24 13:36 01/27/24 12:09 IV Infused .Q6H40M PRN Infusion Saline Flush Sodium Chloride 100 mls @ 15 mls/hr 01/24/24 13:36 IV .Q6H40M PRN Additional IVPB Infusion Pantoprazole Sodium 40 mg/ 110 mls @ 330 mls/hr 01/25/24 10:00 02/02/24 09:58 Sodium Chloride IV Infused Q12 CORWIN Infusion Enteral Nutritional Formula 1,000 mls @ 65 mls/hr 01/26/24 09:35 02/02/24 06:34 Vital Af 1.2 Ruiz Liquid GT 65 mls/hr .[id number] CORWIN Administration Dexmedetomidine HCl 1,000 mcg/ 250 mls @ 23.403 mls/hr 01/27/24 20:05 02/02/24 14:00 Sodium Chloride CONT INF 1.3 mcg/kg/hr .[id number] CORWIN 27.7 mls/hr Administration Protocol 1.1 MCG/KG/HR Dextrose 1,000 mls @ 125 mls/hr 02/02/24 07:35 02/02/24 08:08 IV 02/02/24 23:34 125 mls/hr .Q8H CORWIN Administration Insulin Human Lispro 0 unit 01/26/24 18:00 02/02/24 13:03 Insulin Lispro 100 Unit/Ml Insuln.Pen SC Not Given Q6 CORWIN Protocol Levothyroxine Sodium 75 mcg 01/25/24 10:00 02/02/24 09:25 Levothyroxine 75 Mcg Tablet GT 75 mcg DAILY CORWIN Administration Ondansetron HCl 4 mg 01/24/24 13:07 Ondansetron 4 Mg/2 Ml Vial IV Q8H PRN PRN NAUSEA/VOMITING Polyethylene Glycol 17 gm 01/29/24 12:30 02/02/24 09:29 Polyethylene Glycol 3350 17 Gm Packet PO 17 gm DAILY CORWIN Administration Senna 1 tablet 01/30/24 10:00 02/02/24 09:25 Senna Tablet PO 1 tablet DAILY CORWIN Administration Senna/Docusate Sodium 2 tablet 01/24/24 13:07 01/29/24 20:55 Senna/Docusate Sodium 1 Tablet GT 2 tablet BID PRN PRN Administration Constipation Sodium Chloride 10 - 40 ml 01/24/24 13:36 02/02/24 04:51 0.9% Saline Lock 10 Ml Syringe IV 10 ml UD PRN Administration SALINE FLUSH Lab / Micro Data 02/02/24 03:05 02/02/24 03:05 Labs: Laboratory Results - last 24 hr 02/01/24 18:31: POC Glucose 138 H 02/02/24 00:05: POC Glucose 127 H 02/02/24 03:05: WBC 12.1 H, RBC 3.44 L, Hgb 12.2 L, Hct 36.9 L, MCV 107.3 H, MCH 35.5 H, MCHC 33.1, RDW Std Deviation 56.7 H, RDW Coeff of Jesus 14.6, Plt Count 126 L, MPV 11.7, Immature Gran % (Auto) 1.200 H, Neut % (Auto) 80.8 H, Lymph % (Auto) 7.7 L, [place] % (Auto) 10.2 H, Eos % (Auto) 0.0, Baso % (Auto) 0.1, A bsolute Neuts (auto) 9.7 H, Absolute Lymphs (auto) 0.93, Nucleated RBC % 0, S odium 150 H, Potassium 4.1, Chloride 124 H, Carbon Dioxide 22.0, Anion Gap 3 L, BUN 37 H, Creatinine 1.16, Estim Creat Clear Calc 60.27, Est GFR (MDRD) Af Amer 78, Est GFR (MDRD) Non-Af 65, BUN/Creatinine Ratio 31.9 H, Glucose 151 H, C alcium 7.9 L 02/02/24 04:50: POC Glucose 119 H Assessment and Plan . Assessment and plan: Patient seen and examined Chart and data reviewed He remains ill Sedated, but very restless Unable to tolerate SBT d/t severe agitation and delirium Precedex infusing D5W infusing for serum Na+ He has required prolonged MV support - his family have requested extubation 02/03/24 ==> if he develops distress following extubation, then we will change to AND EXAM GEN very restless VS as above HEENT SHERON NECK obese COR irreg CHEST diminished ABD obese EXT pitting edema SKIN w/d KANNAN grossly NF ASSESSMENT 1. Acute and chronic respiratory failure requiring prolonged MV support 2. Difficulty w/ weaning 3. Delirium / encephalopathy 4. CoV-19 infection 5. Chronic CHF 6. Hypervolemia 7. COPD 8. Chronic AF 9. Hypernatremia TREATMENT PLAN -extubation 02/03/24, as above -sedation as needed - add propofol today as he appears very uncomfortable -inhaled BD -forced diuresis as tolerated -free water -sq insulin -TF -VTE ppx - sq UFH -prognosis very guarded Critical Care Time: 50 min The entirety of this encounter was done via Telemedicine
[2024-02-02] MEDS: Propofol 10MG/Ml 1,000 MG/100 ML Bottle 5.1 MG CONT INF (15:30)
[2024-02-02 18:08] LABS: CPK Total, Creatine Kinase 153 U/L (39-308); Triglycerides 88 mg/dL
[2024-02-02] MEDS: Insulin Lispro 100 UNIT/ML INSULN.PEN SC ×2 (18:12→23:53)
[2024-02-02 18:31] LABS: Bedside Glucose 182 mg/dL (74-106)
--- NOTE | 2024-02-02 20:20 | RAD_ITS ---
STUDY: X-RAY - ABDOMEN/PELVIS REASON FOR EXAM: Male, 78 years old. OGT placement TECHNIQUE: Frontal view COMPARISON: None. FINDINGS: Mild effusions in the visualized lung bases. There is an unremarkable bowel gas pattern. There is no demonstrated free abdominal air. Nasogastric tube in the stomach. Normal soft tissue structures. Degenerative vertebral changes and scoliosis. RAD/Abdomen Single View (Portable) IMPRESSION: Mild effusions in the lung bases. Electronically Signed: Toni Galan DO at 21:06 EST ,
[2024-02-02] MEDS: Atorvastatin Calcium 80 MG Tablet GT (21:25)
[2024-02-02] MEDS: Propofol 10MG/Ml 1,000 MG/100 ML Bottle 10.2 MG CONT INF (22:12)
--- NOTE | 2024-02-02 22:30 | NURSING ---
Marin veras placed on pt d/t core temp of 93.7 F.
[2024-02-03] VITALS (39 sets, daily range): BP systolic 77–154; BP diastolic 47–93; PULSE 63–146; RESP 12–37; TEMP 35.1–37.5; O2SAT 92–99; BMI 22.5
[2024-02-03 00:13] LABS: Bedside Glucose 196 mg/dL (74-106)
[2024-02-03] MEDS: Vital AF 1.2 Cal Liquid 1,000 ML 65 ML GT (01:15)
[2024-02-03] MEDS: Ipratropium/Albuterol Sulfate 3 ML AMPUL.NEB INHALATION ×5 (03:13→23:00)
[2024-02-03 03:56] LABS: Absolute Lymphocyte Count 0.89 X10^3/uL (0.83-4.51); Absolute Neutrophil Count 15.2 X10^3/uL (2.0-7.7); Basophil# 0.04 X10^3/uL; Basophil% 0.2 % (0-1); Hematocrit 37.8 % (40-54); Hemoglobin 12.7 g/dL (13.0-16.5); Lymphocyte # 0.89 X10^3/ul (0.83-4.51); Mean Corp Hgb Conc 33.6 g/dL (32-36); Mean Corpuscular Hgb 35.2 pg (27.0-32.0); Mean Corpuscular Volume 104.7 fL (80-94); Mean Platelet Vol. 11.8 fl (6.2-12.0); Monocyte# 1.56 X10^3/uL; Monocyte% 8.7 % (0-10); NRBC Flagged by Analyzer 0 % (0-5); Neutrophil % 84.9 % (47-70); POSITIVE DIFFERENTIAL YES; Platelet Count 160 K/mm3 (150-450); RBC Distribution Width CV 14.4 % (11.6-14.6); RBC Distribution Width SD 55.8 fl (35.1-43.9); Red Blood Count 3.61 M/mm3 (4.6-6.2); White Blood Count 17.9 K/mm3 (4.4-11.0)
[2024-02-03] MEDS: fentaNYL drip 100 ML 20 MCG CONT INF (04:00)
[2024-02-03 04:20] LABS: Differential Indicated SCAN CRITERIA MET
[2024-02-03 04:26] LABS: Anion Gap 6 (5-15); BUN 40 mg/dL (7-18); BUN/Creat Ratio 31.7 RATIO (10-20); Calcium,Total 8.4 mg/dL (8.5-10.1); Chloride 119 mmol/L (98-107); Creatinine, Serum 1.26 mg/dL (0.70-1.30); EST Glomerular Filtration Rate 59 mL/min (>60); Est Glom Filt Rate - Afr Amer 71 mL/min (>60); Estimated Creatinine Clearance 55.49 ml/min; Glucose 79 mg/dL (74-106); Sodium Level 144 mmol/L (136-145)
[2024-02-03] MEDS: CHLORHEXIDINE GLUC 2% CLOTH 1 EACH TOWELETTE TOPICAL (04:27)
[2024-02-03] MEDS: 0.9% Saline Lock 10 ML Syringe IV ×2 (04:27→23:22)
[2024-02-03] MEDS: Propofol 10MG/Ml 1,000 MG/100 ML Bottle 17.9 MG CONT INF (04:29)
[2024-02-03 04:55] LABS: Bedside Glucose 74 mg/dL (74-106)
[2024-02-03 05:01] LABS: Differential Comment SCANNED; Platelet Estimate ADEQUATE (ADEQ); Red Cell Morphology NORM C+C NORMAL (NORM C&C)
[2024-02-03] MEDS: TITRATION PARAMETER CHANGE 1 EACH IV (05:57)
[2024-02-03 06:24] LABS: Bedside Glucose 93 mg/dL (74-106)
--- NOTE | 2024-02-03 08:20 | PN.CC_ITS ---
Objective Data Objective Data Vital Signs: Vital Signs Last response 3 Temperature 37.1 C 02/03/24 07:00 Temperature Source Core 02/03/24 07:00 Pulse Rate 89 02/03/24 07:00 Pulse Strength Weak (1+) 02/02/24 20:17 Respiratory Rate 32 H 02/03/24 07:00 Respiratory Effort Normal, Non-Labored, Mechanically Ventilated 02/03/24 04:00 Respiratory Depth Normal 02/03/24 04:00 Respiratory Pattern Tachypnea 02/03/24 06:47 Blood Pressure 94/54 L 02/03/24 07:00 Blood Pressure Mean 67 02/03/24 07:00 Blood Pressure Source Monitor 02/03/24 07:00 Blood Pressure Position Semi-Fowlers 02/03/24 07:00 Blood Pressure Location Left Arm 02/03/24 07:00 Pulse Ox 93 02/03/24 07:00 Oxygen Delivery Method Mechanical Ventilator 02/03/24 07:00 Oxygen Flow Rate (L/min) 25 02/01/24 13:50 Fraction of Inspired Oxygen (FIO2) 25 02/03/24 07:00 I&O: I&O Last 24 Hours 3 02/02/24 02/02/24 02/03/24 11:59 23:59 11:59 Intake Total 1952.26 / 4704.40 2729.59 / 4704.40 1487.04 / 1487.04 Output Total 225 / 1300 1075 / 1300 125 / 125 Balance 1727.26 / 3404.40 1654.59 / 3404.40 1362.04 / 1362.04 I&O: Total Stay 3 01/24/24 10:15 thru 02/03/24 07:00 Intake Total 68358.77 Output Total 93835 Balance 33900.77 Current Meds Ordered / Administered: Current meds ordered / Administered 3 Generic Name Dose Route Start Last Admin Trade Name Freq PRN Reason Stop Dose Admin Acetaminophen 650 mg 01/24/24 13:12 01/31/24 16:48 Acetaminophen 650 Mg/20 Ml Udc GT 650 mg Q6H PRN PRN Administration Pain 1-10 Or Fever>100.7 Albuterol Sulfate 2.5 mg 01/24/24 13:07 Albuterol 2.5 Mg/3 Ml Vial.Neb. INHALATION Q2H PRN PRN SOB &/OR WHEEZING Albuterol/Ipratropium 3 ml 01/24/24 13:07 02/03/24 06:58 Ipratropium/Albuterol Sulfate 3 Ml Ampul.Neb INHALATION 3 ml Q4H.RT CORWIN Administration Aspirin 81 mg 01/25/24 10:00 Aspirin 81 Mg Tab.Chew GT DAILY CORWIN Atorvastatin Calcium 80 mg 01/24/24 22:00 02/02/24 21:25 Atorvastatin Calcium 80 Mg Tablet GT 80 mg QHS CORWIN Administration Chlorhexidine Gluconate 15 ml 01/28/24 22:00 02/02/24 21:25 Chlorhexidine 15 Ml PO 15 ml BID CORWIN Administration Chlorhexidine Gluconate 1 each 01/29/24 10:00 02/03/24 04:27 Chlorhexidine Gluc 2% Cloth 1 Each Towelette TOPICAL 1 each DAILY CORWIN Administration Heparin Sodium (Porcine) 0 unit 01/24/24 20:15 Heparin Injection (Vial) 5,000 Unit/Ml Vial IV UD PRN dose adjustment Protocol Hydralazine HCl 10 mg 01/30/24 15:39 Hydralazine 20 Mg/Ml Vial IV Q6H PRN PRN SBP>160 Protocol Fentanyl 100 mls @ 5 mls/hr 01/24/24 13:07 02/03/24 07:00 CONT INF 200 mcg/hr UD CORWIN 20 mls/hr Titration Protocol 50 MCG/HR Sodium Chloride 100 mls @ 15 mls/hr 01/24/24 13:36 01/27/24 12:09 IV Infused .Q6H40M PRN Infusion Saline Flush Sodium Chloride 100 mls @ 15 mls/hr 01/24/24 13:36 IV .Q6H40M PRN Additional IVPB Infusion Pantoprazole Sodium 40 mg/ 110 mls @ 330 mls/hr 01/25/24 10:00 02/02/24 22:18 Sodium Chloride IV Infused Q12 CROWIN Infusion Enteral Nutritional Formula 1,000 mls @ 65 mls/hr 01/26/24 09:35 02/03/24 01:15 Vital Af 1.2 Ruiz Liquid GT 65 mls/hr .[id number] CORWIN Administration Dexmedetomidine HCl 1,000 mcg/ 250 mls @ 21.203 mls/hr 01/27/24 20:05 02/03/24 04:13 Sodium Chloride CONT INF Not Given .[id number] CORWIN Protocol 1.1 MCG/KG/HR Propofol 1,000 mg in 100 mls @ 4.626 mls/hr 02/02/24 15:20 02/03/24 07:00 Diprivan CONT INF 35 mcg/kg/min .Q12H CORWIN 16.2 mls/hr Titration Protocol 10 MCG/KG/MIN Insulin Human Lispro 0 unit 01/26/24 18:00 02/03/24 04:38 Insulin Lispro 100 Unit/Ml Insuln.Pen SC Not Given Q6 CORWIN Protocol Levothyroxine Sodium 75 mcg 01/25/24 10:00 02/02/24 09:25 Levothyroxine 75 Mcg Tablet GT 75 mcg DAILY CORWIN Administration Ondansetron HCl 4 mg 01/24/24 13:07 Ondansetron 4 Mg/2 Ml Vial IV Q8H PRN PRN NAUSEA/VOMITING Polyethylene Glycol 17 gm 01/29/24 12:30 02/02/24 09:29 Polyethylene Glycol 3350 17 Gm Packet PO 17 gm DAILY CORWIN Administration Senna 1 tablet 01/30/24 10:00 02/02/24 09:25 Senna Tablet PO 1 tablet DAILY CORWIN Administration Senna/Docusate Sodium 2 tablet 01/24/24 13:07 01/29/24 20:55 Senna/Docusate Sodium 1 Tablet GT 2 tablet BID PRN PRN Administration Constipation Sodium Chloride 10 - 40 ml 01/24/24 13:36 02/03/24 04:27 0.9% Saline Lock 10 Ml Syringe IV 10 ml UD PRN Administration SALINE FLUSH Lab / Micro Data 02/03/24 03:50 02/03/24 03:50 Labs: Laboratory Results - last 24 hr 02/02/24 03:05: Total Creatine Kinase 153, Triglycerides 88 02/02/24 18:11: POC Glucose 182 H 02/02/24 23:52: POC Glucose 196 H 02/03/24 03:50: WBC 17.9 H, RBC 3.61 L, Hgb 12.7 L, Hct 37.8 L, MCV 104.7 H, MCH 35.2 H, MCHC 33.6, RDW Std Deviation 55.8 H, RDW Coeff of Jesus 14.4, Plt Count 160, MPV 11.8, Immature Gran % (Auto) 1.200 H, Neut % (Auto) 84.9 H, Lymph % (Auto) 5.0 L, [place] % (Auto) 8.7, Eos % (Auto) 0.0, Baso % (Auto) 0.2, Absolute Neuts (auto) 15.2 H, Absolute Lymphs (auto) 0.89, Nucleated RBC % 0, Differential Comment SCANNED, Diff Path Review May foll, Platelet Estimate ADEQUATE, RBC Morphology NORM C+C, Sodium 144, Potassium 4.0, Chloride 119 H, C arbon Dioxide 19.0 L, Anion Gap 6, BUN 40 H, Creatinine 1.26, Estim Creat Clear Calc 55.49, Est GFR (MDRD) Af Amer 71, Est GFR (MDRD) Non-Af 59 L, B UN/Creatinine Ratio 31.7 H, Glucose 79, Calcium 8.4 L 02/03/24 04:37: POC Glucose 74 02/03/24 06:05: POC Glucose 93 Imaging Radiology Impression KUB X-Ray 02/02/24 20:20 IMPRESSION: Mild effusions in the lung bases. Electronically Signed: Toni Galan DO at 21:06 EST Reading Location ID and State: [facility] / [place] Tel [phone], Service support , Assessment and Plan . Assessment and plan: Subjective: No acute events o/n. Physical Exam: Gen - NAD, elderly, intubated HEENT - MMM. ETT in place Resp - Diminished BS. Mechanically ventilated CV - Irregular rhythm. No m/g/r Abd - Soft, NT, ND Ext - No c/c. +LE edema Skin - No rashes? Neuro - Sedated, intubated. Awake on minimal sedation, can follow some commands I have reviewed the pertinent vital sign, laboratory, and imaging data. ASSESSMENT: # Acute on chronic hypoxic respiratory failure - intubated 01/23 # Delirium / Acute encephalopathy # COVID19 # Pneumonia # Acute on chronic CHF # CKD # COPD # Chronic AF # Hypernatremia # UGIB PLAN: -Cont vent support 450/20/5/25%. Follow ABG/CXR as needed -Daily SAT/SBT. Possible extubation today if tolerates. -Will clarify with family if they absolutely want pt extubated today or not. Regardless however once pt is extubated, they reportedly do not want reintubation and will switch to DNR/DNI -PRN diuresis to maintain euvolemia -s/p course of remdesivir and decadron -s/p course of abx -Monitor Cr, UOP -SQ insulin FEN/GI: TF Proph DVT/GI: SQ heparin, protonix Critical Care Time: 50 mins The entirety of this encounter was completed via telemedicine
--- NOTE | 2024-02-03 09:52 | PN_ITS ---
Subjective Subjective Patient seen and examined. He remains intubated and sedated. Unable to do review of systems. Plan is for extubation today with no plans for reintubation. Objective Data Objective Data Vital Signs: Vital Signs Temp Pulse Resp BP Pulse Ox O2 Del Method O2 Flow Rate 98.8 F 96 37 H 125/68 H 96 Mechanical Ventilator 25 02/03/24 08:00 02/03/24 08:00 02/03/24 08:00 02/03/24 08:00 02/03/24 08:00 02/03/24 08:00 02/01/24 13:50 FiO2 25 02/03/24 08:00 Oxygen Flow Rate (L/min) 25 Oxygen Delivery Method Mechanical Ventilator Weight: 169 lb 15.622 oz Body Mass Index (BMI) 22.5 Intake & Output: Intake and Output for Last 24 Hours 02/01/24 02/02/24 02/03/24 23:59 23:59 23:59 Intake Total 3039.81 / 3301.16 4681.85 / 4704.40 1487.04 / 1487.04 Output Total 825 / 1000 1300 / 1300 125 / 125 Balance 2214.81 / 2301.16 3381.85 / 3404.40 1362.04 / 1362.04 Lab / Micro Data 02/03/24 03:50 02/03/24 03:50 Labs: Laboratory Results - last 24 hr 02/02/24 03:05: Total Creatine Kinase 153, Triglycerides 88 02/02/24 18:11: POC Glucose 182 H 02/02/24 23:52: POC Glucose 196 H 02/03/24 03:50: WBC 17.9 H, RBC 3.61 L, Hgb 12.7 L, Hct 37.8 L, MCV 104.7 H, MCH 35.2 H, MCHC 33.6, RDW Std Deviation 55.8 H, RDW Coeff of Jesus 14.4, Plt Count 160, MPV 11.8, Immature Gran % (Auto) 1.200 H, Neut % (Auto) 84.9 H, Lymph % (Auto) 5.0 L, [place] % (Auto) 8.7, Eos % (Auto) 0.0, Baso % (Auto) 0.2, Absolute Neuts (auto) 15.2 H, Absolute Lymphs (auto) 0.89, Nucleated RBC % 0, Differential Comment SCANNED, Diff Path Review May foll, Platelet Estimate ADEQUATE, RBC Morphology NORM C+C, Sodium 144, Potassium 4.0, Chloride 119 H, C arbon Dioxide 19.0 L, Anion Gap 6, BUN 40 H, Creatinine 1.26, Estim Creat Clear Calc 55.49, Est GFR (MDRD) Af Amer 71, Est GFR (MDRD) Non-Af 59 L, B UN/Creatinine Ratio 31.7 H, Glucose 79, Calcium 8.4 L 02/03/24 04:37: POC Glucose 74 02/03/24 06:05: POC Glucose 93 Micro: Microbiology 01/24/24 10:49 Blood Culture (Wb) - Anticubital Left Blood Culture - Final No growth in 5 days. 01/24/24 10:49 Blood Culture (Wb) - Anticubital Right Blood Culture - Final No growth in 5 days. 01/24/24 13:25 Urine Catheter - Hernandez Urine Culture - Final Culture exhibits no growth. 01/24/24 13:25 Urine Catheter - Hernandez Legionella Antigen - Final 01/24/24 13:25 Urine Catheter - Hernandez Streptococcus pneumoniae Antigen (M - Final 01/24/24 14:00 Sputum, Induced/Lukens Gram Stain - Final 01/24/24 14:00 Sputum, Induced/Lukens Respiratory Culture - Final Mixed normal respiratory hannah. No Streptococcus pneumoniae, beta-hemolytic Streptococcus or Staphylococcus aureus isolated. 01/24/24 14:00 Mucosa - Nasopharyngeal Respiratory Panel (PCR) - Final 01/24/24 10:39 Mucosa - Nose SARS-CoV-2, Influenza & RSV (PCR) - Final SARS-CoV-2 (COVID 19 PCR) Radiography Diagnostic Testing: Radiology Impression KUB X-Ray 02/02/24 20:20 IMPRESSION: Mild effusions in the lung bases. Electronically Signed: Toni Galan DO at 21:06 EST Reading Location ID and State: [facility] / [place] Tel [phone], Service support , Physical Exam Const Constitutional Narrative: intubated, sedated, flat affect, RASS score is+1 with occasional agitation. Orientation / Consciousness: lethargic HEENT normocephalic, head/scalp atraumatic and moist oral mucous membranes Eyes PERRL, EOMs intact bilaterally and conjunctivae normal Neck no lymphadenopathy and supple Neck Narrative: no thyroid enlargement Lymph Lymphatic: no lymphadenopathy noted and no lymphedema noted Resp Resp Narrative: intubated,mildly diminished breath sounds bibasally, no wheezes or crackles. Auscultation: crackles and wheezes; Negative for rhonchi Cardio regular rate, regular rhythm, S1 normal heart sound, S2 normal heart sound, no murmurs, no rub, no gallops and no clicks Rate: tachycardic GI normal to inspection, nondistended, normoactive bowel sounds, soft to palpation, non-tender and non-distended Extremity normal capillary refill, no clubbing, cyanosis or edema and no calf tenderness General Extremity: no tenderness to palpation of joints or extremities Skin skin turgor normal, no jaundice, no petechiae and no mottling General Skin Exam: no breakdown Neuro Neuro Narrative: remains intubated, sedated. Is restless, RASS score is +2 Motor Exam: general weakness Psych Psych Narrative: flat affect Activity / Motor Behavior: restless Mood & Affect: flat affect Assessment & Plan Assessment/Plan (1) COVID-19 virus infection: (2) Acute hypoxemic respiratory failure: PLAN: Plan #Acute hypoxic and hypercapnic respiratory failure due to COVId 19 pneumonia and aspiration pneumonia as well as acute combined heart failure * remains intubated; still gets very agitated when sedation is turned off and he is started on spontaneous breathing trial * on minimal vent settings * 2D echo showed EF of 50% with mild global hypokinesis and mild hypokinesis of the apex, with RVSp of 55mmHg. * titrate oxygen to maintain sats >90% * breathing treatment with bronchodilators * critical care on board * family to decide if they are ok with patient being extubated and not reintubated if he needs it. Further management to be predicated on family wishes * remains on precedex and fentanyl for sedation * plan is for patient to be extubated today; once extubated code status will be switched to DNRCCA as family does not want him reintubated again. * #Sepsis due to covid 19 pneumonia and aspiration pneumonia * completed a course of remdesivir * Completed a 10-day course of Decadron. * sputum cultures showed normal oral hannah. completed a 7 day course of antibiotics * Blood and urine cultures negative so far * critical care on board * #Nonstemi * thought to be a type 2 nonstemi due to emand ischemia fro respiratory failure * aspirin held due to GI bleed. Heparin also discontinued due to GI bleed. * 2D echo as above * Patient follow-up with cardiology on outpatient basis. #Afib * on amiodarone drip. tachycardia has improved. * potassium and magnesium WNL * not anticoagulated due to anemia from GI bleed. * #Hypernatremia: * Na is 150 * start D5W to bring down sodium levels. #CKD stage IIIb: Cr at baseline. Will monitor. #Upper GI bleed * Patient had bright red blood in the OG tube. EGD done on 01/25/2024 showed nonsevere reflux esophagitis with no gross lesions in the entire stomach and nonbleeding duodenal ulcers with no stigmata of bleeding. * on IV Protonix 40 mg twice daily. Hemoglobin is stable * #Benign essential hypertension: * Valsartan held as blood pressure was running low. * IV hydralazine as needed. * Will monitor. #Hypothyroidism: On Synthroid #COPD: * Patient is suspected to have COPD he does have a history of chronic nicotine dependence. * Follow-up with pulmonology on outpatient basis. #Nutrition: * On tube feeds. Dietitian on board. * #DVT prophylaxis: SCDs Disposition: For extubation today. Charges/Coding Visit Charges Inpatient E&M: 97052 Subs Hosp L3
[2024-02-03] MEDS: Pantoprazole Sodium 40 MG in 0.9% Normal Saline (100mL MB+) 100 ML 330 MG IV ×2 (09:53→19:51)
--- NOTE | 2024-02-03 10:28 | NURSING ---
Talked in length about POC with patient's son Bernard. Bernard stated that the family talked and came to the conclusion that patient should become DNR-CCA DNI after extubation.
[2024-02-03 11:20] LABS: Allen Test Positive; Base Excess -4 mmol/L (-2 to +2); Bicarbonate 19.7 mmol/L (22-26); Blood Gas Specimen Type ART; Mode CPAP/PS; O2 Delivery Device Adult Vent; PEEP 5; PO2 90 mmHG (75-100); SITE L Radial; SO2 98 % (95-99); Total Carbon Dioxide 21 mmol/L; pCO2 28.1 mmHg (35-45); pH 7.46 (7.35-7.45)
[2024-02-03 12:45] LABS: Bedside Glucose 103 mg/dL (74-106)
[2024-02-03 14:00] LABS: Pathologist Review Reviewed
--- NOTE | 2024-02-03 16:57 | NURSING ---
Discussed Plan of care with patient and code status. Patient states he wants chest compressions done if necessary and is okay being reintubated if needed.
[2024-02-03] MEDS: Furosemide 40 MG/4 ML Vial IV (18:35)
[2024-02-03] MEDS: Dextrose 5%/0.9% NaCl 1,000 ML 75 ML IV (18:50)
[2024-02-03 18:51] LABS: Bedside Glucose 69 mg/dL (74-106)
[2024-02-03] MEDS: Budesonide Respules 0.5 MG/2 ML AMPUL.NEB. INHALATION (19:16)
[2024-02-03] MEDS: Amiodarone 360 MG in Dextrose 5% Viaflo Bag 192.8 ML 16.7 MG CONT INF (22:06)
[2024-02-03] MEDS: Dextrose 10%-Water 250 ML 999 ML IV (23:18)
[2024-02-03 23:34] LABS: Bedside Glucose 30 mg/dL (74-106)
[2024-02-03 23:54] LABS: Glucose 96 mg/dL (74-106)
[2024-02-03 23:55] LABS: Bedside Glucose 69 mg/dL (74-106)
[2024-02-04] VITALS (25 sets, daily range): BP systolic 113–161; BP diastolic 68–102; PULSE 63–135; RESP 12–23; TEMP 36.9–37.7; O2SAT 93–100; BMI 19.8
[2024-02-04] MEDS: Amiodarone 150 MG in Dextrose 5%-Water (100mL Bag) 100 ML 600 MG IV BOLUS (00:45)
[2024-02-04 02:56] LABS: Absolute Lymphocyte Count 1.61 X10^3/uL (0.83-4.51); Absolute Neutrophil Count 14.8 X10^3/uL (2.0-7.7); Basophil# 0.03 X10^3/uL; Basophil% 0.2 % (0-1); Eosinophil# 0.05 X10^3/uL; Eosinophils% 0.3 % (0-5); Hemoglobin 12.8 g/dL (13.0-16.5); Lymphocyte # 1.61 X10^3/ul (0.83-4.51); Mean Corp Hgb Conc 33.7 g/dL (32-36); Mean Corpuscular Hgb 35.1 pg (27.0-32.0); Mean Corpuscular Volume 104.1 fL (80-94); Mean Platelet Vol. 11.7 fl (6.2-12.0); Monocyte% 6.7 % (0-10); NRBC Flagged by Analyzer 0 % (0-5); Neutrophil # 14.83 X10^3/uL (2.7-7.7); Platelet Count 175 K/mm3 (150-450); RBC Distribution Width CV 14.3 % (11.6-14.6); RBC Distribution Width SD 55.7 fl (35.1-43.9); Red Blood Count 3.65 M/mm3 (4.6-6.2); White Blood Count 17.9 K/mm3 (4.4-11.0)
[2024-02-04 03:18] LABS: Anion Gap 4 (5-15); BUN 40 mg/dL (7-18); BUN/Creat Ratio 26.7 RATIO (10-20); Calcium,Total 8.4 mg/dL (8.5-10.1); Chloride 118 mmol/L (98-107); EST Glomerular Filtration Rate 48 mL/min (>60); Est Glom Filt Rate - Afr Amer 58 mL/min (>60); Estimated Creatinine Clearance 44.98 ml/min; Glucose 125 mg/dL (74-106); Potassium 3.4 mmol/L (3.5-5.1); Sodium Level 146 mmol/L (136-145)
[2024-02-04 03:48] LABS: BNP,B-Type NATRIURETIC PEPTIDE 778.7 pg/mL (0-100)
[2024-02-04] MEDS: Ipratropium/Albuterol Sulfate 3 ML AMPUL.NEB INHALATION ×2 (03:53→07:48)
[2024-02-04 04:05] LABS: Phosphorus 2.5 mg/dL (2.5-4.9)
[2024-02-04] MEDS: 0.9% Saline Lock 10 ML Syringe IV ×2 (05:28→21:26)
--- NOTE | 2024-02-04 05:30 | NURSING ---
Fingerstick blood glucose 30 last evening around 2300. Sent down venous sample for lab backup check. Started D10 bolus for hypoglycemia protocol. Venous sample came back at 96. This morning fingerstick blood glucose was 69. Venous sample tested on glucometer was 100.
[2024-02-04] MEDS: Budesonide Respules 0.5 MG/2 ML AMPUL.NEB. INHALATION ×2 (07:48→19:51)
--- NOTE | 2024-02-04 09:50 | PN.CC_ITS ---
Objective Data Objective Data Vital Signs: Vital Signs Last response 3 Temperature 36.9 C 02/04/24 06:00 Temperature Source Core 02/04/24 06:00 Pulse Rate 74 02/04/24 07:48 Pulse Strength Weak (1+) 02/03/24 19:39 Respiratory Rate 12 02/04/24 07:48 Respiratory Effort Normal, Non-Labored 02/04/24 03:04 Respiratory Depth Normal 02/04/24 03:04 Respiratory Pattern Normal 02/04/24 03:53 Blood Pressure 155/86 H 02/04/24 07:00 Blood Pressure Mean 109 02/04/24 07:00 Blood Pressure Source Monitor 02/04/24 07:00 Blood Pressure Position Semi-Fowlers 02/04/24 07:00 Blood Pressure Location Left Arm 02/04/24 06:00 Pulse Ox 95 02/04/24 07:48 Oxygen Delivery Method Nasal Cannula 02/04/24 07:48 Oxygen Flow Rate (L/min) 1.5 02/04/24 07:48 Fraction of Inspired Oxygen (FIO2) 02/03/24 11:55 I&O: I&O Last 24 Hours 3 02/03/24 02/03/24 02/04/24 11:59 23:59 11:59 Intake Total 2164.16 / 2555.89 360 / 2555.89 134.73 / 134.73 Output Total 200 / 2660 2460 / 2660 1200 / 1200 Balance 1964.16 / -104.11 -2100 / -104.11 -1065.27 / -1065.27 I&O: Total Stay 3 01/24/24 10:15 thru 02/04/24 05:07 Intake Total 18296.62 Output Total 83105 Balance 9237.62 Current Meds Ordered / Administered: Current meds ordered / Administered 3 Generic Name Dose Route Start Last Admin Trade Name Freq PRN Reason Stop Dose Admin Acetaminophen 650 mg 01/24/24 13:12 01/31/24 16:48 Acetaminophen 650 Mg/20 Ml Udc GT 650 mg Q6H PRN PRN Administration Pain 1-10 Or Fever>100.7 Albuterol Sulfate 2.5 mg 01/24/24 13:07 Albuterol 2.5 Mg/3 Ml Vial.Neb. INHALATION Q2H PRN PRN SOB &/OR WHEEZING Albuterol/Ipratropium 3 ml 01/24/24 13:07 02/04/24 07:48 Ipratropium/Albuterol Sulfate 3 Ml Ampul.Neb INHALATION 3 ml Q4H.RT CORWIN Administration Aspirin 81 mg 01/25/24 10:00 Aspirin 81 Mg Tab.Chew GT DAILY CORWIN Atorvastatin Calcium 80 mg 01/24/24 22:00 02/03/24 19:43 Atorvastatin Calcium 80 Mg Tablet GT Not Given QHS COWRIN Budesonide 0.5 mg 02/03/24 19:00 02/04/24 07:48 Budesonide Respules 0.5 Mg/2 Ml Ampul.Neb. INHALATION 0.5 mg BID.RT CORWIN Administration Chlorhexidine Gluconate 1 each 01/29/24 10:00 02/03/24 04:27 Chlorhexidine Gluc 2% Cloth 1 Each [place] TOPICAL 1 each DAILY CORWIN Administration Glucagon 1 mg 02/03/24 23:18 Glucagon 1 Mg/Ml Syringe IM X1 PRN Hypoglycemia Protocol Heparin Sodium (Porcine) 0 unit 01/24/24 20:15 Heparin Injection (Vial) 5,000 Unit/Ml Vial IV UD PRN dose adjustment Protocol Hydralazine HCl 10 mg 01/30/24 15:39 Hydralazine 20 Mg/Ml Vial IV Q6H PRN PRN SBP>160 Protocol Sodium Chloride 100 mls @ 15 mls/hr 01/24/24 13:36 01/27/24 12:09 IV Infused .Q6H40M PRN Infusion Saline Flush Sodium Chloride 100 mls @ 15 mls/hr 01/24/24 13:36 IV .Q6H40M PRN Additional IVPB Infusion Pantoprazole Sodium 40 mg/ 110 mls @ 330 mls/hr 01/25/24 10:00 02/03/24 20:20 Sodium Chloride IV Infused Q12 CORWIN Infusion Dexmedetomidine HCl 1,000 mcg/ 250 mls @ 21.203 mls/hr 01/27/24 20:05 02/04/24 03:06 Sodium Chloride CONT INF Not Given .[id number] CORWIN Protocol 1.1 MCG/KG/HR Amiodarone HCl 360 mg/ 200 mls @ 16.667 mls/hr 02/03/24 21:30 02/04/24 00:00 Dextrose CONT INF 0.5 mg/min .Q12H CORWIN 16.7 mls/hr Infusion 0.5 MG/MIN Dextrose 250 mls @ 0 mls/hr 02/03/24 23:18 02/03/24 23:40 Dextrose 10%-Water IV Infused .Q0M PRN Infusion HYPOGLYCEMIA Protocol As Directed Potassium Chloride 10 meq in 100 mls @ 100 mls/hr 02/04/24 07:30 IV BOLUS 02/04/24 11:29 Q1H CORWIN Insulin Human Lispro 0 unit 01/26/24 18:00 02/04/24 05:29 Insulin Lispro 100 Unit/Ml Insuln.Pen SC Not Given Q6 PENDING SALE TO [facility] Protocol Levothyroxine Sodium 75 mcg 01/25/24 10:00 02/03/24 13:20 Levothyroxine 75 Mcg Tablet GT Not Given DAILY CORWIN Ondansetron HCl 4 mg 01/24/24 13:07 Ondansetron 4 Mg/2 Ml Vial IV Q8H PRN PRN NAUSEA/VOMITING Polyethylene Glycol 17 gm 01/29/24 12:30 02/02/24 09:29 Polyethylene Glycol 3350 17 Gm Packet PO 17 gm DAILY CORWIN Administration Senna 1 tablet 01/30/24 10:00 02/03/24 12:13 Senna Tablet PO Not Given DAILY CORWIN Senna/Docusate Sodium 2 tablet 01/24/24 13:07 01/29/24 20:55 Senna/Docusate Sodium 1 Tablet GT 2 tablet BID PRN PRN Administration Constipation Sodium Chloride 10 - 40 ml 01/24/24 13:36 02/04/24 05:28 0.9% Saline Lock 10 Ml Syringe IV 20 ml UD PRN Administration SALINE FLUSH Lab / Micro Data 02/04/24 02:50 02/04/24 02:50 Labs: Laboratory Results - last 24 hr 02/03/24 03:50: Diff Path Review Reviewed 02/03/24 12:25: POC Glucose 103 02/03/24 18:21: POC Glucose 69 L 02/03/24 23:14: POC Glucose 30 L* 02/03/24 23:15: Glucose 96 02/03/24 23:38: POC Glucose 69 L 02/04/24 02:50: WBC 17.9 H, RBC 3.65 L, Hgb 12.8 L, Hct 38.0 L, MCV 104.1 H, MCH 35.1 H, MCHC 33.7, RDW Std Deviation 55.7 H, RDW Coeff of Jesus 14.3, Plt Count 175, MPV 11.7, Immature Gran % (Auto) 0.800, Neut % (Auto) 83.0 H, Lymph % (Auto) 9.0 L, [place] % (Auto) 6.7, Eos % (Auto) 0.3, Baso % (Auto) 0.2, Absolute Neuts (auto) 14.8 H, Absolute Lymphs (auto) 1.61, Nucleated RBC % 0, Sodium 146 H, Potassium 3.4 L, Chloride 118 H, Carbon Dioxide 24.0, Anion Gap 4 L, BUN 40 H , Creatinine 1.50 H, Estim Creat Clear Calc 44.98, Est GFR (MDRD) Af Amer 58 L, Est GFR (MDRD) Non-Af 48 L, BUN/Creatinine Ratio 26.7 H, Glucose 125 H, Calcium 8.4 L, Phosphorus 2.5, Magnesium 2.0, B-Natriuretic Peptide 778.7 H ABG Data ABG results: ABG 02/03/24 11:17 Specimen Type ART Sample Site L Radial pH 7.46 H Bicarbonate Actual 19.7 L Total CO2 21 Base Excess -4 L O2 Saturation 98 O2 % 25.0 ABG pCO2 28.1 L ABG pO2 90 Thomas Test Positive O2 Delivery Device Adult Vent Vent Mode CPAP/PS POC PEEP 5 Assessment and Plan . Assessment and plan: Subjective: Extubated yest. On RA now. Developed Afib w/ RVR overnight, started on amio gtt. HR controlled now. Pt feels breathing improving Physical Exam: Gen - NAD, elderly HEENT - MMM. Sclera anicteric Resp - Diminished BS. Breathing nonlabored CV - Irregular rhythm. No m/g/r Abd - Soft, NT, ND Ext - No c/c/e Skin - No rashes? Neuro - Awake, follows commands I have reviewed the pertinent vital sign, laboratory, and imaging data. ASSESSMENT: # Acute on chronic hypoxic respiratory failure - intubated 01/23, extubated 02/02 # Delirium / Acute encephalopathy # COVID19 # Pneumonia # Acute on chronic CHF # WAYLON on CKD # COPD # Chronic AF w/ RVR # Hypernatremia # UGIB PLAN: -On RA now, monitor sats -Try stopping amio gtt now. Add PO metop. Reduce albuterol frequency -Add mucinex. May need CPT/mucomyst if worsening secretions -PRN diuresis to maintain euvolemia, hold for today -s/p course of remdesivir and decadron -s/p course of abx -Monitor Cr, UOP -SQ insulin -Replete electrolytes PRN -Encourage free water intake now that tolerating PO FEN/GI: PO diet, passed beside swallow. Aspiration precautions Proph DVT/GI: SQ heparin, protonix Family now wants to continue FULL CODE Critical Care Time: 50 mins The entirety of this encounter was completed via telemedicine
[2024-02-04] MEDS: Metoprolol Tartrate 25 MG Tablet PO ×2 (10:39→21:27)
[2024-02-04] MEDS: Potassium Chloride 10mEq/100mL 10 MEQ/100 ML IV.SOLN. 100 MEQ IV BOLUS ×4 (10:41→15:11)
[2024-02-04] MEDS: Levothyroxine 75 MCG Tablet GT (10:44)
[2024-02-04] MEDS: guaiFENesin 600 MG Tablet PO ×2 (11:33→21:26)
[2024-02-04 11:53] LABS: Bedside Glucose 125 mg/dL (74-106)
--- NOTE | 2024-02-04 13:30 | PN_ITS ---
Subjective Subjective Patient seen and examined. He had no active complaints. He was extubated yesterday. He developed afib yesterday and had to be put on amiodarone drip. Heart rate is now well-controlled. The patient was extubated yesterday he opted to remain full code. Objective Data Objective Data Vital Signs: Vital Signs Temp Pulse Resp BP Pulse Ox O2 Del Method O2 Flow Rate 99.6 F H 73 15 153/69 H 96 Room Air 2 02/04/24 12:00 02/04/24 12:00 02/04/24 12:00 02/04/24 12:00 02/04/24 12:00 02/04/24 12:00 02/04/24 09:00 FiO2 21 02/03/24 11:55 Oxygen Flow Rate (L/min) 2 Oxygen Delivery Method Room Air Weight: 150 lb 1.6 oz Body Mass Index (BMI) 19.8 Intake & Output: Intake and Output for Last 24 Hours 02/02/24 02/03/24 02/04/24 23:59 23:59 23:59 Intake Total 4681.85 / 4704.40 2524.16 / 2555.89 953.00 / 953.00 Output Total 1300 / 1300 2660 / 2660 1650 / 1650 Balance 3381.85 / 3404.40 -135.84 / -104.11 -697.00 / -697.00 Lab / Micro Data 02/04/24 02:50 02/04/24 02:50 Labs: Laboratory Results - last 24 hr 02/03/24 03:50: Diff Path Review Reviewed 02/03/24 18:21: POC Glucose 69 L 02/03/24 23:14: POC Glucose 30 L* 02/03/24 23:15: Glucose 96 02/03/24 23:38: POC Glucose 69 L 02/04/24 02:50: WBC 17.9 H, RBC 3.65 L, Hgb 12.8 L, Hct 38.0 L, MCV 104.1 H, MCH 35.1 H, MCHC 33.7, RDW Std Deviation 55.7 H, RDW Coeff of Jesus 14.3, Plt Count 175, MPV 11.7, Immature Gran % (Auto) 0.800, Neut % (Auto) 83.0 H, Lymph % (Auto) 9.0 L, [place] % (Auto) 6.7, Eos % (Auto) 0.3, Baso % (Auto) 0.2, Absolute Neuts (auto) 14.8 H, Absolute Lymphs (auto) 1.61, Nucleated RBC % 0, Sodium 146 H, Potassium 3.4 L, Chloride 118 H, Carbon Dioxide 24.0, Anion Gap 4 L, BUN 40 H , Creatinine 1.50 H, Estim Creat Clear Calc 44.98, Est GFR (MDRD) Af Amer 58 L, Est GFR (MDRD) Non-Af 48 L, BUN/Creatinine Ratio 26.7 H, Glucose 125 H, Calcium 8.4 L, Phosphorus 2.5, Magnesium 2.0, B-Natriuretic Peptide 778.7 H 02/04/24 11:30: POC Glucose 125 H Micro: Microbiology 01/24/24 10:49 Blood Culture (Wb) - Anticubital Left Blood Culture - Final No growth in 5 days. 01/24/24 10:49 Blood Culture (Wb) - Anticubital Right Blood Culture - Final No growth in 5 days. 01/24/24 13:25 Urine Catheter - Hernandez Urine Culture - Final Culture exhibits no growth. 01/24/24 13:25 Urine Catheter - Hernandez Legionella Antigen - Final 01/24/24 13:25 Urine Catheter - Hernandez Streptococcus pneumoniae Antigen (M - Final 01/24/24 14:00 Sputum, Induced/Lukens Gram Stain - Final 01/24/24 14:00 Sputum, Induced/Lukens Respiratory Culture - Final Mixed normal respiratory hannah. No Streptococcus pneumoniae, beta-hemolytic Streptococcus or Staphylococcus aureus isolated. 01/24/24 14:00 Mucosa - Nasopharyngeal Respiratory Panel (PCR) - Final 01/24/24 10:39 Mucosa - Nose SARS-CoV-2, Influenza & RSV (PCR) - Final SARS-CoV-2 (COVID 19 PCR) Physical Exam Const alert, oriented x3, no apparent distress and average body habitus Constitutional Narrative: frail, weak General Appearance: cooperative HEENT normocephalic, head/scalp atraumatic and moist oral mucous membranes Eyes PERRL, EOMs intact bilaterally and conjunctivae normal Neck no lymphadenopathy and supple Neck Narrative: no thyroid enlargement Lymph Lymphatic: no lymphadenopathy noted and no lymphedema noted Resp Resp Narrative: mildly diminished breath sounds bibasally, no wheezes or crackles. On room air. Auscultation: rhonchi Cardio regular rate, regular rhythm, S1 normal heart sound, S2 normal heart sound, no murmurs, no rub, no gallops and no clicks GI normal to inspection, nondistended, normoactive bowel sounds, soft to palpation, non-tender and non-distended Extremity normal capillary refill, no clubbing, cyanosis or edema and no calf tenderness General Extremity: no tenderness to palpation of joints or extremities Skin skin turgor normal, no jaundice, no petechiae and no mottling General Skin Exam: no breakdown Neuro CN's II-XII intact bilaterally, moves all extremities, no focal motor deficits, no sensory deficits noted and deep tendon reflexes 2+ bilaterally Neuro Narrative: flat affect, frail Sensorium / Orientation: awake and alert Motor Exam: general weakness Psych thought process normal, cooperative and affect normal Psych Narrative: flat affect Mood & Affect: flat affect Assessment & Plan Assessment/Plan (1) COVID-19 virus infection: (2) Acute hypoxemic respiratory failure: PLAN: Plan #Acute hypoxic and hypercapnic respiratory failure due to COVId 19 pneumonia and aspiration pneumonia as well as acute combined heart failure * Extubated yesterday 02/03/2024. Was extubated to oxygen by nasal cannula and is now on room air. * 2D echo showed EF of 50% with mild global hypokinesis and mild hypokinesis of the apex, with RVSp of 55mmHg. * titrate oxygen to maintain sats >90% * breathing treatment with bronchodilators * critical care on board * * #Sepsis due to covid 19 pneumonia and aspiration pneumonia * completed a course of remdesivir * Completed a 10-day course of Decadron. * sputum cultures showed normal oral hannah. completed a 7 day course of antibiotics * Blood and urine cultures negative so far * critical care on board * Resolved * #Nonstemi * thought to be a type 2 nonstemi due to emand ischemia fro respiratory failure * aspirin held due to GI bleed. Heparin also discontinued due to GI bleed. * 2D echo as above * Patient follow-up with cardiology on outpatient basis. #Afib * Was placed back on amiodarone drip overnight. Now rate is controlled. Patient placed on p.o. metoprolol. Critical care today. * potassium and magnesium WNL * not anticoagulated due to anemia from GI bleed. * #Hypernatremia: * Improving. Sodium is 146 today. #CKD stage IIIb: Cr today has trended up slightly to 1.5. Was 1.26 yesterday. Will monitor. #Upper GI bleed * Patient had bright red blood in the OG tube. EGD done on 01/25/2024 showed nonsevere reflux esophagitis with no gross lesions in the entire stomach and nonbleeding duodenal ulcers with no stigmata of bleeding. * on IV Protonix 40 mg twice daily. Hemoglobin is stable * #Benign essential hypertension: * Valsartan held as blood pressure was running low. * IV hydralazine as needed. * Will monitor. #Hypothyroidism: On Synthroid #COPD: * Patient is suspected to have COPD he does have a history of chronic nicotine dependence. * Follow-up with pulmonology on outpatient basis. #Nutrition: * On tube feeds. Dietitian on board. * #DVT prophylaxis: SCDs Disposition: Transfer out of ICU to PCU today #CODE STATUS: Full code. * Even though family had wanted to make patient DNR CC a no intubation of the extubation yesterday, patient opted to be full code after extubation. * He therefore remains full code. Charges/Coding Visit Charges Inpatient E&M: 77229 Subs Hosp L2
[2024-02-04] MEDS: Ipratropium 0.5 MG/2.5 ML SOLUTION INHALATION ×2 (13:56→19:51)
[2024-02-04] MEDS: 0.9% Normal Saline (100mL Bag) 100 ML 15 ML IV (14:34)
[2024-02-04] MEDS: Pantoprazole Sodium 40 MG in 0.9% Normal Saline (100mL MB+) 100 ML 330 MG IV ×2 (14:50→21:21)
[2024-02-04 16:43] LABS: Bedside Glucose 75 mg/dL (74-106)
[2024-02-04] MEDS: Albuterol 2.5 MG/3 ML VIAL.NEB. INHALATION (19:51)
[2024-02-04] MEDS: Atorvastatin Calcium 80 MG Tablet GT (21:26)
[2024-02-04 22:18] LABS: Bedside Glucose 113 mg/dL (74-106)
[2024-02-05] VITALS (13 sets, daily range): BP systolic 138–168; BP diastolic 74–97; PULSE 58–77; RESP 16–18; TEMP 36.4–37.4; O2SAT 94–99; BMI 24.9
[2024-02-05 07:04] LABS: Bedside Glucose 115 mg/dL (74-106)
[2024-02-05] MEDS: Budesonide Respules 0.5 MG/2 ML AMPUL.NEB. INHALATION ×2 (07:22→19:00)
[2024-02-05] MEDS: Ipratropium 0.5 MG/2.5 ML SOLUTION INHALATION ×4 (07:22→19:00)
[2024-02-05] MEDS: Albuterol 2.5 MG/3 ML VIAL.NEB. INHALATION ×2 (07:23→19:00)
[2024-02-05 08:09] LABS: Absolute Lymphocyte Count 1.38 X10^3/uL (0.83-4.51); Absolute Neutrophil Count 13.3 X10^3/uL (2.0-7.7); Basophil# 0.03 X10^3/uL; Basophil% 0.2 % (0-1); Eosinophil# 0.06 X10^3/uL; Eosinophils% 0.4 % (0-5); Hematocrit 36.5 % (40-54); Hemoglobin 12.1 g/dL (13.0-16.5); Lymphocyte # 1.38 X10^3/ul (0.83-4.51); Lymphocyte % 8.7 % (19-41); Mean Corp Hgb Conc 33.2 g/dL (32-36); Mean Corpuscular Hgb 34.5 pg (27.0-32.0); Mean Platelet Vol. 11.6 fl (6.2-12.0); Monocyte% 5.7 % (0-10); NRBC Flagged by Analyzer 0 % (0-5); Neutrophil # 13.34 X10^3/uL (2.7-7.7); Neutrophil % 84.3 % (47-70); Platelet Count 161 K/mm3 (150-450); RBC Distribution Width CV 14.1 % (11.6-14.6); RBC Distribution Width SD 53.5 fl (35.1-43.9); Red Blood Count 3.51 M/mm3 (4.6-6.2); White Blood Count 15.8 K/mm3 (4.4-11.0)
[2024-02-05 08:23] LABS: Anion Gap 8 (5-15); BUN 33 mg/dL (7-18); BUN/Creat Ratio 23.7 RATIO (10-20); Calcium,Total 8.2 mg/dL (8.5-10.1); Chloride 116 mmol/L (98-107); Creatinine, Serum 1.39 mg/dL (0.70-1.30); EST Glomerular Filtration Rate 53 mL/min (>60); Est Glom Filt Rate - Afr Amer 64 mL/min (>60); Glucose 100 mg/dL (74-106); Potassium 3.7 mmol/L (3.5-5.1); Sodium Level 145 mmol/L (136-145)
[2024-02-05] MEDS: Levothyroxine 75 MCG Tablet GT (09:51)
[2024-02-05] MEDS: guaiFENesin 600 MG Tablet PO ×2 (09:51→21:12)
[2024-02-05] MEDS: Metoprolol Tartrate 25 MG Tablet PO ×2 (09:51→21:12)
[2024-02-05] MEDS: 0.9% Saline Lock 10 ML Syringe IV (09:52)
--- NOTE | 2024-02-05 09:53 | PN.CC_ITS ---
Objective Data Objective Data Vital Signs: Vital Signs Last response 3 Temperature 36.9 C 02/05/24 06:00 Temperature Source Oral 02/05/24 06:00 Pulse Rate 68 02/05/24 07:20 Pulse Strength Weak (1+) 02/04/24 10:00 Respiratory Rate 18 02/05/24 07:20 Respiratory Effort Normal 02/05/24 02:00 Respiratory Depth Normal 02/05/24 02:00 Respiratory Pattern Normal 02/05/24 07:20 Blood Pressure 138/74 H 02/05/24 06:00 Blood Pressure Mean 95 02/05/24 06:00 Blood Pressure Source Monitor 02/05/24 06:00 Blood Pressure Position Semi-Fowlers 02/05/24 06:00 Blood Pressure Location Left Arm 02/05/24 06:00 Pulse Ox 95 02/05/24 06:00 Oxygen Delivery Method Room Air 02/05/24 06:00 Oxygen Flow Rate (L/min) 2 02/04/24 09:00 Fraction of Inspired Oxygen (FIO2) 21 02/03/24 11:55 I&O: I&O Last 24 Hours 3 02/04/24 02/04/24 02/05/24 11:59 23:59 11:59 Intake Total 953.00 / 2853.00 1720 / 2853.00 180 / 180 Output Total 1650 / 2225 575 / 2225 250 / 250 Balance -697.00 / 628.00 1145 / 628.00 -70 / -70 I&O: Total Stay 3 01/24/24 10:15 thru 02/05/24 06:00 Intake Total 90383.89 Output Total 68260 Balance 73675.89 Current Meds Ordered / Administered: Current meds ordered / Administered 3 Generic Name Dose Route Start Last Admin Trade Name Freq PRN Reason Stop Dose Admin Acetaminophen 650 mg 01/24/24 13:12 01/31/24 16:48 Acetaminophen 650 Mg/20 Ml Udc GT 650 mg Q6H PRN PRN Administration Pain 1-10 Or Fever>100.7 Albuterol Sulfate 2.5 mg 01/24/24 13:07 Albuterol 2.5 Mg/3 Ml Vial.Neb. INHALATION Q2H PRN PRN SOB &/OR WHEEZING Albuterol Sulfate 2.5 mg 02/04/24 12:00 02/05/24 07:23 Albuterol 2.5 Mg/3 Ml Vial.Neb. INHALATION 2.5 mg BID.RT CORWIN Administration Aspirin 81 mg 01/25/24 10:00 Aspirin 81 Mg Tab.Chew GT DAILY CORWIN Atorvastatin Calcium 80 mg 01/24/24 22:00 02/04/24 21:26 Atorvastatin Calcium 80 Mg Tablet GT 80 mg QHS CORWIN Administration Budesonide 0.5 mg 02/03/24 19:00 02/05/24 07:22 Budesonide Respules 0.5 Mg/2 Ml Ampul.Neb. INHALATION 0.5 mg BID.RT CORWIN Administration Chlorhexidine Gluconate 1 each 01/29/24 10:00 02/05/24 09:01 Chlorhexidine Gluc 2% Cloth 1 Each [place] TOPICAL Not Given DAILY CORWIN Glucagon 1 mg 02/03/24 23:18 Glucagon 1 Mg/Ml Syringe IM X1 PRN Hypoglycemia Protocol Guaifenesin 600 mg 02/04/24 10:15 02/04/24 21:26 Guaifenesin 600 Mg Tablet PO 600 mg BID CORWIN Administration Heparin Sodium (Porcine) 0 unit 01/24/24 20:15 Heparin Injection (Vial) 5,000 Unit/Ml Vial IV UD PRN dose adjustment Protocol Hydralazine HCl 10 mg 01/30/24 15:39 Hydralazine 20 Mg/Ml Vial IV Q6H PRN PRN SBP>160 Protocol Sodium Chloride 100 mls @ 15 mls/hr 01/24/24 13:36 02/04/24 14:34 IV 0 mls/hr .Q6H40M PRN Infusion Saline Flush Sodium Chloride 100 mls @ 15 mls/hr 01/24/24 13:36 IV .Q6H40M PRN Additional IVPB Infusion Pantoprazole Sodium 40 mg/ 110 mls @ 330 mls/hr 01/25/24 10:00 02/04/24 21:45 Sodium Chloride IV Infused Q12 CORWIN Infusion Dextrose 250 mls @ 0 mls/hr 02/03/24 23:18 02/03/24 23:40 Dextrose 10%-Water IV Infused .Q0M PRN Infusion HYPOGLYCEMIA Protocol As Directed Insulin Human Lispro 0 unit 02/04/24 16:00 02/05/24 09:01 Insulin Lispro 100 Unit/Ml Insuln.Pen SC Not Given ACHS CORWIN Protocol Ipratropium [place] 0.5 mg 02/04/24 10:30 02/05/24 07:22 Ipratropium 0.5 Mg/2.5 Ml Solution INHALATION 0.5 mg Q4HWA.RT CORWIN Administration Levothyroxine Sodium 75 mcg 01/25/24 10:00 02/04/24 10:44 Levothyroxine 75 Mcg Tablet GT 75 mcg DAILY CORWIN Administration Metoprolol Tartrate 25 mg 02/04/24 10:25 02/04/24 21:27 Metoprolol Tartrate 25 Mg Tablet PO 25 mg BID CORWIN Administration Protocol Ondansetron HCl 4 mg 01/24/24 13:07 Ondansetron 4 Mg/2 Ml Vial IV Q8H PRN PRN NAUSEA/VOMITING Polyethylene Glycol 17 gm 01/29/24 12:30 02/04/24 10:44 Polyethylene Glycol 3350 17 Gm Packet PO Not Given DAILY CORWIN Senna 1 tablet 01/30/24 10:00 02/04/24 10:44 Senna Tablet PO Not Given DAILY CORWIN Senna/Docusate Sodium 2 tablet 01/24/24 13:07 01/29/24 20:55 Senna/Docusate Sodium 1 Tablet GT 2 tablet BID PRN PRN Administration Constipation Sodium Chloride 10 - 40 ml 01/24/24 13:36 02/04/24 21:26 0.9% Saline Lock 10 Ml Syringe IV 10 ml UD PRN Administration SALINE FLUSH Lab / Micro Data 02/05/24 07:47 02/05/24 07:47 Labs: Laboratory Results - last 24 hr 02/04/24 11:30: POC Glucose 125 H 02/04/24 16:24: POC Glucose 75 02/04/24 21:33: POC Glucose 113 H 02/05/24 06:25: POC Glucose 115 H 02/05/24 07:47: WBC 15.8 H, RBC 3.51 L, Hgb 12.1 L, Hct 36.5 L, MCV 104.0 H, MCH 34.5 H, MCHC 33.2, RDW Std Deviation 53.5 H, RDW Coeff of Jesus 14.1, Plt Count 161, MPV 11.6, Immature Gran % (Auto) 0.700, Neut % (Auto) 84.3 H, Lymph % (Auto) 8.7 L, Schley % (Auto) 5.7, Eos % (Auto) 0.4, Baso % (Auto) 0.2, Absolute Neuts (auto) 13.3 H, Absolute Lymphs (auto) 1.38, Nucleated RBC % 0, Sodium 145, Potassium 3.7, Chloride 116 H, Carbon Dioxide 21.0, Anion Gap 8, BUN 33 H, C reatinine 1.39 H, Estim Creat Clear Calc 50.30, Est GFR (MDRD) Af Amer 64, Est GFR (MDRD) Non-Af 53 L, BUN/Creatinine Ratio 23.7 H, Glucose 100, Calcium 8.2 L Assessment and Plan . Assessment and plan: CRITICAL CARE BRIEF UPDATE NOTE Pt transferred out of ICU yesterday. Per discussion with RN, pt now stable on RA, remains off amio gtt. We will sign off at this time, but please call us back if any questions or if clinical worsening. Star Sparks MD
[2024-02-05] MEDS: Pantoprazole Sodium 40 MG in 0.9% Normal Saline (100mL MB+) 100 ML 330 MG IV ×2 (10:05→21:13)
--- NOTE | 2024-02-05 11:03 | PN_ITS ---
Subjective Subjective Patient seen and examined. He had no complaints and felt well. He had an uneventful night. Review of systems otherwise negative. He is on room air. Objective Data Objective Data Vital Signs: Vital Signs Temp Pulse Resp BP Pulse Ox O2 Del Method O2 Flow Rate 98.4 F 77 18 138/74 H 95 Room Air 2 02/05/24 06:00 02/05/24 09:51 02/05/24 07:20 02/05/24 06:00 02/05/24 06:00 02/05/24 06:00 02/04/24 09:00 FiO2 21 02/03/24 11:55 Oxygen Flow Rate (L/min) 2 Oxygen Delivery Method Room Air Weight: 188 lb 14.978 oz Body Mass Index (BMI) 24.9 Intake & Output: Intake and Output for Last 24 Hours 02/03/24 02/04/24 02/05/24 23:59 23:59 23:59 Intake Total 2524.16 / 2555.89 2673.00 / 2853.00 180 / 180 Output Total 2660 / 2660 2225 / 2225 250 / 250 Balance -135.84 / -104.11 448.00 / 628.00 -70 / -70 Lab / Micro Data 02/05/24 07:47 02/05/24 07:47 Labs: Laboratory Results - last 24 hr 02/04/24 11:30: POC Glucose 125 H 02/04/24 16:24: POC Glucose 75 02/04/24 21:33: POC Glucose 113 H 02/05/24 06:25: POC Glucose 115 H 02/05/24 07:47: WBC 15.8 H, RBC 3.51 L, Hgb 12.1 L, Hct 36.5 L, MCV 104.0 H, MCH 34.5 H, MCHC 33.2, RDW Std Deviation 53.5 H, RDW Coeff of Jesus 14.1, Plt Count 161, MPV 11.6, Immature Gran % (Auto) 0.700, Neut % (Auto) 84.3 H, Lymph % (Auto) 8.7 L, [place] % (Auto) 5.7, Eos % (Auto) 0.4, Baso % (Auto) 0.2, Absolute Neuts (auto) 13.3 H, Absolute Lymphs (auto) 1.38, Nucleated RBC % 0, Sodium 145, Potassium 3.7, Chloride 116 H, Carbon Dioxide 21.0, Anion Gap 8, BUN 33 H, C reatinine 1.39 H, Estim Creat Clear Calc 50.30, Est GFR (MDRD) Af Amer 64, Est GFR (MDRD) Non-Af 53 L, BUN/Creatinine Ratio 23.7 H, Glucose 100, Calcium 8.2 L Micro: Microbiology 01/24/24 10:49 Blood Culture (Wb) - Anticubital Left Blood Culture - Final No growth in 5 days. 01/24/24 10:49 Blood Culture (Wb) - Anticubital Right Blood Culture - Final No growth in 5 days. 01/24/24 13:25 Urine Catheter - Hernandez Urine Culture - Final Culture exhibits no growth. 01/24/24 13:25 Urine Catheter - Hernandez Legionella Antigen - Final 01/24/24 13:25 Urine Catheter - Hernandez Streptococcus pneumoniae Antigen (M - Final 01/24/24 14:00 Sputum, Induced/Lukens Gram Stain - Final 01/24/24 14:00 Sputum, Induced/Lukens Respiratory Culture - Final Mixed normal respiratory hannah. No Streptococcus pneumoniae, beta-hemolytic Streptococcus or Staphylococcus aureus isolated. 01/24/24 14:00 Mucosa - Nasopharyngeal Respiratory Panel (PCR) - Final 01/24/24 10:39 Mucosa - Nose SARS-CoV-2, Influenza & RSV (PCR) - Final SARS-CoV-2 (COVID 19 PCR) Physical Exam Const alert, oriented x3, no apparent distress and average body habitus; Negative for healthy appearing or well nourished Constitutional Narrative: frail, weak General Appearance: cooperative HEENT normocephalic, head/scalp atraumatic and moist oral mucous membranes Eyes PERRL, EOMs intact bilaterally and conjunctivae normal Neck no lymphadenopathy and supple Neck Narrative: no thyroid enlargement Lymph Lymphatic: no lymphadenopathy noted and no lymphedema noted Resp no retractions, no use of accessory muscles and clear to auscultation bilaterally Resp Narrative: mildly diminished breath sounds bibasally, no wheezes or crackles. On room air. Cardio regular rate, regular rhythm, S1 normal heart sound, S2 normal heart sound, no murmurs, no rub, no gallops and no clicks GI normal to inspection, nondistended, normoactive bowel sounds, soft to palpation, non-tender and non-distended Extremity normal capillary refill, no clubbing, cyanosis or edema and no calf tenderness General Extremity: no tenderness to palpation of joints or extremities Skin skin turgor normal, no jaundice, no petechiae and no mottling General Skin Exam: no breakdown Neuro CN's II-XII intact bilaterally, moves all extremities, no focal motor deficits, no sensory deficits noted and deep tendon reflexes 2+ bilaterally Neuro Narrative: flat affect, frail Sensorium / Orientation: awake and alert Motor Exam: strength 5/5 throughout and general weakness Psych thought process normal, cooperative and affect normal Psych Narrative: flat affect Mood & Affect: flat affect Assessment & Plan Assessment/Plan (1) COVID-19 virus infection: (2) Acute hypoxemic respiratory failure: PLAN: Plan #Acute hypoxic and hypercapnic respiratory failure due to COVId 19 pneumonia and aspiration pneumonia as well as acute combined heart failure * Extubated yesterday 02/03/2024. Was extubated to oxygen by nasal cannula and is now on room air. * 2D echo showed EF of 50% with mild global hypokinesis and mild hypokinesis of the apex, with RVSp of 55mmHg. * titrate oxygen to maintain sats >90% * breathing treatment with bronchodilators * critical care on board * * #Sepsis due to covid 19 pneumonia and aspiration pneumonia * completed a course of remdesivir * Completed a 10-day course of Decadron. * sputum cultures showed normal oral hannah. completed a 7 day course of antibiotics * Blood and urine cultures negative so far * critical care on board * Resolved * #Nonstemi * thought to be a type 2 nonstemi due to emand ischemia fro respiratory failure * aspirin held due to GI bleed. Heparin also discontinued due to GI bleed. * 2D echo as above * Patient follow-up with cardiology on outpatient basis. #Afib * Was placed back on amiodarone drip overnight. Now rate is controlled. Patient placed on p.o. metoprolol. Critical care today. * potassium and magnesium WNL * not anticoagulated due to anemia from GI bleed. * #Hypernatremia: * resolved. #CKD stage IIIb: Cr is down to 1.39 form 1.5 yesterday. Will monitor. #Upper GI bleed * Patient had bright red blood in the OG tube. EGD done on 01/25/2024 showed nonsevere reflux esophagitis with no gross lesions in the entire stomach and nonbleeding duodenal ulcers with no stigmata of bleeding. * on IV Protonix 40 mg twice daily. Hemoglobin is stable * #Benign essential hypertension: * Valsartan held as blood pressure was running low. * IV hydralazine as needed. * Will monitor. #Hypothyroidism: On Synthroid #COPD: * Patient is suspected to have COPD he does have a history of chronic nicotine dependence. * Follow-up with pulmonology on outpatient basis. #Nutrition: * On tube feeds. Dietitian on board. * #DVT prophylaxis: SCDs Disposition: awaiting placement. #CODE STATUS: Full code. * Even though family had wanted to make patient DNR CC a no intubation of the extubation yesterday, patient opted to be full code after extubation. * He therefore remains full code. Charges/Coding Visit Charges Inpatient E&M: 42630 Subs Hosp L2
[2024-02-05 11:46] LABS: Bedside Glucose 124 mg/dL (74-106)
[2024-02-05 17:11] LABS: Bedside Glucose 145 mg/dL (74-106)
[2024-02-05] MEDS: Atorvastatin Calcium 80 MG Tablet GT (21:11)
[2024-02-05 22:24] LABS: Bedside Glucose 113 mg/dL (74-106)
[2024-02-06] VITALS (13 sets, daily range): BP systolic 157–170; BP diastolic 82–87; PULSE 56–74; RESP 17–20; TEMP 36.3–36.9; O2SAT 90–100; BMI 25.2
[2024-02-06 07:01] LABS: Bedside Glucose 113 mg/dL (74-106)
[2024-02-06] MEDS: Ipratropium 0.5 MG/2.5 ML SOLUTION INHALATION ×4 (07:12→19:36)
[2024-02-06] MEDS: Albuterol 2.5 MG/3 ML VIAL.NEB. INHALATION ×2 (07:12→19:35)
[2024-02-06] MEDS: Budesonide Respules 0.5 MG/2 ML AMPUL.NEB. INHALATION ×2 (07:12→19:35)
[2024-02-06 07:50] LABS: Bedside Glucose 100 mg/dL (74-106)
--- NOTE | 2024-02-06 09:02 | CASEMGMT ---
SW met with patient. Introduced self and role at [facility]. SW discussed therapy recommendations for [facility] facility. Patient said he had thought about it. SW provided patient with a list of [facility] facility providers including quality and resource use data and consistent with patient?s preferred geographic region, medical needs, and insurance network were provided from the [employer] Guide. SW explained to patient SW just needs 3 or 4 preferences and SW will take care of contacting the facilities. Patient stated he will talk with his girlfriend today. Patient then asked SW what happened to him. SW told patient he should ask the physician this question. Patient also stated his girlfriend likes to ride a bike, but he would rather go slogging in the snow. Amena CRISTINA
--- NOTE | 2024-02-06 09:18 | PN.HOSP_ITS ---
Reason for Visit Reason for Visit: Diagnoses Sepsis, unspecified organism (01/24/24) Elevated white blood cell count, unspecified (01/24/24) Acidosis, unspecified (01/24/24) Other acidosis (01/24/24) Non-ST elevation (NSTEMI) myocardial infarction (01/24/24) Acute respiratory failure with hypoxia (01/24/24) Gastrointestinal hemorrhage, unspecified (01/24/24) Chronic kidney disease, unspecified (01/24/24) Elevation of levels of liver transaminase levels (01/24/24) COVID-19 (01/24/24) Objective Data Objective Data Vital Signs: Vital Signs Temp Pulse Resp BP Pulse Ox O2 Del Method O2 Flow Rate 97.4 F L 68 20 H 167/83 H 90 Room Air 2 02/06/24 06:00 02/06/24 07:12 02/06/24 07:12 02/06/24 06:00 02/06/24 08:30 02/06/24 07:12 02/04/24 09:00 FiO2 21 02/03/24 11:55 Oxygen Flow Rate (L/min) 2 Oxygen Delivery Method Room Air Weight: 190 lb 14.725 oz Body Mass Index (BMI) 25.2 Intake & Output: Intake and Output for Last 24 Hours 02/04/24 02/05/24 02/06/24 23:59 23:59 23:59 Intake Total 2673.00 / 2853.00 1000 / 1120 120 / 120 Output Total 2225 / 2225 625 / 875 500 / 500 Balance 448.00 / 628.00 375 / 245 -380 / -380 Lab / Micro Data 02/05/24 07:47 02/05/24 07:47 Labs: Laboratory Results - last 24 hr 02/04/24 05:27: POC Glucose 100 02/05/24 11:02: POC Glucose 124 H 02/05/24 16:54: POC Glucose 145 H 02/05/24 21:09: POC Glucose 113 H 02/06/24 06:35: POC Glucose 113 H Micro: Microbiology 01/24/24 10:49 Blood Culture (Wb) - Anticubital Left Blood Culture - Final No growth in 5 days. 01/24/24 10:49 Blood Culture (Wb) - Anticubital Right Blood Culture - Final No growth in 5 days. 01/24/24 13:25 Urine Catheter - Hernandez Urine Culture - Final Culture exhibits no growth. 01/24/24 13:25 Urine Catheter - Hernandez Legionella Antigen - Final 01/24/24 13:25 Urine Catheter - Hernandez Streptococcus pneumoniae Antigen (M - Final 01/24/24 14:00 Sputum, Induced/Lukens Gram Stain - Final 01/24/24 14:00 Sputum, Induced/Lukens Respiratory Culture - Final Mixed normal respiratory hannah. No Streptococcus pneumoniae, beta-hemolytic Streptococcus or Staphylococcus aureus isolated. 01/24/24 14:00 Mucosa - Nasopharyngeal Respiratory Panel (PCR) - Final 01/24/24 10:39 Mucosa - Nose SARS-CoV-2, Influenza & RSV (PCR) - Final SARS-CoV-2 (COVID 19 PCR) Physical Exam Narrative Seen and examined. Physical therapist helping with the patient. Patient gets short of breath on walking from the bathroom to bed. Denies chest pain but has some congestion getting better. No fever. Does not have much family support at home as caregiver. Needs support for walking. Patient is coughing. Chronic memory issues. Physical exam General: Awake, intermittent confusion, Oriented x3, Cooperative HEENT: Atraumatic, PERRLA, EOMI, Normocephalic Oral: Oral mucosa dry no Gingival or Mucosal Lesions/ Ulcerations Neck: Supple, No JVD, Negative Carotid Bruits Chest wall/Lungs: Air entry diminished in bilateral lung bases. No crepitation/rhonchi. No hypoxia Cardiovascular: Irregular rate and rhythm, Normal S1, Normal S2, No M/G/R Abdomen: Bowel Sounds Present, Soft, Non Tender, Non-Distended : No dysuria. No renal angle tenderness. No suprapubic tenderness. Extremities: Subtle edema, Capillary Refill Less than 3 Seconds Skin: No rashes, No breakdown Musculoskeletal: No Tenderness to Palpation of Joints or Extremities. ROM restricted. Unsteady gait Neurological: Cranial nerves II-XII grossly intact, DTR 2+/4. No acute focal neurological deficit. Psych/Mental Status: Flat affect. Possible dementia Assessment & Plan Assessment/Plan (1) COVID-19 virus infection: (2) Acute hypoxemic respiratory failure: PLAN: Plan #Acute hypoxic and hypercapnic respiratory failure due to COVId 19 pneumonia and aspiration pneumonia as well as acute combined heart failure and pulmonary hypertension * Extubated ON 02/03/2024. Was extubated to oxygen by nasal cannula and is now on room air. * 2D echo showed EF of 50% with mild global hypokinesis and mild hypokinesis of the apex, with RVSP of 55mmHg. * titrate oxygen to maintain sats >90% * breathing treatment with bronchodilators * critical care on board 02/05: Patient gets short of breath on exertion. No chest pain. Not hypoxic. Medically stable for discharge but pre-CERT pending. * #Sepsis due to covid 19 pneumonia and aspiration pneumonia * completed a course of remdesivir * Completed a 10-day course of Decadron. * sputum cultures showed normal oral hannah. completed a 7 day course of antibiotics * Blood and urine cultures negative so far * Resolved #Nonstemi * thought to be a type 2 nonstemi due to emand ischemia fro respiratory failure * aspirin held due to GI bleed. Heparin also discontinued due to GI bleed. * 2D echo as above * Patient follow-up with cardiology on outpatient basis. # Paroxysmal Afib * Was placed back on amiodarone drip overnight. Now rate is controlled. Patient placed on p.o. metoprolol. Critical care today. * potassium and magnesium WNL * not anticoagulated due to anemia from GI bleed. 02/05: In and out of A-fib. Irregular rhythm #Hypernatremia: * resolved. #CKD stage IIIb: Cr is down to 1.39 form 1.5 yesterday. Will monitor. #Upper GI bleed * Patient had bright red blood in the OG tube. EGD done on 01/25/2024 showed nonsevere reflux esophagitis with no gross lesions in the entire stomach and nonbleeding duodenal ulcers with no stigmata of bleeding. * on IV Protonix 40 mg twice daily. Hemoglobin is stable #Benign essential hypertension: * Valsartan held as blood pressure was running low. * IV hydralazine as needed. * Will monitor. #Hypothyroidism: On Synthroid #COPD: * Patient is suspected to have COPD he does have a history of chronic nicotine dependence. * Follow-up with pulmonology on outpatient basis. #Nutrition: * On tube feeds. Dietitian on board. * #DVT prophylaxis: SCDs Disposition: awaiting placement. #CODE STATUS: Full code. * Even though family had wanted to make patient DNR CC a no intubation of the extubation on 02/04/2024, patient opted to be full code after extubation. * He therefore remains full code. Charges/Coding Visit Charges Inpatient E&M: 15386 Subs Hosp L2
[2024-02-06] MEDS: Metoprolol Tartrate 25 MG Tablet PO ×2 (09:55→21:02)
[2024-02-06] MEDS: Levothyroxine 75 MCG Tablet GT (09:55)
[2024-02-06] MEDS: guaiFENesin 600 MG Tablet PO ×2 (09:55→21:02)
[2024-02-06] MEDS: Senna Tablet 1 TABLET PO (09:55)
[2024-02-06] MEDS: 0.9% Saline Lock 10 ML Syringe IV (09:58)
[2024-02-06] MEDS: Pantoprazole Sodium 40 MG in 0.9% Normal Saline (100mL MB+) 100 ML 330 MG IV ×2 (10:00→21:03)
[2024-02-06 12:05] LABS: Bedside Glucose 146 mg/dL (74-106)
[2024-02-06] MEDS: Furosemide 40 MG Tablet PO (15:09)
--- NOTE | 2024-02-06 15:31 | CHAPLAIN ---
Type of Pastoral Visit _x__ Initial Visit ___ Follow-up Visit ___ On-call Visit ___ General Patient Visit ___ Spiritual Assessment ___ Family Conference ___ Bereavement ___ Rapid Response ___ Code Blue ___ Other (describe below) Pastoral Care Referral From ___ Patient _x__ Family ___ Nurse ___ Physician ___ Baseball Inspector ___ Color Card Maker ___ Other (describe below) Sacrament/Intervention _x__ Active listening ___ Anointing ___ Congregational ___ Bereavement ___ Communion ___ Katina exploration ___ ___ Life review ___ Prayer ___ Reconciliation ___ Sacrament of Sick _x__ Supportive presence ___ Wedding ___ Other (describe below) Pastoral Comments review with the patient what has happened over the last three weeks for his health and hospitalization; patient has become aware of how close to he was and has some new acknowledgement of how this might impact his life going forward;
[2024-02-06 17:02] LABS: Bedside Glucose 159 mg/dL (74-106)
[2024-02-06] MEDS: Insulin Lispro 100 UNIT/ML INSULN.PEN SC (17:25)
[2024-02-06] MEDS: Senna/Docusate Sodium 1 Tablet 2 TABLET PO (21:01)
[2024-02-06] MEDS: Atorvastatin Calcium 80 MG Tablet PO (21:02)
[2024-02-06 23:38] LABS: Bedside Glucose 102 mg/dL (74-106)
[2024-02-07] VITALS (7 sets, daily range): BP systolic 146–165; BP diastolic 78–89; PULSE 58–69; RESP 16–18; TEMP 36.2–36.8; O2SAT 95; BMI 23.8
[2024-02-07 06:15] LABS: Absolute Lymphocyte Count 1.44 X10^3/uL (0.83-4.51); Absolute Neutrophil Count 13.3 X10^3/uL (2.0-7.7); Basophil# 0.04 X10^3/uL; Basophil% 0.3 % (0-1); Eosinophil# 0.13 X10^3/uL; Eosinophils% 0.8 % (0-5); Hematocrit 36.3 % (40-54); Hemoglobin 12.5 g/dL (13.0-16.5); Lymphocyte # 1.44 X10^3/ul (0.83-4.51); Mean Corp Hgb Conc 34.4 g/dL (32-36); Mean Corpuscular Hgb 35.2 pg (27.0-32.0); Mean Corpuscular Volume 102.3 fL (80-94); Mean Platelet Vol. 11.6 fl (6.2-12.0); Monocyte# 0.91 X10^3/uL; Monocyte% 5.7 % (0-10); NRBC Flagged by Analyzer 0 % (0-5); Neutrophil # 13.34 X10^3/uL (2.7-7.7); Neutrophil % 83.3 % (47-70); Platelet Count 189 K/mm3 (150-450); RBC Distribution Width CV 13.8 % (11.6-14.6); RBC Distribution Width SD 51.8 fl (35.1-43.9); Red Blood Count 3.55 M/mm3 (4.6-6.2)
[2024-02-07 06:35] LABS: Anion Gap 4 (5-15); BUN 29 mg/dL (7-18); BUN/Creat Ratio 19.3 RATIO (10-20); Calcium,Total 8.5 mg/dL (8.5-10.1); Chloride 115 mmol/L (98-107); EST Glomerular Filtration Rate 48 mL/min (>60); Est Glom Filt Rate - Afr Amer 58 mL/min (>60); Estimated Creatinine Clearance 46.61 ml/min; Glucose 116 mg/dL (74-106); Potassium 3.6 mmol/L (3.5-5.1); Sodium Level 141 mmol/L (136-145)
[2024-02-07] MEDS: Ipratropium 0.5 MG/2.5 ML SOLUTION INHALATION ×3 (06:44→14:18)
[2024-02-07] MEDS: Budesonide Respules 0.5 MG/2 ML AMPUL.NEB. INHALATION (06:44)
[2024-02-07] MEDS: Albuterol 2.5 MG/3 ML VIAL.NEB. INHALATION (06:44)
[2024-02-07 07:07] LABS: Bedside Glucose 107 mg/dL (74-106)
[2024-02-07] MEDS: guaiFENesin 600 MG Tablet PO (08:14)
[2024-02-07] MEDS: Aspirin 81 MG TAB.CHEW PO (08:14)
[2024-02-07] MEDS: Furosemide 40 MG Tablet PO (08:15)
[2024-02-07] MEDS: Pantoprazole Sodium 40 MG in 0.9% Normal Saline (100mL MB+) 100 ML 330 MG IV (08:15)
[2024-02-07] MEDS: Metoprolol Tartrate 25 MG Tablet PO (08:15)
[2024-02-07] MEDS: Levothyroxine 75 MCG Tablet GT (08:16)
[2024-02-07] MEDS: 0.9% Saline Lock 10 ML Syringe IV (08:17)
--- NOTE | 2024-02-07 09:02 | CASEMGMT ---
RADHA met with patient regarding SNF choices. Patient has not made any choices. RADHA asked patient if it is ok if SW calls his significant other. Patient said that is fine. RADHA then called patient's son Bernard who is patient's Healthcare Power of Caregiver Assisted Living. Gene said he is willing to help however needed. Gene also thought it would be fine to contact patient's significant other regarding choices. RADHA called patient's significant other Gisselle, but it went right to voice mail. RADHA will try again and also try the other phone number for her. Amena Bond CLEAN RICE GRADER AND REEL TENDER IBETH
--- NOTE | 2024-02-07 09:45 | CASEMGMT ---
SW spoke with patient and asked if his insurance will change after the first of the year. Patient said it should stay the same as he did not sign up for anything different during open enrollment. Amena CRISTINA
--- NOTE | 2024-02-07 09:46 | CASEMGMT ---
RADHA spoke with patient regarding facilities as he is ready to go. Patient is agreeable to [facility] as Dr Mcgowan is his primary care doctor. RADHA made a referral. [facility] can take patient. RADHA notified physician. Plan: d/c to [facility] Amena CRISTINA
--- NOTE | 2024-02-07 10:01 | TREXTCAR_ITS ---
Diet Diet Order/Speech Therapy: 02/04/24 12:27 Diet: Regular - General Food consistency:: Soft & Bite Sized Liquid Consistency:: Regular/Thin Type of Dietary Supplement:: Van Ensure Comp w/meals Diet Comments: Soft-Bite Sized solids and Thin liquids; STRAWBERRY ALLERGY Routine Orders/Code Status Suppository Type: Dulcolax 10mg Suppository Frequency: Daily PRN DC O2, CPAP, BIPAP needs PSN CPAP & BiPAP: BiPAP & CPAP Settings per PSN Mode BiPAP 02/03/24 11:55 Bipap Delivery Device Face Mask 02/03/24 11:55 BiPAP Inspiratory Pressure 12 02/03/24 11:55 BiPAP Expiratory Pressure 5 02/03/24 11:55 BiPAP Rate 02/03/24 11:55 Fraction of Inspired Oxygen ( 02/03/24 11:55 FIO2) Home O2 Discharge instructions: No Wound(s) left arm: Wound Type: infiltrated IV site rt heal: Wound Type: Blister right heel: Wound Type: Blister Dressing Change: foam dressing in place Therapies Extremity Affected:: Bilateral Lower Physical Therapy: Eval and Treat Occupational Therapy: Eval and Treat Speech Therapy: Eval and Treat Problem/Diagnosis (1) COVID-19 virus infection: Status: Acute Code(s): U07.1 - COVID-19 (2) Acute hypoxemic respiratory failure: Status: Acute Code(s): J96.01 - Acute respiratory failure with hypoxia Plan #Acute hypoxic and hypercapnic respiratory failure due to COVId 19 pneumonia and aspiration pneumonia as well as acute combined heart failure and pulmonary hypertension * Extubated ON 02/03/2024. Was extubated to oxygen by nasal cannula and is now on room air. * 2D echo showed EF of 50% with mild global hypokinesis and mild hypokinesis of the apex, with RVSP of 55mmHg. * titrate oxygen to maintain sats >90% * breathing treatment with bronchodilators * critical care on board 02/05: Patient gets short of breath on exertion. No chest pain. Not hypoxic. Medically stable for discharge but pre-CERT pending. * #Sepsis due to covid 19 pneumonia and aspiration pneumonia * completed a course of remdesivir * Completed a 10-day course of Decadron. * sputum cultures showed normal oral hannah. completed a 7 day course of antibiotics * Blood and urine cultures negative so far * Resolved #Nonstemi * thought to be a type 2 nonstemi due to emand ischemia fro respiratory failure * aspirin held due to GI bleed. Heparin also discontinued due to GI bleed. * 2D echo as above * Patient follow-up with cardiology on outpatient basis. # Paroxysmal Afib * Was placed back on amiodarone drip overnight. Now rate is controlled. Patient placed on p.o. metoprolol. Critical care today. * potassium and magnesium WNL * not anticoagulated due to anemia from GI bleed. 02/05: In and out of A-fib. Irregular rhythm #Hypernatremia: * resolved. #CKD stage IIIb: Cr is down to 1.39 form 1.5 yesterday. Will monitor. #Upper GI bleed * Patient had bright red blood in the OG tube. EGD done on 01/25/2024 showed nonsevere reflux esophagitis with no gross lesions in the entire stomach and nonbleeding duodenal ulcers with no stigmata of bleeding. * on IV Protonix 40 mg twice daily. Hemoglobin is stable #Benign essential hypertension: * Valsartan held as blood pressure was running low. * IV hydralazine as needed. * Will monitor. #Hypothyroidism: On Synthroid #COPD: * Patient is suspected to have COPD he does have a history of chronic nicotine dependence. * Follow-up with pulmonology on outpatient basis. #Nutrition: * On tube feeds. Dietitian on board. * #DVT prophylaxis: SCDs Disposition: awaiting placement. #CODE STATUS: Full code. * Even though family had wanted to make patient DNR CC a no intubation of the extubation on 02/04/2024, patient opted to be full code after extubation. * He therefore remains full code. Allergies/Procedures Done in Hospital Allergies strawberry Adverse Reaction (Verified 01/24/24 10:54) Itching Type of Care/Length of Stay Estimated LOS: Convalescent Care Less Than 30 days Type of Care Needed: Skilled Rehab Potential: Good Prognosis: Good Additional Orders/Day of Discharge Day of Discharge: 02/07/24 Dietary and Speech Recommendations Dietitian Recommendations/Changes: Will change diet to regular with consistency/texture as per LITIGATION SUPPORT ANALYST. Will add vanilla ensure compact 3 times per day w/ meals. Please reweigh, trend weight closely as PO improves. Pt is allergic to strawberry. Discharge Plan Admission Admit Date/Time: 01/24/24 11:34 Primary Reason for Your Visit: Non-STEMI, COVID-19 pneumonia status post intubation. GI bleed. Attending Provider: Christian Navarro Primary Care Provider: Deng Mcgowan Chi Consulting Providers: Reanna Mcpherson; Brian Woods; Ted Kramer; Dinh Ugarte; Josiah Mendez; Kaiser Bacon; Ernesto Bhat; Alek Shay; Karen Corbett; Paul Guallpa; Gil Thakur; Mich Rodriguez; Eleni Gaona; Geno Blanco; Jomar Belcher; Dusty Kuhn; Carlos Alberto Tim; Kurt Tucker; Ramon Donnelly; Nicholas Chapman; Star Sparks; Bryce Goncalves; Katherine Peterson Discharge Orders/Prescriptions Prescriptions: New furosemide 40 mg Tablet 20 mg PO DAILY PRN (Reason: Leg swelling) Qty: 0 0RF sennosides-docusate sodium [Stimulant Laxative Plus] 8.6-50 mg Tablet 2 tab PO BID Qty: 0 0RF metoprolol tartrate 25 mg Tablet 25 mg PO BID Qty: 0 0RF atorvastatin 80 mg Tablet 80 mg PO QHS Qty: 0 0RF aspirin 81 mg Tablet,Chewable 81 mg PO DAILYCM Qty: 0 0RF pantoprazole [Protonix] 40 mg tablet,delayed release (DR/EC) 40 mg PO BID 30 Days Qty: 60 2RF ipratropium bromide 0.02 % Solution 0.5 mg inhalation Q4HWA.RT PRN (Reason: sob) Qty: 0 0RF Continued amlodipine 5 mg tablet 5 mg PO DAILY levothyroxine 75 mcg tablet 75 mcg PO DAILY albuterol sulfate 90 mcg/actuation HFA aerosol inhaler 2 puff inhalation Q4H PRN (Reason: asthma) Held valsartan 320 mg tablet 320 mg PO DAILY Hold Instructions: Hold for 7 days and resume at lower dose. Later changed to a different ARB possible losartan Referrals / Follow Up: Joel Polk MD [Med Staff - Active Staff] - Within 1 Month Deng Mcgowan Chi, MD [Primary Care Provider] - Nhung Kauffman NP, BORDER PATROL OFFICER-C [Med Staff - Adv Practice Prof] - Within 2 Weeks (For PFT) Makayla Kelley NP-C [Med Staff - Adv Practice Prof] - Within 1 Month Disposition Disposition (needs filled in before D/C Order can be placed): [facility]
--- NOTE | 2024-02-07 10:37 | DS.PCM_ITS ---
Providers Date of Admission: 01/24/24 Date of Discharge: 02/07/24 Primary Care Physician: Dr. Deng Mcgowan MD Consultations 01/24/24 13:07 Consult: Molecular Spectroscopist / Pulmonary Medicine Routine Consulting Provider: Intensivists/Pulmonary Med Reason for Consult: Acute hypoxic respiratory failure secondary to pneumonia EMERGENT Consult: No Notified: Yes Date Notified: 01/24/24 Time Notified: 11:36 Method of Notification: Verbal 01/25/24 04:36 Consult: Gastroenterology Routine Consulting Provider: [facility] Reason for Consult: GI bleed, ABLA, PRBP OG, Hgb drop EMERGENT Consult: No Notified: Yes Date Notified: 01/25/24 Time Notified: 04:37 Method of Notification: Text 01/30/24 06:19 Consult: Onc/Wound/airport guide Routine Comment: Reason for Consult:: rt heal blister Reason For Visit: ACUTE HYPOXIC RESPIRATORY FAILURE/PNEUMONIA Diagnosis Discharge Diagnosis (1) COVID-19 virus infection: Status: Acute Code(s): U07.1 - COVID-19 (2) Acute hypoxemic respiratory failure: Status: Acute Code(s): J96.01 - Acute respiratory failure with hypoxia Plan 78-year-old gentleman was admitted with decreased responsiveness, obtunded state and was emergently intubated in the ED. Pulse ox was in 70s. Was also found to have COVID-19 positive, elevated BNP with lower extremity edema and non-STEMI. #Acute hypoxic and hypercapnic respiratory failure due to COVId 19 pneumonia and aspiration pneumonia as well as acute combined heart failure and pulmonary hypertension * Extubated ON 02/03/2024. Was extubated to oxygen by nasal cannula and is now on room air. * 2D echo showed EF of 50% with mild global hypokinesis and mild hypokinesis of the apex, with RVSP of 55mmHg. * titrate oxygen to maintain sats >90% * breathing treatment with bronchodilators * critical care on board 02/05: Patient gets short of breath on exertion. No chest pain. Not hypoxic. Medically stable for discharge but pre-CERT pending. 02/06: Patient denies shortness of breath at rest. 95% on room air. BP 146/78, heart rate 62.8. Afebrile. Patient is being discharged to SNF. #Sepsis due to covid 19 pneumonia and aspiration pneumonia * completed a course of remdesivir * Completed a 10-day course of Decadron. * sputum cultures showed normal oral hannah. completed a 7 day course of antibiotics * Blood and urine cultures negative so far * Resolved #Nonstemi * thought to be a type 2 nonstemi due to emand ischemia fro respiratory failure * aspirin held due to GI bleed. Heparin also discontinued due to GI bleed. * 2D echo as above * Patient follow-up with cardiology on outpatient basis. 02/06: Patient is discharged on baby aspirin, metoprolol, high intensity atorvastatin and amlodipine. Valsartan/ARB is held because of WAYLON. ARB might be resumed later and kidney function is stable probably at lower dose for # Paroxysmal Afib * Was placed back on amiodarone drip overnight. Now rate is controlled. Patient placed on p.o. metoprolol. Critical care today. * potassium and magnesium WNL * not anticoagulated due to anemia from GI bleed. 02/05: In and out of A-fib. Irregular rhythm #Hypernatremia: * resolved. #CKD stage IIIb: Cr is down to 1.39 form 1.5 yesterday. Will monitor. #Upper GI bleed * Patient had bright red blood in the OG tube. EGD done on 01/25/2024 showed nonsevere reflux esophagitis with no gross lesions in the entire stomach and nonbleeding duodenal ulcers with no stigmata of bleeding. * on IV Protonix 40 mg twice daily. Hemoglobin is stable 02/06 discharged on Protonix 40 mg p.o. twice daily. Follow-up in GI office #Benign essential hypertension: * Valsartan held as blood pressure was running low. * IV hydralazine as needed. * Will monitor. #Hypothyroidism: On Synthroid #COPD: * Patient is suspected to have COPD he does have a history of chronic nicotine dependence. * Follow-up with pulmonology on outpatient basis. #Nutrition: * On tube feeds. Dietitian on board. * #DVT prophylaxis: SCDs #CODE STATUS: Full code. * Even though family had wanted to make patient DNR CC a no intubation of the extubation on 02/04/2024, patient opted to be full code after extubation. * full code. Discharge medication reconciliation done. Discharge follow-up instructions completed. Discharge process discussed with the patient and all questions were answered to patient's satisfaction. Follow with PCP in 1 to 2 weeks Total time spent, exact 35 minutes on discharge meds reconciliation, examination, coordination of care with nurses and ancillary staff, review of imaging and blood test and discussion with the patient on follow-up instructions. Medications at Discharge Home Medications albuterol sulfate 90 mcg/actuation aerosol inhaler 2 puff inhalation Q4H PRN asthma 01/24/24 amlodipine 5 mg tablet 5 mg PO DAILY cardiac 01/24/24 levothyroxine 75 mcg tablet 75 mcg PO DAILY thyroid 01/24/24 valsartan 320 mg tablet 320 mg PO DAILY cardiac 01/24/24 aspirin 81 mg chewable tablet 81 mg PO DAILYCM #0 tabs 02/07/24 atorvastatin 80 mg tablet 80 mg PO QHS #0 tabs 02/07/24 furosemide 40 mg tablet 20 mg (1/2 x 40 mg) PO DAILY PRN Leg swelling #0 tabs 02/07/24 ipratropium bromide 0.02 % solution for inhalation 0.5 mg (2.5 mL) inhalation Q4HWA.RT PRN sob #0 mL 02/07/24 metoprolol tartrate 25 mg tablet 25 mg PO BID #0 tabs 02/07/24 pantoprazole 40 mg tablet,delayed release (Protonix) 40 mg PO BID 30 days #60 tabs 02/07/24 sennosides 8.6 mg-docusate sodium 50 mg tablet (Stimulant Laxative Plus) 2 tab PO BID #0 tabs 02/07/24 Physical Exam Narrative Seen and examined. Denies chest pain but has some congestion getting better. Mild shortness of breath on exertion but not at rest. No fever. Does not have much family support at home as caregiver. Needs support for walking. Chronic memory issues. Physical exam General: Awake, Oriented x3, Cooperative HEENT: Atraumatic, PERRLA, EOMI, Normocephalic Oral: Oral mucosa dry no Gingival or Mucosal Lesions/ Ulcerations Neck: Supple, No JVD, Negative Carotid Bruits Chest wall/Lungs: Air entry diminished in bilateral lung bases. No crepitation/rhonchi. No hypoxia Cardiovascular: Irregular rate and rhythm, Normal S1, Normal S2, No M/G/R Abdomen: Bowel Sounds Present, Soft, Non Tender, Non-Distended : No dysuria. No renal angle tenderness. No suprapubic tenderness. Extremities: Subtle edema, Capillary Refill Less than 3 Seconds Skin: No rashes, No breakdown Musculoskeletal: No Tenderness to Palpation of Joints or Extremities. ROM restricted. Unsteady gait Neurological: Cranial nerves II-XII grossly intact, DTR 2+/4. No acute focal neurological deficit. Psych/Mental Status: Flat affect. Possible dementia Weight / BMI Weight Weight: 180 lb 12.465 oz Body Mass Index (BMI) 23.8 ABG / Lab / Microbiology Data 02/07/24 05:26 02/07/24 05:26 Laboratory: Laboratory Results - last 24 hr 02/06/24 11:44: POC Glucose 146 H 02/06/24 16:28: POC Glucose 159 H 02/06/24 21:13: POC Glucose 102 02/07/24 05:26: WBC 16.0 H, RBC 3.55 L, Hgb 12.5 L, Hct 36.3 L, MCV 102.3 H, MCH 35.2 H, MCHC 34.4, RDW Std Deviation 51.8 H, RDW Coeff of Jesus 13.8, Plt Count 189, MPV 11.6, Immature Gran % (Auto) 0.900, Neut % (Auto) 83.3 H, Lymph % (Auto) 9.0 L, [place] % (Auto) 5.7, Eos % (Auto) 0.8, Baso % (Auto) 0.3, Absolute Neuts (auto) 13.3 H, Absolute Lymphs (auto) 1.44, Nucleated RBC % 0, Sodium 141, Potassium 3.6, Chloride 115 H, Carbon Dioxide 22.0, Anion Gap 4 L, BUN 29 H, C reatinine 1.50 H, Estim Creat Clear Calc 46.61, Est GFR (MDRD) Af Amer 58 L, Est GFR (MDRD) Non-Af 48 L, BUN/Creatinine Ratio 19.3, Glucose 116 H, Calcium 8.5 02/07/24 05:34: POC Glucose 107 H Microbiology: Microbiology 01/24/24 10:49 Blood Culture (Wb) - Anticubital Left Blood Culture - Final No growth in 5 days. 01/24/24 10:49 Blood Culture (Wb) - Anticubital Right Blood Culture - Final No growth in 5 days. 01/24/24 13:25 Urine Catheter - Hernandez Urine Culture - Final Culture exhibits no growth. 01/24/24 13:25 Urine Catheter - Hernandez Legionella Antigen - Final 01/24/24 13:25 Urine Catheter - Hernandez Streptococcus pneumoniae Antigen (M - Final 01/24/24 14:00 Sputum, Induced/Lukens Gram Stain - Final 01/24/24 14:00 Sputum, Induced/Lukens Respiratory Culture - Final Mixed normal respiratory hannah. No Streptococcus pneumoniae, beta-hemolytic Streptococcus or Staphylococcus aureus isolated. 01/24/24 14:00 Mucosa - Nasopharyngeal Respiratory Panel (PCR) - Final 01/24/24 10:39 Mucosa - Nose SARS-CoV-2, Influenza & RSV (PCR) - Final SARS-CoV-2 (COVID 19 PCR) D/C Instructions DC O2, CPAP, BIPAP Needs PSN CPAP & BiPAP: BiPAP & CPAP Settings per PSN Mode BiPAP 02/03/24 11:55 Bipap Delivery Device Face Mask 02/03/24 11:55 BiPAP Inspiratory Pressure 12 02/03/24 11:55 BiPAP Expiratory Pressure 5 02/03/24 11:55 BiPAP Rate 12 02/03/24 11:55 Fraction of Inspired Oxygen ( 21 02/03/24 11:55 FIO2) Home O2 Discharge instructions: No Meaningful Use Info Meaningful Use Meaningful Use Diagnoses (Choose all that apply): None applicable Ischemic Stroke Statin Dosing Therapy Reference: STATIN DOSE THERAPY REFERENCE: * Patients > 75 years receive moderate or high dose statin therapy. * Patients 75 years or YOUNGER should receive HIGH intensity statin dose unless contraindicated. You will be required to document reason for non-treatment if statin daily dose does not meet guidelines. HIGH DOSE STATIN THERAPY DAILY Atorvastatin > than or = to 40 mg Rosuvastatin > than or = to 20 mg Amlodipine + Atorvastatin > than or = to 2.5/40 mg Ezetimibe + Simvastatin 10/80 mg Simvastatin 80mg Discharge Plan Admission Admit Date/Time: 01/24/24 11:34 Primary Reason for Your Visit: Non-STEMI, COVID-19 pneumonia status post intubation. GI bleed. Attending Provider: Christian Navarro Primary Care Provider: Deng Mcgowan Chi Consulting Providers: Reanna Mcpherson; Brian Woods; Ted Kramer; Dinh Ugarte; Josiah Mendez; Kaiser Bacon; Ernesto Bhat; Alek Shay; Karen Corbett; Paul Guallpa; Gil Thakur; Mich Rodriguez; Eleni Gaona; Geno Blanco; Jomar Belcher; Dusty Kuhn; Carlos Alberto Tim; Kurt Tucker; Ramon Donnelly; Nicholas Chapman; Star Sparks; Bryce Goncalves; Katherine Peterson Discharge Orders/Prescriptions Prescriptions: New furosemide 40 mg Tablet 20 mg PO DAILY PRN (Reason: Leg swelling) Qty: 0 0RF sennosides-docusate sodium [Stimulant Laxative Plus] 8.6-50 mg Tablet 2 tab PO BID Qty: 0 0RF metoprolol tartrate 25 mg Tablet 25 mg PO BID Qty: 0 0RF atorvastatin 80 mg Tablet 80 mg PO QHS Qty: 0 0RF aspirin 81 mg Tablet,Chewable 81 mg PO DAILYCM Qty: 0 0RF pantoprazole [Protonix] 40 mg tablet,delayed release (DR/EC) 40 mg PO BID 30 Days Qty: 60 2RF ipratropium bromide 0.02 % Solution 0.5 mg inhalation Q4HWA.RT PRN (Reason: sob) Qty: 0 0RF Continued amlodipine 5 mg tablet 5 mg PO DAILY levothyroxine 75 mcg tablet 75 mcg PO DAILY albuterol sulfate 90 mcg/actuation HFA aerosol inhaler 2 puff inhalation Q4H PRN (Reason: asthma) Held valsartan 320 mg tablet 320 mg PO DAILY Hold Instructions: Hold for 7 days and resume at lower dose. Later changed to a different ARB possible losartan Referrals / Follow Up: Joel Polk MD [Med Staff - Active Staff] - Within 1 Month Deng Mcgowan Chi, MD [Primary Care Provider] - Nhung Kauffman NP, BLACK [employer]XIDE COATING EQUIPMENT TENDER-C [Med Staff - Adv Practice Prof] - Within 2 Weeks (For PFT) Makayla Kelley NP-C [Med Staff - Adv Practice Prof] - Within 1 Month Disposition Disposition (needs filled in before D/C Order can be placed): [facility] Facility Charges/Coding Visit Charges Inpatient E&M: 26695 Disch Hosp >30min
--- NOTE | 2024-02-07 11:06 | CASEMGMT ---
RADHA received a return call from patient's son Bernard. RADHA notified Gene that patient is agreeable to [facility] and he will go today. Bernard thanked RADHA for the update. Gene will work on getting clothes together for patient. Plan: d/c to [facility] under skilled level of care. Amena CRISTINA
[2024-02-07] MEDS: Insulin Lispro 100 UNIT/ML INSULN.PEN SC (11:38)
--- NOTE | 2024-02-07 11:52 | NURSING ---
Report called to Mallory in TCU, to go to TCU after lunch.
[2024-02-07 11:56] LABS: Bedside Glucose 220 mg/dL (74-106)
--- NOTE | 2024-02-07 11:56 | CASEMGMT ---
SW spoke with patient and let him know he was going to be discharged to TCU today. Patient would like SW to keep trying to call his significant other to let her know. Plan: d/c to [facility] TCU under skilled level of care. Amena CRISTINA
--- NOTE | 2024-02-07 15:10 | CASEMGMT ---
RADHA has attempted numerous times to reach patient's significant other and unfortunately there was no answer and neither voice mail gave identifying information. Amena Bond SALES AGENT MANAGER BUSINESS
== END 2024-02-07 14:46 | disposition skilled nursing facility (03) | DRG 870 ==
LOC: ED 11:22 → ICU 11:48 → PCU 02-04 16:37
PROVIDERS: Family Medicine; Internal Medicine; Internal Medicine Critical Care Medicine; Internal Medicine Gastroenterology; Internal Medicine Pulmonary Disease; Student in an Organized Health Care Education/Training Program; Admitting Provider Internal Medicine; Emergency Provider Emergency Medicine; PCP Family Medicine Geriatric Medicine; Visit Provider Internal Medicine
PROC: 0DJ08ZZ Inspection of Upper Intestinal Tract, Via Natural or Artificial Opening Endoscopic (ICD-10-PCS; CPT 43235; principal; 2024-01-25 16:00)
DX: A41.9 Sepsis, unspecified organism (principal); J96.02 Acute respiratory failure with hypercapnia; R65.21 Severe sepsis with septic shock; J96.21 Acute and chronic respiratory failure with hypoxia; I50.21 Acute systolic (congestive) heart failure; J12.82 Pneumonia due to coronavirus disease 2019; G93.41 Metabolic encephalopathy; J69.0 Pneumonitis due to inhalation of food and vomit; I21.A1 Myocardial infarction type 2; J15.9 Unspecified bacterial pneumonia; U07.1 COVID-19; J44.0 Chronic obstructive pulmonary disease with (acute) lower respiratory infection; I13.0 Hypertensive heart and chronic kidney disease with heart failure and stage 1 through stage 4 chronic kidney disease, or unspecified chronic kidney disease; I48.20 Chronic atrial fibrillation, unspecified; E87.4 Mixed disorder of acid-base balance; E87.0 Hyperosmolality and hypernatremia; N17.9 Acute kidney failure, unspecified; N18.32 Chronic kidney disease, stage 3b; E03.9 Hypothyroidism, unspecified; D64.9 Anemia, unspecified; K26.9 Duodenal ulcer, unspecified as acute or chronic, without hemorrhage or perforation; I48.0 Paroxysmal atrial fibrillation; K21.00 Gastro-esophageal reflux disease with esophagitis, without bleeding; F17.200 Nicotine dependence, unspecified, uncomplicated; D72.829 Elevated white blood cell count, unspecified; E87.70 Fluid overload, unspecified; J44.9 Chronic obstructive pulmonary disease, unspecified; R74.01 Elevation of levels of liver transaminase levels; Z79.899 Other long term (current) drug therapy; Z79.890 Hormone replacement therapy; Z79.01 Long term (current) use of anticoagulants
CPT/HCPCS: 31500; 31720; 36415; 36600; 51702; 71045; 74018; 80048; 80053; 80061; 81001; 82550; 82803; 82947; 82962; 83605; 83735; 83880; 84100; 84443; 84478; 84484; 85014; 85018; 85025; 85730; 86850; 86900; 86901; 86920; 87040; 87070; 87086; 87205; 87449; 87631; 87633; 92526; 92610; 93005; 93306; 94002; 94003; 94640; 94660; 94668; 94762; 97110; 97162; 97166; 97530; 97802; 97803; 99252; 99285; A4216; G0463; J0295; J0696; J1940

== ENCOUNTER 2024-02-07 15:06 | Inpatient (IN) | payer MEDICARE, OTHER, SELFPAY ==
[2024-02-07 15:11] VITALS: BP 156/81; PULSE 61; RESP 14; TEMP 36.6; O2SAT 95; BMI 23.6
--- NOTE | 2024-02-07 15:30 | HP.PCM_ITS ---
[facility] - General General Date of Admission: 02/07/24 Date of Service: 02/07/24 Chief Complaint: Debility HPI Narrative ERMA CALLAWAY, is a 78-year-old M with a past medical history of tobacco dependence, hypertension, chronic kidney failure and hypothyroidism who presented to the emergency department at [facility] on 01/24/2024 complaining of shortness of breath. He was emergently intubated in the emergency department. Lactic acid was elevated at 4.8 and AST was 247 with an ALT of 133. BNP was markedly increased at 1140. White blood cell count was 12.1 and hemoglobin was 15.8. Serum bicarb is decreased at 15. BUN was 18 with a creatinine of 1.54. Initial troponin was 69 but then increased to 3000. He was started on a heparin drip and aspirin chest x-ray was interpreted as congestive heart failure versus infiltrates. COVID-19 antigen test was positive and he was started on Decadron and remdesivir. He was also started on ceftriaxone and azithromycin empirically and a sputum culture was ordered. He was admitted to the intensive care unit and critical care medicine consulted. Dr. Mendez recommended holding off on remdesivir due to transaminitis. IV Lasix was ordered for elevated BNP. Echocardiogram showed a left ventricular ejection fraction of 50% and a PA systolic estimated at 55 which is consistent with moderate pulmonary hypertension. Patient was intubated at the time the echocardiogram was done. On the night of 01/23 he had bright red blood out of the orogastric tube and heparin drip was discontinued and aspirin held. Hemoglobin at admission was 15 and dropped to 11 on 01/25/2024. He was started on a Protonix drip and consult was obtained with Dr. Don. He underwent emergent endoscopy on 01/25/2024 and this showed nonsevere reflux esophagitis with no bleeding. There were no gross lesions in the entire stomach and he had nonbleeding duodenal ulcers with no stigmata of bleeding. On 01/28/2024 a trial of PS/CPAP was initiated but then cut short due to atrial fibrillation and increased respiratory rate into the 30s. He was difficult to sedate and sedation was not adequate with fentanyl and propofol so Seroquel was added to the drug regimen on 01/30/2024. On 02/01/2024 he was started on amiodarone for A-fib/RVR. Family had decided that he should be extubated on 02/03/2024. They did not want reintubation if he failed and the CODE STATUS was changed to DNR CC arrest with no intubation. He was extubated on 02/02 and on 02/03 he was on room air. He was transferred out of intensive care unit on 02/05/2024. Following extubation the patient made himself a full code again. He was transferred to the transitional care unit at [facility] on 12/08/2023 for strengthening/rehabilitation. He completed a 7-day course of appropriate antibiotics and a 10-day course of Decadron. He also completed a course of remdesivir. Sputum culture showed normal respiratory hannah. He was not anticoagulated for A-fib due to anemia from upper GI bleeding. At presentation to TCU he is confused, combative, hallucinating, trying to hit me. He is urinating on the floor and wants to leave to go to [facility]. He is grabbing at the nurses and aides and is not appropriate at this time to be on TCU. He was very agitated in the intensive care unit and was on Precedex, fentanyl and Seroquel. I do not know this gentleman's baseline and he is not appropriate for TCU at this time. Once his behavior is controlled we will reconsider taking him back for rehabilitation. [facility] Medical History Tobacco abuse Hypertension CKD (chronic kidney disease) Epistaxis Home Medications ?Medication ?Instructions ?Recorded ?Last Taken ?Type albuterol sulfate 90 mcg/actuation 2 puff inhalation Q4H PRN asthma 01/24/24 Unknown History aerosol inhaler amlodipine 5 mg tablet 5 mg PO DAILY cardiac 01/24/24 Unknown History levothyroxine 75 mcg tablet 75 mcg PO DAILY thyroid 01/24/24 Unknown History valsartan 320 mg tablet 320 mg PO DAILY cardiac 01/24/24 Unknown History aspirin 81 mg chewable tablet 81 mg PO DAILYCM Heart Health #0 02/07/24 Unknown Rx tabs atorvastatin 80 mg tablet 80 mg PO QHS Cholesterol #0 tabs 02/07/24 Unknown Rx furosemide 40 mg tablet 20 mg (1/2 x 40 mg) PO DAILY PRN 02/07/24 Unknown Rx Leg swelling #0 tabs ipratropium bromide 0.02 % 0.5 mg (2.5 mL) inhalation 02/07/24 Unknown Rx solution for inhalation Q4HWA.RT PRN sob #0 mL metoprolol tartrate 25 mg tablet 25 mg PO BID BP #0 tabs 02/07/24 Unknown Rx pantoprazole 40 mg tablet,delayed 40 mg PO BID GERD 30 days #60 tabs 02/07/24 Unknown Rx release (Protonix) sennosides 8.6 mg-docusate sodium 2 tab PO BID Constipation #0 tabs 02/07/24 02/07/24 Rx 50 mg tablet (Stimulant Laxative Plus) Allergy/AdvReac Type Severity Reaction Status Date / Time strawberry AdvReac Itching Verified 02/07/24 17:32 Social History Smoking Status: Light Smoker (<10/day) Vital Signs Vital Signs Vital Signs: 02/07/24 15:11 Temperature 97.8 F Temperature Source Temporal Pulse Rate 61 Respiratory Rate 14 Blood Pressure 156/81 H Blood Pressure Mean 106 Blood Pressure Source Monitor Blood Pressure Position Sitting Pulse Ox 95 Oxygen Delivery Method Room Air Weight Weight: 179 lb 4.8 oz Body Mass Index (BMI) 23.6 Physical Exam Narrative exam could not be performed due to combativeness and trying to strike me. Assessment & Plan Assessment/Plan (1) Delirium: PLAN: Plan Not appropriate for transfer to TCU until behavior is controlled. Sent to the ER. hospitalist talked withER doc and recommends faustina-psych admission to get his behavior controlled. He is afebrile and vital signs are stable. He is 95% saturated on room air. White blood cell count today was 16.0 however he has been on steroids for treatment of COVID-19 infection requiring intubation. Hemoglobin is stable at 12.5. Electrolytes are unremarkable and the creatinine is 1.5 which is within his baseline.
--- NOTE | 2024-02-07 20:23 | NURSING ---
Per previous nurse report, pt was combative/agitated and was sent to ED for eval and treat.
--- NOTE | 2024-02-09 06:19 | PCM.DC.SUM ---
Providers Date of Admission: 02/07/24 Primary Care Physician: Dr. Deng Mcgowan MD Reason For Visit: ACUTE HYPOXIC RESP FAILURE Diagnosis Discharge Diagnosis (1) Delirium: Status: Acute Code(s): R41.0 - Disorientation, unspecified Medications at Discharge Home Medications albuterol sulfate 90 mcg/actuation aerosol inhaler 2 puff inhalation Q4H PRN asthma 01/24/24 amlodipine 5 mg tablet 5 mg PO DAILY cardiac 01/24/24 levothyroxine 75 mcg tablet 75 mcg PO DAILY thyroid 01/24/24 valsartan 320 mg tablet 320 mg PO DAILY cardiac 01/24/24 aspirin 81 mg chewable tablet 81 mg PO DAILYCM Heart Health #0 tabs 02/07/24 atorvastatin 80 mg tablet 80 mg PO QHS Cholesterol #0 tabs 02/07/24 furosemide 40 mg tablet 20 mg (1/2 x 40 mg) PO DAILY PRN Leg swelling #0 tabs 02/07/24 ipratropium bromide 0.02 % solution for inhalation 0.5 mg (2.5 mL) inhalation Q4HWA.RT PRN sob #0 mL 02/07/24 metoprolol tartrate 25 mg tablet 25 mg PO BID BP #0 tabs 02/07/24 pantoprazole 40 mg tablet,delayed release (Protonix) 40 mg PO BID GERD 30 days #60 tabs 02/07/24 sennosides 8.6 mg-docusate sodium 50 mg tablet (Stimulant Laxative Plus) 2 tab PO BID Constipation #0 tabs 02/07/24 Hospital Course Operations None Procedures EGD and Intubation Summary of Care Provided Minutes Spent on Discharge: 15 Hospital Course: 78 year old male with below past medical history hospitalized for covid-19 requiring prolonged intubation, admitted to TCU with debility, here for rehabilitation, strengthening, prior to discharge home alone. 02/07/2024 Resident delirious, combative, violent, not appropriate for TCU. Discharge to [facility] ED 02/07/2024 for evaluation and treatment. Weight / BMI Weight Weight: 81.329 kg Body Mass Index (BMI) 23.6 D/C Instructions Discharge Diet: No restrictions Discharge Activity: Return to Normal Activity, May Shower and Use Walker Weight Bearing Status: Weight bearing as tolerated Call your doctor if you observe: Fever of 101 or Higher, Inability to urinate, Inability to have a bowel movement, Shortness of breath, Dizziness, Fainting spells, Swelling in the ankles, Chest pain and Uncontrolled pain DC O2, CPAP, BIPAP Needs Home O2 Discharge instructions: No Additional Instructions: Discharge to [facility] ED 02/07/2024 for evaluation and treatment. Meaningful Use Info Meaningful Use Meaningful Use Diagnoses (Choose all that apply): None applicable Ischemic Stroke Statin Dosing Therapy Reference: STATIN DOSE THERAPY REFERENCE: * Patients > 75 years receive moderate or high dose statin therapy. * Patients 75 years or YOUNGER should receive HIGH intensity statin dose unless contraindicated. You will be required to document reason for non-treatment if statin daily dose does not meet guidelines. HIGH DOSE STATIN THERAPY DAILY Atorvastatin > than or = to 40 mg Rosuvastatin > than or = to 20 mg Amlodipine + Atorvastatin > than or = to 2.5/40 mg Ezetimibe + Simvastatin 10/80 mg Simvastatin 80mg Discharge Plan Admission Admit Date/Time: 02/07/24 15:06 Primary Reason for Your Visit: Debility. Attending Provider: Valeri Reeves Primary Care Provider: Deng Mcgowan Chi Instructions Additional Instructions / Restrictions: Discharge to [facility] ED 02/07/2024 for evaluation and treatment. Discharge Orders/Prescriptions Prescriptions: No Action valsartan 320 mg tablet 320 mg PO DAILY amlodipine 5 mg tablet 5 mg PO DAILY levothyroxine 75 mcg tablet 75 mcg PO DAILY albuterol sulfate 90 mcg/actuation HFA aerosol inhaler 2 puff inhalation Q4H PRN (Reason: asthma) furosemide 40 mg Tablet 20 mg PO DAILY PRN (Reason: Leg swelling) Qty: 0 0RF sennosides-docusate sodium [Stimulant Laxative Plus] 8.6-50 mg Tablet 2 tab PO BID Qty: 0 0RF metoprolol tartrate 25 mg Tablet 25 mg PO BID Qty: 0 0RF atorvastatin 80 mg Tablet 80 mg PO QHS Qty: 0 0RF aspirin 81 mg Tablet,Chewable 81 mg PO DAILYCM Qty: 0 0RF pantoprazole [Protonix] 40 mg tablet,delayed release (DR/EC) 40 mg PO BID 30 Days Qty: 60 2RF ipratropium bromide 0.02 % Solution 0.5 mg inhalation Q4HWA.RT PRN (Reason: sob) Qty: 0 0RF Referrals / Follow Up: Deng Mcgowan Chi, MD [Primary Care Provider] - Within 2 Weeks Disposition Disposition (needs filled in before D/C Order can be placed): Acute Care Hospital [facility]
== END 2024-02-07 20:23 | disposition short-term general hospital (02) | DRG 178 ==
PROVIDERS: Admitting Provider Internal Medicine; PCP Family Medicine Geriatric Medicine; Referring Provider Internal Medicine; Visit Provider Internal Medicine
DX: U07.1 COVID-19 (principal); R44.3 Hallucinations, unspecified; E03.9 Hypothyroidism, unspecified; Z66 Do not resuscitate; I12.9 Hypertensive chronic kidney disease with stage 1 through stage 4 chronic kidney disease, or unspecified chronic kidney disease; N18.9 Chronic kidney disease, unspecified; F17.200 Nicotine dependence, unspecified, uncomplicated; R41.0 Disorientation, unspecified; R45.1 Restlessness and agitation; Z79.899 Other long term (current) drug therapy; Z79.890 Hormone replacement therapy; Z79.82 Long term (current) use of aspirin

== ENCOUNTER 2024-02-07 17:31 | Emergency (ER) | payer MEDICARE, OTHER, SELFPAY ==
[2024-02-07 17:36] VITALS: BP 171/103; PULSE 73; RESP 27; TEMP 36.8; O2SAT 94; BMI 23.9
--- NOTE | 2024-02-07 17:56 | EKG12_ITS ---
Test Reason : SOB Blood Pressure : */* mmHG Vent. Rate : 71 BPM Atrial Rate : 71 BPM P-R Int : 142 ms QRS Dur : 96 ms QT Int : 416 ms P-R-T Axes : 107 6 17 degrees QTcB Int : 452 ms Sinus rhythm with Premature supraventricular complexes Inferior infarct , age undetermined Anterior infarct , age undetermined Abnormal ECG Confirmed by SALINAS SPEAR, MIKAELA ([id number]), sports editor ESTEFANIA JACKSON ([id number]) on 02/09/2024 2:17:10 PM Referred By: Ricki Ovalle Confirmed By: MIKAELA NIÑO MD
--- NOTE | 2024-02-07 17:56 | RAD_ITS ---
INDICATION: Shortness of breath EXAMINATION/TECHNIQUE: X-RAY - XR Chest 2 Views COMPARISON: 01/30/2024. FINDINGS: Interval worsening in bibasilar patchy opacities. The cardiomediastinal silhouette is stable. Increased small bilateral pleural effusions. No pneumothorax. The osseous structures are unchanged. RAD/Chest PA and Lateral IMPRESSION: Interval worsening in bibasilar patchy opacities. Increased small bilateral pleural effusions. Electronically Signed: Ha Gipsno MD at 19:14 EST ,
[2024-02-07] MEDS: Ipratropium/Albuterol Sulfate 3 ML AMPUL.NEB 9 ML INHALATION (18:00)
--- NOTE | 2024-02-07 18:15 | EDS_ITS ---
HPI History of Present Illness Chief Complaint: Shortness of Breath Narrative Narrative: Chief complaint and HPI: Shortness of breath. 78-year-old male presents from our transitional care center for evaluation of aggressive behavior. Per transitional care center nurse, patient arrived to their facility today from the hospital. They state the patient has been alert and oriented x 2. They state he became more combative and trying to hit staff and therefore they sent him to the ED for evaluation as patient is not fit for their center. On arrival, patient is alert and oriented x 3. He does seem intermittently agitated but is not confused. He is tachypneic and is endorsing shortness of breath. He also endorses bilateral lower extremity swelling. He denies any fever, chills, URI symptoms, chest pain, abdominal pain, nausea, vomiting, dysuria. On chart review, patient was discharged from the hospital today. He was admitted for acute hypoxic and hypercapnic respiratory failure due to COVID-19 pneumonia and aspiration pneumonia as well as CHF and pulmonary hypertension. He was ultimately intubated and then extubated. He had a recent echocardiogram that showed an EF of 50%. He also was diagnosed with an NSTEMI and upper GI bleed. EGD done on 01/25/2024 showed nonsevere reflux esophagitis with no gross lesions in the entire stomach and nonbleeding duodenal ulcers with no stigmata of bleeding. Review of systems: See HPI Medications: As listed on the chart Allergies: As listed on the chart PFSH: Per chart Vital signs: As listed on the chart. Reviewed. Physical exam: Gen: A&O x3 Head: Normocephalic, atraumatic Eyes: No sclera icterus, conjunctiva clear, PERRL, EOMI ENT: Mildly dry mucous membranes Neck: Trachea midline, No JVD CV: RRR, no murmurs, + 2 pitting peripheral edema bilaterally Resp: Lungs coarse bilaterally with diminished breath sounds, tachypnea GI: Abd soft, non-distended, non-tender, no r/r/g Musc: Full ROM, no deformity Skin: Warm, dry, Large intact blister to the right heel Neuro: Alert, oriented, grossly intact, sensation intact Psych: Intermittently cooperative, intermittent agitated PFSH PFSH Medical History Tobacco abuse Hypertension CKD (chronic kidney disease) Epistaxis Home Medications ?Medication ?Instructions ?Recorded ?Last Taken ?Type albuterol sulfate 90 mcg/actuation 2 puff inhalation Q4H PRN asthma 01/24/24 Unknown History aerosol inhaler amlodipine 5 mg tablet 5 mg PO DAILY cardiac 01/24/24 Unknown History levothyroxine 75 mcg tablet 75 mcg PO DAILY thyroid 01/24/24 Unknown History valsartan 320 mg tablet 320 mg PO DAILY cardiac 01/24/24 Unknown History aspirin 81 mg chewable tablet 81 mg PO DAILYCM Heart Health #0 02/07/24 Unknown Rx tabs atorvastatin 80 mg tablet 80 mg PO QHS Cholesterol #0 tabs 02/07/24 Unknown Rx furosemide 40 mg tablet 20 mg (1/2 x 40 mg) PO DAILY PRN 02/07/24 Unknown Rx Leg swelling #0 tabs ipratropium bromide 0.02 % 0.5 mg (2.5 mL) inhalation 02/07/24 Unknown Rx solution for inhalation Q4HWA.RT PRN sob #0 mL metoprolol tartrate 25 mg tablet 25 mg PO BID BP #0 tabs 02/07/24 Unknown Rx pantoprazole 40 mg tablet,delayed 40 mg PO BID GERD 30 days #60 tabs 02/07/24 Unknown Rx release (Protonix) sennosides 8.6 mg-docusate sodium 2 tab PO BID Constipation #0 tabs 02/07/24 02/07/24 Rx 50 mg tablet (Stimulant Laxative Plus) Allergy/AdvReac Type Severity Reaction Status Date / Time strawberry AdvReac Itching Verified 02/07/24 17:32 Social History Smoking Status: Never smoker EXAM Physical Exam Const Vital Signs: 02/07/24 17:36 02/07/24 17:54 02/07/24 18:33 Temperature 98.3 F Temperature Source Temporal Pulse Rate 73 94 Respiratory Rate 27 H 24 H Respiratory Effort Normal Respiratory Pattern Tachypnea Tachypnea Blood Pressure 171/103 H Blood Pressure Mean 125 Pulse Ox 94 Oxygen Delivery Method Room Air Room Air MDM MDM MDM Narrative Medical decision making narrative: 78-year-old male presents from our transitional care center for evaluation of aggressive behavior. Patient endorses shortness of breath and is tachypneic on arrival. Per report, patient has been alert and oriented x 2. He is alert and oriented x 3 for me however is intermittently aggressive. Differential diagnosis includes but is not limited to intermittent delirium, psychiatric pathology, pneumonia, CHF exacerbation, ACS, UTI, electrolyte abnormality. DuoNebs x 3 ordered. Respiratory/cardiac workup ordered. EKG reviewed. CBC shows a leukocytosis of 18.3. This is uptrending from earlier today as well as on 02/04. Anemia resolved. BMP shows worsening renal insufficiency with a creatinine of 1.56. Earlier today it was 1.5. Patient started becoming more aggravated and aggressive towards staff. Geodon ordered. Patient has lactic acidosis of 2.1. Chest x-ray shows worsening pneumonia. Troponin is 85. Patient not having any chest pain. His troponin is downtrending from his NSTEMI 2915. BNP is worsening at 1403. This is uptrending from 778. Patient is in a CHF exacerbation. VBG without hypercapnia. D-dimer elevated at 19.88. This may be secondary to his previous infection however cannot rule out PE as a cause of his shortness of breath and tachypnea. Patient will need to have CTA chest to assess for PE. Patient was informed of all of his results thus far and my recommendations for a CTA chest to assess for PE, antibiotics for pneumonia, Lasix for CHF. Patient states that he does not want a CTA chest and that he does not want any further medical management. He states that he wants to be left alone and wants to discharge home. Patient is alert and oriented x 4. Nursing staff confirm this in the room. I personally explained to them that choosing to do so may result in permanent bodily harm or . I discussed at length that without further evaluation and monitoring there may be unforeseen circumstances and deterioration causing permanent bodily harm or because of his choice. Patient states that he is aware of the serious risks as explained above continues to want to leave AGAINST MEDICAL ADVICE. Due to this, I contacted his POA Bernard Calvin who is his son and explained to him that the patient would like to discharge home and leave AGAINST MEDICAL ADVICE. Bernard states that he will come to the hospital to have further discussion with his father and myself. At this point in time no further care will be obtained until further discussion was had with family and the patient. Patient still positive for COVID-19. Patient's son arrived at bedside with his . Extensive discu ssion was had with the patient, son, and son's about all the results and the plan I would like to perform. Patient again endorses wanting to leave AGAINST MEDICAL ADVICE. Son is not in agreement but respects his father's wishes. Patient was ambulated in our emergency department with a walker without difficulty. Son is willing to take the patient home. Patient is declining any antibiotics or treatment for pneumonia, CHF, possible PE, lactic acidosis. Considering the patient decision to leave against medical advice, patient was educated to follow-up with his primary care physician he was made aware of the importance of following up as instructed. He was advised that he should return to the ED immediately if he changes his mind at any time or if his condition begins to worsen or change. He confirmed understanding. EKG: Interpreted by me/EM physician: EKG shows normal sinus rhythm with premature supraventricular complexes. No STEMI. Heart rate 71. Diagnostic: Interpreted by me/EM physician: Chest x-ray shows worsening bilateral infiltrates which is concerning for worsening pneumonia. Small pleural effusions. Impression: 1. Bilateral pneumonia, worsening despite medical 2. CHF exacerbation 3. COVID-19 infection 4. Lactic acidosis 5. Elevated D-dimer, concern for pulmonary embolism 6. Renal insufficiency 7. Left AGAINST MEDICAL ADVICE Lab Data Labs: Laboratory Results - last 24 hr 02/07/24 18:13 WBC 18.3 H RBC 4.07 L Hgb 14.4 Hct 41.1 MCV 101.0 H MCH 35.4 H MCHC 35.0 RDW Std Deviation 50.9 H RDW Coeff of Jesus 14.0 Plt Count 232 MPV 10.9 Immature Gran % (Auto) 0.800 Neut % (Auto) 81.5 H Lymph % (Auto) 9.5 L [place] % (Auto) 6.9 Eos % (Auto) 1.0 Baso % (Auto) 0.3 Absolute Neuts (auto) 15.0 H Absolute Lymphs (auto) 1.74 Nucleated RBC % 0 D-Dimer Quant (PE/DVT) 19.88 H* Sodium 140 Potassium 3.8 Chloride 110 H Carbon Dioxide 24.0 Anion Gap 7 BUN 29 H Creatinine 1.56 H Estim Creat Clear Calc 44.82 Est GFR (MDRD) Af Amer 56 L Est GFR (MDRD) Non-Af 46 L BUN/Creatinine Ratio 18.6 Glucose 118 H Lactic Acid 2.1 H* Calcium 9.2 Troponin I High Sens 85 H B-Natriuretic Peptide 1403.6 H ABG Data ABG results: ABG 02/07/24 18:49 Specimen Type EFREN Sample Site Not entered O2 % 21.0 VBG pH 7.44 H VBG pO2 38 VBG HCO3 19 L VBG Total CO2 19 L VBG O2 Sat (Calc) 75 H VBG Base Excess -6 L POC Mix VBG pCO2 Pt Tmp 27.3 L O2 Delivery Device Room Air Radiography Diagnostic Testing: Clinical Impression(s) from Imaging Studies Chest X-Ray 02/07/24 17:56 IMPRESSION: Interval worsening in bibasilar patchy opacities. Increased small bilateral pleural effusions. Electronically Signed: Ha Gipson MD at 19:14 EST , Discharge Plan Triage Chief Complaint: Shortness of Breath ED Provider: Ricki Ovalle Dx/Rx/DC Orders Clinical Impression: COVID-19 virus infection, Pneumonia, CHF exacerbation Instructions: How COVID-19 Spreads, Heart Failure Flare Up Signs, What Is Pneumonia?, Treating Pneumonia, ED Pneumonia (Adult) Prescriptions: No Action valsartan 320 mg tablet 320 mg PO DAILY amlodipine 5 mg tablet 5 mg PO DAILY levothyroxine 75 mcg tablet 75 mcg PO DAILY albuterol sulfate 90 mcg/actuation HFA aerosol inhaler 2 puff inhalation Q4H PRN (Reason: asthma) furosemide 40 mg Tablet 20 mg PO DAILY PRN (Reason: Leg swelling) Qty: 0 0RF sennosides-docusate sodium [Stimulant Laxative Plus] 8.6-50 mg Tablet 2 tab PO BID Qty: 0 0RF metoprolol tartrate 25 mg Tablet 25 mg PO BID Qty: 0 0RF atorvastatin 80 mg Tablet 80 mg PO QHS Qty: 0 0RF aspirin 81 mg Tablet,Chewable 81 mg PO DAILYCM Qty: 0 0RF pantoprazole [Protonix] 40 mg tablet,delayed release (DR/EC) 40 mg PO BID 30 Days Qty: 60 2RF ipratropium bromide 0.02 % Solution 0.5 mg inhalation Q4HWA.RT PRN (Reason: sob) Qty: 0 0RF Primary Care Provider: Care Physician,No Primary Referrals: Deng Mcgowan Chi, MD [Med Staff - Active Staff] - 3-5 Days Activity Restrictions/Additional Instructions: Despite you leaving AGAINST MEDICAL ADVICE please return to the ED immediately if you change your mind at any time or if your condition begins to change or worsen. Follow-up with your primary care physician. Tomas has been provided for assistance. Print Language: [place]an Disposition Disposition: Against Medical Advice Discharge Date/Time: 02/07/24 20:12
[2024-02-07 18:24] LABS: Absolute Lymphocyte Count 1.74 X10^3/uL (0.83-4.51); Basophil# 0.05 X10^3/uL; Basophil% 0.3 % (0-1); Eosinophil# 0.19 X10^3/uL; Hematocrit 41.1 % (40-54); Hemoglobin 14.4 g/dL (13.0-16.5); Lymphocyte # 1.74 X10^3/ul (0.83-4.51); Lymphocyte % 9.5 % (19-41); Mean Corpuscular Hgb 35.4 pg (27.0-32.0); Mean Platelet Vol. 10.9 fl (6.2-12.0); Monocyte# 1.26 X10^3/uL; Monocyte% 6.9 % (0-10); NRBC Flagged by Analyzer 0 % (0-5); Neutrophil # 14.96 X10^3/uL (2.7-7.7); Neutrophil % 81.5 % (47-70); Platelet Count 232 K/mm3 (150-450); RBC Distribution Width SD 50.9 fl (35.1-43.9); Red Blood Count 4.07 M/mm3 (4.6-6.2); White Blood Count 18.3 K/mm3 (4.4-11.0)
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
[2024-02-07 18:33] VITALS: PULSE 94; RESP 24
[2024-02-07] MEDS: Ziprasidone IM 20 MG/ML VIAL 10 MG IM (18:37)
[2024-02-07 18:45] LABS: Anion Gap 7 (5-15); BUN 29 mg/dL (7-18); BUN/Creat Ratio 18.6 RATIO (10-20); Calcium,Total 9.2 mg/dL (8.5-10.1); Chloride 110 mmol/L (98-107); Creatinine, Serum 1.56 mg/dL (0.70-1.30); EST Glomerular Filtration Rate 46 mL/min (>60); Est Glom Filt Rate - Afr Amer 56 mL/min (>60); Estimated Creatinine Clearance 44.82 ml/min; Glucose 118 mg/dL (74-106); Potassium 3.8 mmol/L (3.5-5.1); Sodium Level 140 mmol/L (136-145); Troponin-I HS 85 pg/mL (3.0-78.0)
[2024-02-07 18:46] LABS: BNP,B-Type NATRIURETIC PEPTIDE 1403.6 pg/mL (0-100)
[2024-02-07 18:51] LABS: D-Dimer Quantitative (DVT/PE) 19.88 FEU/ug/m (0.27-0.49)
[2024-02-07 18:52] LABS: Blood Gas Specimen Type VEN; O2 Delivery Device Room Air; SITE Not entered; VBG BASE EXCESS -6 mmol/L (-1.0-3.5); VBG Bicarbonate 19 mmol/L (22-26); VBG PO2 38 mmHg (25-40); VBG SO2 75 % (50-70); VBG TCO2 19 mmol/L (23-33); VBG pCO2 27.3 mmHg (41-51); VBG pH 7.44 (7.32-7.42)
[2024-02-07 18:56] LABS: Lactic Acid 2.1 mmol/L (0.4-1.9)
--- NOTE | 2024-02-07 19:07 | ED.RN ---
Pt pulled all vital signs monitoring off and refusing to allow further monitoring of vital signs. Education provided on purpose of monitoring vital signs and risk of not monitoring considering pt is tachypneic.
[2024-02-07 22:21] LABS: Reflex Lactate? Y
== END 2024-02-07 20:12 | disposition left against medical advice (07) ==
PROVIDERS: Emergency Provider Surgery; Referring Provider Surgery; Visit Provider Surgery
DX: U07.1 COVID-19 (principal); I27.20 Pulmonary hypertension, unspecified; I13.0 Hypertensive heart and chronic kidney disease with heart failure and stage 1 through stage 4 chronic kidney disease, or unspecified chronic kidney disease; I50.9 Heart failure, unspecified; N18.9 Chronic kidney disease, unspecified; K21.00 Gastro-esophageal reflux disease with esophagitis, without bleeding; K26.9 Duodenal ulcer, unspecified as acute or chronic, without hemorrhage or perforation; J18.9 Pneumonia, unspecified organism
CPT/HCPCS: 96372; 99283; 71046; 80048; 82803; 83605; 83880; 84484; 85025; 85379; 87631; 93005; 94640; A4216; J3486

== ENCOUNTER 2024-02-10 12:44 | Inpatient (IN) | payer MEDICARE, OTHER, SELFPAY ==
[2024-02-10] VITALS (10 sets, daily range): BP systolic 150–174; BP diastolic 73–93; PULSE 49–88; RESP 14–20; TEMP 34.2–37; O2SAT 91–100; BMI 25.7; BMI 22.8
--- NOTE | 2024-02-10 13:28 | RAD_ITS ---
STUDY: X-RAY CHEST REASON FOR EXAM: Male, 78 years old. Cough TECHNIQUE: Single AP portable view of the chest. COMPARISON: February 07, 2024 FINDINGS: The lungs are clear and expanded. There is no demonstrated pleural abnormality. Normal size heart. Normal mediastinum and kiley. Normal visualized pulmonary arteries. There is atherosclerotic calcification of the aortic arch with tortuosity. There are diffuse degenerative changes of the visualized thoracic spine. Normal visualized ribs, clavicles, and shoulders. There is no demonstrated abnormality of the visualized soft tissue structures of the upper abdomen. RAD/Chest 1 View (Portable) IMPRESSION: Degenerative changes, as described above. No demonstrated acute cardiopulmonary process. Electronically Signed: Jeronimo Rachel MD at 15:14 [facility] ,
--- NOTE | 2024-02-10 13:31 | EKG12_ITS ---
Test Reason : FALL Blood Pressure : */* mmHG Vent. Rate : 65 BPM Atrial Rate : 65 BPM P-R Int : 156 ms QRS Dur : 106 ms QT Int : 500 ms P-R-T Axes : 76 -5 78 degrees QTcB Int : 520 ms Normal sinus rhythm Inferior infarct (cited on or before 20-Nov-2016) Abnormal ECG Confirmed by SALINAS SPEAR, MIKAELA ([id number]), video effects editor DIONNE SHARMA ([id number]) on 02/13/2024 6:43:41 AM Referred By: Confirmed By: MIKAELA NIÑO MD
--- NOTE | 2024-02-10 13:36 | EX.ED.DYSGE1 ---
HPI <ABA Crenshaw - Last Filed: 02/10/24 16:14> History of Present Illness Chief Complaint: Weakness Narrative Narrative: Patient is a 78-year-old male, patient was intubated secondary to COVID-19, pneumonia. Patient was extubated on February 03, 2024. Patient was in the TCU, then came back down to the emergency department, patient was treated for COVID-19 pneumonia. Patient per medical records, did get sent home 2 days ago. Patient was found on the floor, has been weak and been unable to care for himself. There was discussion the patient did leave AGAINST MEDICAL ADVICE. Patient is full code. [facility] <ABA Crenshaw - Last Filed: 02/10/24 16:14> [facility] Medical History (Updated 02/10/24 @ 17:10 by Eli Bro) Non-smoker Myocardial infarct Hypertension TIA (transient ischemic attack) Tobacco abuse Hypertension CKD (chronic kidney disease) Epistaxis Home Medications ?Medication ?Instructions ?Recorded ?Last Taken ?Type albuterol sulfate 90 mcg/actuation 2 puff inhalation Q4H PRN asthma 01/24/24 Unknown History aerosol inhaler amlodipine 5 mg tablet 5 mg PO DAILY cardiac 01/24/24 Unknown History levothyroxine 75 mcg tablet 75 mcg PO DAILY thyroid 01/24/24 Unknown History valsartan 320 mg tablet 320 mg PO DAILY cardiac 01/24/24 Unknown History aspirin 81 mg chewable tablet 81 mg PO DAILY Heart Health #0 02/07/24 Unknown Rx tabs atorvastatin 80 mg tablet 80 mg PO QHS Cholesterol #0 tabs 02/07/24 Unknown Rx furosemide 40 mg tablet 20 mg (1/2 x 40 mg) PO DAILY PRN 02/07/24 Unknown Rx Leg swelling #0 tabs ipratropium bromide 0.02 % 0.5 mg (2.5 mL) inhalation 02/07/24 Unknown Rx solution for inhalation Q4HWA.RT PRN sob #0 mL metoprolol tartrate 25 mg tablet 25 mg PO BID BP #0 tabs 02/07/24 Unknown Rx pantoprazole 40 mg tablet,delayed 40 mg PO BID GERD 30 days #60 tabs 02/07/24 Unknown Rx release (Protonix) sennosides 8.6 mg-docusate sodium 2 tab PO BID Constipation #0 tabs 02/07/24 02/07/24 Rx 50 mg tablet (Stimulant Laxative Plus) Allergy/AdvReac Type Severity Reaction Status Date / Time strawberry AdvReac Itching Verified 02/10/24 12:54 Social History Smoking Status: Never smoker ROS <DAJUAN CrenshawC - Last Filed: 02/10/24 16:14> ROS ED ROS Narrative Constitutional: Negative for fever, chills, weight loss. Positive for weakness Eyes: Negative for vision loss, vision change, double vision ENT: Negative for any sore throat, ear pain, congestion Cardiovascular: Negative for any chest pain, tightness, palpitations Respiratory: Negative for any cough, sputum production, hemoptysis, dyspnea, dyspnea on exertion, orthopnea Gastrointestinal: Negative for any abdominal pain, nausea, vomiting, diarrhea, constipation, blood in stool, blood in vomit : Negative for any urinary frequency, dysuria, retention, blood in urine Muscle skeletal: Negative for any neck pain, back pain Neurological: Negative for any headache, syncope, dizziness Skin: Negative for any rashes, itching, abrasions, lacerations Psychiatric: Negative for any depression, anxiety, stress, suicidal ideation, homicidal ideation Hematologic: Negative for any excessive bruising, easy bleeding EXAM <ABA Crenshaw - Last Filed: 02/10/24 16:14> Physical Exam Narrative Exam Narrative: Vital signs reviewed. Patient on room air appears to be in no distress. Patient is sleeping, he does wake up and answer questions having alert and orient x 2. Patient really falls right back asleep. HEET: Head normocephalic atraumatic, TMs clear bilaterally. Posterior pharynx is clear, dry mucous membranes. Nares clear bilaterally. Neck: Supple with no lymphadenopathy or tenderness. No signs of meningismus. Cardiac: Regular rate and rhythm no murmurs gallops or rubs, equal peripheral pulses bilaterally. Respiratory: Diminished lung sounds to bilateral bases. No chest tenderness. Abdomen: Soft, nontender, nondistended. No abdominal bruit or pulsatile masses. No hepatosplenomegaly Extremities: +3 pitting edema to bilateral lower extremities up to the knees no signs of gross trauma or deformity. Active full range of motion of all extremities. Neuro: Cranial nerves II through XII intact, no focal neurological deficits. Skin: Clean dry and intact with no rash, purpura, petechiae, vesicles or pustules. Backs/flank: No CVA tenderness, no midline spinal tenderness, no deformity. Psych: Normal mood and affect. No SI, HI or acute psychosis. Const Vital Signs: 02/10/24 12:45 02/10/24 12:52 02/10/24 12:52 Temperature 93.5 F L 93.5 F L Temperature Source Oral Oral Pulse Rate 67 76 71 Respiratory Rate 19 H 20 H 20 H Respiratory Pattern Blood Pressure 174/93 H 172/93 H 174/93 H Blood Pressure Mean 120 119 120 Pulse Ox 99 99 99 Oxygen Delivery Method Room Air Room Air Room Air 02/10/24 13:31 02/10/24 13:46 02/10/24 13:47 Temperature Temperature Source Pulse Rate 58 L Respiratory Rate 16 Respiratory Pattern Normal Blood Pressure 153/73 H Blood Pressure Mean 99 Pulse Ox 95 96 Oxygen Delivery Method Room Air 02/10/24 14:00 02/10/24 15:07 02/10/24 16:00 Temperature 98.6 F 96.9 F L 97.1 F L Temperature Source Oral Core Core Pulse Rate 50 L 56 L 49 L Respiratory Rate 18 18 18 Respiratory Pattern Blood Pressure 163/93 H 150/78 H 159/76 H Blood Pressure Mean 116 102 103 Pulse Ox 97 97 100 Oxygen Delivery Method Room Air Room Air Room Air Positive cachectic and unkempt General Appearance ED: unkempt and cachectic Nutritional Appearance: cachectic Psych Appearance: unkempt <Dr. Manny Ventura, DO - Last Filed: 02/10/24 23:41> Physical Exam Const Vital Signs: 02/10/24 12:45 02/10/24 12:52 02/10/24 12:52 Temperature 93.5 F L 93.5 F L Temperature Source Oral Oral Pulse Rate 67 76 71 Respiratory Rate 19 H 20 H 20 H Respiratory Pattern Blood Pressure 174/93 H 172/93 H 174/93 H Blood Pressure Mean 120 119 120 Pulse Ox 99 99 99 Oxygen Delivery Method Room Air Room Air Room Air 02/10/24 13:31 02/10/24 13:46 02/10/24 13:47 Temperature Temperature Source Pulse Rate 58 L Respiratory Rate 16 Respiratory Pattern Normal Blood Pressure 153/73 H Blood Pressure Mean 99 Pulse Ox 95 96 Oxygen Delivery Method Room Air 02/10/24 14:00 02/10/24 15:07 02/10/24 16:00 Temperature 98.6 F 96.9 F L 97.1 F L Temperature Source Oral Core Core Pulse Rate 50 L 56 L 49 L Respiratory Rate 18 18 18 Respiratory Pattern Blood Pressure 163/93 H 150/78 H 159/76 H Blood Pressure Mean 116 102 103 Pulse Ox 97 97 100 Oxygen Delivery Method Room Air Room Air Room Air [facility] <ABA Crenshaw - Last Filed: 02/10/24 16:14> [facility] Lab Data Labs: Laboratory Results - last 24 hr 02/10/24 02/10/24 12:57 14:30 WBC 12.7 H RBC 3.73 L Hgb 13.1 Hct 38.4 L MCV 102.9 H MCH 35.1 H MCHC 34.1 RDW Std Deviation 52.8 H RDW Coeff of Jesus 14.2 Plt Count 216 MPV 11.2 Immature Gran % (Auto) 0.500 Neut % (Auto) 83.3 H Lymph % (Auto) 9.0 L [place] % (Auto) 6.7 Eos % (Auto) 0.3 Baso % (Auto) 0.2 Absolute Neuts (auto) 10.6 H Absolute Lymphs (auto) 1.14 Nucleated RBC % 0 Sodium 144 Potassium 3.4 L Chloride 114 H Carbon Dioxide 22.0 Anion Gap 9 BUN 20 H Creatinine 1.23 Estim Creat Clear Calc 56.84 Est GFR (MDRD) Af Amer 73 Est GFR (MDRD) Non-Af 61 BUN/Creatinine Ratio 16.3 Glucose 84 Lactic Acid 1.7 Calcium 9.0 Total Creatine Kinase 196 Troponin I High Sens 84 H B-Natriuretic Peptide 1152.3 H Urine Color Yellow Urine Clarity Clear Urine pH 6.0 Ur Specific [place] 1.020 Urine Protein 100 H Urine Glucose (UA) Normal Urine Ketones 50 H Urine Occult Blood 25 H Urine Nitrite Negative Urine Bilirubin Negative Urine Urobilinogen Normal Ur Leukocyte Esterase 25 H Urine RBC 5-10 SEEN Urine WBC 5-10 SEEN Ur Squamous Epith Cells 0-5 SEEN Urine Bacteria 0 SEEN Hyaline Casts 0-5 SEEN Urine Mucus 1+ ABG Data ABG results: ABG 02/10/24 13:46 Specimen Type EFREN Sample Site Not entered O2 % 21.0 VBG pH 7.36 VBG pO2 28 VBG HCO3 19 L VBG Total CO2 20 L VBG O2 Sat (Calc) 51 VBG Base Excess -7 L POC Mix VBG pCO2 Pt Tmp 32.8 L O2 Delivery Device Room Air Radiography Diagnostic Testing: Clinical Impression(s) from Imaging Studies Chest X-Ray 02/10/24 13:28 IMPRESSION: Degenerative changes, as described above. No demonstrated acute cardiopulmonary process. Electronically Signed: Jeronimo Rachel MD at 15:14 EST Reading Location ID and State: [id number] [place] [address] , Service support , Brain CT 02/10/24 14:10 IMPRESSION: Chronic involutional changes of the brain. Electronically Signed: Jeronimo Rachel MD at 15:44 EST , EKG Normal sinus rhythm: Attestation: I personally reviewed and interpreted this EKG as follows: Interpretation: Sinus Rhythm Comments: Normal sinus rhythm, rate of 65 bpm, MS interval 156 ms, QRS duration 106 ms, no acute ST elevation, no acute infarct noted. Treatment and Re-Evaluation :: Differential diagnosis includes however is not limited to: Community-acquired pneumonia, hypercapnia, intracranial bleeding, rhabdomyolysis, dehydration, failure to thrive, community-acquired pneumonia, ACS, DE, COVID-19 influenza or RSV Patient appears to be sleeping, patient does answer couple questions however falls right back asleep. Patient alert and x 2 on my examination. Patient will receive a full workup including a chest x-ray, CT scan of the brain, as well as laboratory values including high sensitive troponin, BNP, CBC and basic electrolytes. Upon my initial evaluation, I do not see how the patient can go home secondary to him being confused as well as inability to care for himself. All radiologic examinations were read, reviewed by the emergency department attending. From these reads, a plan of care will be put in place. Patient's urinalysis was negative for infection. Patient's CT scan the brain shows no acute process. Chest x-ray showed degenerative changes, no acute process. Patient is still COVID-positive. CBC showed a leukocytosis that was 12.7, this is improvement from 3 days ago that was 18.3. Hemoglobin stable at 13.1, chemistries show stable creatinine of 1.2, troponin is still elevated at 84, it was 85 3 days ago. Patient's proBNP was 1152, improved from 1403 a couple days ago. At this time, patient is not ambulatory, is altered, do believe the patient needs admitted to the hospital. Patient will go to PCU as observation. At this time, patient does have multiple comorbidities, multiple pathologies however they are all improving. <Dr. Manny Ventura, DO - Last Filed: 02/10/24 23:41> [facility] Lab Data Labs: Laboratory Results - last 24 hr 02/10/24 02/10/24 12:57 14:30 WBC 12.7 H RBC 3.73 L Hgb 13.1 Hct 38.4 L MCV 102.9 H MCH 35.1 H MCHC 34.1 RDW Std Deviation 52.8 H RDW Coeff of Jesus 14.2 Plt Count 216 MPV 11.2 Immature Gran % (Auto) 0.500 Neut % (Auto) 83.3 H Lymph % (Auto) 9.0 L [place] % (Auto) 6.7 Eos % (Auto) 0.3 Baso % (Auto) 0.2 Absolute Neuts (auto) 10.6 H Absolute Lymphs (auto) 1.14 Nucleated RBC % 0 Sodium 144 Potassium 3.4 L Chloride 114 H Carbon Dioxide 22.0 Anion Gap 9 BUN 20 H Creatinine 1.23 Estim Creat Clear Calc 56.84 Est GFR (MDRD) Af Amer 73 Est GFR (MDRD) Non-Af 61 BUN/Creatinine Ratio 16.3 Glucose 84 Lactic Acid 1.7 Calcium 9.0 Total Creatine Kinase 196 Troponin I High Sens 84 H B-Natriuretic Peptide 1152.3 H Urine Color Yellow Urine Clarity Clear Urine pH 6.0 Ur Specific [place] 1.020 Urine Protein 100 H Urine Glucose (UA) Normal Urine Ketones 50 H Urine Occult Blood 25 H Urine Nitrite Negative Urine Bilirubin Negative Urine Urobilinogen Normal Ur Leukocyte Esterase 25 H Urine RBC 5-10 SEEN Urine WBC 5-10 SEEN Ur Squamous Epith Cells 0-5 SEEN Urine Bacteria 0 SEEN Hyaline Casts 0-5 SEEN Urine Mucus 1+ ABG Data ABG results: ABG 02/10/24 13:46 Specimen Type EFREN Sample Site Not entered O2 % 21.0 VBG pH 7.36 VBG pO2 28 VBG HCO3 19 L VBG Total CO2 20 L VBG O2 Sat (Calc) 51 VBG Base Excess -7 L POC Mix VBG pCO2 Pt Tmp 32.8 L O2 Delivery Device Room Air Radiography Chest X-Ray - ED: Read by ED Physician Diagnostic Testing: Clinical Impression(s) from Imaging Studies Chest X-Ray 02/10/24 13:28 IMPRESSION: Degenerative changes, as described above. No demonstrated acute cardiopulmonary process. Electronically Signed: Jeronimo Rachel MD at 15:14 EST , Brain CT 02/10/24 14:10 IMPRESSION: Chronic involutional changes of the brain. Electronically Signed: Jeronimo Rachel MD at 15:44 EST , Treatment and Re-Evaluation :: Differential diagnosis includes however is not limited to: Community-acquired pneumonia, hypercapnia, intracranial bleeding, rhabdomyolysis, dehydration, failure to thrive, community-acquired pneumonia, ACS, DE, COVID-19 influenza or RSV Patient appears to be sleeping, patient does answer couple questions however falls right back asleep. Patient alert and x 2 on my examination. Patient will receive a full workup including a chest x-ray, CT scan of the brain, as well as laboratory values including high sensitive troponin, BNP, CBC and basic electrolytes. Upon my initial evaluation, I do not see how the patient can go home secondary to him being confused as well as inability to care for himself. All radiologic examinations were read, reviewed by the emergency department attending. From these reads, a plan of care will be put in place. Patient's urinalysis was negative for infection. Patient's CT scan the brain shows no acute process. Chest x-ray showed degenerative changes, no acute process. Patient is still COVID-positive. CBC showed a leukocytosis that was 12.7, this is improvement from 3 days ago that was 18.3. Hemoglobin stable at 13.1, chemistries show stable creatinine of 1.2, troponin is still elevated at 84, it was 85 3 days ago. Patient's proBNP was 1152, improved from 1403 a couple days ago. At this time, patient is not ambulatory, is altered, do believe the patient needs admitted to the hospital. Patient will go to PCU as observation. At this time, patient does have multiple comorbidities, multiple pathologies however they are all improving. ED attending note: I evaluated the patient in conjunction with the LILLIE. I agree with his/her statements and above findings. I have personally performed a face to face assessment of the patient and have reviewed the LILLIE Note. I performed a substantive portion of the visit including all aspects of the following. I personally saw the patient performed chart review, physical exam, reviewed labs, imaging (if obtained), and formulated a treatment and management plan. I have personally reviewed the patient's chest x-ray. Chest x-ray is unremarkable for pulmonary edema, pneumothorax, pneumonia or focal cardiopulmonary abnormality. This note was generated with [employer] dictation software. It may contain incorrect words, spelling, and punctuation that were not noted in review of the chart prior to signing. Discharge Plan Dx/Rx/DC Orders Clinical Impression: Adult failure to thrive, Falls frequently, Acute alteration in mental status Disposition Disposition: Acute Care Hospital [facility] Discharge Date/Time: 02/10/24 16:55
[2024-02-10] MEDS: 0.9% Normal Saline (500mL Bag) 500 ML 999 ML IV (13:45)
[2024-02-10 13:49] LABS: Blood Gas Specimen Type VEN; O2 Delivery Device Room Air; SITE Not entered; VBG BASE EXCESS -7 mmol/L (-1.0-3.5); VBG Bicarbonate 19 mmol/L (22-26); VBG PO2 28 mmHg (25-40); VBG SO2 51 % (50-70); VBG TCO2 20 mmol/L (23-33); VBG pCO2 32.8 mmHg (41-51); VBG pH 7.36 (7.32-7.42)
[2024-02-10 13:50] LABS: Absolute Lymphocyte Count 1.14 X10^3/uL (0.83-4.51); Absolute Neutrophil Count 10.6 X10^3/uL (2.0-7.7); Basophil# 0.03 X10^3/uL; Basophil% 0.2 % (0-1); Eosinophil# 0.04 X10^3/uL; Eosinophils% 0.3 % (0-5); Hematocrit 38.4 % (40-54); Hemoglobin 13.1 g/dL (13.0-16.5); Lymphocyte # 1.14 X10^3/ul (0.83-4.51); Mean Corp Hgb Conc 34.1 g/dL (32-36); Mean Corpuscular Hgb 35.1 pg (27.0-32.0); Mean Corpuscular Volume 102.9 fL (80-94); Mean Platelet Vol. 11.2 fl (6.2-12.0); Monocyte# 0.85 X10^3/uL; Monocyte% 6.7 % (0-10); NRBC Flagged by Analyzer 0 % (0-5); Neutrophil % 83.3 % (47-70); Platelet Count 216 K/mm3 (150-450); RBC Distribution Width CV 14.2 % (11.6-14.6); RBC Distribution Width SD 52.8 fl (35.1-43.9); Red Blood Count 3.73 M/mm3 (4.6-6.2); White Blood Count 12.7 K/mm3 (4.4-11.0)
[2024-02-10 14:03] LABS: Lactic Acid 1.7 mmol/L (0.4-1.9)
--- NOTE | 2024-02-10 14:10 | CT_ITS ---
STUDY: CT BRAIN WITHOUT CONTRAST REASON FOR EXAM: Male, 78 years old. Fall RADIATION DOSAGE (If Supplied By Facility): CTDIvol = ( 47.06 ) mGy, DLP = ( 925.62 ) mGycm TECHNIQUE: Transaxial CT imaging of the brain was performed without administration of intravenous contrast material. Individualized dose optimization techniques were used for this CT. COMPARISON: No relevant priors. FINDINGS: Normal soft tissue structures. There is bilateral orbital lens replacement. Normal calvarium. 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 There is mild cerebral atrophy with widening of the extra-axial spaces and ventricular dilatation. There are areas of decreased attenuation within the white matter tracts of the supratentorial brain, consistent with microvascular disease changes. Normal basal ganglia and thalami. Normal brainstem. Normal cerebellum. There is no intracranial hemorrhage. There are no findings of an acute ischemic infarction. There is mucosal thickening and fluid in the visualized paranasal sinuses. CT/Brain/Head without Contrast IMPRESSION: Chronic involutional changes of the brain. Electronically Signed: Jeronimo Rachel MD at 15:44 EST ,
[2024-02-10 14:13] LABS: Anion Gap 9 (5-15); BUN 20 mg/dL (7-18); BUN/Creat Ratio 16.3 RATIO (10-20); CPK Total, Creatine Kinase 196 U/L (39-308); Chloride 114 mmol/L (98-107); Creatinine, Serum 1.23 mg/dL (0.70-1.30); EST Glomerular Filtration Rate 61 mL/min (>60); Est Glom Filt Rate - Afr Amer 73 mL/min (>60); Estimated Creatinine Clearance 56.84 ml/min; Glucose 84 mg/dL (74-106); Potassium 3.4 mmol/L (3.5-5.1); Sodium Level 144 mmol/L (136-145); Troponin-I HS 84 pg/mL (3.0-78.0)
[2024-02-10 14:39] LABS: Bacteria 0 SEEN /hpf (None Seen)
[2024-02-10 14:41] LABS: Color, Urine Yellow (Yellow); Glucose, Dipstick Normal (Normal); Ketone-Dipstick 50 mg/dl (Negative); Leukocyte Esterase-Dipstick 25 /ul (Negative); Nitrite-Dipstick Negative (Negative); Occult Blood-Urine 25 /ul (Negative); Protein-Dipstick 100 mg/dl (Negative); Urine Bilirubin Dipstick Negative (Negative); Urine Clarity Clear (Clear); Urine Urobilinogen Normal (Normal)
[2024-02-10 14:53] LABS: Hyaline Cast 0-5 SEEN /lpf (0-5); Mucous, Urine 1+ /hpf (<or=2+); Red Blood Cells-Urine 5-10 SEEN /hpf (0-5); Squamous Epithelial Cells - UA 0-5 SEEN /hpf (0-5)
[2024-02-10 14:55] LABS: White Blood Cells 5-10 SEEN /hpf (0-5)
[2024-02-10 15:01] LABS: BNP,B-Type NATRIURETIC PEPTIDE 1152.3 pg/mL (0-100)
--- NOTE | 2024-02-10 16:34 | HP.PCM.HOS_ITS ---
HPI - General General Date of Admission: 02/10/24 Date of Service: 02/10/24 Chief Complaint: Weakenss HPI Narrative ERMA CALLAWAY, is a 78-year-old male history of hypertension, hypothyroidism, GERD who presented [facility] ED 02/10/2024 for weakness. Patient was recently admitted to the hospital for COVID-19/pneumonia requiring intubation and was extubated February 02. He was subsequently discharged to TCU and then due to significant combativeness was not felt that he was appropriate for TCU and was sent down to the ED for further evaluation. Patient left AGAINST MEDICAL ADVICE from the ED at that time. Upon representation of the ED patient hypertensive but otherwise vitally stable, BNP of 1100 down from 3 days ago at 1400, troponin 84 and had been 85 3 days ago. Remains COVID-positive. Kidney function improved with creatinine down to 1.23 from 1.56. White blood cell count also down to 12.7 from 18.3. VBG demonstrated a carbon oxide of 20 with bicarb of 19 and venous pH 7.36. CT brain no acute process and chest x-ray no acute process. Given patient's fall and generalized weakness and inability to care for self at home hospitalist contacted for admission for failure to thrive and possible placement. Patient evaluated at bedside and was awake and alert and oriented, does not remember well what happened between leaving TCU in the emergency department but does remember his hospitalization before that. He has not been taking his medications as he reports he was not discharged with any so has not had any in 4 days. Does have lower extremity edema and generalized weakness, does report fall earlier when he tried to get out of an armless chair but was unable to hold him self up but did not hit his head and has no other injuries. Denies fevers or chills, the patient agreeable to admission and placement if applicable available. PENDING SALE TO [facility] Medical History Tobacco abuse Hypertension CKD (chronic kidney disease) Epistaxis Home Medications ?Medication ?Instructions ?Recorded ?Last Taken ?Type albuterol sulfate 90 mcg/actuation 2 puff inhalation Q4H PRN asthma 01/24/24 Unknown History aerosol inhaler amlodipine 5 mg tablet 5 mg PO DAILY cardiac 01/24/24 Unknown History levothyroxine 75 mcg tablet 75 mcg PO DAILY thyroid 01/24/24 Unknown History valsartan 320 mg tablet 320 mg PO DAILY cardiac 01/24/24 Unknown History aspirin 81 mg chewable tablet 81 mg PO DAILYCM Heart Health #0 02/07/24 Unknown Rx tabs atorvastatin 80 mg tablet 80 mg PO QHS Cholesterol #0 tabs 02/07/24 Unknown Rx furosemide 40 mg tablet 20 mg (1/2 x 40 mg) PO DAILY PRN 02/07/24 Unknown Rx Leg swelling #0 tabs ipratropium bromide 0.02 % 0.5 mg (2.5 mL) inhalation 02/07/24 Unknown Rx solution for inhalation Q4HWA.RT PRN sob #0 mL metoprolol tartrate 25 mg tablet 25 mg PO BID BP #0 tabs 02/07/24 Unknown Rx pantoprazole 40 mg tablet,delayed 40 mg PO BID GERD 30 days #60 tabs 02/07/24 Unknown Rx release (Protonix) sennosides 8.6 mg-docusate sodium 2 tab PO BID Constipation #0 tabs 02/07/24 02/07/24 Rx 50 mg tablet (Stimulant Laxative Plus) Allergy/AdvReac Type Severity Reaction Status Date / Time strawberry AdvReac Itching Verified 02/10/24 12:54 Social History Smoking Status: Never smoker ROS ROS Narrative General: Denies fever/chills HENT: Denies headache, denies stuffy nose, denies sore throat EYES: Denies changes in vision Resp: Denies cough, denies shortness of breath Cardiac: Denies chest pain GI: Denies abdominal pain, denies changes in bowel, denies nausea/vomiting : Denies changes in urination Extremity: Bilateral lower extremity swelling MSK: Generalized weakness Neuro: Denies any changes in numbness/tingling Heme: Denies any bleeding or bruising Skin: Denies rashes Psychiatric: No complaints voiced Vital Signs Vital Signs Vital Signs: 02/10/24 12:45 02/10/24 12:52 02/10/24 12:52 Temperature 93.5 F L 93.5 F L Temperature Source Oral Oral Pulse Rate 67 76 71 Respiratory Rate 19 H 20 H 20 H Respiratory Pattern Blood Pressure 174/93 H 172/93 H 174/93 H Blood Pressure Mean 120 119 120 Pulse Ox 99 99 99 Oxygen Delivery Method Room Air Room Air Room Air 02/10/24 13:31 02/10/24 13:46 02/10/24 13:47 Temperature Temperature Source Pulse Rate 58 L Respiratory Rate 16 Respiratory Pattern Normal Blood Pressure 153/73 H Blood Pressure Mean 99 Pulse Ox 95 96 Oxygen Delivery Method Room Air 02/10/24 14:00 02/10/24 15:07 02/10/24 16:00 Temperature 98.6 F 96.9 F L 97.1 F L Temperature Source Oral Core Core Pulse Rate 50 L 56 L 49 L Respiratory Rate 18 18 18 Respiratory Pattern Blood Pressure 163/93 H 150/78 H 159/76 H Blood Pressure Mean 116 102 103 Pulse Ox 97 97 100 Oxygen Delivery Method Room Air Room Air Room Air Weight Weight: 88.4 kg Body Mass Index (BMI) 25.7 Physical Exam Narrative General: Alert, oriented, no apparent distress HEENT: Atraumatic, normocephalic Eyes: Anicteric, normal conjunctiva, extraocular movements grossly intact Neck: Supple Respiratory: Clear to auscultation bilaterally, normal respiratory effort Cardiovascular: Regular rate and rhythm GI: Soft, nontender, nondistended Extremities: 2-3+ lower extremity edema Musculoskeletal: Moving all extremities Neuro: No overt focal neurological deficits Skin: No rashes appreciated Psych: Cooperative Results Lab / Micro Data 02/10/24 12:57 02/10/24 12:57 Labs: Laboratory Results - last 24 hr 02/10/24 12:57: WBC 12.7 H, RBC 3.73 L, Hgb 13.1, Hct 38.4 L, MCV 102.9 H, MCH 35.1 H, MCHC 34.1, RDW Std Deviation 52.8 H, RDW Coeff of Jesus 14.2, Plt Count 216, MPV 11.2, Immature Gran % (Auto) 0.500, Neut % (Auto) 83.3 H, Lymph % (Auto) 9.0 L, [place] % (Auto) 6.7, Eos % (Auto) 0.3, Baso % (Auto) 0.2, Absolute Neuts (auto) 10.6 H, Absolute Lymphs (auto) 1.14, Nucleated RBC % 0, Sodium 144, Potassium 3.4 L, Chloride 114 H, Carbon Dioxide 22.0, Anion Gap 9, BUN 20 H, Creatinine 1.23, Estim Creat Clear Calc 56.84, Est GFR (MDRD) Af Amer 73, Est GFR (MDRD) Non-Af 61, BUN/Creatinine Ratio 16.3, Glucose 84, Lactic Acid 1.7, Calcium 9.0, Total Creatine Kinase 196, Troponin I High Sens 84 H, B-Natriuretic Peptide 1152.3 H 02/10/24 14:30: Urine Color Yellow, Urine Clarity Clear, Urine pH 6.0, Ur Specific [place] 1.020, Urine Protein 100 H, Urine Glucose (UA) Normal, Urine Ketones 50 H, Urine Occult Blood 25 H, Urine Nitrite Negative, Urine Bilirubin Negative, Urine Urobilinogen Normal, Ur Leukocyte Esterase 25 H, Urine RBC 5-10 SEEN, Urine WBC 5-10 SEEN, Ur Squamous Epith Cells 0-5 SEEN, Urine Bacteria 0 SEEN, Hyaline Casts 0-5 SEEN, Urine Mucus 1+ Micro: Microbiology 02/10/24 13:44 Mucosa - Nose SARS-CoV-2, Influenza & RSV (PCR) - Final SARS-CoV-2 (COVID 19 PCR) ABG Data ABG results: ABG 02/10/24 13:46 Specimen Type EFREN Sample Site Not entered O2 % 21.0 VBG pH 7.36 VBG pO2 28 VBG HCO3 19 L VBG Total CO2 20 L VBG O2 Sat (Calc) 51 VBG Base Excess -7 L POC Mix VBG pCO2 Pt Tmp 32.8 L O2 Delivery Device Room Air Imaging Radiology Impression Chest X-Ray 02/10/24 13:28 IMPRESSION: Degenerative changes, as described above. No demonstrated acute cardiopulmonary process. Electronically Signed: Jeronimo Rachel MD at 15:14 EST , Brain CT 02/10/24 14:10 IMPRESSION: Chronic involutional changes of the brain. Electronically Signed: Jeronimo Rachel MD at 15:44 EST , Assessment & Plan Assessment/Plan (1) Adult failure to thrive: PLAN: Plan # Generalized weakness -Likely secondary to prolonged recent hospitalization -Patient unable to care for self at home -PT/OT -Case management consult #Fluid overload -Admit to telemetry -BNP 1100, is slightly down from several days ago but still overall up from 02/04/2024 and patient appears overloaded -CXR did report no acute process -Will give dose of IV Lasix and tomorrow can reassess need for further IV diuresis -Last echo 01/24/2024 with EF of 50%, LV systolic function lower limits of normal with mild global hypokinesis, PASP 55 -Given proximity of last echo we will hold off repeat echo at this time -Daily weights, I's and O's -Fluid restriction, heart healthy diet #pafib -Presently normal sinus rhythm on EKG -Resume metoprolol at lower dose given patient's heart rate in the 50s and add holding parameters -Not on anticoagulation given recent GI bleed # Recent upper GI bleed -Patient with nonsevere reflux esophagitis and nonbleeding duodenal ulcers seen on EGD 01/25/2024 -Resume PPI #Elevated troponin -84, lower than previous -Presently denying any chest pain -EKG with normal sinus rhythm, some nonspecific ST changes but no STEMI or depressions noted -Monitor on telemetry -Can cycle troponins if patient develops any chest pain -resume BB, atorvastatin, aspirin #Hypokalemia -Replace -Repeat in the AM #Hypothyroidism -Resume Synthroid #GERD -Continue PPI #Hypertension -Resume amlodipine and metoprolol decreased dose, holding ARB at this time, if remains hypertensive can resume #DVT ppx: SCDs Leana Jimenez MD Charges/Coding Visit Charges Inpatient E&M: 19160 Init Hosp L2
[2024-02-10] MEDS: Furosemide 40 MG/4 ML Vial IV (17:48)
[2024-02-10] MEDS: 0.9% Saline Lock 10 ML Syringe IV (17:48)
[2024-02-10] MEDS: Potassium Chloride Oral Tablet 20 MEQ 40 MEQ PO (17:49)
--- NOTE | 2024-02-10 18:14 | CASEMGMT ---
Care management SW verified that all information from assessment completed on 01/25/2024 is still accurate. SW met with patients son, who is patients HPOA and discussed potential discharge plans. Patients son states they are open to short term placement if patient is in need of rehabilitation. Son states that he feels patient is still weak from his last hospitalization and is concerned about him going back to his house alone. Disposition Plan: patients son would like to discuss discharge options Love Drake, BOAT RIDE OPERATOR, LYFT DRIVER
[2024-02-10] MEDS: Metoprolol Tartrate 25 MG Tablet 12.5 MG PO (20:52)
[2024-02-10] MEDS: Pantoprazole Sodium 40 MG Tablet PO (20:54)
[2024-02-10] MEDS: Senna/Docusate Sodium 1 Tablet 2 TABLET PO (20:54)
[2024-02-10] MEDS: Atorvastatin Calcium 80 MG Tablet PO (20:54)
[2024-02-11] VITALS (8 sets, daily range): BP systolic 147–161; BP diastolic 73–84; PULSE 51–88; RESP 14–18; TEMP 35.9–36.7; O2SAT 97–100; BMI 22.8
[2024-02-11] MEDS: Levothyroxine 75 MCG Tablet PO (06:26)
[2024-02-11 06:48] LABS: Absolute Lymphocyte Count 1.38 X10^3/uL (0.83-4.51); Absolute Neutrophil Count 8.4 X10^3/uL (2.0-7.7); Basophil# 0.04 X10^3/uL; Basophil% 0.4 % (0-1); Eosinophil# 0.16 X10^3/uL; Eosinophils% 1.5 % (0-5); Hematocrit 35.6 % (40-54); Hemoglobin 12.3 g/dL (13.0-16.5); Lymphocyte # 1.38 X10^3/ul (0.83-4.51); Lymphocyte % 12.8 % (19-41); Mean Corp Hgb Conc 34.6 g/dL (32-36); Mean Corpuscular Hgb 35.3 pg (27.0-32.0); Mean Corpuscular Volume 102.3 fL (80-94); Mean Platelet Vol. 11.3 fl (6.2-12.0); Monocyte# 0.77 X10^3/uL; Monocyte% 7.1 % (0-10); NRBC Flagged by Analyzer 0.6 % (0-5); Neutrophil # 8.39 X10^3/uL (2.7-7.7); Neutrophil % 77.8 % (47-70); Platelet Count 207 K/mm3 (150-450); RBC Distribution Width CV 14.4 % (11.6-14.6); RBC Distribution Width SD 53.1 fl (35.1-43.9); Red Blood Count 3.48 M/mm3 (4.6-6.2); White Blood Count 10.8 K/mm3 (4.4-11.0)
[2024-02-11 07:20] LABS: ALB/GLOB Ratio 0.9 RATIO (0.9-2.4); AST(SGOT) 44 U/L (15-37); Alanine Aminotransfer ALT/SGPT 58 U/L (16-61); Albumin, Serum 2.8 g/dL (3.2-5.0); Alkaline Phosphatase 89 U/L (45-117); Anion Gap 6 (5-15); BUN 18 mg/dL (7-18); BUN/Creat Ratio 14.4 RATIO (10-20); Calcium,Total 8.6 mg/dL (8.5-10.1); Chloride 112 mmol/L (98-107); Creatinine, Serum 1.25 mg/dL (0.70-1.30); EST Glomerular Filtration Rate 59 mL/min (>60); Est Glom Filt Rate - Afr Amer 72 mL/min (>60); Estimated Creatinine Clearance 54.88 ml/min; Glucose 77 mg/dL (74-106); Magnesium 1.8 mg/dL (1.6-2.6); Potassium 3.3 mmol/L (3.5-5.1); Protein, Total 5.8 g/dL (6.4-8.2); Sodium Level 141 mmol/L (136-145)
[2024-02-11] MEDS: Aspirin 81 MG TAB.CHEW PO (08:18)
--- NOTE | 2024-02-11 08:37 | PN.HOSP_ITS ---
Reason for Visit Reason for Visit: Diagnoses Adult failure to thrive (02/10/24) Objective Data Objective Data Vital Signs: Vital Signs Temp Pulse Resp BP Pulse Ox O2 Del Method 97.8 F 51 L 16 161/84 H 100 Room Air 02/11/24 07:59 02/11/24 08:04 02/11/24 07:59 02/11/24 07:59 02/11/24 07:59 02/11/24 07:59 Oxygen Delivery Method Room Air Weight: 172 lb 13.478 oz Body Mass Index (BMI) 22.8 Intake & Output: Intake and Output for Last 24 Hours 02/09/24 02/10/24 02/11/24 23:59 23:59 23:59 Intake Total 500 / 500 360 / 360 Output Total 2100 / 2100 Balance 500 / -1250 -1740 / -1740 Lab / Micro Data 02/11/24 06:06 02/11/24 06:06 Labs: Laboratory Results - last 24 hr 02/10/24 12:57: WBC 12.7 H, RBC 3.73 L, Hgb 13.1, Hct 38.4 L, MCV 102.9 H, MCH 35.1 H, MCHC 34.1, RDW Std Deviation 52.8 H, RDW Coeff of Jesus 14.2, Plt Count 216, MPV 11.2, Immature Gran % (Auto) 0.500, Neut % (Auto) 83.3 H, Lymph % (Auto) 9.0 L, [place] % (Auto) 6.7, Eos % (Auto) 0.3, Baso % (Auto) 0.2, Absolute Neuts (auto) 10.6 H, Absolute Lymphs (auto) 1.14, Nucleated RBC % 0, Sodium 144, Potassium 3.4 L, Chloride 114 H, Carbon Dioxide 22.0, Anion Gap 9, BUN 20 H, Creatinine 1.23, Estim Creat Clear Calc 56.84, Est GFR (MDRD) Af Amer 73, Est GFR (MDRD) Non-Af 61, BUN/Creatinine Ratio 16.3, Glucose 84, Lactic Acid 1.7, Calcium 9.0, Total Creatine Kinase 196, Troponin I High Sens 84 H, B-Natriuretic Peptide 1152.3 H 02/10/24 14:30: Urine Color Yellow, Urine Clarity Clear, Urine pH 6.0, Ur Specific [place] 1.020, Urine Protein 100 H, Urine Glucose (UA) Normal, Urine Ketones 50 H, Urine Occult Blood 25 H, Urine Nitrite Negative, Urine Bilirubin Negative, Urine Urobilinogen Normal, Ur Leukocyte Esterase 25 H, Urine RBC 5-10 SEEN, Urine WBC 5-10 SEEN, Ur Squamous Epith Cells 0-5 SEEN, Urine Bacteria 0 SEEN, Hyaline Casts 0-5 SEEN, Urine Mucus 1+ 02/11/24 06:06: WBC 10.8, RBC 3.48 L, Hgb 12.3 L, Hct 35.6 L, MCV 102.3 H, MCH 35.3 H, MCHC 34.6, RDW Std Deviation 53.1 H, RDW Coeff of Jesus 14.4, Plt Count 207, MPV 11.3, Immature Gran % (Auto) 0.400, Neut % (Auto) 77.8 H, Lymph % (Auto) 12.8 L, [place] % (Auto) 7.1, Eos % (Auto) 1.5, Baso % (Auto) 0.4, Absolute Neuts (auto) 8.4 H, Absolute Lymphs (auto) 1.38, Nucleated RBC % 0.6, Sodium 141, Potassium 3.3 L, Chloride 112 H, Carbon Dioxide 23.0, Anion Gap 6, BUN 18, Creatinine 1.25, Estim Creat Clear Calc 54.88, Est GFR (MDRD) Af Amer 72, Est GFR (MDRD) Non-Af 59 L, BUN/Creatinine Ratio 14.4, Glucose 77, Calcium 8.6, Magnesium 1.8, Total Bilirubin 1.70 H, AST 44 H, ALT 58, Alkaline Phosphatase 89, Total Protein 5.8 L, Albumin 2.8 L, Globulin 3.0, Albumin/Globulin Ratio 0.9 Micro: Microbiology 02/10/24 13:44 Mucosa - Nose SARS-CoV-2, Influenza & RSV (PCR) - Final SARS-CoV-2 (COVID 19 PCR) ABG Data ABG results: ABG 02/10/24 13:46 Specimen Type EFREN Sample Site Not entered O2 % 21.0 VBG pH 7.36 VBG pO2 28 VBG HCO3 19 L VBG Total CO2 20 L VBG O2 Sat (Calc) 51 VBG Base Excess -7 L POC Mix VBG pCO2 Pt Tmp 32.8 L O2 Delivery Device Room Air Radiography Diagnostic Testing: Radiology Impression Chest X-Ray 02/10/24 13:28 IMPRESSION: Degenerative changes, as described above. No demonstrated acute cardiopulmonary process. Electronically Signed: Jeronimo Rachel MD at 15:14 EST , Brain CT 02/10/24 14:10 IMPRESSION: Chronic involutional changes of the brain. 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 No crepitation/rhonchi. No hypoxia Cardiovascular: Irregular rate and rhythm, Normal S1, Normal S2, No M/G/R Abdomen: Bowel Sounds Present, Soft, Non Tender, Non-Distended : No dysuria. No renal angle tenderness. No suprapubic tenderness. Extremities: Subtle edema, bluish discoloration of toes. Skin: Blister over right heel about 4 cm. Musculoskeletal: No Tenderness to Palpation of Joints or Extremities. ROM restricted. Unsteady gait Neurological: Cranial nerves II-XII grossly intact, DTR 2+/4. No acute focal neurological deficit. Psych/Mental Status: Flat affect. Hard to recollect/recall and remember. Possible dementia Assessment & Plan Assessment/Plan (1) Adult failure to thrive: PLAN: Plan Patient was admitted with generalized weakness, fall, found on the floor for an hour. Patient has increased confusion, inability to take care of himself and failure to thrive. No fevers # Generalized weakness -Likely secondary to prolonged recent hospitalization. Patient was treated with COVID and aspiration pneumonia and for sepsis. COVID PCR is still positive and expected -Patient unable to care for self at home -PT/OT -Case management consult #Fluid overload with history of chronic HFpEF and pulmonary hypertension -Admit to telemetry -BNP 1100, is slightly down from several days ago but still overall up from 02/04/2024 and patient appears overloaded -CXR did report no acute process. Had 1 dose of IV Lasix by admitting hospitalist last echo 01/24/2024 with EF of 50%, LV systolic function lower limits of normal with mild global hypokinesis, PASP 55 #pafib -Presently normal sinus rhythm on EKG -Resume metoprolol at lower dose given patient's heart rate in the 50s and add holding parameters -Not on anticoagulation given recent GI bleed # Recent upper GI bleed -Patient with nonsevere reflux esophagitis and nonbleeding duodenal ulcers seen on EGD 01/25/2024 -Resume PPI #Elevated troponin -84, lower than previous. Denies chest pain -EKG with normal sinus rhythm, some nonspecific ST changes but no STEMI or depressions noted -Monitor on telemetry -resume BB, atorvastatin, aspirin #Hypokalemia and CKD stage IIIb 02/10: Creatinine 1.25., K3.3., Magnesium 1.8. #Hypothyroidism -Resume Synthroid #GERD -Continue PPI #Hypertension -Resume amlodipine and metoprolol decreased dose, holding ARB at this time, if remains hypertensive can resume #DVT ppx: SCDs Microbiology Past 72 Hours 02/10/24 13:44 Mucosa - Nose SARS-CoV-2, Influenza & RSV (PCR) - Final SARS-CoV-2 (COVID 19 PCR) Laboratory Results 02/10/24 12:57: WBC 12.7 H, RBC 3.73 L, Hgb 13.1, Hct 38.4 L, MCV 102.9 H, MCH 35.1 H, MCHC 34.1, RDW Std Deviation 52.8 H, RDW Coeff of Jesus 14.2, Plt Count 216, MPV 11.2, Immature Gran % (Auto) 0.500, Neut % (Auto) 83.3 H, Lymph % (Auto) 9.0 L, [place] % (Auto) 6.7, Eos % (Auto) 0.3, Baso % (Auto) 0.2, Absolute Neuts (auto) 10.6 H, Absolute Lymphs (auto) 1.14, Nucleated RBC % 0, Sodium 144, Potassium 3.4 L, Chloride 114 H, Carbon Dioxide 22.0, Anion Gap 9, BUN 20 H, Creatinine 1.23, Estim Creat Clear Calc 56.84, Est GFR (MDRD) Af Amer 73, Est GFR (MDRD) Non-Af 61, BUN/Creatinine Ratio 16.3, Glucose 84, Lactic Acid 1.7, Calcium 9.0, Total Creatine Kinase 196, Troponin I High Sens 84 H, B-Natriuretic Peptide 1152.3 H 02/10/24 13:46: Specimen Type EFREN, Sample Site Not entered, O2 % 21.0, VBG pH 7.36, VBG pO2 28, VBG HCO3 19 L, VBG Total CO2 20 L, VBG O2 Sat (Calc) 51, VBG Base Excess -7 L, POC Mix VBG pCO2 Pt Tmp 32.8 L, O2 Delivery Device Room Air 02/10/24 14:30: Urine Color Yellow, Urine Clarity Clear, Urine pH 6.0, Ur Specific [place] 1.020, Urine Protein 100 H, Urine Glucose (UA) Normal, Urine Ketones 50 H, Urine Occult Blood 25 H, Urine Nitrite Negative, Urine Bilirubin Negative, Urine Urobilinogen Normal, Ur Leukocyte Esterase 25 H, Urine RBC 5-10 SEEN, Urine WBC 5-10 SEEN, Ur Squamous Epith Cells 0-5 SEEN, Urine Bacteria 0 SEEN, Hyaline Casts 0-5 SEEN, Urine Mucus 1+ 02/11/24 06:06: WBC 10.8, RBC 3.48 L, Hgb 12.3 L, Hct 35.6 L, MCV 102.3 H, MCH 35.3 H, MCHC 34.6, RDW Std Deviation 53.1 H, RDW Coeff of Jesus 14.4, Plt Count 207, MPV 11.3, Immature Gran % (Auto) 0.400, Neut % (Auto) 77.8 H, Lymph % (Auto) 12.8 L, [place] % (Auto) 7.1, Eos % (Auto) 1.5, Baso % (Auto) 0.4, Absolute Neuts (auto) 8.4 H, Absolute Lymphs (auto) 1.38, Nucleated RBC % 0.6, Sodium 141, Potassium 3.3 L, Chloride 112 H, Carbon Dioxide 23.0, Anion Gap 6, BUN 18, Creatinine 1.25, Estim Creat Clear Calc 54.88, Est GFR (MDRD) Af Amer 72, Est GFR (MDRD) Non-Af 59 L, BUN/Creatinine Ratio 14.4, Glucose 77, Calcium 8.6, Magnesium 1.8, Total Bilirubin 1.70 H, AST 44 H, ALT 58, Alkaline Phosphatase 89, Total Protein 5.8 L, Albumin 2.8 L, Globulin 3.0, Albumin/Globulin Ratio 0.9 Charges/Coding Visit Charges Inpatient E&M: 85301 Subs Hosp L2
[2024-02-11] MEDS: Enoxaparin 40 MG/0.4 ML Syringe SC (10:29)
[2024-02-11] MEDS: Pantoprazole Sodium 40 MG Tablet PO ×2 (10:29→20:57)
[2024-02-11] MEDS: Senna/Docusate Sodium 1 Tablet 2 TABLET PO ×2 (10:29→20:57)
[2024-02-11] MEDS: amLODIPine 5 MG Tablet PO (10:29)
[2024-02-11] MEDS: Potassium Chloride Oral Tablet 20 MEQ 40 MEQ PO ×2 (11:38→16:48)
[2024-02-11] MEDS: Magnesium Chloride 64 MG Delay Rel.Tablet 128 MG PO ×2 (11:39→20:57)
--- NOTE | 2024-02-11 11:47 | CASEMGMT ---
Addendum entered by Farideh Rowe 02/11/24 12:07: Kali at [facility] Crisis will be working on referral and it may take awhile. Floor staff updated. Plan: Crisis assessment for nba-psych placement YOEL Pitt Original Note: Social Work- Physician feels that pt is in need of assessment for nba-psych placement. SW completed referral to [facility] with physician orders. SW called to confirm receipt. YOEL Pitt
--- NOTE | 2024-02-11 13:15 | CASEMGMT ---
MARTIN FREEMAN readmission note: Chart review completed. Index admission: 01/23 thru 02/06, acute hypoxic resp failure, PNA. D/C'd to TCU 02/06. Confused/combative on arrival to TCU, sent to ED. In ED was A/O x 3 and left AMA from ED. Current admission: Admit 02/09 w/FTT and AMS. Florencia PELAYO RN CM
[2024-02-11] MEDS: Atorvastatin Calcium 80 MG Tablet PO (20:57)
[2024-02-12] VITALS (8 sets, daily range): BP systolic 142–153; BP diastolic 68–88; PULSE 56–61; RESP 17–18; TEMP 36.4–36.7; O2SAT 97–99; BMI 23.1
[2024-02-12] MEDS: Levothyroxine 75 MCG Tablet PO (02:40)
[2024-02-12] MEDS: Aspirin 81 MG TAB.CHEW PO (09:12)
[2024-02-12] MEDS: Potassium Chloride Oral Tablet 20 MEQ 40 MEQ PO ×2 (09:12→17:29)
[2024-02-12] MEDS: Enoxaparin 40 MG/0.4 ML Syringe SC (09:13)
[2024-02-12] MEDS: Senna/Docusate Sodium 1 Tablet 2 TABLET PO ×2 (09:14→20:50)
[2024-02-12] MEDS: amLODIPine 5 MG Tablet PO (09:14)
[2024-02-12] MEDS: Pantoprazole Sodium 40 MG Tablet PO ×2 (09:14→20:50)
[2024-02-12] MEDS: Magnesium Chloride 64 MG Delay Rel.Tablet 128 MG PO ×2 (09:14→20:50)
--- NOTE | 2024-02-12 11:38 | PN.HOSP_ITS ---
Reason for Visit Reason for Visit: Diagnoses Adult failure to thrive (02/10/24) Objective Data Objective Data Vital Signs: Vital Signs Temp Pulse Resp BP Pulse Ox O2 Del Method 97.6 F L 60 18 153/76 H 98 Room Air 02/12/24 08:50 02/12/24 09:13 02/12/24 10:00 02/12/24 08:50 02/12/24 08:50 02/12/24 10:00 Oxygen Delivery Method Room Air Weight: 174 lb 13.225 oz Body Mass Index (BMI) 23.1 Intake & Output: Intake and Output for Last 24 Hours 02/10/24 02/11/24 02/12/24 23:59 23:59 23:59 Intake Total 500 / 500 360 / 360 150 / 150 Output Total 2250 / 2450 300 / 300 Balance 500 / -1250 -1890 / -2090 -150 / -150 Lab / Micro Data 02/11/24 06:06 02/11/24 06:06 Labs: Laboratory Results - last 24 hr 02/11/24 06:06: Phosphorus 3.0 Micro: Microbiology 02/10/24 13:44 Mucosa - Nose SARS-CoV-2, Influenza & RSV (PCR) - Final SARS-CoV-2 (COVID 19 PCR) Physical Exam Narrative Seen and examined Patient wants to go home today. Advised to stay. 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 Cooperative. Limited comprehension. HEENT: Atraumatic, PERRLA, EOMI, Normocephalic Oral: Oral mucosa dry no Gingival or Mucosal Lesions/ Ulcerations Neck: Supple, No JVD, Negative Carotid Bruits Chest wall/Lungs: Air entry diminished in bilateral lung bases. No crepitation/rhonchi. No hypoxia Cardiovascular: Irregular rate and rhythm, Normal S1, Normal S2, No M/G/R Abdomen: Bowel Sounds Present, Soft, Non Tender, Non-Distended : No dysuria. No renal angle tenderness. No suprapubic tenderness. Extremities: Subtle edema, bluish discoloration of toes. Skin: Blister over right heel about 4 cm. Musculoskeletal: No Tenderness to Palpation of Joints or Extremities. ROM restricted. Unsteady gait Neurological: Cranial nerves II-XII grossly intact, DTR 2+/4. No acute focal neurological deficit. Psych/Mental Status: Flat affect. Hard to recollect/recall and remember. Possible dementia Assessment & Plan Assessment/Plan (1) Adult failure to thrive: PLAN: Plan Patient was admitted with generalized weakness, fall, found on the floor for an hour. Patient has increased confusion, inability to take care of himself and failure to thrive. No fevers # Generalized weakness -Likely secondary to prolonged recent hospitalization. Patient was treated with COVID and aspiration pneumonia and for sepsis. COVID PCR is still positive and expected -Patient unable to care for self at home -PT/OT -Case management consult 02/11: Advised case with social media campaign manager follow-up on Tuesday regarding [facility] #Fluid overload with history of chronic HFpEF and pulmonary hypertension -Admit to telemetry -BNP 1100, is slightly down from several days ago but still overall up from 02/04/2024 and patient appears overloaded -CXR did report no acute process. Had 1 dose of IV Lasix by admitting hospitalist last echo 01/24/2024 with EF of 50%, LV systolic function lower limits of normal with mild global hypokinesis, PASP 55 #pafib -Presently normal sinus rhythm on EKG -Resume metoprolol at lower dose given patient's heart rate in the 50s and add holding parameters -Not on anticoagulation given recent GI bleed # Recent upper GI bleed -Patient with nonsevere reflux esophagitis and nonbleeding duodenal ulcers seen on EGD 01/25/2024 -Resume PPI #Elevated troponin -84, lower than previous. Denies chest pain -EKG with normal sinus rhythm, some nonspecific ST changes but no STEMI or depressions noted -Monitor on telemetry -resume BB, atorvastatin, aspirin #Hypokalemia and CKD stage IIIb 02/10: Creatinine 1.25., K3.3., Magnesium 1.8. #Hypothyroidism -Resume Synthroid #GERD -Continue PPI #Hypertension -Resume amlodipine and metoprolol decreased dose, holding ARB at this time, if remains hypertensive can resume #DVT ppx: SCDs Microbiology Past 72 Hours 02/10/24 13:44 Mucosa - Nose SARS-CoV-2, Influenza & RSV (PCR) - Final SARS-CoV-2 (COVID 19 PCR) Laboratory Results 02/10/24 12:57: WBC 12.7 H, RBC 3.73 L, Hgb 13.1, Hct 38.4 L, MCV 102.9 H, MCH 35.1 H, MCHC 34.1, RDW Std Deviation 52.8 H, RDW Coeff of Jesus 14.2, Plt Count 216, MPV 11.2, Immature Gran % (Auto) 0.500, Neut % (Auto) 83.3 H, Lymph % (Auto) 9.0 L, [place] % (Auto) 6.7, Eos % (Auto) 0.3, Baso % (Auto) 0.2, Absolute Neuts (auto) 10.6 H, Absolute Lymphs (auto) 1.14, Nucleated RBC % 0, Sodium 144, Potassium 3.4 L, Chloride 114 H, Carbon Dioxide 22.0, Anion Gap 9, BUN 20 H, Creatinine 1.23, Estim Creat Clear Calc 56.84, Est GFR (MDRD) Af Amer 73, Est GFR (MDRD) Non-Af 61, BUN/Creatinine Ratio 16.3, Glucose 84, Lactic Acid 1.7, Calcium 9.0, Total Creatine Kinase 196, Troponin I High Sens 84 H, B-Natriuretic Peptide 1152.3 H 02/10/24 13:46: Specimen Type EFREN, Sample Site Not entered, O2 % 21.0, VBG pH 7.36, VBG pO2 28, VBG HCO3 19 L, VBG Total CO2 20 L, VBG O2 Sat (Calc) 51, VBG Base Excess -7 L, POC Mix VBG pCO2 Pt Tmp 32.8 L, O2 Delivery Device Room Air 02/10/24 14:30: Urine Color Yellow, Urine Clarity Clear, Urine pH 6.0, Ur Specific [place] 1.020, Urine Protein 100 H, Urine Glucose (UA) Normal, Urine Ketones 50 H, Urine Occult Blood 25 H, Urine Nitrite Negative, Urine Bilirubin Negative, Urine Urobilinogen Normal, Ur Leukocyte Esterase 25 H, Urine RBC 5-10 SEEN, Urine WBC 5-10 SEEN, Ur Squamous Epith Cells 0-5 SEEN, Urine Bacteria 0 SEEN, Hyaline Casts 0-5 SEEN, Urine Mucus 1+ 02/11/24 06:06: WBC 10.8, RBC 3.48 L, Hgb 12.3 L, Hct 35.6 L, MCV 102.3 H, MCH 35.3 H, MCHC 34.6, RDW Std Deviation 53.1 H, RDW Coeff of Jesus 14.4, Plt Count 207, MPV 11.3, Immature Gran % (Auto) 0.400, Neut % (Auto) 77.8 H, Lymph % (Auto) 12.8 L, [place] % (Auto) 7.1, Eos % (Auto) 1.5, Baso % (Auto) 0.4, Absolute Neuts (auto) 8.4 H, Absolute Lymphs (auto) 1.38, Nucleated RBC % 0.6, Sodium 141, Potassium 3.3 L, Chloride 112 H, Carbon Dioxide 23.0, Anion Gap 6, BUN 18, Creatinine 1.25, Estim Creat Clear Calc 54.88, Est GFR (MDRD) Af Amer 72, Est GFR (MDRD) Non-Af 59 L, BUN/Creatinine Ratio 14.4, Glucose 77, Calcium 8.6, Magnesium 1.8, Total Bilirubin 1.70 H, AST 44 H, ALT 58, Alkaline Phosphatase 89, Total Protein 5.8 L, Albumin 2.8 L, Globulin 3.0, Albumin/Globulin Ratio 0.9 Charges/Coding Visit Charges Inpatient E&M: 02240 Subs Hosp L2
[2024-02-12] MEDS: Polyethylene Glycol 3350 17 GM PACKET PO (14:11)
[2024-02-12] MEDS: 0.9% Saline Lock 10 ML Syringe IV (20:48)
[2024-02-12] MEDS: Atorvastatin Calcium 80 MG Tablet PO (20:49)
[2024-02-12] MEDS: MELATONIN 10 MG TABLET PO (20:50)
[2024-02-13 02:43] VITALS: BP 141/79; PULSE 56; RESP 17; TEMP 36.4; O2SAT 98
[2024-02-13] MEDS: Levothyroxine 75 MCG Tablet PO (04:36)
[2024-02-13 04:44] VITALS: BMI 22.7
[2024-02-13 07:28] LABS: Absolute Lymphocyte Count 1.24 X10^3/uL (0.83-4.51); Absolute Neutrophil Count 5.9 X10^3/uL (2.0-7.7); Basophil# 0.03 X10^3/uL; Basophil% 0.4 % (0-1); Eosinophil# 0.13 X10^3/uL; Eosinophils% 1.6 % (0-5); Hematocrit 34.9 % (40-54); Lymphocyte # 1.24 X10^3/ul (0.83-4.51); Lymphocyte % 15.7 % (19-41); Mean Corp Hgb Conc 34.4 g/dL (32-36); Mean Corpuscular Hgb 35.1 pg (27.0-32.0); Mean Platelet Vol. 10.8 fl (6.2-12.0); Monocyte# 0.56 X10^3/uL; Monocyte% 7.1 % (0-10); NRBC Flagged by Analyzer 0 % (0-5); Neutrophil # 5.91 X10^3/uL (2.7-7.7); Neutrophil % 74.6 % (47-70); Platelet Count 190 K/mm3 (150-450); RBC Distribution Width CV 14.1 % (11.6-14.6); RBC Distribution Width SD 52.2 fl (35.1-43.9); Red Blood Count 3.42 M/mm3 (4.6-6.2); White Blood Count 7.9 K/mm3 (4.4-11.0)
[2024-02-13 07:51] LABS: Anion Gap 5 (5-15); BUN 13 mg/dL (7-18); BUN/Creat Ratio 11.9 RATIO (10-20); Calcium,Total 8.7 mg/dL (8.5-10.1); Chloride 111 mmol/L (98-107); Creatinine, Serum 1.09 mg/dL (0.70-1.30); EST Glomerular Filtration Rate 70 mL/min (>60); Est Glom Filt Rate - Afr Amer 84 mL/min (>60); Estimated Creatinine Clearance 62.78 ml/min; Glucose 107 mg/dL (74-106); Potassium 4.2 mmol/L (3.5-5.1); Sodium Level 136 mmol/L (136-145)
[2024-02-13 08:00] VITALS: PULSE 53
[2024-02-13 08:46] VITALS: BP 154/84; PULSE 58; RESP 18; TEMP 36.8; O2SAT 98
--- NOTE | 2024-02-13 08:47 | CASEMGMT ---
Social Work SW spoke w/Debbie with crisis. She states pt has been denied multiple places however some were due to lack of beds. She states some of the denials were due to lack of bed availability. She reached back out to [facility] and [place], will let SW know what they say, if either can take pt. SW will continue to follow. MAVIS Lewis
[2024-02-13] MEDS: Aspirin 81 MG TAB.CHEW PO (08:55)
[2024-02-13] MEDS: Magnesium Chloride 64 MG Delay Rel.Tablet 128 MG PO ×2 (08:55→22:24)
[2024-02-13] MEDS: Potassium Chloride Oral Tablet 20 MEQ 40 MEQ PO (08:56)
[2024-02-13] MEDS: Enoxaparin 40 MG/0.4 ML Syringe SC (08:58)
[2024-02-13] MEDS: amLODIPine 5 MG Tablet PO (08:59)
[2024-02-13] MEDS: Pantoprazole Sodium 40 MG Tablet PO ×2 (08:59→22:25)
[2024-02-13] MEDS: Senna/Docusate Sodium 1 Tablet 2 TABLET PO ×2 (09:00→22:24)
--- NOTE | 2024-02-13 10:44 | CASEMGMT ---
Social Work SW spoke belle/Debbie from crisis, she states that the last two places they tried, [facility] and [place], cannot take pt due to medical acuity. She states that all of the places denied pt due to medical acuity or due to pt having COVID recently. (Pt had positive COVID tests on 01/23, 02/06 and 02/09. SW asked if someone can come reassess the pt to see if it is even necessary at this point, and if not we can work on SNF placement. SW then spoke belle/Nettie from Crisis, she will come see pt today and reassess. MAVIS Lewis
--- NOTE | 2024-02-13 11:38 | WOUNDNOTE ---
wound photo: right heel
--- NOTE | 2024-02-13 13:10 | PN.HOSP_ITS ---
Reason for Visit Reason for Visit: Diagnoses Adult failure to thrive (02/10/24) Objective Data Objective Data Vital Signs: Vital Signs Temp Pulse Resp BP Pulse Ox O2 Del Method 98.3 F 58 L 18 154/84 H 98 Room Air 02/13/24 08:46 02/13/24 08:46 02/13/24 08:46 02/13/24 08:46 02/13/24 08:46 02/13/24 08:46 Oxygen Delivery Method Room Air Weight: 172 lb 6.424 oz Body Mass Index (BMI) 22.7 Intake & Output: Intake and Output for Last 24 Hours 02/11/24 02/12/24 02/13/24 23:59 23:59 23:59 Intake Total 360 / 360 1650 / 1650 800 / 800 Output Total 2250 / 2450 700 / 700 300 / 300 Balance -1890 / -2090 950 / 950 500 / 500 Lab / Micro Data 02/13/24 07:05 02/13/24 07:05 Labs: Laboratory Results - last 24 hr 02/13/24 07:05: WBC 7.9, RBC 3.42 L, Hgb 12.0 L, Hct 34.9 L, MCV 102.0 H, MCH 35.1 H, MCHC 34.4, RDW Std Deviation 52.2 H, RDW Coeff of Jesus 14.1, Plt Count 190, MPV 10.8, Immature Gran % (Auto) 0.600, Neut % (Auto) 74.6 H, Lymph % (Auto) 15.7 L, [place] % (Auto) 7.1, Eos % (Auto) 1.6, Baso % (Auto) 0.4, Absolute Neuts (auto) 5.9, Absolute Lymphs (auto) 1.24, Nucleated RBC % 0, Sodium 136, Potassium 4.2, Chloride 111 H, Carbon Dioxide 20.0 L, Anion Gap 5, BUN 13, Creatinine 1.09, Estim Creat Clear Calc 62.78, Est GFR (MDRD) Af Amer 84, Est GFR (MDRD) Non-Af 70, BUN/Creatinine Ratio 11.9, Glucose 107 H, Calcium 8.7, Magnesium 2.0 Micro: Microbiology 02/10/24 13:44 Mucosa - Nose SARS-CoV-2, Influenza & RSV (PCR) - Final SARS-CoV-2 (COVID 19 PCR) Physical Exam Narrative Seen and examined Patient advised to stay. Crisis management and thinks no longer need for psych placement. 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 Cooperative. Limited comprehension. HEENT: Atraumatic, PERRLA, EOMI, Normocephalic Oral: Oral mucosa dry no Gingival or Mucosal Lesions/ Ulcerations Neck: Supple, No JVD, Negative Carotid Bruits Chest wall/Lungs: Air entry diminished in bilateral lung bases. No crepitation/rhonchi. No hypoxia Cardiovascular: Irregular rate and rhythm, Normal S1, Normal S2, No M/G/R Abdomen: Bowel Sounds Present, Soft, Non Tender, Non-Distended : No dysuria. No renal angle tenderness. No suprapubic tenderness. Extremities: Subtle edema, bluish discoloration of toes. Skin: Blister over right heel about 4 cm. Musculoskeletal: No Tenderness to Palpation of Joints or Extremities. ROM restricted. Unsteady gait Neurological: Cranial nerves II-XII grossly intact, DTR 2+/4. No acute focal neurological deficit. Psych/Mental Status: Flat affect. Hard to recollect/recall and remember. Possible dementia Assessment & Plan Assessment/Plan (1) Adult failure to thrive: PLAN: Plan Patient was admitted with generalized weakness, fall, found on the floor for an hour. Patient has increased confusion, inability to take care of himself and failure to thrive. No fevers # Generalized weakness -Likely secondary to prolonged recent hospitalization. Patient was treated with COVID and aspiration pneumonia and for sepsis. COVID PCR is still positive and expected -Patient unable to care for self at home -PT/OT -Case management consult 02/11: Advised case with administrator social welfare follow-up on Tuesday regarding [facility] 02/12: Patient he was evaluated by crisis team and does not feel need for inpatient psych placement or [facility]. Patient has intermittent confusion with sometimes delirium. night club manager/administrator social welfare will talk to the family for [facility]. #Fluid overload with history of chronic HFpEF and pulmonary hypertension -Admit to telemetry -BNP 1100, is slightly down from several days ago but still overall up from 02/04/2024 and patient appears overloaded -CXR did report no acute process. Had 1 dose of IV Lasix by admitting hospitalist last echo 01/24/2024 with EF of 50%, LV systolic function lower limits of normal with mild global hypokinesis, PASP 55 #pafib -Presently normal sinus rhythm on EKG -Resume metoprolol at lower dose given patient's heart rate in the 50s and add holding parameters -Not on anticoagulation given recent GI bleed # Recent upper GI bleed -Patient with nonsevere reflux esophagitis and nonbleeding duodenal ulcers seen on EGD 01/25/2024 -Resume PPI #Elevated troponin -84, lower than previous. Denies chest pain -EKG with normal sinus rhythm, some nonspecific ST changes but no STEMI or depressions noted -Monitor on telemetry -resume BB, atorvastatin, aspirin #Hypokalemia and CKD stage IIIb 02/10: Creatinine 1.25., K3.3., Magnesium 1.8. #Hypothyroidism -Resume Synthroid #GERD -Continue PPI #Hypertension -Resume amlodipine and metoprolol decreased dose, holding ARB at this time, if remains hypertensive can resume #DVT ppx: SCDs Microbiology Past 72 Hours 02/10/24 13:44 Mucosa - Nose SARS-CoV-2, Influenza & RSV (PCR) - Final SARS-CoV-2 (COVID 19 PCR) Laboratory Results 02/10/24 12:57: WBC 12.7 H, RBC 3.73 L, Hgb 13.1, Hct 38.4 L, MCV 102.9 H, MCH 35.1 H, MCHC 34.1, RDW Std Deviation 52.8 H, RDW Coeff of Jesus 14.2, Plt Count 216, MPV 11.2, Immature Gran % (Auto) 0.500, Neut % (Auto) 83.3 H, Lymph % (Auto) 9.0 L, [place] % (Auto) 6.7, Eos % (Auto) 0.3, Baso % (Auto) 0.2, Absolute Neuts (auto) 10.6 H, Absolute Lymphs (auto) 1.14, Nucleated RBC % 0, Sodium 144, Potassium 3.4 L, Chloride 114 H, Carbon Dioxide 22.0, Anion Gap 9, BUN 20 H, Creatinine 1.23, Estim Creat Clear Calc 56.84, Est GFR (MDRD) Af Amer 73, Est GFR (MDRD) Non-Af 61, BUN/Creatinine Ratio 16.3, Glucose 84, Lactic Acid 1.7, Calcium 9.0, Total Creatine Kinase 196, Troponin I High Sens 84 H, B-Natriuretic Peptide 1152.3 H 02/10/24 13:46: Specimen Type EFREN, Sample Site Not entered, O2 % 21.0, VBG pH 7.36, VBG pO2 28, VBG HCO3 19 L, VBG Total CO2 20 L, VBG O2 Sat (Calc) 51, VBG Base Excess -7 L, POC Mix VBG pCO2 Pt Tmp 32.8 L, O2 Delivery Device Room Air 02/10/24 14:30: Urine Color Yellow, Urine Clarity Clear, Urine pH 6.0, Ur Specific [place] 1.020, Urine Protein 100 H, Urine Glucose (UA) Normal, Urine Ketones 50 H, Urine Occult Blood 25 H, Urine Nitrite Negative, Urine Bilirubin Negative, Urine Urobilinogen Normal, Ur Leukocyte Esterase 25 H, Urine RBC 5-10 SEEN, Urine WBC 5-10 SEEN, Ur Squamous Epith Cells 0-5 SEEN, Urine Bacteria 0 SEEN, Hyaline Casts 0-5 SEEN, Urine Mucus 1+ 02/11/24 06:06: WBC 10.8, RBC 3.48 L, Hgb 12.3 L, Hct 35.6 L, MCV 102.3 H, MCH 35.3 H, MCHC 34.6, RDW Std Deviation 53.1 H, RDW Coeff of Jesus 14.4, Plt Count 207, MPV 11.3, Immature Gran % (Auto) 0.400, Neut % (Auto) 77.8 H, Lymph % (Auto) 12.8 L, [place] % (Auto) 7.1, Eos % (Auto) 1.5, Baso % (Auto) 0.4, Absolute Neuts (auto) 8.4 H, Absolute Lymphs (auto) 1.38, Nucleated RBC % 0.6, Sodium 141, Potassium 3.3 L, Chloride 112 H, Carbon Dioxide 23.0, Anion Gap 6, BUN 18, Creatinine 1.25, Estim Creat Clear Calc 54.88, Est GFR (MDRD) Af Amer 72, Est GFR (MDRD) Non-Af 59 L, BUN/Creatinine Ratio 14.4, Glucose 77, Calcium 8.6, Magnesium 1.8, Total Bilirubin 1.70 H, AST 44 H, ALT 58, Alkaline Phosphatase 89, Total Protein 5.8 L, Albumin 2.8 L, Globulin 3.0, Albumin/Globulin Ratio 0.9 Charges/Coding Visit Charges Inpatient E&M: 94964 Subs Hosp L2
--- NOTE | 2024-02-13 13:34 | CASEMGMT ---
Addendum entered by Laury Crow 02/13/24 16:07: Social Work SW called son Bernard again and left a second message. SW will continue to follow. MAVIS Lewis Original Note: Social Work SW spoke w/Nia from crisis, she came back to see pt and he has been cleared, does not need psych placement at this time. SW called pt's son Bernard, message left. SW texted physician to let him know, he states to work on custodial placement. SW awaiting call back from omega Wagner. MAVIS Lewis
[2024-02-13 14:00] VITALS: BP 141/85; PULSE 65; PULSE 71; RESP 18; TEMP 37.1; O2SAT 98
[2024-02-13] MEDS: Losartan Potassium 25 MG Tablet PO (14:26)
--- NOTE | 2024-02-13 15:29 | CHAPLAIN ---
Type of Pastoral Visit _x__ Initial Visit ___ Follow-up Visit ___ On-call Visit ___ General Patient Visit ___ Spiritual Assessment ___ Family Conference ___ Bereavement ___ Rapid Response ___ Code Blue ___ Other (describe below) Pastoral Care Referral From _x__ Patient ___ Family ___ Nurse ___ Physician ___ Knock Up Assembler ___ Steam Locomotive Firer/Fireman ___ Other (describe below) Sacrament/Intervention _x__ Active listening ___ Anointing ___ Hoahaoism ___ Bereavement ___ Communion ___ Katina exploration ___ ___ Life review _x__ Prayer ___ Reconciliation ___ Sacrament of Sick _x__ Supportive presence ___ Wedding ___ Other (describe below) Pastoral Comments patient is a readmit and discusses his recent hospital experience most of which he cannot remember; pt is concerned that he has behaved poorly or said things he would be embarrassed about; pt does feel better and recognizes that his life has had a major change; pt welcomes someone to talk with and to have a prayer; pt is asked about how he is coping and how he has considered his life
[2024-02-13 22:00] VITALS: BP 139/79; PULSE 64; RESP 18; TEMP 35.9; O2SAT 98
[2024-02-13] MEDS: MELATONIN 10 MG TABLET PO (22:24)
[2024-02-13 22:25] VITALS: BP 139/79; PULSE 64
[2024-02-13] MEDS: Metoprolol Tartrate 25 MG Tablet 12.5 MG PO (22:25)
[2024-02-13] MEDS: Atorvastatin Calcium 80 MG Tablet PO (22:25)
[2024-02-13] MEDS: Donepezil HCl 5 MG Tablet PO (22:26)
[2024-02-14 03:58] VITALS: BMI 22.4
[2024-02-14 05:00] VITALS: BP 146/64; PULSE 55; RESP 20; TEMP 35.9; O2SAT 99
[2024-02-14] MEDS: Levothyroxine 75 MCG Tablet PO (05:17)
[2024-02-14] MEDS: Pantoprazole Sodium 40 MG Tablet PO (08:59)
[2024-02-14] MEDS: Senna/Docusate Sodium 1 Tablet 2 TABLET PO (08:59)
[2024-02-14] MEDS: amLODIPine 5 MG Tablet PO (08:59)
[2024-02-14] MEDS: Magnesium Chloride 64 MG Delay Rel.Tablet 128 MG PO (08:59)
[2024-02-14] MEDS: Aspirin 81 MG TAB.CHEW PO (09:00)
[2024-02-14] MEDS: Losartan Potassium 25 MG Tablet PO (09:02)
[2024-02-14] MEDS: Enoxaparin 40 MG/0.4 ML Syringe SC (09:05)
--- NOTE | 2024-02-14 09:43 | CASEMGMT ---
Social Work SW called son Bernard this morning in regard to discharge plan. SW explained that crisis was not able to find placement for pt in [facility], they reassessed and said they do not think pt needs this level of care anymore. At this time the plan would be for fdc facility for rehab. SW inquired w/Gene where he would like referrals sent. SW has a list from [facility] of fdc facilities in pt's insurance network, in pt's preferred geographic area, and complete w/quality and resource use data. SW offered to give the list to Gene, though it's unclear when Gene will be in again. SW reviewed the list with Gene, he would like referrals sent to [facility], [place] and [facility]. He may be agreeable to [facility] also as he is familiar with it from his mother going there. Bernard states he has not spoken w/pt about going somewhere for rehab, he came in to see pt yesterday but he just helped pt to pay bills. SW explained will speak w/pt and make the referrals. SW spoke w/pt in room in regard to discharge plan. SW explained had spoken w/Gene about rehab options and we are starting with facilities in [place]. Pt would prefer to go home. RADHA educated pt to importance of gaining strength prior to returning home. Pt agreeable to rehab at this time. He then asked SW to check w/Bernard about where his cell phone may be. SW called Gene, he states that pt's phone is at his house and he will bring it to pt later. SW let pt know this. Referrals made to [facility], [facility] and [facility]. RADHA will continue to follow. MAVIS Lewis
[2024-02-14 11:00] VITALS: BP 148/77; PULSE 57; RESP 16; TEMP 36.6; O2SAT 99
--- NOTE | 2024-02-14 11:35 | PCM.TXEXTCAR ---
Diet Diet Order/Speech Therapy: 02/10/24 17:10 Diet: Cardiac - Heart Healthy Food consistency:: Regular Liquid Consistency:: Regular/Thin Fluid restriction:: 1750 mL DC O2, CPAP, BIPAP needs Home O2 Discharge instructions: No Wound(s) Left hand: Wound Type: Skin Tear Right Heel: Wound Type: Pressure Injury Dressing Change: Adaptic Problem/Diagnosis (1) Adult failure to thrive: Status: Acute Code(s): R62.7 - Adult failure to thrive Plan Patient was admitted with generalized weakness, fall, found on the floor for an hour. Patient has increased confusion, inability to take care of himself and failure to thrive. No fevers # Generalized weakness -Likely secondary to prolonged recent hospitalization. Patient was treated with COVID and aspiration pneumonia and for sepsis. COVID PCR is still positive and expected -Patient unable to care for self at home -PT/OT -Case management consult 02/11: Advised case with social media marketer follow-up on Tuesday regarding [facility] 02/12: Patient he was evaluated by crisis team and does not feel need for inpatient psych placement or [facility]. Patient has intermittent confusion with sometimes delirium. network services project manager/social media marketer will talk to the family for [facility]. #Fluid overload with history of chronic HFpEF and pulmonary hypertension -Admit to telemetry -BNP 1100, is slightly down from several days ago but still overall up from 02/04/2024 and patient appears overloaded -CXR did report no acute process. Had 1 dose of IV Lasix by admitting hospitalist last echo 01/24/2024 with EF of 50%, LV systolic function lower limits of normal with mild global hypokinesis, PASP 55 #pafib -Presently normal sinus rhythm on EKG -Resume metoprolol at lower dose given patient's heart rate in the 50s and add holding parameters -Not on anticoagulation given recent GI bleed # Recent upper GI bleed -Patient with nonsevere reflux esophagitis and nonbleeding duodenal ulcers seen on EGD 01/25/2024 -Resume PPI #Elevated troponin -84, lower than previous. Denies chest pain -EKG with normal sinus rhythm, some nonspecific ST changes but no STEMI or depressions noted -Monitor on telemetry -resume BB, atorvastatin, aspirin #Hypokalemia and CKD stage IIIb 02/10: Creatinine 1.25., K3.3., Magnesium 1.8. #Hypothyroidism -Resume Synthroid #GERD -Continue PPI #Hypertension -Resume amlodipine and metoprolol decreased dose, holding ARB at this time, if remains hypertensive can resume #DVT ppx: SCDs Microbiology Past 72 Hours 02/10/24 13:44 Mucosa - Nose SARS-CoV-2, Influenza & RSV (PCR) - Final SARS-CoV-2 (COVID 19 PCR) Laboratory Results 02/10/24 12:57: WBC 12.7 H, RBC 3.73 L, Hgb 13.1, Hct 38.4 L, MCV 102.9 H, MCH 35.1 H, MCHC 34.1, RDW Std Deviation 52.8 H, RDW Coeff of Jesus 14.2, Plt Count 216, MPV 11.2, Immature Gran % (Auto) 0.500, Neut % (Auto) 83.3 H, Lymph % (Auto) 9.0 L, [place] % (Auto) 6.7, Eos % (Auto) 0.3, Baso % (Auto) 0.2, Absolute Neuts (auto) 10.6 H, Absolute Lymphs (auto) 1.14, Nucleated RBC % 0, Sodium 144, Potassium 3.4 L, Chloride 114 H, Carbon Dioxide 22.0, Anion Gap 9, BUN 20 H, Creatinine 1.23, Estim Creat Clear Calc 56.84, Est GFR (MDRD) Af Amer 73, Est GFR (MDRD) Non-Af 61, BUN/Creatinine Ratio 16.3, Glucose 84, Lactic Acid 1.7, Calcium 9.0, Total Creatine Kinase 196, Troponin I High Sens 84 H, B-Natriuretic Peptide 1152.3 H 02/10/24 13:46: Specimen Type EFREN, Sample Site Not entered, O2 % 21.0, VBG pH 7.36, VBG pO2 28, VBG HCO3 19 L, VBG Total CO2 20 L, VBG O2 Sat (Calc) 51, VBG Base Excess -7 L, POC Mix VBG pCO2 Pt Tmp 32.8 L, O2 Delivery Device Room Air 02/10/24 14:30: Urine Color Yellow, Urine Clarity Clear, Urine pH 6.0, Ur Specific [place] 1.020, Urine Protein 100 H, Urine Glucose (UA) Normal, Urine Ketones 50 H, Urine Occult Blood 25 H, Urine Nitrite Negative, Urine Bilirubin Negative, Urine Urobilinogen Normal, Ur Leukocyte Esterase 25 H, Urine RBC 5-10 SEEN, Urine WBC 5-10 SEEN, Ur Squamous Epith Cells 0-5 SEEN, Urine Bacteria 0 SEEN, Hyaline Casts 0-5 SEEN, Urine Mucus 1+ 02/11/24 06:06: WBC 10.8, RBC 3.48 L, Hgb 12.3 L, Hct 35.6 L, MCV 102.3 H, MCH 35.3 H, MCHC 34.6, RDW Std Deviation 53.1 H, RDW Coeff of Jesus 14.4, Plt Count 207, MPV 11.3, Immature Gran % (Auto) 0.400, Neut % (Auto) 77.8 H, Lymph % (Auto) 12.8 L, [place] % (Auto) 7.1, Eos % (Auto) 1.5, Baso % (Auto) 0.4, Absolute Neuts (auto) 8.4 H, Absolute Lymphs (auto) 1.38, Nucleated RBC % 0.6, Sodium 141, Potassium 3.3 L, Chloride 112 H, Carbon Dioxide 23.0, Anion Gap 6, BUN 18, Creatinine 1.25, Estim Creat Clear Calc 54.88, Est GFR (MDRD) Af Amer 72, Est GFR (MDRD) Non-Af 59 L, BUN/Creatinine Ratio 14.4, Glucose 77, Calcium 8.6, Magnesium 1.8, Total Bilirubin 1.70 H, AST 44 H, ALT 58, Alkaline Phosphatase 89, Total Protein 5.8 L, Albumin 2.8 L, Globulin 3.0, Albumin/Globulin Ratio 0.9 Allergies/Procedures Done in Hospital Allergies strawberry Adverse Reaction (Verified 02/10/24 12:54) Itching Type of Care/Length of Stay Estimated LOS: Convalescent Care Less Than 30 days Type of Care Needed: Skilled Rehab Potential: Good Prognosis: Good Additional Orders/Day of Discharge Day of Discharge: 02/14/24 Dietary and Speech Recommendations Dietitian Recommendations/Changes: Continue Cardiac diet with fluid restriction per MD to manage medical conditions. Discharge Plan Admission Admit Date/Time: 02/10/24 16:34 Primary Reason for Your Visit: Failure to thrive, dementia. Limited ADL Attending Provider: Christian Navarro Primary Care Provider: Care Physician,No Primary Consulting Providers: Leana Jimenez Discharge Orders/Prescriptions Prescriptions: New acetaminophen 325 mg Tablet 650 mg PO Q6H PRN PRN (Reason: Pain 1-10 Or Fever >100.7) Qty: 0 0RF donepezil 5 mg Tablet 5 mg PO QHS 30 Days Qty: 0 0RF losartan 25 mg Tablet 50 mg PO DAILY Qty: 0 0RF Continued amlodipine 5 mg tablet 5 mg PO DAILY levothyroxine 75 mcg tablet 75 mcg PO DAILY albuterol sulfate 90 mcg/actuation HFA aerosol inhaler 2 puff inhalation Q4H PRN (Reason: asthma) furosemide 40 mg Tablet 20 mg PO DAILY PRN (Reason: Leg swelling) Qty: 0 0RF sennosides-docusate sodium [Stimulant Laxative Plus] 8.6-50 mg Tablet 2 tab PO BID Qty: 0 0RF metoprolol tartrate 25 mg Tablet 25 mg PO BID Qty: 0 0RF atorvastatin 80 mg Tablet 80 mg PO QHS Qty: 0 0RF aspirin 81 mg Tablet,Chewable 81 mg PO DAILYCM Qty: 0 0RF pantoprazole [Protonix] 40 mg tablet,delayed release (DR/EC) 40 mg PO BID 30 Days Qty: 60 2RF ipratropium bromide 0.02 % Solution 0.5 mg inhalation Q4HWA.RT PRN (Reason: sob) Qty: 0 0RF Discontinued valsartan 320 mg tablet 320 mg PO DAILY Referrals / Follow Up: Care Physician,No Primary [Primary Care Provider] - Disposition Disposition (needs filled in before D/C Order can be placed): Detention Facility
--- NOTE | 2024-02-14 12:11 | CASEMGMT ---
Discharge Planning [facility] has accepted. Referrals to [facility] and [facility] cancelled. SW to updated physician. Izabel Balderrama DC Planning Asst.
--- NOTE | 2024-02-14 12:54 | CASEMGMT ---
Social Work Pt accepted at [facility] and can go today. Physician discharged pt. SW completed hospital exemption in the [facility] system. Izabel d/sarthak funeral planning counselor set up a 4pm wheelchair van. SW let pt he was accepted at [facility] and is set up to leave here at 4pm. Pt agreeable. SW let RN know time of transport. SW called son Bernard, let him know [facility] accepted pt and he can go today, and he is set up for a 4pm wheelchair van. SW did let Gene know pt will get a bill for transport. Gene states understanding. Izabel sent discharge instructions to [facility] and notified them of the 4pm pickup. No further needs, pt to [facility], skilled today. MAVIS Lewis
--- NOTE | 2024-02-14 13:47 | DS.PCM_ITS ---
Providers Date of Admission: 02/10/24 Date of Discharge: 02/14/24 Primary Care Physician: No Primary Care Phys Consultations 02/12/24 22:59 Consult: Onc/Wound/receiving room clerk Routine Comment: Comments:: right heel Reason For Visit: ALTERED MENTAL STATUS, FAILURE TO THRIVE Diagnosis Discharge Diagnosis (1) Adult failure to thrive: Status: Acute Code(s): R62.7 - Adult failure to thrive Plan Patient was admitted with generalized weakness, fall, found on the floor for an hour. Patient has increased confusion, inability to take care of himself and failure to thrive. No fevers # Generalized weakness -Likely secondary to prolonged recent hospitalization. Patient was treated with COVID and aspiration pneumonia and for sepsis. COVID PCR is still positive and expected -Patient unable to care for self at home -PT/OT -Case management consult 02/11: Advised case with social media intern follow-up on Tuesday regarding [facility] placement 02/12: Patient he was evaluated by crisis team and does not feel need for inpatient psych placement or [facility]. Patient has intermittent confusion with sometimes delirium. manager financial planning/social media intern will talk to the family for alf. 02/13: No acute change. Patient was started on donezepil. Patient moving bowel. Patient is being accepted into [facility] and being discharged #Fluid overload with history of chronic HFpEF and pulmonary hypertension -Admit to telemetry -BNP 1100, is slightly down from several days ago but still overall up from 02/04/2024 and patient appears overloaded -CXR did report no acute process. Had 1 dose of IV Lasix by admitting hospitalist last echo 01/24/2024 with EF of 50%, LV systolic function lower limits of normal with mild global hypokinesis, PASP 55 02/13: Patient does not meet criteria for acute on chronic HFpEF or acute HFpEF. Patient was started on losartan 25 mg daily, increased to 50 mg daily. #pafib -Presently normal sinus rhythm on EKG -Resume metoprolol at lower dose given patient's heart rate in the 50s and add holding parameters -Not on anticoagulation given recent GI bleed # Recent upper GI bleed -Patient with nonsevere reflux esophagitis and nonbleeding duodenal ulcers seen on EGD 01/25/2024 -Resume PPI #Elevated troponin -84, lower than previous. Denies chest pain -EKG with normal sinus rhythm, some nonspecific ST changes but no STEMI or depressions noted -Monitor on telemetry -resume BB, atorvastatin, aspirin #Hypokalemia and CKD stage IIIb 02/10: Creatinine 1.25., K3.3., Magnesium 1.8. #Hypothyroidism -Resume Synthroid #GERD -Continue PPI #Hypertension -Resume amlodipine and metoprolol decreased dose, holding ARB at this time, if remains hypertensive can resume #DVT ppx: SCDs Discharge medication reconciliation done. Discharge follow-up instructions completed. Discharge process discussed with the patient and all questions were answered to patient's satisfaction. Follow with PCP in 1 to 2 weeks Total time spent, exact 35 minutes on discharge meds reconciliation, examination, coordination of care with nurses and ancillary staff, review of imaging and blood test and discussion with the patient on follow-up instructions. Medications at Discharge Home Medications albuterol sulfate 90 mcg/actuation aerosol inhaler 2 puff inhalation Q4H PRN asthma 01/24/24 amlodipine 5 mg tablet 5 mg PO DAILY cardiac 01/24/24 levothyroxine 75 mcg tablet 75 mcg PO DAILY thyroid 01/24/24 aspirin 81 mg chewable tablet 81 mg PO DAILY Heart Health #0 tabs 02/07/24 atorvastatin 80 mg tablet 80 mg PO QHS Cholesterol #0 tabs 02/07/24 furosemide 40 mg tablet 20 mg (1/2 x 40 mg) PO DAILY PRN Leg swelling #0 tabs 02/07/24 ipratropium bromide 0.02 % solution for inhalation 0.5 mg (2.5 mL) inhalation Q4HWA.RT PRN sob #0 mL 02/07/24 metoprolol tartrate 25 mg tablet 25 mg PO BID BP #0 tabs 02/07/24 pantoprazole 40 mg tablet,delayed release (Protonix) 40 mg PO BID GERD 30 days #60 tabs 02/07/24 sennosides 8.6 mg-docusate sodium 50 mg tablet (Stimulant Laxative Plus) 2 tab PO BID Constipation #0 tabs 02/07/24 acetaminophen 325 mg tablet 650 mg (2 x 325 mg) PO Q6H PRN PRN Pain 1-10 Or Fever >100.7 #0 tabs 02/14/24 donepezil 5 mg tablet 5 mg PO QHS 30 days #0 tabs 02/14/24 losartan 25 mg tablet 50 mg (2 x 25 mg) PO DAILY #0 tabs 02/14/24 Physical Exam Narrative Seen and examined No acute issues. No agitation or delirium. Yesterday patient was evaluated by crisis management and thinks no longer need for psych placement. Physical exam General: Awake, intermittent confusion, oriented x 3. Cooperative. HEENT: Atraumatic, PERRLA, EOMI, Normocephalic Oral: Oral mucosa dry no Gingival or Mucosal Lesions/ Ulcerations Neck: Supple, No JVD, Negative Carotid Bruits Chest wall/Lungs: Air entry diminished in bilateral lung bases. No crepitation/rhonchi. No hypoxia Cardiovascular: Irregular rate and rhythm, Normal S1, Normal S2, No M/G/R Abdomen: Bowel Sounds Present, Soft, Non Tender, Non-Distended : No dysuria. No renal angle tenderness. No suprapubic tenderness. Extremities: Subtle edema, bluish discoloration of toes. Skin: Blister over right heel about 4 cm. Musculoskeletal: No Tenderness to Palpation of Joints or Extremities. ROM restricted. Unsteady gait Neurological: Cranial nerves II-XII grossly intact, DTR 2+/4. No acute focal neurological deficit. Psych/Mental Status: Flat affect. Hard to recollect/recall and remember. Possible dementia Weight / BMI Weight Weight: 169 lb 8.568 oz Body Mass Index (BMI) 22.4 ABG / Lab / Microbiology Data 02/13/24 07:05 02/13/24 07:05 Microbiology: Microbiology 02/10/24 13:44 Mucosa - Nose SARS-CoV-2, Influenza & RSV (PCR) - Final SARS-CoV-2 (COVID 19 PCR) D/C Instructions DC O2, CPAP, BIPAP Needs Home O2 Discharge instructions: No Meaningful Use Info Meaningful Use Meaningful Use Diagnoses (Choose all that apply): None applicable Ischemic Stroke Statin Dosing Therapy Reference: STATIN DOSE THERAPY REFERENCE: * Patients > 75 years receive moderate or high dose statin therapy. * Patients 75 years or YOUNGER should receive HIGH intensity statin dose unless contraindicated. You will be required to document reason for non-treatment if statin daily dose does not meet guidelines. HIGH DOSE STATIN THERAPY DAILY Atorvastatin > than or = to 40 mg Rosuvastatin > than or = to 20 mg Amlodipine + Atorvastatin > than or = to 2.5/40 mg Ezetimibe + Simvastatin 10/80 mg Simvastatin 80mg Discharge Plan Admission Admit Date/Time: 02/10/24 16:34 Primary Reason for Your Visit: Failure to thrive, dementia. Limited ADL Attending Provider: Christian Navarro Primary Care Provider: Care Physician,No Primary Consulting Providers: Leana Jimenez Discharge Orders/Prescriptions Prescriptions: New acetaminophen 325 mg Tablet 650 mg PO Q6H PRN PRN (Reason: Pain 1-10 Or Fever >100.7) Qty: 0 0RF donepezil 5 mg Tablet 5 mg PO QHS 30 Days Qty: 0 0RF losartan 25 mg Tablet 50 mg PO DAILY Qty: 0 0RF Continued amlodipine 5 mg tablet 5 mg PO DAILY levothyroxine 75 mcg tablet 75 mcg PO DAILY albuterol sulfate 90 mcg/actuation HFA aerosol inhaler 2 puff inhalation Q4H PRN (Reason: asthma) furosemide 40 mg Tablet 20 mg PO DAILY PRN (Reason: Leg swelling) Qty: 0 0RF sennosides-docusate sodium [Stimulant Laxative Plus] 8.6-50 mg Tablet 2 tab PO BID Qty: 0 0RF metoprolol tartrate 25 mg Tablet 25 mg PO BID Qty: 0 0RF atorvastatin 80 mg Tablet 80 mg PO QHS Qty: 0 0RF aspirin 81 mg Tablet,Chewable 81 mg PO DAILYCM Qty: 0 0RF pantoprazole [Protonix] 40 mg tablet,delayed release (DR/EC) 40 mg PO BID 30 Days Qty: 60 2RF ipratropium bromide 0.02 % Solution 0.5 mg inhalation Q4HWA.RT PRN (Reason: sob) Qty: 0 0RF Discontinued valsartan 320 mg tablet 320 mg PO DAILY Referrals / Follow Up: Care Physician,No Primary [Primary Care Provider] - Disposition Disposition (needs filled in before D/C Order can be placed): [facility] Facility Charges/Coding Visit Charges Inpatient E&M: 97009 Disch Hosp >30min
--- NOTE | 2024-02-14 15:44 | NURSING ---
Call placed to [facility] and report given to [place] with all questions answered.
--- NOTE | 2024-02-14 16:32 | CASEMGMT ---
Social Work When pt left for [facility], he did not remember that he was going to SNF, and was concerned son Gene did not know where he was, was trying to call him. SW called Gene, left him a message to let him know pt did not remember that he was going to SNF and was concerned Gene did not know where he was going, SW suggested he follow up w/pt once he gets to the [facility]. MAVIS Lewis
== END 2024-02-14 16:27 | DRG 884 ==
LOC: ED 16:14 → PCU 16:39
PROVIDERS: Nurse Practitioner; Admitting Provider Internal Medicine; Emergency Provider Emergency Medicine; Visit Provider Internal Medicine
DX: R54 Age-related physical debility (principal); R62.7 Adult failure to thrive; N18.32 Chronic kidney disease, stage 3b; E03.9 Hypothyroidism, unspecified; I12.9 Hypertensive chronic kidney disease with stage 1 through stage 4 chronic kidney disease, or unspecified chronic kidney disease; I48.0 Paroxysmal atrial fibrillation; E87.6 Hypokalemia; K21.00 Gastro-esophageal reflux disease with esophagitis, without bleeding; E87.70 Fluid overload, unspecified; I25.2 Old myocardial infarction; Z86.16 Personal history of COVID-19; R29.6 Repeated falls; Z68.25 Body mass index [BMI] 25.0-25.9, adult; Z79.82 Long term (current) use of aspirin; Z86.73 Personal history of transient ischemic attack (TIA), and cerebral infarction without residual deficits
CPT/HCPCS: 36415; 51702; 70450; 71045; 71046; 80048; 80053; 81001; 82550; 82803; 83605; 83735; 83880; 84100; 84484; 85025; 85379; 87631; 93005; 94640; 96372; 97110; 97116; 97162; 97166; 97530; 97535; 99283; 99285; A4216; J1940; J3486

== ENCOUNTER → 2024-03-22 | Outpatient (CLI) | payer MEDICARE, OTHER, SELFPAY | END | disposition home or self-care (01) | PROVIDERS: PCP Family Medicine Geriatric Medicine; Referring Provider Family Medicine Geriatric Medicine; Visit Provider Family Medicine Geriatric Medicine | DX: J44.9 Chronic obstructive pulmonary disease, unspecified (principal) | CPT/HCPCS: 94060 ==

== ENCOUNTER → 2024-07-03 | Outpatient (CLI) | payer MEDICARE, OTHER, SELFPAY ==
[2024-07-03 15:26] LABS: Absolute Lymphocyte Count 1.54 X10^3/uL (0.83-4.51); Absolute Neutrophil Count 6.4 X10^3/uL (2.0-7.7); Basophil% 1.1 % (0-1); Eosinophil# 0.08 X10^3/uL; Eosinophils% 0.9 % (0-5); Hematocrit 42.2 % (40-54); Hemoglobin 14.8 g/dL (13.0-16.5); Lymphocyte # 1.54 X10^3/ul (0.83-4.51); Lymphocyte % 17.4 % (19-41); Mean Corp Hgb Conc 35.1 g/dL (32-36); Mean Corpuscular Hgb 34.8 pg (27.0-32.0); Mean Corpuscular Volume 99.3 fL (80-94); Mean Platelet Vol. 11.7 fl (6.2-12.0); Monocyte# 0.72 X10^3/uL; Monocyte% 8.1 % (0-10); NRBC Flagged by Analyzer 0 % (0-5); Neutrophil # 6.38 X10^3/uL (2.7-7.7); Platelet Count 209 K/mm3 (150-450); RBC Distribution Width CV 13.4 % (11.6-14.6); RBC Distribution Width SD 48.9 fl (35.1-43.9); Red Blood Count 4.25 M/mm3 (4.6-6.2); White Blood Count 8.9 K/mm3 (4.4-11.0)
[2024-07-03 16:29] LABS: ALB/GLOB Ratio 1.5 RATIO (0.9-2.4); AST(SGOT) 27 U/L (<=37); Alanine Aminotransfer ALT/SGPT 11 U/L (<=46); Albumin, Serum 4.4 g/dL (3.4-4.8); Alkaline Phosphatase 81 U/L (40-129); Anion Gap 13 (5-15); BUN 21 mg/dL (4-19); BUN/Creat Ratio 14.7 RATIO (10-20); Calcium,Total 9.9 mg/dL (7.6-11.0); Carbon Dioxide 21.3 mmol/L (21.0-32.0); Chloride 106 mmol/L (98-108); Creatinine, Serum 1.45 mg/dL (0.70-1.20); EST Glomerular Filtration Rate 49 (>60); Glucose 109 mg/dL (70-99); Protein, Total 7.5 g/dL (5.9-8.4); Sodium Level 140 mmol/L (133-145); Total Bilirubin 1.17 mg/dL (0.00-1.30)
== END | disposition home or self-care (01) ==
LOC: LAB 13:26
PROVIDERS: PCP Family Medicine Geriatric Medicine; Referring Provider Family Medicine Geriatric Medicine; Visit Provider Family Medicine Geriatric Medicine
DX: I10 Essential (primary) hypertension (principal); E55.9 Vitamin D deficiency, unspecified
CPT/HCPCS: 36415; 80053; 82306; 84443; 85025

== ENCOUNTER → 2025-01-07 | Outpatient (CLI) | payer MEDICARE, OTHER, SELFPAY ==
[2025-01-07 13:20] LABS: Hematocrit 43.4 % (40-54); Hemoglobin 14.8 g/dL (13.0-16.5); Immature Granulocytes Count 0.050 X10^3/uL (0.0-0.0); Mean Corp Hgb Conc 34.1 g/dL (32-36); Mean Corpuscular Volume 100.9 fL (80-94); Mean Platelet Vol. 10.6 fl (6.2-12.0); NRBC Flagged by Analyzer 0 % (0-5); Platelet Count 220 K/mm3 (150-450); RBC Distribution Width CV 13.7 % (11.6-14.6); RBC Distribution Width SD 50.6 fl (35.1-43.9); Red Blood Count 4.30 M/mm3 (4.6-6.2); White Blood Count 9.8 K/mm3 (4.4-11.0)
[2025-01-07 13:48] LABS: AST(SGOT) 23 U/L (<=37); Alanine Aminotransfer ALT/SGPT 11 U/L (<=46); Albumin, Serum 4.4 g/dL (3.4-4.8); Alkaline Phosphatase 78 U/L (40-129); Anion Gap 12 (5-15); BUN 30 mg/dL (4-19); BUN/Creat Ratio 16.8 RATIO (10-20); Calcium,Total 9.7 mg/dL (7.6-11.0); Carbon Dioxide 21.4 mmol/L (21.0-32.0); Chloride 107 mmol/L (98-108); Globulin 3.2 g/dL (2.2-4.2); Glucose 138 mg/dL (70-99); Potassium 4.6 mmol/L (3.3-5.1)
[2025-01-07 21:12] LABS: Xtra Tube Kwok EXTRA TUBE
== END | disposition home or self-care (01) ==
LOC: POLAB3 13:11
PROVIDERS: PCP Family Medicine Geriatric Medicine; Visit Provider Family Medicine Geriatric Medicine
DX: I10 Essential (primary) hypertension (principal); E03.9 Hypothyroidism, unspecified
CPT/HCPCS: 36415; 80053; 84443; 85025

== ENCOUNTER → 2025-01-14 | Outpatient (CLI) | payer MEDICARE, OTHER, SELFPAY ==
[2025-01-14 15:14] LABS: Anion Gap 14 (5-15); BUN 21 mg/dL (4-19); BUN/Creat Ratio 12.9 RATIO (10-20); Calcium,Total 9.6 mg/dL (7.6-11.0); Carbon Dioxide 19.1 mmol/L (21.0-32.0); Chloride 104 mmol/L (98-108); Glucose 147 mg/dL (70-99); Potassium 4.9 mmol/L (3.3-5.1)
[2025-01-14 21:41] LABS: Xtra Tube Kwok EXTRA TUBE
== END | disposition home or self-care (01) ==
LOC: POLAB3 13:41
PROVIDERS: PCP Family Medicine Geriatric Medicine; Visit Provider Family Medicine Geriatric Medicine
DX: R53.83 Other fatigue (principal)
CPT/HCPCS: 36415; 80048